=== PATIENT | male | born 1945 | race Caucasian/White ===

== ENCOUNTER 2022-04-22 09:17 | Outpatient (CLI) | payer MEDICARE, OTHER, SELFPAY | END 2022-04-22 09:18 | disposition home or self-care (01) | PROVIDERS: PCP Family Medicine; Visit Provider Family Medicine | DX: R41.82 Altered mental status, unspecified (principal); I95.9 Hypotension, unspecified | CPT/HCPCS: A0998 ==

== ENCOUNTER 2024-08-21 14:09 | Outpatient (CLI) | payer MEDICARE, OTHER, SELFPAY | END 2024-08-21 14:10 | disposition home or self-care (01) | LOC: AMB 09-06 05:44 | PROVIDERS: PCP Family Medicine; Visit Provider Family Medicine | DX: R53.1 Weakness (principal) | CPT/HCPCS: A0425; A0427 ==

== ENCOUNTER 2024-08-21 14:59 | Emergency (ER) | payer MEDICARE, OTHER, SELFPAY ==
--- NOTE | 2024-08-21 15:09 | ED_ITS ---
HPI - General Adult General Time Seen by Provider: 15:09 Date Seen: 08/21/24 Chief complaint: Weakness Stated complaint: Fall Time Seen by Provider: 08/21/24 15:09 Source: patient, EMS and RN notes reviewed Mode of arrival: EMS Limitations: no limitations History of Present Illness HPI narrative: This 79-year-old male is brought in by EMS from [place] with increasing weakness. He has had 5 falls since Tuesday, today is Tuesday. He did hit his forehead today, no loss of consciousness. Denies any headache. Is not any blood thinner. He does have some left lower knee pain, hurts to stand on it reportedly. EMS got blood pressures from sitting to standing of systolic 90s down to 70s. Patient reportedly has not been coming down to the dining room to eat as much. Patient tells me he has had no change in his appetite, is still eating. No nausea vomiting, no diarrhea, no abdominal pain. Denies any cough or chest symptoms, no chest pain. Denies any urinary symptoms. The falls are reportedly just slumping to ground other than the 1 where he hit his forehead. That happened today. He has not noted any fevers. Patient's medications include atorvastatin and iron. He has facility p.r.n. and which are reviewed. They do not have prior diagnoses on file, does have no known drug allergies. Did review [facility] and see that there is dilation of aorta, depression listed. [place] [facility] [place] did have [place] bleed, close fracture right zygomatic arch noted. Review of Systems Status of ROS: Reports: 6 or more systems reviewed and unremarkable except as noted in History and below [facility] Social History Smoking Status: Never smoker How often do you have a drink containing alcohol: never AUDIT-C Alcohol total score: 0 Non-prescribed substance use: denies use Exam Const: Vital Signs, click to edit/add: Vital Signs - 24 hr 08/21/24 15:24 Temperature 98.2 F Pulse Rate [Pulse Oximeter] 89 Respiratory Rate 20 Blood Pressure [Ri ght Upper Arm] 114/81 Pulse Oximetry 98 Oxygen Delivery Me thod Room Air This 79-year-old male is alert and interactive, brought in by EMS. He is si tting up in the bed and conversant. He has a superficial abrasion in the right front forehead, no active bleeding, probably some underlying ecchymosis developing. Pupils are equal round reactive to light, sclera clear, conjugate gaze. Symmetrical facial function, speech is normal. No midline tenderness of his neck, good range of motion without pain. Lungs are clear, no wheezing or crackles, no tachypnea. CV regular rate and rhythm, normal S1-S2. Abdomen is soft, nontender, nondistended, no organomegaly. He is moving arms and legs, no focal gross neurologic deficit noted, follows commands. He does have a strong smell of urine. Documenting provider has reviewed patient's vital signs: yes Course Course ED Course: He misses reporting a hypotensive but non febrile patient. Certainly infectious etiology would be a concern here. He did fall in will get a head CT. He is notably not on any blood thinners. Will look at a portable chest x-ray in full complement of labs. EKG has been obtained and does not show any definitive pathology on my preliminary review. Consider metabolic issues. Does not seem to be acute cerebrovascular disease but will consider bleeding intracranially. He does appear that he may have a history of this. Reevaluation(s) Time of Reevaluation #1: 17:58 Reevaluation #1: Patient states he has been unable to provide a urine. He was declining in and out catheterization. Reviewed with him that we certainly can do Uro jet for numbing. He states it hurts, reviewed with him I do understand hopefully the Uro jet will help diminish this. We really need the urinalysis to fully evaluate him. My fear is if he goes back without knowing the urinalysis and there is infection, he is certainly at risk for falling again. We have no evidence of any concerning etiology for his symptoms at this time but consider the workup incomplete without the urinalysis. He does agree to attempt in out catheterization for urine specimen with the uro jet. Time of Reevaluation #2: 19:28 Reevaluation #2: We are not finding any diagnostic reason such as infection with Peter. He has no complaints of pain at this time. Did review his lower extremities. He has some dependent rubor of his toes in both feet, has them hanging off the into the bed somewhat. He has some in different levels of age bruising over both knees, some more yellowish greenish, some more purplish in new. He has no joint line swelling, I can flex and extend his knees he states there is no pain. Note no evidence of cellulitis over his extremities. Did visualize is back in do not see any cellulitic areas or traumatic areas. Lab certainly are reassuring, have reviewed with him that there is nothing that overtly standing out to correct at this time. He is aware to alert staff if he is having increasing pain, is feeling ill or developing specific symptoms. I would recommend re-evaluation. Vital Signs Vital signs: Initial Vital Signs Temperature 98.2 F 08/21/24 15:24 Temperature Source Temporal Artery Scan 08/21/24 15:24 Pulse Rate 89 08/21/24 15:24 Respiratory Rate 20 08/21/24 15:24 Blood Pressure 114/81 08/21/24 15:24 Blood Pressure Mean 92 08/21/24 15:24 Blood Pressure Position Semi-Fowlers 08/21/24 15:24 Pulse Oximetry 98 08/21/24 15:24 Oxygen Delivery Method Room Air 08/21/24 15:24 Vital Signs Temperature 98.2 F 08/21/24 15:24 Pulse Rate 89 08/21/24 15:24 Respiratory Rate 20 08/21/24 15:24 Blood Pressure 114/81 08/21/24 15:24 Pulse Oximetry 98 08/21/24 15:24 Oxygen Delivery Method Room Air 08/21/24 15:24 Temperature 98.2 F 08/21/24 15:24 Pulse Rate 89 08/21/24 15:24 Respiratory Rate 20 08/21/24 15:24 Blood Pressure 114/81 08/21/24 15:24 Pulse Oximetry 98 08/21/24 15:24 Oxygen Delivery Method Room Air 08/21/24 15:24 Medical Decision Making Lab Data Labs: Lab Results 08/21/24 08/21/24 08/21/24 Range/Units 15:15 15:41 16:35 WBC 9.80 (4.50-11.00) K/uL RBC 4.54 (4.30-5.90) m/uL Hgb 13.4 L (13.5-17.5) gm/dL Hct 41.8 (37.0-53.0) % MCV 92 (80-100) fL MCH 30 (26-34) pg MCHC 32 (32-36) gm/dL RDW Coeff of Kristen 13.8 (11.5-15.5) % Plt Count 217 (140-440) K/uL Neut % (Auto) 81.8 H (42.0-72.0) % Lymph % (Auto) 9.7 L (20-44) % Morrill % (Auto) 8.2 (0.0-11.0) % Eos % (Auto) 0.1 (0.0-7.0) % Baso % (Auto) 0.1 (0.0-3.0) % Neut # (Auto) 8.00 H (1.7-7.0) K/uL Lymph # (Auto) 1.00 (0.90-2.90) K/uL Morrill # (Auto) 0.80 (0.00-0.90) K/UL Eos # (Auto) 0.01 (0.00-0.50) K/uL Baso # (Auto) 0.01 (0.00-0.30) K/uL Abs Immat Gran (auto) 0.01 (0.00-0.30) K/uL Imm/Tot Granulo (auto) 0.1 % Sodium 135 (135-149) mmol/L Potassium 4.2 (3.6-5.1) mmol/L Chloride 102 (96-114) mmol/L Carbon Dioxide 27 (20-32) mmol/L Anion Gap 6 L (7-15) mEq/L BUN 41 H (7-30) mg/dL Creatinine 1.6 H (0.5-1.5) mg/dL Estimated Creat Clear 39.49 Estimated GFR 43 ml/min Glucose 112 (60-115) mg/dL Lactate 2.0 H (0.5-1.9) mmol/L Calcium 8.9 (8.4-10.6) mg/dL Total Bilirubin 1.2 (0.1-1.5) mg/dL AST 33 (12-35) U/L ALT 18 (4-50) U/L Alkaline Phosphatase 57 (40-150) U/L Troponin I 0.03 (0.01-0.04) ng/mL C-Reactive Protein 2.8 H (0.5-1.0) mg/dL Total Protein 6.6 (6.0-8.3) g/dL Albumin 3.6 (3.3-5.0) g/dL Procalcitonin 0.11 (<0.50) ng/mL Urine Color Yellow (Yellow) Urine Appearance Clear (Clear) Urine pH 6.0 (5.0-8.5) Ur Specific [place] >= 1.030 (1.000-1.030) Urine Protein 1+ A (Negative) Urine Glucose (UA) Negative (Negative) Urine Ketones 1+ A (Negative) Urine Blood Negative (Negative) Urine Nitrite Negative (Negative) Urine Bilirubin 1+ A (Negative) Urine Urobilinogen 1.0 (0.2-1.0) Ur Leukocyte Esterase Negative (Negative) Urine RBC 0-2 (0-2) Urine WBC 0-2 (0-5) Ur Squamous Epith Cells Few (None-Few) Urine Bacteria None (None) SARS-CoV-2 (PCR) Negative SARS-CoV-2 (Negative) Influenza Type A (PCR) Negative PCR FLU A (Negative) Influenza Type B (PCR) Negative PCR FLU B (Negative) RSV (PCR) Negative PCR RSV (Negative) Imaging Data CT scan - head: Attestation: I have reviewed the pertinent imaging results. Radiologist's impression: Patient: TIFFANIE MANDUJANO Facility:?[facility] Patient ID:?[id number] Site Patient ID:?[id number] Site :?[id number] Study:?CT-Head WITHOUT-08/21/2024 3:53:12 PM Ordering Physician:Krissy Carrion Final Report: INDICATION: FELL, HIT HEAD TECHNIQUE: CT of the head was performed without IV contrast. COMPARISON: Report 06/17/2018. FINDINGS: Parenchyma: No acute hemorrhage, infarction, or mass. Moderate confluent periventricular white matter hypoattenuation is nonspecific and is favored to represent chronic small vessel ischemic disease. Mild left temporal encephalomalacia. Ventricles and extra-axial spaces: Mild involutional changes. Possible small 3 millimeter left frontal chronic subdural hematoma versus hygroma. 4 millimeter of [id number] midline shift. Visualized paranasal sinuses: Clear. Mastoid air cells: Clear. Bones: No focal abnormality. Additional comment: None. IMPRESSION: 1. No acute intracranial abnormality. 2. Possible small 3 millimeter left frontal chronic subdural hematoma versus hygroma in association with 4 millimeter of left to right midline shift. Please note that all CT scans at this facility use dose modulation, iterative reconstruction, and/or weight-based dosing when appropriate to reduce radiation dose to as low as reasonably achievable. Dictated by Solitario Quan MD @ 08/21/2024 4:03:21 PM (Electronic Signature) Chest x-ray: Attestation: I have reviewed the pertinent imaging results. Radiologist's impression: Patient: TIFFANIE MANDUJANO Facility:?[facility] Patient ID:?[id number] Site Patient ID:?[id number]. Site :?[id number] Study:?XRay-Chest 1V-08/21/2024 3:56:54 PM Ordering Physician:?Floyd Carrion Final Report: INDICATION: Weakness TECHNIQUE: 1 view chest radiograph COMPARISON: None. FINDINGS: Devices: None. Lung volumes are good. No focal or diffuse opacities. No pleural effusion. No pneumothorax. Heart size is normal. IMPRESSION: Lungs clear. No acute findings. Dictated by Court Lazar MD @ 08/21/2024 4:06:39 PM (Electronic Signature) ECG Data Attestation: I personally reviewed and interpreted this ECG as follows: (Normal sinus rhythm, nonspecific flattened T-waves, low-voltage possible. No definitive diagnostic ischemic change. QT corrected 519 milliseconds.) Discharge Plan Discharge Clinical Impression: Weakness Patient Disposition: Home w/ Parent or Adult Condition: Stable Instructions: Weakness (ED) Additional Instructions: Patient's head CT showing no acute abnormality, chest x-ray without any evidence of pneumonia. His white blood count is normal, urinalysis not indicating any infection. He is negative on the triple viral swab. We are not showing any reason for active causes of weakness. Would encourage him to eat and drink. If a focal symptom is noted, develops fevers, has new complaints, we are happy to re-evaluate in the ER. Follow Up/Referrals: Calderon Charles MD [Referring] - Stand Alone Forms: [facility]
--- NOTE | 2024-08-21 15:14 | CRLHL7_ITS ---
For Patients: As a result of the Century Cures Act, medical imaging exams and procedure reports are released immediately into your electronic medical record. You may view this report before your referring provider. If you have questions, please contact your health care provider. INDICATION: FELL, HIT HEAD TECHNIQUE: CT of the head was performed without IV contrast. COMPARISON: Report 06/17/2018. FINDINGS: Parenchyma: No acute hemorrhage, infarction, or mass. Moderate confluent periventricular white matter hypoattenuation is nonspecific and is favored to represent chronic small vessel ischemic disease. Mild left temporal encephalomalacia. Ventricles and extra-axial spaces: Mild involutional changes. Possible small 3 millimeter left frontal chronic subdural hematoma versus hygroma. 4 millimeter of [id number] midline shift. Visualized paranasal sinuses: Clear. Mastoid air cells: Clear. Bones: No focal abnormality. Additional comment: None. IMPRESSION: 1. No acute intracranial abnormality. 2. Possible small 3 millimeter left frontal chronic subdural hematoma versus hygroma in association with 4 millimeter of left to right midline shift. Please note that all CT scans at this facility use dose modulation, iterative reconstruction, and/or weight-based dosing when appropriate to reduce radiation dose to as low as reasonably achievable. Dictated by Solitario Quan MD @ 08/21/2024 4:03:21 PM (Electronically Signed)
--- NOTE | 2024-08-21 15:14 | CRLHL7_ITS ---
For Patients: As a result of the Century Cures Act, medical imaging exams and procedure reports are released immediately into your electronic medical record. You may view this report before your referring provider. If you have questions, please contact your health care provider. INDICATION: Weakness TECHNIQUE: 1 view chest radiograph COMPARISON: None. FINDINGS: Devices: None. Lung volumes are good. No focal or diffuse opacities. No pleural effusion. No pneumothorax. Heart size is normal. IMPRESSION: Lungs clear. No acute findings. Dictated by Court Lazar MD @ 08/21/2024 4:06:39 PM (Electronically Signed)
[2024-08-21 15:24] VITALS: BP 114/81; PULSE 89; RESP 20; TEMP 36.8; O2SAT 98; BMI 21.8
[2024-08-21 16:37] LABS: PCR FLU A Negative PCR FLU A (Negative); PCR FLU B Negative PCR FLU B (Negative); PCR RSV Negative PCR RSV (Negative); SARS PCR* Negative SARS-CoV-2 (Negative)
[2024-08-21 16:45] LABS: Basophils Absolute Auto 0.01 K/uL (0.00-0.30); Basophils Percent Auto 0.1 % (0.0-3.0); Eosinophils Absolute Auto 0.01 K/uL (0.00-0.50); Eosinophils Percent Auto 0.1 % (0.0-7.0); Hematocrit 41.8 % (37.0-53.0); Hemoglobin* 13.4 gm/dL (13.5-17.5); Immature Granulocytes Abs Auto 0.01 K/uL (0.00-0.30); Immature Granulocytes Pct Auto 0.1 %; Lymphocytes Percent Auto 9.7 % (20-44); Mean Corpuscular HGB Conc 32 gm/dL (32-36); Mean Corpuscular Hemoglobin 30 pg (26-34); Mean Corpuscular Volume 92 fL (80-100); Monocytes Percent Auto 8.2 % (0.0-11.0); Neutrophils Percent Auto 81.8 % (42.0-72.0); Platelet Count* 217 K/uL (140-440); RDW Coefficient of Variation % 13.8 % (11.5-15.5); Red Blood Count 4.54 m/uL (4.30-5.90)
[2024-08-21 16:49] LABS: Slide Review Reflex No
[2024-08-21 17:07] LABS: Albumin* 3.6 g/dL (3.3-5.0); Chloride* 102 mmol/L (96-114)
[2024-08-21 17:08] LABS: Potassium* 4.2 mmol/L (3.6-5.1); Sodium* 135 mmol/L (135-149)
[2024-08-21 17:10] LABS: Alkaline Phosphatase* 57 U/L (40-150); Anion Gap 6 mEq/L (7-15); Aspartate Amino Transferase* 33 U/L (12-35); Bilirubin Total* 1.2 mg/dL (0.1-1.5); Carbon Dioxide* 27 mmol/L (20-32); Creatinine* 1.6 mg/dL (0.5-1.5); Est. Creatinine Clearance* 39.49; Estimated Glomerular Filt Rate 43 ml/min; Total Protein* 6.6 g/dL (6.0-8.3)
[2024-08-21 17:11] LABS: Alanine Aminotransferase* 18 U/L (4-50); Blood Urea Nitrogen* 41 mg/dL (7-30); Calcium* 8.9 mg/dL (8.4-10.6); Glucose* 112 mg/dL (60-115)
[2024-08-21 17:13] LABS: C Reactive Protein* 2.8 mg/dL (0.5-1.0)
[2024-08-21 17:23] LABS: Troponin I* 0.03 ng/mL (0.01-0.04)
[2024-08-21 17:28] LABS: Procalcitonin* 0.11 ng/mL (<0.50)
[2024-08-21 18:17] LABS: Appearance Urine Clear (Clear); Bilirubin Urine 1+ (Negative); Blood Urine Negative (Negative); Color Urine Yellow (Yellow); Glucose Urine Negative (Negative); Ketones Urine 1+ (Negative); Leukocyte Esterase Urine Negative (Negative); Nitrite Urine Negative (Negative); Protein Urine 1+ (Negative); Specific Gravity Urine >= 1.030 (1.000-1.030)
[2024-08-21 18:44] LABS: RBC Urine 0-2 (0-2); Squamous Epithelial Cell Urine Few (None-Few); WBC Urine 0-2 (0-5)
== END 2024-08-21 20:07 | disposition home or self-care (01) ==
PROVIDERS: Emergency Provider Family Medicine; PCP Family Medicine
DX: R53.1 Weakness (principal)
CPT/HCPCS: 36415; 70450; 71045; 80053; 81001; 83605; 84145; 84484; 85025; 86140; 87631; 94761; 99284

== ENCOUNTER 2024-09-04 09:28 | Outpatient (CLI) | payer MEDICARE, OTHER, SELFPAY | END 2024-09-04 09:29 | disposition home or self-care (01) | LOC: AMB 09-14 04:23 | PROVIDERS: PCP Family Medicine; Visit Provider Family Medicine | DX: R55 Syncope and collapse (principal); K92.1 Melena | CPT/HCPCS: A0425; A0427 ==

== ENCOUNTER 2024-09-04 10:06 | Inpatient (IN) | payer MEDICARE, OTHER, SELFPAY ==
[2024-09-04] VITALS (14 sets, daily range): BP systolic 80–148; BP diastolic 53–101; PULSE 78–110; RESP 12–20; TEMP 36.5–36.6; O2SAT 93–97; BMI 21.8; BMI 24.5
--- OUTSIDE RECORDS SUMMARY | 2024-09-04 10:18 | XMS_ITS | CCD ---
Author Name Leticia Machado PA-C Address [address] [place] [address] Phone Organization [facility] Phone Care Team Providers Care Photo Checker Name Role Phone Celine MONROE-CJoseline Primary Care Provider Katy vailable Celine GROUT MACHINE OPERATOR-CJoseline Chronic Care Management U navailable Summary Purpose DataExchange Insurance Providers Payer name Policy type / Coverage type Covered green party ID Effective Begin Date Effective End Date Medicare [place] Medicare Part B [id number] Unknown 2023 1 Medica ([facility]) Medicare Part B [id number] Unknown 2023 1 Family History Family History data not found Allergies, Adverse Reactions, Alerts Substance Reaction Codes Entered Date Inactivated Date Status * NO KNOWN DRUG ALLERGIES Unknown 07/30/2021 No Inactive Date Active Problems Condition Codes Effective Dates Condition St atus Aortic dilatation ICD-10: I77.819 ICD-9: 447.70 10/08/2021 Active Dyslipidemia ICD-10: E78.5 ICD-9: 272.4 10/08/2021 Active Enteritis ICD-10: K52.9 ICD-9: 558.9 10/08/2021 Active Erectile dysfunction of orga yuniel origin ICD-10: N52.9 ICD-9: 607.84 10/08/2021 Active Frequent falls ICD-10: R29.6 ICD-9: V15.88 10/08/2021 Active Iron deficiency anemia, unsp ecified iron deficiency anemia type ICD-10: D50.9 ICD-9: 280.9 10/08/2021 Active Irregular heart rhythm ICD-10: I49.9 ICD-9: 427.9 10/08/2021 Active Normocytic anemia ICD-10: D64.9 ICD-9: 285.9 10/08/2021 Active Recurrent major depressive disorder, in full remission ICD-10: F33.42 ICD-9: 296.36 10/08/2021 Active Tobacco use disorder ICD-10: F17.200 ICD-9: 305.1 10/08/2021 Active Traumatic brain injury with loss of consciousness, sequela ICD-10: S06.9X9S ICD-9: 907.0 10/08/2021 Active Vitamin D deficiency ICD-10: E55.9 ICD-9: 268.9 10/08/2021 Active Medications Medication Codes Instructions Start Date Stop Date Status Fill Instructions acetaminophen 325 mg tablet RxNorm: 531287 Take 2 Tablet(s) Oral Q4H every four hours as needed PRN mild pain. NOT TO EXCEED 3,000 MG IN 24 HOURS 10/08/19 22 No Stop Date Active Vitamin D2 1,250 mcg (50,000 unit) capsule RxNorm: 6343650 1 Capsule(s) Oral QW once a week TAKE ONCE CAPSULE ONCE WEEKLY 10/08/19 22 022 Inactive dextromethorphan-gu aifenesin 10 mg-100 mg/5 mL oral liquid RxNorm: 423349 as needed TAKE 5-10ML BY MOUTH EVERY 4-6HOURS NEEDED FOR COUGH OR CONGESTION 10/08/19 22 No Stop Date Active dx: cough due to Covid19 calcium carbonate 500 mg calcium (1,250 mg) chewable tablet RxNorm: 890484 Chew 2-4 Tablet(s) Oral as needed CHEW 2-4 TABLETS BY MOUTH BETWEEN MEALS AND AT BEDTIME NEEDED 10/08/19 22 No Stop Date Active ibuprofen 200 mg tablet RxNorm: 767400 Take 1-2 Tablet(s) Oral Q4-6H every 4-6 hours as needed NOT TO EXCEED 6 TABS IN 24 HOURS 10/08/19 22 No Stop Date Active aluminum-mag hydroxide-simethico ne 200 mg-200 mg-20 mg/5 mL oral susp RxNorm: 141198 Take 5-10 Milliliter(s) Oral QID as needed ONE TIME BETWEEN MEAL AND AT BEDTIME (STANDING ORDER) 10/08/19 22 No Stop Date Active Milk of Magnesia 400 mg/5 mL oral suspension RxNorm: 401964 Take 15-30 Milliliter(s) Oral QD QD - Daily as needed 10/08/19 22 No Stop Date Active diphenhydramine 25 mg capsule RxNorm: 9772975 Give 1-2 Capsule(s) Oral Q8H every 8 hours as needed FOR ALLERGIES 10/08/19 22 No Stop Date Active ferrous sulfate 325 mg (65 mg iron) tablet RxNorm: 931389 Take 1 Tablet(s) Oral QD 10/06/19 22 024 Inactive atorvastatin 40 mg tablet RxNorm: 684240 Take 1 Tablet(s) Oral QHS every night at bedtime 10/06/19 22 023 Inactive CertaVite Senior oral RxNorm: oral 09/28/19 24 024 Inactive Oyster Shell Calcium oral RxNorm: 1897 oral 09/28/19 24 024 Inactive Medication Administered No Medication Administered data Immunizations Vaccine Codes Dose Date Status Covid-19 (Adult) CVX: 207 07/22/2021 Influenza CVX: 205 1 06/22/2021 Complete Covid-19 (Adult) CVX: 207 08/28/2020 Covid-19 (Adult) CVX: 207 08/25/2020 Results Observation Observation Code Item Item Code Result Date Service Location Vitamin B12 VITAB12 Vitamin B12 2132-9 257 pg/mL 22 Unknown Pro-BNP-NT PROBNPNT Pro-BNP-NT 81 pg/mL 10/17/19 22 Unknown Vitamin D, 25-Hydroxy VITAD25 Vitamin D, 25-Hydroxy 60823-4 100 ng/mL 10/17/19 22 Unknown CBC with Differential / Platelets CBCDIFF Baso (Absolute) 0.15 x10E3/uL 10/17/19 22 Unknown CBC with Differential / Platelets CBCDIFF Basos 2.20 % 10/17/19 22 Unknown CBC with Differential / Platelets CBCDIFF Eos 2.6 % 10/17/19 22 Unknown CBC with Differential / Platelets CBCDIFF Eos (Absolute) 0.18 x10E3/uL 10/17/19 22 Unknown CBC with Differential / Platelets CBCDIFF Hematocrit 4544-3 44.2 % 10/17/19 22 Unknown CBC with Differential / Platelets CBCDIFF Hemoglobin 718-7 14.6 g/dL 10/17/19 22 Unknown CBC with Differential / Platelets CBCDIFF LYMPHOCYTES 30.0 % 10/17/19 22 Unknown CBC with Differential / Platelets CBCDIFF Lymphocytes (Absolute) 2.07 x10E3/uL 10/17/19 22 Unknown CBC with Differential / Platelets CBCDIFF MCH 30.7 pg 10/17/19 22 Unknown CBC with Differential / Platelets CBCDIFF MCHC 33.0 g/dL 10/17/19 22 Unknown CBC with Differential / Platelets CBCDIFF MCV 787-2 92.9 % 10/17/19 22 Unknown CBC with Differential / Platelets CBCDIFF Monocytes 8.4 % 10/17/19 22 Unknown CBC with Differential / Platelets CBCDIFF Monocytes (Absolute) 0.58 x10E3/uL 10/17/19 22 Unknown CBC with Differential / Platelets CBCDIFF MPV 12624-4 10.9 fL 10/17/19 22 Unknown CBC with Differential / Platelets CBCDIFF Neutrophils 55.50 % 10/17/19 22 Unknown CBC with Differential / Platelets CBCDIFF Neutrophils (Absolute) 3.84 x10E3/uL 10/17/19 22 Unknown CBC with Differential / Platelets CBCDIFF Platelets 777-3 237 x10E3/uL 10/17/19 22 Unknown CBC with Differential / Platelets CBCDIFF RBC 4.76 x10^6/UL 10/17/19 22 Unknown CBC with Differential / Platelets CBCDIFF RDW 13.2 %binding 10/17/19 22 Unknown CBC with Differential / Platelets CBCDIFF WBC 6690-2 6.91 x10E3/uL 10/17/19 22 Unknown Lipid Panel (LP) LIPIDPAN CHOLESTEROL, TOTAL 52729-0 129 mg/dL 10/17/19 Unknown Lipid Panel (LP) LIPIDPAN HDL CHOLESTEROL 2085-9 56.3 mg /dL 10/17/19 22 Unknown Lipid Panel (LP) LIPIDPAN LDL CHOLESTEROL CALCULATED 14256-2 60 ppm 10/17/19 22 Unknown Lipid Panel (LP) LIPIDPAN TRIGLYCERIDES 2571-8 63.1 mg/d L 10/17/19 Unknown Lipid Panel (LP) LIPIDPAN VLDL Cholestero l Calculated 13 ppm 10/17/19 22 Unknown Ferritin FERRITN FERRITIN 66900-6 48.8 ng/mL 10/17/19 22 Unknown Hemoglobin A1c HEMOGLOBA Hemoglobin A1c 27283-4 5.7 %A1c 10/17/19 22 Unknown Complete Metabolic Panel (CMP) CMP A/G Ratio 1.6 ppm 10/17/19 22 Unknown Complete Metabolic Panel (CMP) CMP Albumin 1751-7 4.2 g/dL 10/17/19 22 Unknown Complete Metabolic Panel (CMP) CMP Alkaline Phosphatase 56 U/L 10/17/19 22 Unknown Complete Metabolic Panel (CMP) CMP ALT (SGPT) 13 U/L 10/17/19 22 Unknown Complete Metabolic Panel (CMP) CMP AST (SGOT) 16.2 U/L 10/17/19 22 Unknown Complete Metabolic Panel (CMP) CMP BILIRUBIN, TOTAL 1975-2 0.5 mg/dL 10/17/19 22 Unknown Complete Metabolic Panel (CMP) CMP Blood Urea Nitrogen (BUN) 28 mg/dL 10/17/19 22 Unknown Complete Metabolic Panel (CMP) CMP BUN/CREATININE RATIO 22.18 ratio 10/17/19 22 Unknown Complete Metabolic Panel (CMP) CMP Calcium (Ca) 32003-3 10.3 mg/dL 10/17/19 22 Unknown Complete Metabolic Panel (CMP) CMP Carbon Dioxide (ECO2) 30 mEq/L 10/17/19 22 Unknown Complete Metabolic Panel (CMP) CMP Chloride (Cl) 2075-0 103 mmol/L 10/17/19 22 Unknown Complete Metabolic Panel (CMP) CMP Creatinine 2160-0 1.24 mg/dL 10/17/19 22 Unknown Complete Metabolic Panel (CMP) CMP eGFR 60.00 mL/min/1.7 3m2 10/17/19 22 Unknown Complete Metabolic Panel (CMP) CMP eGFR 77557-6 73.00 mL/min/1.7 3m2 10/17/19 22 Unknown Complete Metabolic Panel (CMP) CMP Globulin, Total 2.6 ppm 10/17/19 22 Unknown Complete Metabolic Panel (CMP) CMP Glucose 96 mg/dL 10/17/19 22 Unknown Complete Metabolic Panel (CMP) CMP Potassium (K) 2823-3 4.2 mmol/L 10/17/19 22 Unknown Complete Metabolic Panel (CMP) CMP PROTEIN, TOTAL 2885-2 6.9 g/dL 10/17/19 22 Unknown Complete Metabolic Panel (CMP) CMP Sodium (Na) 2951-2 138 mmol/L 10/17/19 22 Unknown TSH TSH TSH 70616-3 1.10 uIU/mL 10/17/19 22 Unknown PDFReport PDFReport PDFReport 10/16/19 22 Unknown PHQ-9 PHQ9 28455-7 0 10/09/19 22 Unknown PHQ-9 PHQ9 02701-8 0 10/09/19 22 Unknown Mini-cog Mini-cog 67499-4 3 10/09/19 22 Unknown SLUMS SLUMS 78781-2 21 10/09/19 22 Unknown Procedures Procedure Codes Date BEHAV CHNG SMOKING 3-[address]: 2 87786697 CPT-4: 43907 10/08/2021 BEHAV CHNG SMOKING 3-[address]: 2 97210474 CPT-4: 34212 10/08/2021 FXNL STATUS ASSESSED CPT-4: 1170F 10/08/2021 AMNT PAIN NOTED NONE PRSNT CPT-4: 1126F 10/08 FALL RISK ASSESSMENT DOCD CPT-4: 3288F 2021 Medicare Annual Wellness Visit- Subseque nt SNOMED CT: [id number] CPT-4: G0439 10/08/2021 VACC AIIV4 NO PRSRV 0.5ML IM CPT-4: 99651 TOBACCO OFFICE TECHNOLOGIST NO CHARGE CPT-4: G0436 2021 Vital Signs Date Vital 10/08/2021 Blood Pressure 1: 105/68 Code: 8480-6 BMI: 27.7 Code: 83256-3 Heart Rate 1: 81 bpm Code: 8867-4 Height: 5'10 Code: 8302-2 Respiratory Rate: 14 bpm SpO2: 99% Temperature: 35.6 (C) / 96.0 (F) Weight: 193 lbs Code: 3141-9 Reason For Visit No Reason For Visit data Encounters Encounter Performer Location Location Address Codes Date () DOMICIL VISIT NEW PAT Diagnosis: Vitamin D deficiency[ICD10: E55.9] Diagnosis: Dyslipidemia[ICD10: E78.5] Diagnosis: Tobacco use disorder[ICD10: F17.200] Diagnosis: Erectile dysfunction of organic origin[ICD10: N52.9] Diagnosis: Recurrent major depressive disorder, in full remission[ICD10: F33.42] Diagnosis: Iron deficiency anemia, unspecified iron deficiency anemia type[ICD10: D50.9] Diagnosis: Traumatic brain injury with loss of consciousness, sequela[ICD10: S06.9X9S] Diagnosis: Aortic dilatation[ICD10: I77.819] Diagnosis: Normocytic anemia[ICD10: D64.9] Diagnosis: Enteritis[ICD10: K52.9] Diagnosis: Irregular heart rhythm[ICD10: I49.9] Diagnosis: Frequent falls[ICD10: R29.6] Leticia Machado [facility] [address] [place] [address] CPT-4: 39927 10/08/2021 Plan of Care Planned Activity Notes Codes Status Date Referral: [facility] W[facility] [address] [id number] Referral Closed 09/15/2022 Visit Plan: 10/08/2021 Patient Education: Patient Medication Summary Completed 10/08/2021 Patient Education: Influenza Vaccine Completed 10/08/2021 Patient Education: Smoking Cessation Completed 10/08/2021 Patient Education: Dementia Complete d 10/08/2021 Instructions Comment Date Cruz is a male being seen l hellen at [facility]. Initial BPS visit 10/08/21. He is verbal and a fairly reliable historian, independent in ADLs. Prior to moving to this [place] he was found in his apartment with self-neglect. Hx of being . Often refuses help as nursing thinks he feels too proud to receive care. Hx of not liking to take meds or see providers. Patient is his own guardian. AWV 05.23.2024Labs: Yearly in NOVEMBER(CMP, CBC, LIPID, VITD, A1C, VITB12). [id number] in MAY (CBC). CMP wnl, CBCwnl, lipid all wnl; total cholesterol 117, HDL 51.9, LDL 40, triglycerides 124, VLDL 25), vitD 46 nl, iron studies, A1c 5.6, VitB12 223 nl. (CBC ordered) 05/23/2024
--- OUTSIDE RECORDS SUMMARY | 2024-09-04 10:18 | XMS_ITS | CCD ---
Author Organization Unknown Care Team Providers Care Supervisor Cleaning And Annealing Name Role Phone Celine MANAGER DIABETES-C, Joseline Primary Care Provider Katy vailable [place] MANAGER DIABETES-C, Joseline Chronic Care Management U navailable Summary Purpose DataExchange Insurance Providers Payer name Policy type / Coverage type Covered republican ID Effective Begin Date Effective End Date Medicare [place] Medicare Part B [id number] Unknown 2023 1 Medica ([facility]) Medicare Part B [id number] Unknown 2023 1 Family History Family History data not found Social History Social History Element Codes Description Effec tive Dates Tobacco history SNOMED CT: 93716660 Current ever y day smoker 10/daily 10/09/[address]: 333561326 No Alcohol Consumption Hx, or if available 10/09/2021 Allergies, Adverse Reactions, Alerts Substance Reaction Codes Entered Date Inactivated Date Status * NO KNOWN FOOD ALLERGIES Unknown 10/08/2021 No Inactive Date Active * NO KNOWN ENVIRONMENTAL ALLERGIES Unknown 10/08/2021 No Inactive Date Active * NO KNOWN DRUG ALLERGIES Unknown 07/30/2021 [...] Start Date Stop Date Status Fill Instructions cholecalciferol (vitamin D3) 1,250 mcg (50,000 unit) capsule RxNorm: 169733 Take 1 Capsule(s) Oral every other week 10/22/19 22 022 Inactive cholecalciferol (vitamin D3) 1,250 mcg (50,000 unit) capsule RxNorm: 393324 Take 1 Capsule(s) Oral every other week 10/22/19 22 023 Inactive acetaminophen 325 mg tablet RxNorm: 418956 Take 2 Tablet(s) Oral Q4H every four hours as needed PRN mild pain. NOT TO EXCEED 3,000 MG IN 24 HOURS 10/08/19 22 No Stop Date Active Vitamin D2 1,250 mcg (50,000 unit) capsule RxNorm: 2480610 1 Capsule(s) Oral QW once a week TAKE ONCE CAPSULE ONCE WEEKLY 10/08/19 22 022 Inactive dextromethorphan-gu aifenesin 10 mg-100 mg/5 mL oral liquid RxNorm: 097162 as needed TAKE 5-10ML BY MOUTH EVERY 4-6HOURS NEEDED FOR COUGH OR CONGESTION 10/08/19 22 No Stop Date Active dx: cough due to Covid19 calcium carbonate 500 mg calcium (1,250 mg) chewable tablet RxNorm: 052965 Chew 2-4 Tablet(s) Oral as needed CHEW 2-4 TABLETS BY MOUTH BETWEEN MEALS AND AT BEDTIME NEEDED 10/08/19 22 No Stop Date Active ibuprofen 200 mg tablet RxNorm: 923106 Take 1-2 Tablet(s) Oral Q4-6H every 4-6 hours as needed NOT TO EXCEED 6 TABS IN 24 HOURS 10/08/19 No Stop Date Active aluminum-mag hydroxide-simethico ne 200 mg-200 mg-20 mg/5 mL oral susp RxNorm: 560272 Take 5-10 Milliliter(s) Oral QID as needed ONE TIME BETWEEN MEAL AND AT BEDTIME (STANDING ORDER) 10/08/19 No Stop Date Active Milk of Magnesia 400 mg/5 mL oral suspension RxNorm: 355741 Take 15-30 Milliliter(s) Oral QD QD - Daily as needed 10/08/19 22 No Stop Date Active diphenhydramine 25 mg capsule RxNorm: 0652917 Give 1-2 Capsule(s) Oral Q8H every 8 hours as needed FOR ALLERGIES 10/08/19 No Stop Date Active ferrous sulfate 325 mg (65 mg iron) tablet RxNorm: 956742 Take 1 Tablet(s) Oral QD 10/06/19 22 024 Inactive atorvastatin 40 mg tablet RxNorm: 881675 Take 1 Tablet(s) Oral QHS every night [...] 207 08/28/2020 Covid-19 (Adult) CVX: 207 08/25/2020 Procedures Procedure Codes Date BEHAV CHNG SMOKING 3-[address]: 2 38459427 CPT-4: 60523 10/08/2021 Reason For Visit No Reason For Visit data Plan of Care Planned Activity Notes Codes Status Date Referral: Jose Elias Garsia [facility] WPtel: [facility] [address] [facility] Referral Closed 09/15/2022 Instructions Comment Date Cruz is a male being seen l hellen at [facility]. Initial BPS visit 10/08/21. He is verbal and a fairly reliable historian, independent in ADLs. Prior to moving to this [place] he was found in his apartment with self-neglect. Hx of being . Often refuses help as nursing thinks he feels too proud to receive care. Hx of not liking to take meds or see providers. Patient is his own guardian. AWV 05.23.2024Labs: Yearly in NOVEMBER(CMP, CBC, LIPID, VITD, A1C, VITB12). [id number] in MAY (CBC). CMP wnl, CBCwnl, lipid all wnl; total cholesterol 117, HDL 51.9, LDL 40, triglycerides 124, VLDL 25), vitD 46 nl, iron studies, A1c 5.6, VitB12 223 nl. (CBC ordered) 05/23/2024
--- OUTSIDE RECORDS SUMMARY | 2024-09-04 10:19 | XMS_ITS | CCD ---
Author Name Leticia Machado PA-C Address [address] [place] [address] Phone Organization [facility] Phone Care Team Providers Care Foam Charger Name Role Phone Celine MONROE-CJoseline Primary Care Provider Katy vailable Celine VOCATIONAL REHABILITATION SUPERVISOR-CJoseline Chronic Care Management U navailable Summary Purpose DataExchange Insurance Providers Payer name Policy type / Coverage type Covered constitution party ID Effective Begin Date Effective End Date Medicare [place] Medicare Part B [id number] Unknown 2023 1 Medica ([facility]) Medicare Part B [id number] Unknown 2023 1 Family History Family History data not found Social History Social History Element Codes Description Effec tive Dates Tobacco history SNOMED CT: 62189277 Current ever y day smoker 10/daily 10/09/[address]: 523137481 No Alcohol Consumption Hx, or if available [...] atus Aortic dilatation ICD-10: I77.819 ICD-9: 447.70 03/03/2022 Active Cognitive impairment ICD-10: R41.89 ICD-9: 294.9 03/03/2022 Active Iron deficiency anemia, unsp ecified iron deficiency anemia type ICD-10: D50.9 ICD-9: 280.9 03/03/2022 Active Normocytic anemia ICD-10: D64.9 ICD-9: 285.9 03/03/2022 Active Recurrent major depressive disorder, in full remission ICD-10: F33.42 ICD-9: 296.36 03/03/2022 Active Tobacco use disorder ICD-10: F17.200 ICD-9: 305.1 03/03/2022 Active Traumatic brain injury with loss of consciousness, sequela ICD-10: S06.9X9S ICD-9: 907.0 03/03/2022 Active Enteritis ICD-10: K52.9 ICD-9: 558.9 01/20/2022 Active Erectile dysfunction of orga yuniel origin ICD-10: N52.9 ICD-9: 607.84 12/23/2021 Active Dyslipidemia ICD-10: E78.5 ICD-9: 272.4 10/08/2021 Active Frequent falls ICD-10: R29.6 ICD-9: V15.88 10/08/2021 Active Irregular heart rhythm ICD-10: I49.9 ICD-9: 427.9 10/08/2021 Active Vitamin D deficiency ICD-10: E55.9 ICD-9: 268.9 10/08/2021 Active Medications Medication Codes Instructions Start Date Stop Date Status Fill Instructions cholecalciferol (vitamin D3) 1,250 mcg (50,000 unit) capsule RxNorm: 412027 Take 1 Capsule(s) Oral every other week 10/22/19 22 023 Inactive cholecalciferol (vitamin D3) 1,250 mcg (50,000 unit) capsule RxNorm: 325492 Take 1 Capsule(s) Oral every other week 10/22/19 22 022 Inactive acetaminophen 325 mg tablet RxNorm: 240356 Take 2 Tablet(s) Oral Q4H every four hours as needed PRN mild pain. NOT TO EXCEED 3,000 MG IN 24 HOURS 10/08/19 22 No Stop Date Active dextromethorphan-gu aifenesin 10 mg-100 mg/5 mL oral liquid RxNorm: 893898 as needed TAKE 5-10ML BY MOUTH EVERY 4-6HOURS NEEDED FOR COUGH OR CONGESTION 10/08/19 22 No Stop Date Active dx: cough due to Covid19 calcium carbonate 500 mg calcium (1,250 mg) chewable tablet RxNorm: 204743 Chew 2-4 Tablet(s) Oral as needed CHEW 2-4 TABLETS BY MOUTH BETWEEN MEALS AND AT BEDTIME NEEDED 10/08/19 22 No Stop Date Active ibuprofen 200 mg tablet RxNorm: 403776 Take 1-2 Tablet(s) Oral Q4-6H every 4-6 hours as needed NOT TO EXCEED 6 TABS IN 24 HOURS 10/08/19 22 No Stop Date Active aluminum-mag hydroxide-simethico ne 200 mg-200 mg-20 mg/5 mL oral susp RxNorm: 171205 Take 5-10 Milliliter(s) Oral QID as needed ONE TIME BETWEEN MEAL AND AT BEDTIME (STANDING ORDER) 10/08/19 No Stop Date Active Milk of Magnesia 400 mg/5 mL oral suspension RxNorm: 953845 Take 15-30 Milliliter(s) Oral QD QD - Daily as needed 10/08/19 No Stop Date Active diphenhydramine 25 mg capsule RxNorm: 9805380 Give 1-2 Capsule(s) Oral Q8H every 8 hours as needed FOR ALLERGIES 10/08/19 No Stop Date Active Vitamin D2 1,250 mcg (50,000 unit) capsule RxNorm: 5498114 1 Capsule(s) Oral QW once a week TAKE ONCE CAPSULE ONCE WEEKLY 10/08/19 22 022 Inactive ferrous sulfate 325 mg (65 mg iron) tablet RxNorm: 343947 Take 1 Tablet(s) Oral QD 10/06/19 22 024 Inactive atorvastatin 40 mg tablet RxNorm: 143424 Take 1 Tablet(s) Oral QHS every night at bedtime 10/06/19 22 023 Inactive CertaVite Senior oral RxNorm: oral 09/28/19 24 024 Inactive Oyster Shell Calcium oral RxNorm: 1897 oral 09/28/19 24 024 Inactive Medication Administered No Medication Administered data Immunizations Vaccine Codes Dose Date Status Covid-19 (Adult) CVX: 07/22/2021 Influenza CVX: 205 06/22/2021 Complete Covid-19 (Adult) CVX: 08/28/2020 Covid-19 (Adult) CVX: 08/25/2020 Procedures Procedure Codes Date BEHAV CHNG SMOKING 3-[address]: 2 21245350 CPT-4: 94420 03/03/2022 BEHAV CHNG SMOKING 3-[address]: 2 01076568 CPT-4: 75992 03/03/2022 TOBACCO GAS JOCKEY NO CHARGE CPT-4: G0436 2021 BEHAV CHNG SMOKING 3-[address]: 2 19895418 CPT-4: 89791 01/20/2022 BEHAV CHNG SMOKING 3-[address]: 2 66749480 CPT-4: 30645 12/23/2021 BEHAV CHNG SMOKING 3-[address]: 2 95915016 CPT-4: 18934 11/25/2021 BEHAV CHNG SMOKING 3-[address]: 2 92563480 CPT-4: 00936 10/08/2021 Vital Signs Date Vital 03/03/2022 Height: 5'10 Code: 8302-2 SpO2: 97% T emperature: 35.6 (C) / 96.1 (F) Reason For Visit No Reason For Visit data Encounters Encounter Performer Location Location Address Codes Date (77156) DOMICIL VISIT EST PAT Diagnosis: Aortic dilatation[ICD10: I77.819] Diagnosis: Iron deficiency anemia, unspecified iron deficiency anemia type[ICD10: D50.9] Diagnosis: Normocytic anemia[ICD10: D64.9] Diagnosis: Recurrent major depressive disorder, in full remission[ICD10: F33.42] Diagnosis: Tobacco use disorder[ICD10: F17.200] Diagnosis: Traumatic brain injury with loss of consciousness, sequela[ICD10: S06.9X9S] Diagnosis: Cognitive impairment[ICD10: R41.89] Leticia Machado [address] [address] CPT-4: 97216 03/03/2022 Plan of Care Planned Activity Notes Codes Status Date Ref[facility]: [facility] W[facility] [place] [address] [id number] Referral Closed 09/15/2022 Patient Education: Patient Medication Summary Completed 03/03/2022 Patient Education: Influenza Vaccine Completed 03/03/2022 Patient Education: Smoking Cessation Completed 03/03/2022 Instructions Comment Date Cruz is a male being seen l hell[facility] at [facility] [place]. Initial BPS visit 10/08/21. He is verbal and a fairly reliable historian, independent in ADLs. Prior to moving to this [place] he was found in his apartment with self-neglect. Hx of being . Often refuses help as nursing thinks he feels too proud to receive care. Hx of not liking to take meds or see providers. Patient is his own guardian. AWV 05.23.2024Labs: Yearly in NOVEMBER(CMP, CBC, LIPID, VITD, A1C, VITB12). [id number] in MAY (CBC)4..2023 CMP wnl, CBCwnl, lipid all wnl; total cholesterol 117, HDL 51.9, LDL 40, triglycerides 124, VLDL 25), vitD 46 nl, iron studies, A1c 5.6, VitB12 223 nl. 10(CBC ordered) 05/23/2024 Depression No reported concerns, reports doing Fine. Continue to monitor. Cognitive impairment Per chart, also his hx of TBI, likely reason for cognitive impairment Anemia awaiting labs ordered 01/2022, continue iron in mean time. Traumatic brain injury with loss of consciousness, sequela Continue to monitor closely. Aortic dilatation Requesting records from echo done 10/09/21. 09/2021 hgb 14.6, rechecked hgb last month but no results available, [place] to f/u on if they were done. Tobacco use disorder 3 minutes spent counseling the patient on the dangers of tobacco and urged to quit. . 03/03/2022
--- OUTSIDE RECORDS SUMMARY | 2024-09-04 10:19 | XMS_ITS | CCD ---
Author Name Leticia Machado PA-C Address [address] [place] [address] Phone Organization [facility] Phone Care Team Providers Care Head Of Design Name Role Phone Celine MONROE-CJoseline Primary Care Provider Katy vailable Celine AMMONIA PRINT OPERATOR-CJoseline Chronic Care Management U navailable Summary Purpose DataExchange Insurance Providers Payer name Policy type / Coverage type Covered alliance party ID Effective Begin Date Effective End Date Medicare [place] Medicare Part B [id number] Unknown 2023 1 [employer] ([facility]) Medicare Part B [id number] Unknown 2023 1 Family History Family History data not found Social History Social History Element Codes Description Effec tive Dates Tobacco history SNOMED CT: 67487728 Current ever y day smoker 10/daily 10/09/[address]: 834799410 No Alcohol Consumption Hx, or if available [...] atus Aortic dilatation ICD-10: I77.819 ICD-9: 447.70 01/20/2022 Active Enteritis ICD-10: K52.9 ICD-9: 558.9 01/20/2022 Active Iron deficiency anemia, unsp ecified iron deficiency anemia type ICD-10: D50.9 ICD-9: 280.9 01/20/2022 Active Normocytic anemia ICD-10: D64.9 ICD-9: 285.9 01/20/2022 Active Tobacco use disorder ICD-10: F17.200 ICD-9: 305.1 01/20/2022 Active Traumatic brain injury with loss of consciousness, sequela ICD-10: S06.9X9S ICD-9: 907.0 01/20/2022 Active Erectile dysfunction of orga yuniel origin ICD-10: N52.9 ICD-9: 607.84 12/23/2021 Active Dyslipidemia ICD-10: E78.5 ICD-9: 272.4 10/08/2021 Active Frequent falls ICD-10: R29.6 ICD-9: V15.88 10/08/2021 Active Irregular heart rhythm ICD-10: I49.9 ICD-9: 427.9 10/08/2021 Active Recurrent major depressive disorder, in full remission ICD-10: F33.42 ICD-9: 296.36 10/08/2021 Active Vitamin D deficiency ICD-10: E55.9 ICD-9: 268.9 10/08/2021 Active Medications Medication Codes Instructions Start Date Stop Date Status Fill Instructions cholecalciferol (vitamin D3) 1,250 mcg (50,000 unit) capsule RxNorm: 697101 Take 1 Capsule(s) Oral every other week 10/22/19 22 023 Inactive cholecalciferol (vitamin D3) 1,250 mcg (50,000 unit) capsule RxNorm: 239887 Take 1 Capsule(s) Oral every other week 10/22/19 22 022 Inactive acetaminophen 325 mg tablet RxNorm: 948600 Take 2 Tablet(s) Oral Q4H every four hours as needed PRN mild pain. NOT TO EXCEED 3,000 MG IN 24 HOURS 10/08/19 22 No Stop Date Active dextromethorphan-gu aifenesin 10 mg-100 mg/5 mL oral liquid RxNorm: 452365 as needed TAKE 5-10ML BY MOUTH EVERY 4-6HOURS NEEDED FOR COUGH OR CONGESTION 10/08/19 22 No Stop Date Active dx: cough due to Covid19 calcium carbonate 500 mg calcium (1,250 mg) chewable tablet RxNorm: 131364 Chew 2-4 Tablet(s) Oral as needed CHEW 2-4 TABLETS BY MOUTH BETWEEN MEALS AND AT BEDTIME NEEDED 10/08/19 22 No Stop Date Active ibuprofen 200 mg tablet RxNorm: 393242 Take 1-2 Tablet(s) Oral Q4-6H every 4-6 hours as needed NOT TO EXCEED 6 TABS IN 24 HOURS 10/08/19 22 No Stop Date Active aluminum-mag hydroxide-simethico ne 200 mg-200 mg-20 mg/5 mL oral susp RxNorm: 422090 Take 5-10 Milliliter(s) Oral QID as needed ONE TIME BETWEEN MEAL AND AT BEDTIME (STANDING ORDER) 10/08/19 22 No Stop Date Active Milk of Magnesia 400 mg/5 mL oral suspension RxNorm: 510847 Take 15-30 Milliliter(s) Oral QD QD - Daily as needed 10/08/19 22 No Stop Date Active diphenhydramine 25 mg capsule RxNorm: 1663225 Give 1-2 Capsule(s) Oral Q8H every 8 hours as needed FOR ALLERGIES 10/08/19 22 No Stop Date Active Vitamin D2 1,250 mcg (50,000 unit) capsule RxNorm: 5067080 1 Capsule(s) Oral QW once a week TAKE ONCE CAPSULE ONCE WEEKLY 10/08/19 22 022 Inactive ferrous sulfate 325 mg (65 mg iron) tablet RxNorm: 876946 Take 1 Tablet(s) Oral QD 10/06/19 22 024 Inactive atorvastatin 40 mg tablet RxNorm: 520908 Take 1 Tablet(s) Oral QHS every night [...] Item Item Code Result Date Service Location Iron (Fe) IRON Iron (Fe) 54.0 ug/dL 03/10/20 22 Unknown Additional Testing ADDTESTS ADDITIONAL TESTING See Report 03/10/20 22 Unknown Total Iron Binding Capacity (TIBC) TIBC Total IRon Binding Capacity (TIBC) 307 ug/dL 03/10/20 22 Unknown Ferritin FERRITN FERRITIN 05050-6 73.1 ng/mL 03/10/20 22 Unknown Transferrin TRNSFRN Transferrin 208 mg/dL 22 Unknown CBC with Differential / Platelets CBCDIFF Baso (Absolute) 0.05 x10E3/uL 03/10/20 22 Unknown CBC with Differential / Platelets CBCDIFF Basos 0.60 % 03/10/20 22 Unknown CBC with Differential / Platelets CBCDIFF Eos 3.3 % 03/10/20 22 Unknown CBC with Differential / Platelets CBCDIFF Eos (Absolute) 0.28 x10E3/uL 03/10/20 22 Unknown CBC with Differential / Platelets CBCDIFF Hematocrit 4544-3 45.5 % 03/10/20 22 Unknown CBC with Differential / Platelets CBCDIFF Hemoglobin 718-7 13.7 g/dL 03/10/20 22 Unknown CBC with Differential / Platelets CBCDIFF LYMPHOCYTES 27.5 % 03/10/20 22 Unknown CBC with Differential / Platelets CBCDIFF Lymphocytes (Absolute) 2.31 x10E3/uL 03/10/20 22 Unknown CBC with Differential / Platelets CBCDIFF MCH 30.2 pg 03/10/20 22 Unknown CBC with Differential / Platelets CBCDIFF MCHC 30.1 g/dL 03/10/20 22 Unknown CBC with Differential / Platelets CBCDIFF MCV 787-2 100.2 % 03/10/20 22 Unknown CBC with Differential / Platelets CBCDIFF Monocytes 7.5 % 03/10/20 22 Unknown CBC with Differential / Platelets CBCDIFF Monocytes (Absolute) 0.63 x10E3/uL 03/10/20 22 Unknown CBC with Differential / Platelets CBCDIFF MPV 89480-1 10.5 fL 03/10/20 22 Unknown CBC with Differential / Platelets CBCDIFF Neutrophils 60.90 % 03/10/20 22 Unknown CBC with Differential / Platelets CBCDIFF Neutrophils (Absolute) 5.10 x10E3/uL 03/10/20 22 Unknown CBC with Differential / Platelets CBCDIFF Platelets 777-3 222 x10E3/uL 03/10/20 22 Unknown CBC with Differential / Platelets CBCDIFF RBC 4.54 x10^6/UL 03/10/20 22 Unknown CBC with Differential / Platelets CBCDIFF RDW 14.2 %binding 03/10/20 Unknown CBC with Differential / Platelets CBCDIFF WBC 6690-2 8.39 x10E3/uL 03/10/20 Unknown PDFReport PDFReport PDFReport 03/04/20 Unknown Procedures Procedure Codes Date BEHAV CHNG SMOKING 3-[address]: 2 50073061 CPT-4: 69879 01/20/2022 BEHAV CHNG SMOKING 3-[address]: 2 10093242 CPT-4: 56982 01/20/2022 SYS BP LESS 140 CPT-4: G8752 01/20/2022 RAYO BP LESS 90 CPT-4: G8754 01/20/2022 TOBACCO MYSTERY SHOPPER NO CHARGE CPT-4: G0436 2021 BEHAV CHNG SMOKING 3-[address]: 2 63308384 CPT-4: 49708 12/23/2021 BEHAV CHNG SMOKING 3-[address]: 2 24358752 CPT-4: 67541 11/25/2021 BEHAV CHNG SMOKING 3-[address]: 2 72522154 CPT-4: 94724 10/08/2021 Vital Signs Date Vital 01/20/2022 Blood Pressure 1: 113/72 Code: 8480-6 BMI: 28.7 Code: 83285-8 Heart Rate 1: 96 bpm Code: 8867-4 Height: 5'10 Code: 8302-2 Respiratory Rate: 14 bpm SpO2: 97% Temperature: 36.1 (C) / 97.0 (F) Weight: 200 lbs 4 oz Code: 3141-9 Reason For Visit No Reason For Visit data Encounters Encounter Performer Location Location Address Codes Date () DOMICIL VISIT EST PAT Diagnosis: Enteritis[ICD10: K52.9] Diagnosis: Aortic dilatation[ICD10: I77.819] Diagnosis: Iron deficiency anemia, unspecified iron deficiency anemia type[ICD10: D50.9] Diagnosis: Normocytic anemia[ICD10: D64.9] Diagnosis: Tobacco use disorder[ICD10: F17.200] Diagnosis: Traumatic brain injury with loss of consciousness, sequela[ICD10: S06.9X9S] Leticia Machado [address] [address] CPT-4: 49076 01/20/2022 Plan of Care Planned Activity Notes Codes Status Date Referral: [facility] WPtel: [facility] [address] [id number] [place] Referral Closed 09/15/2022 Patient Education: Patient Medication Summary Completed 01/20/2022 Patient Education: Influenza Vaccine Completed 01/20/2022 Patient Education: Smoking Cessation Completed 01/20/2022 Patient Education: Dementia Complete d 01/20/2022 Care Plan: Additional Testing peripheral blood smear Pending 01/20/2022 Instructions Comment Date Cruz is a male being seen l hellen at [facility]. Initial BPS visit 10/08/21. He is verbal and a fairly reliable historian, independent in ADLs. Prior to moving to [place] he was found in his apartment with self-neglect. Hx of being . Often refuses help as nursing thinks he feels too proud to receive care. Hx of not liking to take meds or see providers. Patient is his own guardian. AWV 10.Labs: Yearly in NOVEMBER(CMP, CBC, LIPID, VITD, A1C, VITB12). [id number] in MAY (CBC). CMP wnl, CBCwnl, lipid all wnl; total cholesterol 117, HDL 51.9, LDL 40, triglycerides 124, VLDL 25), vitD 46 nl, iron studies, A1c 5.6, VitB12 223 nl. (CBC ordered) 05/23/2024 Aortic dilatation Patient declines any f/u with specialists or further procedures. 09/2021 hgb 14.6, rechecking hgb today. Anemia Due for iron studies and hgb check today, ordering. Traumatic brain injury with loss of consciousness, sequela Seems to have little insight into his health and doesn't remember prior appointments or recommendations given. Monitor closely. Would benefit from a guardian Tobacco use disorder 3 minutes spent counseling the patient on the dangers of tobacco and urged to quit. Enteritis Continues to refuse f/u. . 01/20/2022
--- OUTSIDE RECORDS SUMMARY | 2024-09-04 10:19 | XMS_ITS | CCD ---
Author Name Leticia Machado PA-C Address [address] [place] [address] Phone Organization [facility] Phone Care Team Providers Care Assistant In Nursing Name Role Phone Celine MONROE-CJoseline Primary Care Provider Katy vailable Celine MONROE-CJoseline Chronic Care Management U navailable Summary Purpose DataExchange Insurance Providers Payer name Policy type / Coverage type Covered constitution party ID Effective Begin Date Effective End Date Medicare [place] Medicare Part B [id number] Unknown 2023 1 [employer] ([facility]) Medicare Part B [id number] Unknown 2023 1 Family History Family History data not found Social History Social History Element Codes Description Effec tive Dates Tobacco history SNOMED CT: 49847929 Current ever y day smoker 10/daily 10/09/[address]: 840671609 No Alcohol Consumption Hx, or if available [...] atus Aortic dilatation ICD-10: I77.819 ICD-9: 447.70 11/25/2021 Active Iron deficiency anemia, unsp ecified iron deficiency anemia type ICD-10: D50.9 ICD-9: 280.9 11/25/2021 Active Normocytic anemia ICD-10: D64.9 ICD-9: 285.9 11/25/2021 Active Tobacco use disorder ICD-10: F17.200 ICD-9: 305.1 11/25/2021 Active Traumatic brain injury with loss of consciousness, sequela ICD-10: S06.9X9S ICD-9: 907.0 11/25/2021 Active Dyslipidemia ICD-10: E78.5 ICD-9: 272.4 10/08/2021 [...] D3) 1,250 mcg (50,000 unit) capsule RxNorm: 935714 Take 1 Capsule(s) Oral every other week 10/22/19 22 023 Inactive cholecalciferol (vitamin D3) 1,250 mcg (50,000 unit) capsule RxNorm: 788647 Take 1 Capsule(s) Oral every other week 10/22/19 22 022 Inactive acetaminophen 325 mg tablet RxNorm: 642098 Take 2 Tablet(s) Oral Q4H every four hours as needed PRN mild pain. NOT TO EXCEED 3,000 MG IN 24 HOURS 10/08/19 No Stop Date Active Vitamin D2 1,250 mcg (50,000 unit) capsule RxNorm: 2636033 1 Capsule(s) Oral QW once a week TAKE ONCE CAPSULE ONCE WEEKLY 10/08/19 22 022 Inactive dextromethorphan-gu aifenesin 10 mg-100 mg/5 mL oral liquid RxNorm: 182738 as needed TAKE 5-10ML BY MOUTH EVERY 4-6HOURS NEEDED FOR COUGH OR CONGESTION 10/08/19 22 No Stop Date Active dx: cough due to Covid19 calcium carbonate 500 mg calcium (1,250 mg) chewable tablet RxNorm: 105874 Chew 2-4 Tablet(s) Oral as needed CHEW 2-4 TABLETS BY MOUTH BETWEEN MEALS AND AT BEDTIME NEEDED 10/08/19 22 No Stop Date Active ibuprofen 200 mg tablet RxNorm: 679834 Take 1-2 Tablet(s) Oral Q4-6H every 4-6 hours as needed NOT TO EXCEED 6 TABS IN 24 HOURS 10/08/19 22 No Stop Date Active aluminum-mag hydroxide-simethico ne 200 mg-200 mg-20 mg/5 mL oral susp RxNorm: 114302 Take 5-10 Milliliter(s) Oral QID as needed ONE TIME BETWEEN MEAL AND AT BEDTIME (STANDING ORDER) 10/08/19 No Stop Date Active Milk of Magnesia 400 mg/5 mL oral suspension RxNorm: 241092 Take 15-30 Milliliter(s) Oral QD QD - Daily as needed 10/08/19 22 No Stop Date Active diphenhydramine 25 mg capsule RxNorm: 1656136 Give 1-2 Capsule(s) Oral Q8H every 8 hours as needed FOR ALLERGIES 10/08/19 No Stop Date Active ferrous sulfate 325 mg (65 mg iron) tablet RxNorm: 127381 Take 1 Tablet(s) Oral QD 10/06/19 22 024 Inactive atorvastatin 40 mg tablet RxNorm: 774143 Take 1 Tablet(s) Oral QHS every night [...] CHNG SMOKING 3-[address]: 2 91243791 CPT-4: 64988 11/25/2021 BEHAV CHNG SMOKING 3-[address]: 2 18389624 CPT-4: 23517 11/25/2021 TOBACCO RIFFLER TENDER NO CHARGE CPT-4: G0436 2021 BEHAV CHNG SMOKING 3-[address]: 2 26548504 CPT-4: 06666 10/08/2021 Vital Signs Date Vital 11/25/2021 Height: 5'10 Code: 8302-2 Reason For Visit No Reason For Visit data Encounters Encounter Performer Location Location Address Codes Date (39231) DOMICIL VISIT EST PAT Diagnosis: Aortic dilatation[ICD10: I77.819] Diagnosis: Iron deficiency anemia, unspecified iron deficiency anemia type[ICD10: D50.9] Diagnosis: Normocytic anemia[ICD10: D64.9] Diagnosis: Tobacco use disorder[ICD10: F17.200] Diagnosis: Traumatic brain injury with loss of consciousness, sequela[ICD10: S06.9X9S] Leticiakaren Machado [address] [address] CPT-4: 88100 11/25/2021 Plan of Care Planned Activity Notes Codes Status Date Referral: Jose Elias [facility] WPtel: [facility] [address] [id number] Referral Closed 09/15/2022 Patient Education: Patient Medication Summary Completed 11/25/2021 Patient Education: Influenza Vaccine Completed 11/25/2021 Patient Education: Smoking Cessation Completed 11/25/2021 Patient Education: Dementia Complete d 11/25/2021 Instructions Comment Date Cruz is a male being seen l hellen at [facility]. Initial BPS visit 10/08/21. He is verbal and a fairly reliable historian, independent in ADLs. Prior to moving to this [place] he was found in his apartment with self-neglect. Hx of being . Often refuses help as nursing thinks he feels too proud to receive care. Hx of not liking to take meds or see providers. Patient is his own guardian. AWV 05.23.2024Labs: Yearly in NOVEMBER(CMP, CBC, LIPID, VITD, A1C, VITB12). r1ezspxi in MAY (CBC). CMP wnl, CBCwnl, lipid all wnl; total cholesterol 117, HDL 51.9, LDL 40, triglycerides 124, VLDL 25), vitD 46 nl, iron studies, A1c 5.6, VitB12 223 nl. (CBC ordered) 05/23/2024 Tobacco use disorder 3minutes spent counseling the patient on the dangers of tobacco and urged to quit. Anemia 10/2021 hgb 14.6nl, continue iron for now. Monitor for constipation. May consider taking patient off this medication in the future if hgb continues to remain stable especially in light of patient having trouble with med compliance. Aortic dilatation 10/2021 BNP 81nl. defer to vice president global advertising sales. Traumatic brain injury with loss of consciousness, sequela Appropriate for current AL setting. Continue to monitor for level of care needed and routinely assess appropriateness of living situation. . 11/25/2021
--- OUTSIDE RECORDS SUMMARY | 2024-09-04 10:19 | XMS_ITS | CCD ---
Author Name Leticia Machado PA-C Address [address] [place] [address] Phone Organization [facility] Phone Care Team Providers Care Conservation Educator Name Role Phone Celine MONROE-CJoseline Primary Care Provider Katy vailable Celine MONROE-CJoseline Chronic Care Management U navailable Summary Purpose DataExchange Insurance Providers Payer name Policy type / Coverage type Covered alliance party ID Effective Begin Date Effective End Date Medicare [place] Medicare Part B [id number] Unknown 2023 1 [employer] ([facility]) Medicare Part B [id number] Unknown 2023 1 Family History Family History data not found Social History Social History Element Codes Description Effec tive Dates Tobacco history SNOMED CT: 15008206 Current ever y day smoker 10/daily 10/09/[address]: 930859214 No Alcohol Consumption Hx, or if available [...] atus Aortic dilatation ICD-10: I77.819 ICD-9: 447.70 12/23/2021 Active Erectile dysfunction of orga yuniel origin ICD-10: N52.9 ICD-9: 607.84 12/23/2021 Active Iron deficiency anemia, unsp ecified iron deficiency anemia type ICD-10: D50.9 ICD-9: 280.9 12/23/2021 Active Normocytic anemia ICD-10: D64.9 ICD-9: 285.9 12/23/2021 Active Tobacco use disorder ICD-10: F17.200 ICD-9: 305.1 12/23/2021 Active Traumatic brain injury with loss of consciousness, sequela ICD-10: S06.9X9S ICD-9: 907.0 12/23/2021 Active Dyslipidemia ICD-10: E78.5 ICD-9: 272.4 10/08/2021 Active Enteritis ICD-10: K52.9 ICD-9: 558.9 10/08/2021 Active Frequent falls ICD-10: R29.6 ICD-9: V15.88 10/08/2021 Active Irregular heart rhythm ICD-10: I49.9 ICD-9: 427.9 10/08/2021 Active Recurrent major depressive disorder, in full remission ICD-10: F33.42 ICD-9: 296.36 10/08/2021 Active Vitamin D deficiency ICD-10: E55.9 ICD-9: 268.9 10/08/2021 Active Medications Medication Codes Instructions Start Date Stop Date Status Fill Instructions cholecalciferol (vitamin D3) 1,250 mcg (50,000 unit) capsule RxNorm: 699904 Take 1 Capsule(s) Oral every other week 10/22/19 22 023 Inactive cholecalciferol (vitamin D3) 1,250 mcg (50,000 unit) capsule RxNorm: 385319 Take 1 Capsule(s) Oral every other week 10/22/19 22 022 Inactive acetaminophen 325 mg tablet RxNorm: 623138 Take 2 Tablet(s) Oral Q4H every four hours as needed PRN mild pain. NOT TO EXCEED 3,000 MG IN 24 HOURS 10/08/19 22 No Stop Date Active Vitamin D2 1,250 mcg (50,000 unit) capsule RxNorm: 6199268 1 Capsule(s) Oral QW once a week TAKE ONCE CAPSULE ONCE WEEKLY 10/08/19 22 022 Inactive dextromethorphan-gu aifenesin 10 mg-100 mg/5 mL oral liquid RxNorm: 252291 as needed TAKE 5-10ML BY MOUTH EVERY 4-6HOURS NEEDED FOR COUGH OR CONGESTION 10/08/19 22 No Stop Date Active dx: cough due to Covid19 calcium carbonate 500 mg calcium (1,250 mg) chewable tablet RxNorm: 178235 Chew 2-4 Tablet(s) Oral as needed CHEW 2-4 TABLETS BY MOUTH BETWEEN MEALS AND AT BEDTIME NEEDED 10/08/19 No Stop Date Active ibuprofen 200 mg tablet RxNorm: 843121 Take 1-2 Tablet(s) Oral Q4-6H every 4-6 hours as needed NOT TO EXCEED 6 TABS IN 24 HOURS 10/08/19 22 No Stop Date Active aluminum-mag hydroxide-simethico ne 200 mg-200 mg-20 mg/5 mL oral susp RxNorm: 746621 Take 5-10 Milliliter(s) Oral QID as needed ONE TIME BETWEEN MEAL AND AT BEDTIME (STANDING ORDER) 10/08/19 No Stop Date Active Milk of Magnesia 400 mg/5 mL oral suspension RxNorm: 225720 Take 15-30 Milliliter(s) Oral QD QD - Daily as needed 10/08/19 22 No Stop Date Active diphenhydramine 25 mg capsule RxNorm: 4483898 Give 1-2 Capsule(s) Oral Q8H every 8 hours as needed FOR ALLERGIES 10/08/19 No Stop Date Active ferrous sulfate 325 mg (65 mg iron) tablet RxNorm: 234145 Take 1 Tablet(s) Oral QD 10/06/19 22 024 Inactive atorvastatin 40 mg tablet RxNorm: 537368 Take 1 Tablet(s) Oral QHS every night [...] Observation Code Item Item Code Result Date S ervice Location PHQ-9 PHQ9 09368-9 0 12/23/2021 Unknown PHQ-9 PHQ9 47314-4 0 12/23/2021 Unknown Procedures Procedure Codes Date BEHAV CHNG SMOKING 3-[address]: 2 28725366 CPT-4: 51991 12/23/2021 BEHAV CHNG SMOKING 3-[address]: 2 14646300 CPT-4: 94258 12/23/2021 PT INELIG NEG SCRN DEPRES SNOMED CT: 428 722544361404 CPT-4: G8510 12/23/2021 TOBACCO WIRELESS CONSTRUCTION MANAGER NO CHARGE CPT-4: G0436 2021 BEHAV CHNG SMOKING 3-[address]: 2 28129850 CPT-4: 87503 11/25/2021 BEHAV CHNG SMOKING 3-[address]: 2 15611873 CPT-4: 97646 10/08/2021 Vital Signs Date Vital 12/23/2021 Blood Pressure 1: 103/67 Code: 8480-6 BMI: 28.9 Code: 39169-2 Heart Rate 1: 85 bpm Code: 8867-4 Height: 5'10 Code: 8302-2 SpO2: 96% Weight: 201 lbs 2 oz Code: 3141-9 Reason For Visit No Reason For Visit data Encounters Encounter Performer Location Location Address Codes Date (99756) DOMICIL VISIT EST PAT Diagnosis: Aortic dilatation[ICD10: I77.819] Diagnosis: Erectile dysfunction of organic origin[ICD10: N52.9] Diagnosis: Iron deficiency anemia, unspecified iron deficiency anemia type[ICD10: D50.9] Diagnosis: Normocytic anemia[ICD10: D64.9] Diagnosis: Tobacco use disorder[ICD10: F17.200] Diagnosis: Traumatic brain injury with loss of consciousness, sequela[ICD10: S06.9X9S] Leticia Machado [address] [address] CPT-4: 21751 12/23/2021 Plan of Care Planned Activity Notes Codes Status Date [facility]: [facility] [address] [id number] Referral Closed 09/15/2022 Patient Education: Patient Medication Summary Completed 12/23/2021 Patient Education: Influenza Vaccine Completed 12/23/2021 Patient Education: Smoking Cessation Completed 12/23/2021 Patient Education: Dementia Complete d 12/23/2021 Instructions Comment Date Cruz is a male being seen l hellen at [facility]. Initial BPS visit 10/08/21. He is verbal and a fairly reliable historian, independent in ADLs. [place] was found in his apartment with self-neglect. Hx of being . Often refuses help as nursing thinks he feels too proud to receive care. Hx of not liking to take meds or see providers. Patient is his own guardian. AWV .Labs: Yearly in NOVEMBER(CMP, CBC, LIPID, VITD, A1C, VITB12). [id number] in MAY (CBC)4..2023 CMP wnl, CBCwnl, lipid all wnl; total cholesterol 117, HDL 51.9, LDL 40, triglycerides 124, VLDL 25), vitD 46 nl, iron studies, A1c 5.6, VitB12 223 nl. (CBC ordered) 05/23/2024 Anemia recheck iron studies in january Aortic dilatation Patient declines any f/u with specialists or further procedures. 09/2021 hgb 14.6, recheck hgb level next visit to ensure it's not dropping. Tobacco use disorder 3minutes spent counseling the patient on the dangers of tobacco and urged to quit. Traumatic brain injury with loss of consciousness, sequela Seems to have little insight into his health and doesn't remember prior appointments or recommendations given. Monitor closely. Erectile dysfunction of organic origin Patient stable. No change in treatment plan. . 12/23/2021
--- OUTSIDE RECORDS SUMMARY | 2024-09-04 10:20 | XMS_ITS | CCD ---
Author Name Leticia Machado PA-C Address [address] [place] [address] Phone Organization [facility] Phone Care Team Providers Care Chick Sexer Name Role Phone Celine MONROE-CJoseline Primary Care Provider Katy vailable Celine MONROE-CJoseline Chronic Care Management U navailable Summary Purpose DataExchange Insurance Providers Payer name Policy type / Coverage type Covered green party ID Effective Begin Date Effective End Date Medicare [place] Medicare Part B [id number] Unknown 2023 1 Medica ([facility]) Medicare Part B [id number] Unknown 2023 1 Family History Family History data not found Social History Social History Element Codes Description Effec tive Dates Tobacco history SNOMED CT: 22177141 Current ever y day smoker 10/daily 10/09/[address]: 690087823 No Alcohol Consumption Hx, or if available [...] atus Aortic dilatation ICD-10: I77.819 ICD-9: 447.70 03/24/2022 Active Iron deficiency anemia, unsp ecified iron deficiency anemia type ICD-10: D50.9 ICD-9: 280.9 03/24/2022 Active Irregular heart rhythm ICD-10: I49.9 ICD-9: 427.9 03/24/2022 Active Normocytic anemia ICD-10: D64.9 ICD-9: 285.9 03/24/2022 Active Recurrent major depressive disorder, in full remission ICD-10: F33.42 ICD-9: 296.36 03/24/2022 Active Tobacco use disorder ICD-10: F17.200 ICD-9: 305.1 03/24/2022 Active Cognitive impairment ICD-10: R41.89 ICD-9: 294.9 03/03/2022 Active Traumatic brain injury with loss of consciousness, sequela ICD-10: S06.9X9S ICD-9: 907.0 03/03/2022 Active Enteritis ICD-10: K52.9 ICD-9: 558.9 01/20/2022 Active Erectile dysfunction of orga yuniel origin ICD-10: N52.9 ICD-9: 607.84 12/23/2021 Active Dyslipidemia ICD-10: E78.5 ICD-9: 272.4 10/08/2021 Active Frequent falls ICD-10: R29.6 ICD-9: V15.88 10/08/2021 Active Vitamin D deficiency ICD-10: E55.9 ICD-9: 268.9 10/08/2021 Active Medications Medication Codes Instructions Start Date Stop Date Status Fill Instructions cholecalciferol (vitamin D3) 1,250 mcg (50,000 unit) capsule RxNorm: 479485 Take 1 Capsule(s) Oral every other week 10/22/19 22 023 Inactive cholecalciferol (vitamin D3) 1,250 mcg (50,000 unit) capsule RxNorm: 826492 Take 1 Capsule(s) Oral every other week 10/22/19 22 022 Inactive acetaminophen 325 mg tablet RxNorm: 660059 Take 2 Tablet(s) Oral Q4H every four hours as needed PRN mild pain. NOT TO EXCEED 3,000 MG IN 24 HOURS 10/08/19 22 No Stop Date Active dextromethorphan-gu aifenesin 10 mg-100 mg/5 mL oral liquid RxNorm: 477219 as needed TAKE 5-10ML BY MOUTH EVERY 4-6HOURS NEEDED FOR COUGH OR CONGESTION 10/08/19 22 No Stop Date Active dx: cough due to Covid19 calcium carbonate 500 mg calcium (1,250 mg) chewable tablet RxNorm: 097181 Chew 2-4 Tablet(s) Oral as needed CHEW 2-4 TABLETS BY MOUTH BETWEEN MEALS AND AT BEDTIME NEEDED 10/08/19 22 No Stop Date Active ibuprofen 200 mg tablet RxNorm: 969585 Take 1-2 Tablet(s) Oral Q4-6H every 4-6 hours as needed NOT TO EXCEED 6 TABS IN 24 HOURS 10/08/19 22 No Stop Date Active aluminum-mag hydroxide-simethico ne 200 mg-200 mg-20 mg/5 mL oral susp RxNorm: 654001 Take 5-10 Milliliter(s) Oral QID as needed ONE TIME BETWEEN MEAL AND AT BEDTIME (STANDING ORDER) 10/08/19 No Stop Date Active Milk of Magnesia 400 mg/5 mL oral suspension RxNorm: 715840 Take 15-30 Milliliter(s) Oral QD QD - Daily as needed 10/08/19 No Stop Date Active diphenhydramine 25 mg capsule RxNorm: 2034123 Give 1-2 Capsule(s) Oral Q8H every 8 hours as needed FOR ALLERGIES 10/08/19 No Stop Date Active Vitamin D2 1,250 mcg (50,000 unit) capsule RxNorm: 3229806 1 Capsule(s) Oral QW once a week TAKE ONCE CAPSULE ONCE WEEKLY 10/08/19 22 022 Inactive ferrous sulfate 325 mg (65 mg iron) tablet RxNorm: 173926 Take 1 Tablet(s) Oral QD 10/06/19 22 024 Inactive atorvastatin 40 mg tablet RxNorm: 013498 Take 1 Tablet(s) Oral QHS every night at bedtime 10/06/19 22 023 Inactive CertaVite Senior oral RxNorm: oral 09/28/19 24 024 Inactive Oyster Shell Calcium oral RxNorm: 1897 oral 09/28/19 24 024 Inactive Medication Administered No Medication Administered data Immunizations Vaccine Codes Dose Date Status Covid-19 (Adult) CVX: 07/22/2021 Influenza CVX: 205 06/22/2021 Complete Covid-19 (Adult) CVX: 08/28/2020 Covid-19 (Adult) CVX: 207 08/25/2020 Procedures Procedure Codes Date BEHAV CHNG SMOKING 3-[address]: 2 02487914 CPT-4: 11084 03/24/2022 BEHAV CHNG SMOKING 3-[address]: 2 00317332 CPT-4: 11096 03/24/2022 SYS BP LESS 140 CPT-4: G8752 03/24/2022 RAYO BP LESS 90 CPT-4: G8754 03/24/2022 TOBACCO CUPOLA HOIST OPERATOR NO CHARGE CPT-4: G0436 2021 BEHAV CHNG SMOKING 3-[address]: 2 81284843 CPT-4: 82995 03/03/2022 BEHAV CHNG SMOKING 3-[address]: 2 32601483 CPT-4: 61048 01/20/2022 BEHAV CHNG SMOKING 3-[address]: 2 28135777 CPT-4: 15812 12/23/2021 BEHAV CHNG SMOKING 3-[address]: 2 78388472 CPT-4: 49096 11/25/2021 BEHAV CHNG SMOKING 3-[address]: 2 17562254 CPT-4: 09598 10/08/2021 Vital Signs Date Vital 03/24/2022 Blood Pressure 1: 111/73 Code: 8480-6 Heart Rate 1: 76 bpm Code: 8867-4 Height: 5'10 Code: 8302-2 Respiratory Rate: 14 bpm SpO2: 99% Temperature: 35.6 (C) / 96.1 (F) Reason For Visit No Reason For Visit data Encounters Encounter Performer Location Location Address Codes Date () DOMICIL VISIT EST PAT Diagnosis: Aortic dilatation[ICD10: I77.819] Diagnosis: Iron deficiency anemia, unspecified iron deficiency anemia type[ICD10: D50.9] Diagnosis: Normocytic anemia[ICD10: D64.9] Diagnosis: Tobacco use disorder[ICD10: F17.200] Diagnosis: Recurrent major depressive disorder, in full remission[ICD10: F33.42] Diagnosis: Irregular heart rhythm[ICD10: I49.9] Leticia Machado [address] [address] CPT-4: 15669 03/24/2022 Plan of Care Planned Activity Notes Codes Status Date [facility]: [facility] W[facility]el: [place] [address] [place], [place] [phone] [place] Referral Closed 09/15/2022 Patient Education: Patient Medication Summary Completed 03/24/2022 Patient Education: Influenza Vaccine Completed 03/24/2022 Patient Education: Smoking Cessation Completed 03/24/2022 Instructions Comment Date Cruz is a male being seen lizeth macedo at [facility]. Initial BPS visit 10/08/21. He is verbal and a fairly reliable historian, independent in ADLs. Prior to moving to this [place] he was found in his apartment with self-neglect. Hx of being . Often refuses help as nursing thinks he feels too proud to receive care. Hx of not liking to take meds or see providers. Patient is his own guardian. AWV 05.23.2024Labs: Yearly in NOVEMBER(CMP, CBC, LIPID, VITD, A1C, VITB12). [id number] in MAY (CBC). CMP wnl, CBCwnl, lipid all wnl; total cholesterol 117, HDL 51.9, LDL 40, triglycerides 124, VLDL 25), vitD 46 nl, iron studies, A1c 5.6, VitB12 223 nl. 10(CBC ordered) 05/23/2024 Irregular heart rhythm rhythm has been regular during my visits, okay to monitor and recommend patient f/u with scalping machine operator for ongoing care. Tobacco use disorder 3minutes spent counseling the patient on the dangers of tobacco and urged to quit. Anemia 02/2022 ferritin 73nl, continue iron. Stable. Aortic dilatation 02/2022 hgb 13.7nl with no concerns on iron studies. Continue to monitor hgb with yearly labs. Echo results from 10/09/21 requested but came back saying he never had them done. Recommended patient schedule the echo. Depression Patient stable. No change in treatment plan. . 03/24/2022
--- OUTSIDE RECORDS SUMMARY | 2024-09-04 10:21 | XMS_ITS | CCD ---
Author Name Sofya Gillette PA-C Address [address] [place] [address] Phone Organization [facility] Phone Care Team Providers Care Shear Grinder Operator Name Role Phone Celine BINDER FOLDER OPERATOR-CJoseline Primary Care Provider Katy vailable Celine BINDER FOLDER OPERATOR-CJoseline Chronic Care Management U navailable Summary Purpose DataExchange Insurance Providers Payer name Policy type / Coverage type Covered constitution party ID Effective Begin Date Effective End Date Medicare [place] Medicare Part B [id number] Unknown 2023 1 [employer] ([facility]) Medicare Part B [id number] Unknown 2023 1 Family History Family History data not found Social History Social History Element Codes Description Effec tive Dates Tobacco history SNOMED CT: 56026251 Current ever y day smoker 10/daily 10/09/[address]: 533883573 No Alcohol Consumption Hx, or if available 10/09/2021 Allergies, Adverse Reactions, Alerts Substance Reaction Codes Entered Date Inactivated Date Status * NO KNOWN FOOD ALLERGIES Unknown 10/08/2021 No Inactive Date Active * NO KNOWN ENVIRONMENTAL ALLERGIES Unknown 10/08/2021 No Inactive Date Active * NO KNOWN DRUG ALLERGIES Unknown 07/30/2021 No Inactive Date Active Problems Condition Codes Effective Dates Condition St atus Cognitive impairment ICD-10: R41.89 ICD-9: 294.9 04/26/2022 Active Recurrent major depressive disorder, in full remission ICD-10: F33.42 ICD-9: 296.36 04/26/2022 Active Aortic dilatation ICD-10: I77.819 ICD-9: 447.70 03/24/2022 Active Iron deficiency anemia, unsp ecified iron deficiency anemia type ICD-10: D50.9 ICD-9: 280.9 03/24/2022 Active Irregular heart rhythm ICD-10: I49.9 ICD-9: 427.9 03/24/2022 Active Normocytic anemia ICD-10: D64.9 ICD-9: 285.9 03/24/2022 Active Tobacco use disorder ICD-10: F17.200 ICD-9: 305.1 03/24/2022 Active Traumatic brain injury with loss of [...] D3) 1,250 mcg (50,000 unit) capsule RxNorm: 957230 Take 1 Capsule(s) Oral every other week 10/22/19 22 023 Inactive cholecalciferol (vitamin D3) 1,250 mcg (50,000 unit) capsule RxNorm: 273379 Take 1 Capsule(s) Oral every other week 10/22/19 22 022 Inactive acetaminophen 325 mg tablet RxNorm: 912292 Take 2 Tablet(s) Oral Q4H every four hours as needed PRN mild pain. NOT TO EXCEED 3,000 MG IN 24 HOURS 10/08/19 22 No Stop Date Active dextromethorphan-gu aifenesin 10 mg-100 mg/5 mL oral liquid RxNorm: 916048 as needed TAKE 5-10ML BY MOUTH EVERY 4-6HOURS NEEDED FOR COUGH OR CONGESTION 10/08/19 22 No Stop Date Active dx: cough due to Covid19 calcium carbonate 500 mg calcium (1,250 mg) chewable tablet RxNorm: 137301 Chew 2-4 Tablet(s) Oral as needed CHEW 2-4 TABLETS BY MOUTH BETWEEN MEALS AND AT BEDTIME NEEDED 10/08/19 22 No Stop Date Active ibuprofen 200 mg tablet RxNorm: 129224 Take 1-2 Tablet(s) Oral Q4-6H every 4-6 hours as needed NOT TO EXCEED 6 TABS IN 24 HOURS 10/08/19 22 No Stop Date Active aluminum-mag hydroxide-simethico ne 200 mg-200 mg-20 mg/5 mL oral susp RxNorm: 151976 Take 5-10 Milliliter(s) Oral QID as needed ONE TIME BETWEEN MEAL AND AT BEDTIME (STANDING ORDER) 10/08/19 No Stop Date Active Milk of Magnesia 400 mg/5 mL oral suspension RxNorm: 084082 Take 15-30 Milliliter(s) Oral QD QD - Daily as needed 10/08/19 No Stop Date Active diphenhydramine 25 mg capsule RxNorm: 8742409 Give 1-2 Capsule(s) Oral Q8H every 8 hours as needed FOR ALLERGIES 10/08/19 No Stop Date Active Vitamin D2 1,250 mcg (50,000 unit) capsule RxNorm: 3433329 1 Capsule(s) Oral QW once a week TAKE ONCE CAPSULE ONCE WEEKLY 10/08/19 22 022 Inactive ferrous sulfate 325 mg (65 mg iron) tablet RxNorm: 096638 Take 1 Tablet(s) Oral QD 10/06/19 22 024 Inactive atorvastatin 40 mg tablet RxNorm: 942400 Take 1 Tablet(s) Oral QHS every night at bedtime 10/06/19 22 023 Inactive CertaVite Senior oral RxNorm: oral 09/28/19 24 024 Inactive Oyster Shell Calcium oral RxNorm: 1897 oral 09/28/19 24 024 Inactive Medication Administered No Medication Administered data Immunizations Vaccine Codes Dose Date Status Covid-19 (Adult) CVX: 207 07/22/2021 Influenza CVX: 205 06/22/2021 Complete Covid-19 (Adult) CVX: 207 08/28/2020 Covid-19 (Adult) CVX: 207 08/25/2020 Procedures Procedure Codes Date BEHAV CHNG SMOKING 3-[address]: 2 20487905 CPT-4: 89716 03/24/2022 BEHAV CHNG SMOKING 3-[address]: 2 83242964 CPT-4: 14864 03/03/2022 BEHAV CHNG SMOKING 3-[address]: 2 88872379 CPT-4: 77583 01/20/2022 BEHAV CHNG SMOKING 3-[address]: 2 01873573 CPT-4: 22460 12/23/2021 BEHAV CHNG SMOKING 3-[address]: 2 07423675 CPT-4: 16895 11/25/2021 BEHAV CHNG SMOKING 3-[address]: 2 02922433 CPT-4: 17142 10/08/2021 Reason For Visit No Reason For Visit data Plan of Care Planned Activity Notes Codes Status Date Ref[facility]: [facility] [address] [id number] [place] Referral Closed 09/15/2022 Instructions Comment Date Cruz is a male being seen l hellen at [facility]. Initial BPS visit 10/08/21. He is verbal and a fairly reliable historian, independent in ADLs. Prior [place] moving [place] this [place] he was found in his apartment with self-neglect. Hx of being . Often refuses help as nursing thinks he feels too proud to receive care. Hx of not liking to take meds or see providers. Patient is his own guardian. AWV 05.23.2024Labs: Yearly in NOVEMBER(CMP, CBC, LIPID, VITD, A1C, VITB12). [id number] in MAY (CBC)11.19.2023 CMP wnl, CBCwnl, lipid all wnl; total cholesterol 117, HDL 51.9, LDL 40, triglycerides 124, VLDL 25), vitD 46 nl, iron studies, A1c 5.6, VitB12 223 nl. (CBC ordered) 05/23/2024
--- OUTSIDE RECORDS SUMMARY | 2024-09-04 10:21 | XMS_ITS | CCD ---
Author Name Leticia Machado PA-C Address [address] [place] [address] [facility] Phone Care Team Providers Care Housekeeper Cleaning Cooking Name Role Phone Celine MONROE-CJoseline Primary Care Provider Katy vailable Celine MONROE-CJoseline Chronic Care Management U navailable Summary Purpose DataExchange Insurance Providers Payer name Policy type / Coverage type Covered democrat ID Effective Begin Date Effective End Date Medicare [place] Medicare Part B [id number] Unknown 2023 1 [employer] ([facility]) Medicare Part B [id number] Unknown 2023 1 Family History Family History data not found Social History Social History Element Codes Description Effec tive Dates Tobacco history SNOMED CT: 93811022 Current ever y day smoker 10/daily 10/09/[address]: 775443031 No Alcohol Consumption Hx, or if available [...] atus Aortic dilatation ICD-10: I77.819 ICD-9: 447.70 04/28/2022 Active Cognitive impairment ICD-10: R41.89 ICD-9: 294.9 04/28/2022 Active Hemiparesis due to non-cerebrovascular etiology, unspecified laterality ICD-10: G81.90 ICD-9: 342.90 04/28/2022 Active Iron deficiency anemia, unsp ecified iron deficiency anemia type ICD-10: D50.9 ICD-9: 280.9 04/28/2022 Active Normocytic anemia ICD-10: D64.9 ICD-9: 285.9 04/28/2022 Active 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 ICD-9: 287.2 04/28/2022 Active Tobacco use disorder ICD-10: F17.200 ICD-9: 305.1 04/28/2022 Active Traumatic brain injury with loss of consciousness, sequela ICD-10: S06.9X9S ICD-9: 907.0 04/28/2022 Active Recurrent major depressive disorder, in full remission ICD-10: F33.42 ICD-9: 296.36 04/26/2022 Active Irregular heart rhythm ICD-10: I49.9 ICD-9: 427.9 03/24/2022 Active Enteritis ICD-10: K52.9 ICD-9: 558.9 01/20/2022 [...] D3) 1,250 mcg (50,000 unit) capsule RxNorm: 556359 Take 1 Capsule(s) Oral every other week 10/22/19 22 023 Inactive cholecalciferol (vitamin D3) 1,250 mcg (50,000 unit) capsule RxNorm: 119308 Take 1 Capsule(s) Oral every other week 10/22/19 22 022 Inactive acetaminophen 325 mg tablet RxNorm: 578713 Take 2 Tablet(s) Oral Q4H every four hours as needed PRN mild pain. NOT TO EXCEED 3,000 MG IN 24 HOURS 10/08/19 22 No Stop Date Active dextromethorphan-gu aifenesin 10 mg-100 mg/5 mL oral liquid RxNorm: 197502 as needed TAKE 5-10ML BY MOUTH EVERY 4-6HOURS NEEDED FOR COUGH OR CONGESTION 10/08/19 22 No Stop Date Active dx: cough due to Covid19 calcium carbonate 500 mg calcium (1,250 mg) chewable tablet RxNorm: 585220 Chew 2-4 Tablet(s) Oral as needed CHEW 2-4 TABLETS BY MOUTH BETWEEN MEALS AND AT BEDTIME NEEDED 10/08/19 22 No Stop Date Active ibuprofen 200 mg tablet RxNorm: 533206 Take 1-2 Tablet(s) Oral Q4-6H every 4-6 hours as needed NOT TO EXCEED 6 TABS IN 24 HOURS 10/08/19 22 No Stop Date Active aluminum-mag hydroxide-simethico ne 200 mg-200 mg-20 mg/5 mL oral susp RxNorm: 805097 Take 5-10 Milliliter(s) Oral QID as needed ONE TIME BETWEEN MEAL AND AT BEDTIME (STANDING ORDER) 10/08/19 22 No Stop Date Active Milk of Magnesia 400 mg/5 mL oral suspension RxNorm: 372850 Take 15-30 Milliliter(s) Oral QD QD - Daily as needed 10/08/19 22 No Stop Date Active diphenhydramine 25 mg capsule RxNorm: 3458301 Give 1-2 Capsule(s) Oral Q8H every 8 hours as needed FOR ALLERGIES 10/08/19 22 No Stop Date Active Vitamin D2 1,250 mcg (50,000 unit) capsule RxNorm: 0355964 1 Capsule(s) Oral QW once a week TAKE ONCE CAPSULE ONCE WEEKLY 10/08/19 22 022 Inactive ferrous sulfate 325 mg (65 mg iron) tablet RxNorm: 204886 Take 1 Tablet(s) Oral QD 10/06/19 22 024 Inactive atorvastatin 40 mg tablet RxNorm: 864822 Take 1 Tablet(s) Oral QHS every night [...] CHNG SMOKING 3-[address]: 2 18776714 CPT-4: 50467 04/28/2022 BEHAV CHNG SMOKING 3-[address]: 2 62006048 CPT-4: 22855 04/28/2022 TOBACCO CASE BRIEFER NO CHARGE CPT-4: G0436 2021 BEHAV CHNG SMOKING 3-[address]: 2 28495070 CPT-4: 52233 03/24/2022 BEHAV CHNG SMOKING 3-[address]: 2 00458122 CPT-4: 96413 03/03/2022 BEHAV CHNG SMOKING 3-[address]: 2 02483190 CPT-4: 44478 01/20/2022 BEHAV CHNG SMOKING 3-[address]: 2 53496608 CPT-4: 34442 12/23/2021 BEHAV CHNG SMOKING 3-[address]: 2 19620079 CPT-4: 65900 11/25/2021 BEHAV CHNG SMOKING 3-[address]: 2 52682000 CPT-4: 66107 10/08/2021 Vital Signs Date Vital 04/28/2022 Blood Pressure 1: 119/81 Code: 8480-6 BMI: 29.2 Code: 59553-3 Heart Rate 1: 82 bpm Code: 8867-4 Height: 5'10 Code: 8302-2 SpO2: 95% Temperature: 36.0 (C) / 96.8 (F) Weight: 203 lbs 8 oz Code: 3141-9 Reason For Visit No Reason For Visit data Encounters Encounter Performer Location Location Address Codes Date (23637) DOMICIL VISIT EST PAT Diagnosis: Cognitive impairment[ICD10: R41.89] Diagnosis: Tobacco use disorder[ICD10: F17.200] Diagnosis: Aortic dilatation[ICD10: I77.819] Diagnosis: Traumatic brain injury with loss of consciousness, sequela[ICD10: S06.9X9S] Diagnosis: Iron deficiency anemia, unspecified iron deficiency anemia type[ICD10: D50.9] Diagnosis: Normocytic anemia[ICD10: D64.9] Diagnosis: Senile purpura[ICD10: D69.2] Diagnosis: Hemiparesis due to non-cerebrovascular etiology, unspecified laterality[ICD10: G81.90] Leticia Machado [facility] [address] [place] [address] CPT-4: 47523 04/28/2022 Plan of Care Planned Activity Notes Codes Status Date Referral: [facility] [address] [id number] [place] Referral Closed 09/15/2022 Patient Education: Patient Medication Summary Completed 04/28/2022 Patient Education: Influenza Vaccine Completed 04/28/2022 Patient Education: Smoking Cessation Completed 04/28/2022 Patient Education: Dementia Complete d 04/28/2022 Instructions Comment Date Cruz is a male being seen l hellen at [facility]. Initial BPS visit 10/08/21. He is verbal and a fairly reliable historian, independent in ADLs. [place] moving [place] he was found in his apartment with self-neglect. Hx of being . Often refuses help as nursing thinks he feels too proud to receive care. Hx of not liking to take meds or see providers. Patient is his own guardian. AWV 05.23.2024Labs: Yearly in NOVEMBER(CMP, CBC, LIPID, VITD, A1C, VITB12). [id number] in MAY (CBC). CMP wnl, CBCwnl, lipid all wnl; total cholesterol 117, HDL 51.9, LDL 40, triglycerides 124, VLDL 25), vitD 46 nl, iron studies, A1c 5.6, VitB12 223 nl. (CBC ordered) 05/23/2024 Tobacco use disorder 3 minutes spent counseling the patient on the dangers of tobacco and urged to quit. 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 Kidneys, TSH, platlets and liver WNL on latest lab draw. Not on anticoagulant. No history of senior living corticosteroid use. Aortic dilatation Patient should be following with tile helper but currently refuses. Staff have tile helper appt schedule for 08/2022 that I advised they keep and try to take patient to. Cognitive impairment Refer for neuropsych eval as would like to know if patient could benefit from a conservator or guardian. Hemiparesis due to non-cerebrovascular etiology, unspecified laterality Fall prevention: Assess strength and balance to look for areas that can be addressed by PT/OT. Check for medications that can increase fall risk. Implement appropriate assisstive device and reinforce use by resident. Consider vision loss as a factor as well. Anemia 02/2022 ferritin 73nl, continue iron. Stable. Traumatic brain injury with loss of consciousness, sequela refer for neuro psych eval and patient appears to have cognitive impairment that is affecting his decision making. . 04/28/2022
--- OUTSIDE RECORDS SUMMARY | 2024-09-04 10:21 | XMS_ITS | CCD ---
Author Name Leticia Machado PA-C Address [address] [place] [address] Phone Organization [facility] Phone Care Team Providers Care Finish Carpenter Name Role Phone Celine MONROE-CJoseline Primary Care Provider Katy vailable Celine MONROE-CJoseline Chronic Care Management U navailable Summary Purpose DataExchange Insurance Providers Payer name Policy type / Coverage type Covered constitution party ID Effective Begin Date Effective End Date Medicare [place] Medicare Part B [id number] Unknown 2023 1 [employer] ([facility]) Medicare Part B [id number] Unknown 2023 1 Family History Family History data not found Social History Social History Element Codes Description Effec tive Dates Tobacco history SNOMED CT: 65574229 Current ever y day smoker 10/daily 10/09/[address]: 291196288 No Alcohol Consumption Hx, or if available [...] atus Aortic dilatation ICD-10: I77.819 ICD-9: 447.70 05/26/2022 Active Cognitive impairment ICD-10: R41.89 ICD-9: 294.9 05/26/2022 Active Enteritis ICD-10: K52.9 ICD-9: 558.9 05/26/2022 Active Recurrent major depressive disorder, in full remission ICD-10: F33.42 ICD-9: 296.36 05/26/2022 Active Tobacco use disorder ICD-10: F17.200 ICD-9: 305.1 05/26/2022 Active Hemiparesis due to non-cerebrovascular etiology, unspecified laterality ICD-10: G81.90 ICD-9: 342.90 04/28/2022 Active Iron deficiency anemia, unsp ecified iron deficiency anemia type ICD-10: D50.9 ICD-9: 280.9 04/28/2022 Active Normocytic anemia ICD-10: D64.9 ICD-9: 285.9 04/28/2022 Active 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 ICD-9: 287.2 04/28/2022 Active Traumatic brain injury with loss of consciousness, sequela ICD-10: S06.9X9S ICD-9: 907.0 04/28/2022 Active Irregular heart rhythm ICD-10: I49.9 ICD-9: 427.9 03/24/2022 Active Erectile dysfunction of orga yuniel origin ICD-10: N52.9 ICD-9: 607.84 12/23/2021 Active Dyslipidemia ICD-10: E78.5 ICD-9: 272.4 10/08/2021 Active Frequent falls ICD-10: R29.6 ICD-9: V15.88 10/08/2021 Active Vitamin D deficiency ICD-10: E55.9 ICD-9: 268.9 10/08/2021 Active Medications Medication Codes Instructions Start Date Stop Date Status Fill Instructions cholecalciferol (vitamin D3) 1,250 mcg (50,000 unit) capsule RxNorm: 329611 Take 1 Capsule(s) Oral every other week 10/22/19 22 023 Inactive cholecalciferol (vitamin D3) 1,250 mcg (50,000 unit) capsule RxNorm: 384710 Take 1 Capsule(s) Oral every other week 10/22/19 22 022 Inactive acetaminophen 325 mg tablet RxNorm: 250446 Take 2 Tablet(s) Oral Q4H every four hours as needed PRN mild pain. NOT TO EXCEED 3,000 MG IN 24 HOURS 10/08/19 22 No Stop Date Active dextromethorphan-gu aifenesin 10 mg-100 mg/5 mL oral liquid RxNorm: 431095 as needed TAKE 5-10ML BY MOUTH EVERY 4-6HOURS NEEDED FOR COUGH OR CONGESTION 10/08/19 22 No Stop Date Active dx: cough due to Covid19 calcium carbonate 500 mg calcium (1,250 mg) chewable tablet RxNorm: 488921 Chew 2-4 Tablet(s) Oral as needed CHEW 2-4 TABLETS BY MOUTH BETWEEN MEALS AND AT BEDTIME NEEDED 10/08/19 22 No Stop Date Active ibuprofen 200 mg tablet RxNorm: 853469 Take 1-2 Tablet(s) Oral Q4-6H every 4-6 hours as needed NOT TO EXCEED 6 TABS IN 24 HOURS 10/08/19 22 No Stop Date Active aluminum-mag hydroxide-simethico ne 200 mg-200 mg-20 mg/5 mL oral susp RxNorm: 866935 Take 5-10 Milliliter(s) Oral QID as needed ONE TIME BETWEEN MEAL AND AT BEDTIME (STANDING ORDER) 10/08/19 22 No Stop Date Active Milk of Magnesia 400 mg/5 mL oral suspension RxNorm: 415792 Take 15-30 Milliliter(s) Oral QD QD - Daily as needed 10/08/19 22 No Stop Date Active diphenhydramine 25 mg capsule RxNorm: 1720524 Give 1-2 Capsule(s) Oral Q8H every 8 hours as needed FOR ALLERGIES 10/08/19 22 No Stop Date Active Vitamin D2 1,250 mcg (50,000 unit) capsule RxNorm: 5929166 1 Capsule(s) Oral QW once a week TAKE ONCE CAPSULE ONCE WEEKLY 10/08/19 22 022 Inactive ferrous sulfate 325 mg (65 mg iron) tablet RxNorm: 018646 Take 1 Tablet(s) Oral QD 10/06/19 22 024 Inactive atorvastatin 40 mg tablet RxNorm: 496953 Take 1 Tablet(s) Oral QHS every night [...] CHNG SMOKING 3-[address]: 2 89294087 CPT-4: 18053 05/26/2022 SYS BP LESS 140 CPT-4: G8752 05/26/2022 RAYO BP LESS 90 CPT-4: G8754 05/26/2022 BEHAV CHNG SMOKING 3-[address]: 2 95994955 CPT-4: 30117 05/26/2022 TOBACCO CLIENT SUPPORT ASSOCIATE NO CHARGE CPT-4: G0436 2021 BEHAV CHNG SMOKING 3-[address]: 2 56097958 CPT-4: 25212 04/28/2022 BEHAV CHNG SMOKING 3-[address]: 2 59929535 CPT-4: 81148 03/24/2022 BEHAV CHNG SMOKING 3-[address]: 2 02173036 CPT-4: 19102 03/03/2022 BEHAV CHNG SMOKING 3-[address]: 2 63903856 CPT-4: 82761 01/20/2022 BEHAV CHNG SMOKING 3-[address]: 2 26451130 CPT-4: 63633 12/23/2021 BEHAV CHNG SMOKING 3-[address]: 2 44462725 CPT-4: 04455 11/25/2021 BEHAV CHNG SMOKING 3-[address]: 2 79522243 CPT-4: 52191 10/08/2021 Vital Signs Date Vital 05/26/2022 Blood Pressure 1: 115/81 Code: 8480-6 BMI: 29.2 Code: 69495-1 Heart Rate 1: 82 bpm Code: 8867-4 Height: 5'10 Code: 8302-2 Respiratory Rate: 14 bpm SpO2: 95% Temperature: 36.0 (C) / 96.8 (F) Weight: 203 lbs 8 oz Code: 3141-9 Reason For Visit No Reason For Visit data Encounters Encounter Performer Location Location Address Codes Pranav e ([id number]) DOMICIL VISIT EST PAT Diagnosis: Aortic dilatation[ICD10: I77.819] Diagnosis: Cognitive impairment[ICD10: R41.89] Diagnosis: Recurrent major depressive disorder, in full remission[ICD10: F33.42] Diagnosis: Enteritis[ICD10: K52.9] Diagnosis: Tobacco use disorder[ICD10: F17.200] Leticia Machado [address] [address] CPT-4: 01647 05/26/2022 Plan of Care Planned Activity Notes Codes Status Date Referral: Jose Elias G[facility]: [facility] [address] [id number] Referral Closed 09/15/2022 Patient Education: Patient Medication Summary Completed 05/26/2022 Patient Education: Influenza Vaccine Completed 05/26/2022 Patient Education: Smoking Cessation Completed 05/26/2022 Instructions Comment Date Cruz is a male being seen lizeth macedo at [facility]. Initial BPS visit 10/08/21. He is verbal and a fairly reliable historian, independent in ADLs. Prior to moving to this [place] he was found in his apartment with self-neglect. Hx of being . Often refuses help as nursing thinks he feels too proud to receive care. Hx of not liking to take meds or see providers. Patient is his own guardian. AWV 05.23.2024Labs: Yearly in NOVEMBER(CMP, CBC, LIPID, VITD, A1C, VITB12). [id number] in MAY (CBC). CMP wnl, CBCwnl, lipid all wnl; total cholesterol 117, HDL 51.9, LDL 40, triglycerides 124, VLDL 25), vitD 46 nl, iron studies, A1c 5.6, VitB12 223 nl. (CBC ordered) 05/23/2024 Aortic dilatation Patient should be following with mixing plant operator but currently refuses. Staff have mixing plant operator appt schedule for 08/2022 but staff suspect he'll refuse at time of appt. Tobacco use disorder 3minutes spent counseling the patient on the dangers of tobacco and urged to quit. Has no interest in quitting. Cognitive impairment neuropsych eval scheduled for 09/15/22, in mean time will try to get slums completed (refused this month). Enteritis Refusing f/u with GI and having an EGD. Continue to educate importance of f/u and encourage he do so. Depression No reported mood concerns, would like to evaluation him monthly as he's not always forthcoming with how he's feeling. . 05/26/2022
--- OUTSIDE RECORDS SUMMARY | 2024-09-04 10:22 | XMS_ITS | CCD ---
Author Name Leticia Machado PA-C Address [address] [place] [address] Phone Organization [facility] Phone Care Team Providers Care Extermination Inspector Name Role Phone Celine UTILITY ASSEMBLER-CJoseline Primary Care Provider Katy vailable Celine UTILITY ASSEMBLER-C, Joseline Chronic Care Management U navailable Summary Purpose DataExchange Insurance Providers Payer name Policy type / Coverage type Covered green party ID Effective Begin Date Effective End Date Medicare [place] Medicare Part B [id number] Unknown 2023 1 [employer] ([facility]) Medicare Part B [id number] Unknown 2023 1 Family History Family History data not found Social History Social History Element Codes Description Effec tive Dates Tobacco history SNOMED CT: 22662944 Current ever y day smoker 10/daily 10/09/[address]: 678865930 No Alcohol Consumption Hx, or if available 10/09/2021 Allergies, Adverse Reactions, Alerts Substance Reaction Codes Entered Date Inactivated Date Status * NO KNOWN FOOD ALLERGIES Unknown 10/08/2021 No Inactive Date Active * NO KNOWN ENVIRONMENTAL ALLERGIES Unknown 10/08/2021 No Inactive Date Active * NO KNOWN DRUG ALLERGIES Unknown 07/30/2021 No Inactive Date Active Problems Condition Codes Effective Dates Condition St atus 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, unspecified dementia severity, unspecified timing of dementia onset ICD-10: G30.9 ICD-9: 331.0 10/20/2022 Active Cognitive impairment ICD-10: R41.89 ICD-9: 294.9 10/20/2022 Active Dementia in other diseases classified elsewhere, unspecified severity, with other behavioral disturbance ICD-10: F02.818 10/20/2022 Active Iron deficiency anemia, unsp ecified iron deficiency anemia type ICD-10: D50.9 ICD-9: 280.9 10/20/2022 Active Normocytic anemia ICD-10: D64.9 ICD-9: 285.9 10/20/2022 Active Recurrent major depressive disorder, in full remission ICD-10: F33.42 ICD-9: 296.36 09/01/2022 Active Aortic dilatation ICD-10: I77.819 ICD-9: 447.70 06/23/2022 Active Frequent falls ICD-10: R29.6 ICD-9: V15.88 06/23/2022 Active Enteritis ICD-10: K52.9 ICD-9: 558.9 05/26/2022 Active Tobacco use disorder ICD-10: F17.200 ICD-9: 305.1 05/26/2022 Active Hemiparesis due to non-cerebrovascular etiology, unspecified laterality ICD-10: G81.90 ICD-9: 342.90 04/28/2022 Active 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 ICD-9: 287.2 04/28/2022 Active Traumatic brain injury with loss of consciousness, sequela ICD-10: S06.9X9S ICD-9: 907.0 04/28/2022 Active Irregular heart rhythm ICD-10: I49.9 ICD-9: 427.9 03/24/2022 Active Erectile dysfunction of orga yuniel origin ICD-10: N52.9 ICD-9: 607.84 12/23/2021 Active Dyslipidemia ICD-10: E78.5 ICD-9: 272.4 10/08/2021 Active Vitamin D deficiency ICD-10: E55.9 ICD-9: 268.9 10/08/2021 Active Medications Medication Codes Instructions Start Date Stop Date Status Fill Instructions cholecalciferol (vitamin D3) 1,250 mcg (50,000 unit) capsule RxNorm: 798594 Take 1 Capsule(s) Oral every other week 10/22/19 22 022 Inactive cholecalciferol (vitamin D3) 1,250 mcg (50,000 unit) capsule RxNorm: 048617 Take 1 Capsule(s) Oral every other week 10/22/19 023 Inactive acetaminophen 325 mg tablet RxNorm: 649215 Take 2 Tablet(s) Oral Q4H every four hours as needed PRN mild pain. NOT TO EXCEED 3,000 MG IN 24 HOURS 10/08/19 22 No Stop Date Active dextromethorphan-gu aifenesin 10 mg-100 mg/5 mL oral liquid RxNorm: 173522 as needed TAKE 5-10ML BY MOUTH EVERY 4-6HOURS NEEDED FOR COUGH OR CONGESTION 10/08/19 22 No Stop Date Active dx: cough due to Covid19 calcium carbonate 500 mg calcium (1,250 mg) chewable tablet RxNorm: 221991 Chew 2-4 Tablet(s) Oral as needed CHEW 2-4 TABLETS BY MOUTH BETWEEN MEALS AND AT BEDTIME NEEDED 10/08/19 22 No Stop Date Active ibuprofen 200 mg tablet RxNorm: 019547 Take 1-2 Tablet(s) Oral Q4-6H every 4-6 hours as needed NOT TO EXCEED 6 TABS IN 24 HOURS 10/08/19 22 No Stop Date Active aluminum-mag hydroxide-simethico ne 200 mg-200 mg-20 mg/5 mL oral susp RxNorm: 550181 Take 5-10 Milliliter(s) Oral QID as needed ONE TIME BETWEEN MEAL AND AT BEDTIME (STANDING ORDER) 10/08/19 22 No Stop Date Active Milk of Magnesia 400 mg/5 mL oral suspension RxNorm: 567004 Take 15-30 Milliliter(s) Oral QD QD - Daily as needed 10/08/19 22 No Stop Date Active diphenhydramine 25 mg capsule RxNorm: 5195318 Give 1-2 Capsule(s) Oral Q8H every 8 hours as needed FOR ALLERGIES 10/08/19 22 No Stop Date Active Vitamin D2 1,250 mcg (50,000 unit) capsule RxNorm: 5459569 1 Capsule(s) Oral QW once a week TAKE ONCE CAPSULE ONCE WEEKLY 10/08/19 22 022 Inactive ferrous sulfate 325 mg (65 mg iron) tablet RxNorm: 315683 Take 1 Tablet(s) Oral QD 10/06/19 22 024 Inactive atorvastatin 40 mg tablet RxNorm: 393110 Take 1 Tablet(s) Oral QHS every night [...] Location Vitamin B12 VITAB12 Vitamin B12 2132-9 258 pg/mL Unknown Hemoglobin A1c HEMOGLOBA Hemoglobin A1c 44916-2 5.7 %A1c 10/29/19 Unknown TSH Reflex to FT4 TSHRFT4 TSH 88021-5 1.04 uIU/mL 10/29/19 Unknown Additional Testing ADDTESTS ADDITIONAL TESTING See Report 10/29/19 Unknown CBC without Differential / Platelets CBCNODIFF Hematocrit 4544-3 43.2 % 10/29/19 Unknown CBC without Differential / Platelets CBCNODIFF Hemoglobin 718-7 13.9 g/dL 10/29/19 Unknown CBC without Differential / Platelets CBCNODIFF MCH 30.5 pg 10/29/19 Unknown CBC without Differential / Platelets CBCNODIFF RBC 4.55 x10^6/UL 10/29/19 Unknown CBC without Differential / Platelets CBCNODIFF MCHC 32.2 g/dL 10/29/19 Unknown CBC without Differential / Platelets CBCNODIFF MCV 787-2 94.9 % 10/29/19 Unknown CBC without Differential / Platelets CBCNODIFF Platelets 777-3 248 x10E3/uL 10/29/19 Unknown CBC without Differential / Platelets CBCNODIFF RDW 13.9 %binding 10/29/19 Unknown CBC without Differential / Platelets CBCNODIFF WBC 6690-2 7.33 x10E3/uL 10/29/19 Unknown Ferritin FERRITN FERRITIN 64188-0 75.4 ng/mL 10/29/19 23 Unknown Vitamin D, 25-Hydroxy VITAD25 Vitamin D, 25-Hydroxy 94511-3 50 ng/mL 10/29/19 Unknown Lipid Panel (LP) LIPIDPAN CHOLESTEROL, TOTAL 52352-2 129 mg/dL 03/16/20 23 Unknown Lipid Panel (LP) LIPIDPAN HDL CHOLESTEROL 2085-9 50.0 mg /dL 10/29/19 Unknown Lipid Panel (LP) LIPIDPAN LDL CHOLESTEROL CALCULATED 99586-3 54 10/29/19 Unknown Lipid Panel (LP) LIPIDPAN TRIGLYCERIDES 2571-8 126 mg/dL 10/29/19 Unknown Lipid Panel (LP) LIPIDPAN VLDL Cholestero l Calculated 25 10/29/19 Unknown Iron (Fe) IRON Iron (Fe) 93.0 ug/dL 10/29/19 Unknown Complete Metabolic Panel (CMP) CMP A/G Ratio 1.6 10/29/19 Unknown Complete Metabolic Panel (CMP) CMP Albumin 1751-7 3.9 g/dL 10/29/19 Unknown Complete Metabolic Panel (CMP) CMP Alkaline Phosphatase 77 U/L 10/29/19 Unknown Complete Metabolic Panel (CMP) CMP ALT (SGPT) 14 U/L 10/29/19 Unknown Complete Metabolic Panel (CMP) CMP AST (SGOT) 9.0 U/L 10/29/19 Unknown Complete Metabolic Panel (CMP) CMP BILIRUBIN, TOTAL 1975-2 0.3 mg/dL 10/29/19 Unknown Complete Metabolic Panel (CMP) CMP Blood Urea Nitrogen (BUN) 29 mg/dL 10/29/19 Unknown Complete Metabolic Panel (CMP) CMP BUN/CREATININE RATIO 25.89 ratio 10/29/19 Unknown Complete Metabolic Panel (CMP) CMP Calcium (Ca) 14198-2 9.7 mg/dL 10/29/19 Unknown Complete Metabolic Panel (CMP) CMP Carbon Dioxide (ECO2) 30 mmol/L 10/29/19 Unknown Complete Metabolic Panel (CMP) CMP Chloride (Cl) 2075-0 102 mmol/L 10/29/19 Unknown Complete Metabolic Panel (CMP) CMP Creatinine 2160-0 1.12 mg/dL 10/29/19 Unknown Complete Metabolic Panel (CMP) CMP eGFR 67.00 mL/min/1.7 3m2 10/29/19 Unknown Complete Metabolic Panel (CMP) CMP eGFR 83896-6 81.00 mL/min/1.7 3m2 10/29/19 Unknown Complete Metabolic Panel (CMP) CMP Globulin, Total 2.5 10/29/19 Unknown Complete Metabolic Panel (CMP) CMP Glucose 45 mg/dL 10/29/19 Unknown Complete Metabolic Panel (CMP) CMP Potassium (K) 2823-3 3.8 mmol/L 10/29/19 Unknown Complete Metabolic Panel (CMP) CMP PROTEIN, TOTAL 2885-2 6.4 g/dL 10/29/19 Unknown Complete Metabolic Panel (CMP) CMP Sodium (Na) 2951-2 141 mmol/L 10/29/19 Unknown PDFReport PDFReport PDFReport 10/23/19 Unknown Procedures Procedure Codes Date SYS BP LESS 140 CPT-4: G8752 10/20/2022 RAYO BP LESS 90 CPT-4: G8754 10/20/2022 TOBACCO SPONGE BUFFER NO CHARGE CPT-4: G0436 2022 BEHAV CHNG SMOKING 3-[address]: 2 12008633 CPT-4: 53197 05/26/2022 BEHAV CHNG SMOKING 3-[address]: 2 66813178 CPT-4: 48410 04/28/2022 BEHAV CHNG SMOKING 3-[address]: 2 02777000 CPT-4: 72750 03/24/2022 BEHAV CHNG SMOKING 3-[address]: 2 08733462 CPT-4: 25926 03/03/2022 BEHAV CHNG SMOKING 3-[address]: 2 09421163 CPT-4: 19871 01/20/2022 BEHAV CHNG SMOKING 3-[address]: 2 21266719 CPT-4: 51516 12/23/2021 BEHAV CHNG SMOKING 3-[address]: 2 16073218 CPT-4: 86357 11/25/2021 BEHAV CHNG SMOKING 3-[address]: 2 98754905 CPT-4: 18622 10/08/2021 Vital Signs Date Vital 10/20/2022 Blood Pressure 1: 139/89 Code: 8 480-6 Height: 5'10 Code: 8302-2 Reason For Visit No Reason For Visit data Encounters Encounter Performer Location Location Address Codes Date ([id number]) Home or Residence Visit Est Pt - Moderate Level, 40 mins Diagnosis: Cognitive impairment[ICD10: R41.89] Diagnosis: Iron deficiency anemia, unspecified iron deficiency anemia type[ICD10: D50.9] Diagnosis: Normocytic anemia[ICD10: D64.9] Diagnosis: Dementia in other diseases classified elsewhere, unspecified severity, with other behavioral disturbance[ICD10: F02.818] Diagnosis: Alzheimer's dementia with other behavioral disturbance, unspecified dementia severity, unspecified timing of dementia onset[ICD10: G30.9] Leticia Machado [facility] [address] [place] [address] CPT-4: 55709 10/20/2022 Plan of Care Planned Activity Notes Codes Status Date Patient Education: Patient Medication Summary Completed 10/20/2022 Patient Education: Influenza Vaccine Completed 10/20/2022 Patient Education: Smoking Cessation Completed 10/20/2022 Referral: Jose Elias [facility]: [facility] [address] [id number] [place] Referral Closed 09/15/2022 Instructions Comment Date Cruz is a male being seen l hellen at [facility]. Initial BPS visit 10/08/21. He is verbal and a fairly reliable historian, independent in ADLs. Prior to moving to this [place] he was found in his apartment with self-neglect. Hx of being . Often refuses help as nursing thinks he feels too proud to receive care. Hx of not liking to take meds or see providers. Patient is his own guardian. AWV 05.23.2024Labs: Yearly in NOVEMBER(CMP, CBC, LIPID, VITD, A1C, VITB12). h8focaox in MAY (CBC). CMP wnl, CBCwnl, lipid all wnl; total cholesterol 117, HDL 51.9, LDL 40, triglycerides 124, VLDL 25), vitD 46 nl, iron studies, A1c 5.6, VitB12 223 nl. (CBC ordered) 05/23/2024 Anemia On iron 325mg qd, will order labs again today to assess hgb level and f/u ferritin which was previously low. Neurocognitive Disorders see cog impairment Cognitive impairment refused neuro psych appt scheduled for 09/15/22. Now has POA in place. . 10/20/2022
--- OUTSIDE RECORDS SUMMARY | 2024-09-04 10:22 | XMS_ITS | CCD ---
Author Name Luis M Canales MD her Address [address] [place] [address] Phone Organization [facility] Phone Care Team Providers Care Shoe Maker Name Role Phone [place]low FUEL CELL BUILDER-CJoseline Primary Care Provider Katy vailable Celine FUEL CELL BUILDER-CJoseline Chronic Care Management U navailable Summary Purpose DataExchange Insurance Providers Payer name Policy type / Coverage type Covered libertarian ID Effective Begin Date Effective End Date Medicare [place] Medicare Part B [id number] Unknown 2023 1 Medica ([facility]) Medicare Part B [id number] Unknown 2023 1 Family History Family History data not found Social History Social History Element Codes Description Effec tive Dates Tobacco history SNOMED CT: 13925749 Current ever y day smoker 10/daily 10/09/[address]: 329534363 No Alcohol Consumption Hx, or if available [...] of dementia onset ICD-10: G30.9 ICD-9: 331.0 08/02/2022 Active Dementia in other diseases classified elsewhere, unspecified severity, with other behavioral disturbance ICD-10: F02.818 08/02/2022 Active Aortic dilatation ICD-10: I77.819 ICD-9: 447.70 06/23/2022 Active Frequent falls ICD-10: R29.6 ICD-9: V15.88 06/23/2022 Active Iron deficiency anemia, unsp ecified iron deficiency anemia type ICD-10: D50.9 ICD-9: 280.9 06/23/2022 Active Normocytic anemia ICD-10: D64.9 ICD-9: 285.9 06/23/2022 Active Recurrent major depressive disorder, in full remission ICD-10: F33.42 ICD-9: 296.36 06/23/2022 Active Cognitive impairment ICD-10: R41.89 ICD-9: 294.9 [...] D3) 1,250 mcg (50,000 unit) capsule RxNorm: 612437 Take 1 Capsule(s) Oral every other week 10/22/19 22 023 Inactive cholecalciferol (vitamin D3) 1,250 mcg (50,000 unit) capsule RxNorm: 619000 Take 1 Capsule(s) Oral every other week 10/22/19 22 022 Inactive acetaminophen 325 mg tablet RxNorm: 232615 Take 2 Tablet(s) Oral Q4H every four hours as needed PRN mild pain. NOT TO EXCEED 3,000 MG IN 24 HOURS 10/08/19 22 No Stop Date Active dextromethorphan-gu aifenesin 10 mg-100 mg/5 mL oral liquid RxNorm: 543963 as needed TAKE 5-10ML BY MOUTH EVERY 4-6HOURS NEEDED FOR COUGH OR CONGESTION 10/08/19 22 No Stop Date Active dx: cough due to Covid19 calcium carbonate 500 mg calcium (1,250 mg) chewable tablet RxNorm: 640696 Chew 2-4 Tablet(s) Oral as needed CHEW 2-4 TABLETS BY MOUTH BETWEEN MEALS AND AT BEDTIME NEEDED 10/08/19 22 No Stop Date Active ibuprofen 200 mg tablet RxNorm: 296551 Take 1-2 Tablet(s) Oral Q4-6H every 4-6 hours as needed NOT TO EXCEED 6 TABS IN 24 HOURS 10/08/19 22 No Stop Date Active aluminum-mag hydroxide-simethico ne 200 mg-200 mg-20 mg/5 mL oral susp RxNorm: 609284 Take 5-10 Milliliter(s) Oral QID as needed ONE TIME BETWEEN MEAL AND AT BEDTIME (STANDING ORDER) 10/08/19 22 No Stop Date Active Milk of Magnesia 400 mg/5 mL oral suspension RxNorm: 902228 Take 15-30 Milliliter(s) Oral QD QD - Daily as needed 10/08/19 22 No Stop Date Active diphenhydramine 25 mg capsule RxNorm: 5516315 Give 1-2 Capsule(s) Oral Q8H every 8 hours as needed FOR ALLERGIES 10/08/19 22 No Stop Date Active Vitamin D2 1,250 mcg (50,000 unit) capsule RxNorm: 4231876 1 Capsule(s) Oral QW once a week TAKE ONCE CAPSULE ONCE WEEKLY 10/08/19 22 022 Inactive ferrous sulfate 325 mg (65 mg iron) tablet RxNorm: 280316 Take 1 Tablet(s) Oral QD 10/06/19 22 024 Inactive atorvastatin 40 mg tablet RxNorm: 442214 Take 1 Tablet(s) Oral QHS every night at bedtime 10/06/19 22 023 Inactive CertaVite Senior oral RxNorm: oral 09/28/19 24 02/14/2 024 Inactive Oyster Shell Calcium oral RxNorm: 1897 oral 09/28/19 24 024 Inactive Medication Administered No Medication Administered data Immunizations Vaccine Codes Dose Date Status Covid-19 (Adult) CVX: 207 07/22/2021 Influenza CVX: 205 06/22/2021 Complete Covid-19 (Adult) CVX: 207 08/28/2020 Covid-19 (Adult) CVX: 08/25/2020 Procedures Procedure Codes Date BEHAV CHNG SMOKING 3-[address]: 2 45684786 CPT-4: 57663 05/26/2022 BEHAV CHNG SMOKING 3-[address]: 2 17763704 CPT-4: 66507 04/28/2022 BEHAV CHNG SMOKING 3-[address]: 2 11458830 CPT-4: 55634 03/24/2022 BEHAV CHNG SMOKING 3-[address]: 2 55856418 CPT-4: 08584 03/03/2022 BEHAV CHNG SMOKING 3-[address]: 2 49172333 CPT-4: 43418 01/20/2022 BEHAV CHNG SMOKING 3-[address]: 2 46360293 CPT-4: 16268 12/23/2021 BEHAV CHNG SMOKING 3-[address]: 2 20513077 CPT-4: 02046 11/25/2021 BEHAV CHNG SMOKING 3-[address]: 2 94458153 CPT-4: 70910 10/08/2021 Reason For Visit No Reason For Visit data Encounters Encounter Performer Location Location Address Codes Date ([address]) DOMICIL VISIT EST PAT Diagnosis: Alzheimer's dementia with other behavioral disturbance, unspecified dementia severity, unspecified timing of dementia onset[ICD10: G30.9] Diagnosis: Dementia in other diseases classified elsewhere, unspecified severity, with other behavioral disturbance[ICD10: F02.818] Lanette Canales [address] [address] CPT-4: 26448 08/02/2022 Plan of Care Planned Activity Notes Codes Status Date [facility]: [facility] WPtel: [place] [address] [place], [place] [id number] [place] Referral Closed 09/15/2022 Instructions Comment Date Cruz is a male being seen lizeth macedo at [facility]. Initial BPS visit 10/08/21. He is verbal and a fairly reliable historian, independent in ADLs. Prior to moving to this [place] he was found in his apartment with self-neglect. Hx of being . Often refuses help as nursing thinks he feels too proud to receive care. Hx of not liking to take meds or see providers. Patient is his own guardian. AWV 05.23.2024Labs: Yearly in NOVEMBER(CMP, CBC, LIPID, VITD, A1C, VITB12). [id number] in MAY (CBC)11.19.2023 CMP wnl, CBCwnl, lipid all wnl; total cholesterol 117, HDL 51.9, LDL 40, triglycerides 124, VLDL 25), vitD 46 nl, iron studies, A1c 5.6, VitB12 223 nl. (CBC ordered) 05/23/2024 Neurocognitive Disorders he is being seen by podiatry and feels his needs are well met . 08/02/2022
--- OUTSIDE RECORDS SUMMARY | 2024-09-04 10:22 | XMS_ITS | CCD ---
Author Name Leticia Machado PA-C Address [address] [place] [address] Phone Organization [facility] Phone Care Team Providers Care Spud Sorter Name Role Phone Celine MONROE-CJoseline Primary Care Provider Katy vailable Celine MONROE-CJoseline Chronic Care Management U navailable Summary Purpose DataExchange Insurance Providers Payer name Policy type / Coverage type Covered constitution party ID Effective Begin Date Effective End Date Medicare [place] Medicare Part B [id number] Unknown 2023 1 [employer] ([facility]) Medicare Part B [id number] Unknown 2023 1 Family History Family History data not found Social History Social History Element Codes Description Effec tive Dates Tobacco history SNOMED CT: 92316414 Current ever y day smoker 10/daily 10/09/[address]: 416587082 No Alcohol Consumption Hx, or if available [...] of dementia onset ICD-10: G30.9 ICD-9: 331.0 06/23/2022 Active Aortic dilatation ICD-10: I77.819 ICD-9: 447.70 06/23/2022 Active Dementia in other diseases classified elsewhere, unspecified severity, with other behavioral disturbance ICD-10: F02.818 06/23/2022 Active Frequent falls ICD-10: R29.6 ICD-9: [...] D3) 1,250 mcg (50,000 unit) capsule RxNorm: 396165 Take 1 Capsule(s) Oral every other week 10/22/19 22 023 Inactive cholecalciferol (vitamin D3) 1,250 mcg (50,000 unit) capsule RxNorm: 194496 Take 1 Capsule(s) Oral every other week 10/22/19 22 022 Inactive acetaminophen 325 mg tablet RxNorm: 754916 Take 2 Tablet(s) Oral Q4H every four hours as needed PRN mild pain. NOT TO EXCEED 3,000 MG IN 24 HOURS 10/08/19 22 No Stop Date Active dextromethorphan-gu aifenesin 10 mg-100 mg/5 mL oral liquid RxNorm: 142465 as needed TAKE 5-10ML BY MOUTH EVERY 4-6HOURS NEEDED FOR COUGH OR CONGESTION 10/08/19 22 No Stop Date Active dx: cough due to Covid19 calcium carbonate 500 mg calcium (1,250 mg) chewable tablet RxNorm: 985028 Chew 2-4 Tablet(s) Oral as needed CHEW 2-4 TABLETS BY MOUTH BETWEEN MEALS AND AT BEDTIME NEEDED 10/08/19 22 No Stop Date Active ibuprofen 200 mg tablet RxNorm: 748202 Take 1-2 Tablet(s) Oral Q4-6H every 4-6 hours as needed NOT TO EXCEED 6 TABS IN 24 HOURS 10/08/19 22 No Stop Date Active aluminum-mag hydroxide-simethico ne 200 mg-200 mg-20 mg/5 mL oral susp RxNorm: 484181 Take 5-10 Milliliter(s) Oral QID as needed ONE TIME BETWEEN MEAL AND AT BEDTIME (STANDING ORDER) 10/08/19 22 No Stop Date Active Milk of Magnesia 400 mg/5 mL oral suspension RxNorm: 625698 Take 15-30 Milliliter(s) Oral QD QD - Daily as needed 10/08/19 22 No Stop Date Active diphenhydramine 25 mg capsule RxNorm: 2572943 Give 1-2 Capsule(s) Oral Q8H every 8 hours as needed FOR ALLERGIES 10/08/19 22 No Stop Date Active Vitamin D2 1,250 mcg (50,000 unit) capsule RxNorm: 2190504 1 Capsule(s) Oral QW once a week TAKE ONCE CAPSULE ONCE WEEKLY 10/08/19 22 022 Inactive ferrous sulfate 325 mg (65 mg iron) tablet RxNorm: 384228 Take 1 Tablet(s) Oral QD 10/06/19 22 024 Inactive atorvastatin 40 mg tablet RxNorm: 835231 Take 1 Tablet(s) Oral QHS every night at bedtime 10/06/19 22 023 Inactive CertaVite Senior oral RxNorm: oral 09/28/19 24 024 Inactive Oyster Shell Calcium oral RxNorm: 1897 oral 09/28/19 24 024 Inactive Medication Administered No Medication Administered data Immunizations Vaccine Codes Dose Date Status Covid-19 (Adult) CVX: 207 07/22/2021 Influenza CVX: 205 06/22/2021 Complete Covid-19 (Adult) CVX: 08/28/2020 Covid-19 (Adult) CVX: 08/25/2020 Results Observation Observation Code Item Item Code Result Date S ervice Location [facility] [id number] 06/25/2022 Unknown Procedures Procedure Codes Date SYS BP > OR = 140 CPT-4: G8753 06/23/2022 RAYO BP > OR = 90 CPT-4: G8755 06/23/2022 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 CPT-4: G0436 2021 BEHAV CHNG SMOKING 3-[address]: 2 66235715 CPT-4: 62204 05/26/2022 BEHAV CHNG SMOKING 3-[address]: 2 33619117 CPT-4: 58036 04/28/2022 BEHAV CHNG SMOKING 3-[address]: 2 06765370 CPT-4: 40874 03/24/2022 BEHAV CHNG SMOKING 3-[address]: 2 75968051 CPT-4: 04636 03/03/2022 BEHAV CHNG SMOKING 3-[address]: 2 62169938 CPT-4: 32974 01/20/2022 BEHAV CHNG SMOKING 3-[address]: 2 30222687 CPT-4: 76451 12/23/2021 BEHAV CHNG SMOKING 3-[address]: 2 77003912 CPT-4: 29444 11/25/2021 BEHAV CHNG SMOKING 3-[address]: 2 08731724 CPT-4: 09185 10/08/2021 Vital Signs Date Vital 06/23/2022 Blood Pressure 1: 148/96 Code: 8480-6 Heart Rate 1: 100 bpm Code: 8867-4 Height: 5'10 Code: 8302-2 SpO2: 94% Reason For Visit No Reason For Visit data Encounters Encounter Performer Location Location Address Codes Date (49126) DOMICIL VISIT EST PAT w/95 modifier Diagnosis: Aortic dilatation[ICD10: I77.819] Diagnosis: Alzheimer's dementia with other behavioral disturbance, unspecified dementia severity, unspecified timing of dementia onset[ICD10: G30.9] Diagnosis: Dementia in other diseases classified elsewhere, unspecified severity, with other behavioral disturbance[ICD10: F02.818] Diagnosis: Frequent falls[ICD10: R29.6] Diagnosis: Recurrent major depressive disorder, in full remission[ICD10: F33.42] Diagnosis: Iron deficiency anemia, unspecified iron deficiency anemia type[ICD10: D50.9] Diagnosis: Normocytic anemia[ICD10: D64.9] Leticia Machado [address] [address] CPT-4: 48462 06/23/2022 Plan of Care Planned Activity Notes Codes Status Date Ref[facility]: [facility] [address] [id number] Referral Closed 09/15/2022 Patient Education: Patient Medication Summary Completed 06/23/2022 Patient Education: Influenza Vaccine Completed 06/23/2022 Patient Education: Smoking Cessation Completed 06/23/2022 Patient Education: Alzheimer''s Disease Completed 06/23/2022 Patient Education: Dementia Complete d 06/23/2022 Instructions Comment Date Cruz is a male being seen l hellen at [facility]. Initial BPS visit 10/08/21. He is verbal and a fairly reliable historian, independent in ADLs. Prior to moving to this [place] he was found in his apartment with self-neglect. Hx of being . Often refuses help as nursing thinks he feels too proud to receive care. Hx of not liking to take meds or see providers. Patient is his own guardian. AWV 05.23.2024Labs: Yearly in NOVEMBER(CMP, CBC, LIPID, VITD, A1C, VITB12). [id number] in MAY (CBC). CMP wnl, CBCwnl, lipid all wnl; total cholesterol 117, HDL 51.9, LDL 40, triglycerides 124, VLDL 25), vitD 46 nl, iron studies, A1c 5.6, VitB12 223 nl. (CBC ordered) 05/23/2024
--- OUTSIDE RECORDS SUMMARY | 2024-09-04 10:22 | XMS_ITS | CCD ---
Author Name Luis M Canales MD her Address [address] [place] [address] Phone Organization [facility] Phone Care Team Providers Care Milk Route Deliverer Name Role Phone Eldridge RADIO EQUIPMENT INSTALLER-CJoseline Primary Care Provider Katy vailable Celine RADIO EQUIPMENT INSTALLER-CJoseline Chronic Care Management U navailable Summary Purpose DataExchange Insurance Providers Payer name Policy type / Coverage type Covered constitution party ID Effective Begin Date Effective End Date Medicare [place] Medicare Part B [id number] Unknown 2023 1 [employer] ([facility]) Medicare Part B [id number] Unknown 2023 1 Family History Family History data not found Social History Social History Element Codes Description Effec tive Dates Tobacco history SNOMED CT: 50668242 Current ever y day smoker 10/daily 10/09/[address]: 140102155 No Alcohol Consumption Hx, or if available [...] of dementia onset ICD-10: G30.9 ICD-9: 331.0 09/01/2022 Active Dementia in other diseases classified elsewhere, unspecified severity, with other behavioral disturbance ICD-10: F02.818 09/01/2022 Active Recurrent major depressive disorder, in full remission ICD-10: F33.42 ICD-9: 296.36 09/01/2022 Active Aortic dilatation ICD-10: I77.819 ICD-9: 447.70 06/23/2022 Active Frequent falls ICD-10: R29.6 ICD-9: V15.88 06/23/2022 Active Iron deficiency anemia, unsp ecified iron deficiency anemia type ICD-10: D50.9 ICD-9: 280.9 06/23/2022 Active Normocytic anemia ICD-10: D64.9 ICD-9: 285.9 06/23/2022 Active Cognitive impairment ICD-10: R41.89 ICD-9: [...] D3) 1,250 mcg (50,000 unit) capsule RxNorm: 733469 Take 1 Capsule(s) Oral every other week 10/22/19 22 023 Inactive cholecalciferol (vitamin D3) 1,250 mcg (50,000 unit) capsule RxNorm: 638566 Take 1 Capsule(s) Oral every other week 10/22/19 22 022 Inactive acetaminophen 325 mg tablet RxNorm: 157517 Take 2 Tablet(s) Oral Q4H every four hours as needed PRN mild pain. NOT TO EXCEED 3,000 MG IN 24 HOURS 10/08/19 22 No Stop Date Active dextromethorphan-gu aifenesin 10 mg-100 mg/5 mL oral liquid RxNorm: 713468 as needed TAKE 5-10ML BY MOUTH EVERY 4-6HOURS NEEDED FOR COUGH OR CONGESTION 10/08/19 22 No Stop Date Active dx: cough due to Covid19 calcium carbonate 500 mg calcium (1,250 mg) chewable tablet RxNorm: 865640 Chew 2-4 Tablet(s) Oral as needed CHEW 2-4 TABLETS BY MOUTH BETWEEN MEALS AND AT BEDTIME NEEDED 10/08/19 22 No Stop Date Active ibuprofen 200 mg tablet RxNorm: 667578 Take 1-2 Tablet(s) Oral Q4-6H every 4-6 hours as needed NOT TO EXCEED 6 TABS IN 24 HOURS 10/08/19 22 No Stop Date Active aluminum-mag hydroxide-simethico ne 200 mg-200 mg-20 mg/5 mL oral susp RxNorm: 797776 Take 5-10 Milliliter(s) Oral QID as needed ONE TIME BETWEEN MEAL AND AT BEDTIME (STANDING ORDER) 10/08/19 22 No Stop Date Active Milk of Magnesia 400 mg/5 mL oral suspension RxNorm: 191736 Take 15-30 Milliliter(s) Oral QD QD - Daily as needed 10/08/19 22 No Stop Date Active diphenhydramine 25 mg capsule RxNorm: 8516084 Give 1-2 Capsule(s) Oral Q8H every 8 hours as needed FOR ALLERGIES 10/08/19 22 No Stop Date Active Vitamin D2 1,250 mcg (50,000 unit) capsule RxNorm: 4854789 1 Capsule(s) Oral QW once a week TAKE ONCE CAPSULE ONCE WEEKLY 10/08/19 22 022 Inactive ferrous sulfate 325 mg (65 mg iron) tablet RxNorm: 461900 Take 1 Tablet(s) Oral QD 10/06/19 22 024 Inactive atorvastatin 40 mg tablet RxNorm: 240451 Take 1 Tablet(s) Oral QHS every night [...] (Adult) CVX: 08/25/2020 Procedures Procedure Codes Date TOBACCO CHAIN REPAIRER NO CHARGE CPT-4: G0436 2022 BEHAV CHNG SMOKING 3-[address]: 2 40979570 CPT-4: 47484 05/26/2022 BEHAV CHNG SMOKING 3-[address]: 2 82067478 CPT-4: 22969 04/28/2022 BEHAV CHNG SMOKING 3-[address]: 2 16022500 CPT-4: 31503 03/24/2022 BEHAV CHNG SMOKING 3-[address]: 2 84090000 CPT-4: 85234 03/03/2022 BEHAV CHNG SMOKING 3-[address]: 2 52689971 CPT-4: 23013 01/20/2022 BEHAV CHNG SMOKING 3-[address]: 2 16021235 CPT-4: 41420 12/23/2021 BEHAV CHNG SMOKING 3-[address]: 2 60191257 CPT-4: 51434 11/25/2021 BEHAV CHNG SMOKING 3-[address]: 2 88486872 CPT-4: 38056 10/08/2021 Vital Signs Date Vital 09/01/2022 Heart Rate 1: 72 bpm Code: 8867- 4 SpO2: 96% Reason For Visit No Reason For Visit data Encounters Encounter Performer Location Location Address Codes Date (81147) Home or Residence Visit Est Pt - Moderate Level, 40 mins Diagnosis: Alzheimer's dementia with other behavioral disturbance, unspecified dementia severity, unspecified timing of dementia onset[ICD10: G30.9] Diagnosis: Dementia in other diseases classified elsewhere, unspecified severity, with other behavioral disturbance[ICD10: F02.818] Diagnosis: Recurrent major depressive disorder, in full remission[ICD10: F33.42] Lanette Canales [place] [id number] CPT-4: 06104 09/01/2022 Plan of Care Planned Activity Notes Codes Status Date Referral: [facility] [address] [id number] [place] Referral Closed 09/15/2022 Patient Education: Patient Medication Summary Completed 09/01/2022 Patient Education: Alzheimer''s Disease Completed 09/01/2022 Patient Education: Influenza Vaccine Completed 09/01/2022 Patient Education: Smoking Cessation Completed 09/01/2022 Patient Education: Dementia Complete d 09/01/2022 Instructions Comment Date Cruz is a male being seen l hellen at [facility]. Initial BPS visit 10/08/21. He is verbal and a fairly reliable historian, independent in ADLs. Prior to moving to this [place] he was found in his apartment with self-neglect. Hx of being . Often refuses help as nursing thinks he feels too proud to receive care. Hx of not liking to take meds or see providers. Patient is his own guardian. AWV 05.23.2024Labs: Yearly in NOVEMBER(CMP, CBC, LIPID, VITD, A1C, VITB12). [id number] in MAY (CBC). CMP wnl, CBCwnl, lipid all wnl; total cholesterol 117, HDL 51.9, LDL 40, triglycerides 124, VLDL 25), vitD 46 nl, iron studies, A1c 5.6, VitB12 223 nl. (CBC ordered) 05/23/2024 Depression consider BHI-- continue with relationship building may allow this connection Neurocognitive Disorders in supportive setting . 09/01/2022
--- OUTSIDE RECORDS SUMMARY | 2024-09-04 10:23 | XMS_ITS | CCD ---
Author Organization Unknown Care Team Providers Care Industrial Furnace Fabricator Name Role Phone Celine STRUCTURAL ENGINEERING PROJECT MANAGER-C, Joseline Primary Care Provider Katy vailable [place] STRUCTURAL ENGINEERING PROJECT MANAGER-C, Joseline Chronic Care Management U navailable Summary Purpose DataExchange Insurance Providers Payer name Policy type / Coverage type Covered democrat ID Effective Begin Date Effective End Date Medicare [place] Medicare Part B [id number] Unknown 2023 1 [employer] ([facility]) Medicare Part B [id number] Unknown 2023 1 Family History Family History data not found Social History Social History Element Codes Description Effec tive Dates Tobacco history SNOMED CT: 08145015 Current ever y day smoker 10/daily 10/09/[address]: 907217134 No Alcohol Consumption Hx, or if available [...] Start Date Stop Date Status Fill Instructions atorvastatin 40 mg tablet RxNorm: 545091 Take 1 Tablet(s) Oral QAM every morning 11/25/19 23 024 Inactive 2ND REQUEST FOR REFILLS 11/24 REFILLS NEEDED GORDO PLEASE THANK YOU ferrous sulfate 325 mg (65 mg iron) tablet,delayed release RxNorm: 832243 TAKE 1 TABLET BY MOUTH DAILY WITH A MEAL 11/23/19 23 024 Inactive 11/22/22 PROACTIVE REFILL REQUEST FOR NEXT CYCLE PLEASE THANK YOU cholecalciferol (vitamin D3) 1,250 mcg (50,000 unit) capsule RxNorm: 441433 Take 1 Capsule(s) Oral every other week 10/22/19 22 022 Inactive cholecalciferol (vitamin D3) 1,250 mcg (50,000 unit) capsule RxNorm: 753359 Take 1 Capsule(s) Oral every other week 10/22/19 22 023 Inactive acetaminophen 325 mg tablet RxNorm: 873681 Take 2 Tablet(s) Oral Q4H every four hours as needed PRN mild pain. NOT TO EXCEED 3,000 MG IN 24 HOURS 10/08/19 22 No Stop Date Active dextromethorphan-gu aifenesin 10 mg-100 mg/5 mL oral liquid RxNorm: 710806 as needed TAKE 5-10ML BY MOUTH EVERY 4-6HOURS NEEDED FOR COUGH OR CONGESTION 10/08/19 22 No Stop Date Active dx: cough due to Covid19 calcium carbonate 500 mg calcium (1,250 mg) chewable tablet RxNorm: 626149 Chew 2-4 Tablet(s) Oral as needed CHEW 2-4 TABLETS BY MOUTH BETWEEN MEALS AND AT BEDTIME NEEDED 10/08/19 22 No Stop Date Active ibuprofen 200 mg tablet RxNorm: 587624 Take 1-2 Tablet(s) Oral Q4-6H every 4-6 hours as needed NOT TO EXCEED 6 TABS IN 24 HOURS 10/08/19 22 No Stop Date Active aluminum-mag hydroxide-simethico ne 200 mg-200 mg-20 mg/5 mL oral susp RxNorm: 023391 Take 5-10 Milliliter(s) Oral QID as needed ONE TIME BETWEEN MEAL AND AT BEDTIME (STANDING ORDER) 10/08/19 22 No Stop Date Active Milk of Magnesia 400 mg/5 mL oral suspension RxNorm: 728830 Take 15-30 Milliliter(s) Oral QD QD - Daily as needed 10/08/19 22 No Stop Date Active diphenhydramine 25 mg capsule RxNorm: 1267484 Give 1-2 Capsule(s) Oral Q8H every 8 hours as needed FOR ALLERGIES 10/08/19 22 No Stop Date Active Vitamin D2 1,250 mcg (50,000 unit) capsule RxNorm: 7202829 1 Capsule(s) Oral QW once a week TAKE ONCE CAPSULE ONCE WEEKLY 10/08/19 22 022 Inactive ferrous sulfate 325 mg (65 mg iron) tablet RxNorm: 554046 Take 1 Tablet(s) Oral QD 10/06/19 22 024 Inactive atorvastatin 40 mg tablet RxNorm: 118793 Take 1 Tablet(s) Oral QHS every night at bedtime 10/06/19 22 023 Inactive CertaVite Senior oral RxNorm: oral 09/28/19 24 024 Inactive Oyster Shell Calcium oral RxNorm: 1897 oral 09/28/19 24 024 Inactive Medication Administered No Medication Administered data Immunizations Vaccine Codes Dose Date Status Covid-19 (Adult) CVX: 07/22/2021 Influenza CVX: 06/22/2021 Complete Covid-19 (Adult) CVX: 08/28/2020 Covid-19 (Adult) CVX: 08/25/2020 Procedures Procedure Codes Date BEHAV CHNG SMOKING 3-[address]: 2 39021667 CPT-4: 43246 05/26/2022 BEHAV CHNG SMOKING 3-[address]: 2 91437230 CPT-4: 21761 04/28/2022 BEHAV CHNG SMOKING 3-[address]: 2 99609997 CPT-4: 72495 03/24/2022 BEHAV CHNG SMOKING 3-[address]: 2 07098110 CPT-4: 21776 03/03/2022 BEHAV CHNG SMOKING 3-[address]: 2 48699820 CPT-4: 64017 01/20/2022 BEHAV CHNG SMOKING 3-[address]: 2 78088298 CPT-4: 55599 12/23/2021 BEHAV CHNG SMOKING 3-[address]: 2 57127010 CPT-4: 13892 11/25/2021 BEHAV CHNG SMOKING 3-[address]: 2 88960809 CPT-4: 38429 10/08/2021 Reason For Visit No Reason For Visit data Plan of Care Planned Activity Notes Codes Status Date Referral: [facility] [address] [place] [id number] Referral Closed 09/15/2022 Instructions Comment Date Cruz is a male being seen l hellen at [facility]. Initial BPS visit 10/08/21. He [...] in NOVEMBER(CMP, CBC, LIPID, VITD, A1C, VITB12). [id number] in MAY (CBC)11.19.2023 CMP wnl, CBCwnl, lipid all wnl; total cholesterol 117, HDL 51.9, LDL 40, triglycerides 124, VLDL 25), vitD 46 nl, iron studies, A1c 5.6, VitB12 223 nl. (CBC ordered) 05/23/2024
--- OUTSIDE RECORDS SUMMARY | 2024-09-04 10:23 | XMS_ITS | CCD ---
Author Organization Unknown Care Team Providers Care Fruit Grading Supervisor Name Role Phone Celine ASSEMBLER FLEXIBLE LEADS-C, Joseline Primary Care Provider Kayt vailable [place] ASSEMBLER FLEXIBLE LEADS-C, Joseline Chronic Care Management U navailable Summary Purpose DataExchange Insurance Providers Payer name Policy type / Coverage type Covered green party ID Effective Begin Date Effective End Date Medicare [place] Medicare Part B [id number] Unknown 2023 1 [employer] ([facility]) Medicare Part B [id number] Unknown 2023 1 Family History Family History data not found Social History Social History Element Codes Description Effec tive Dates Tobacco history SNOMED CT: 19929568 Current ever y day smoker 10/daily 10/09/[address]: 373951044 No Alcohol Consumption Hx, or if available [...] Start Date Stop Date Status Fill Instructions ferrous sulfate 325 mg (65 mg iron) tablet,delayed release RxNorm: 709034 TAKE 1 TABLET BY MOUTH DAILY WITH A MEAL 11/23/19 024 Inactive 11/22/22 PROACTIVE REFILL REQUEST FOR NEXT CYCLE PLEASE THANK YOU cholecalciferol (vitamin D3) 1,250 mcg (50,000 unit) capsule RxNorm: 547207 Take 1 Capsule(s) Oral every other week 10/22/19 22 022 Inactive cholecalciferol (vitamin D3) 1,250 mcg (50,000 unit) capsule RxNorm: 355977 Take 1 Capsule(s) Oral every other week 10/22/19 22 023 Inactive acetaminophen 325 mg tablet RxNorm: 061504 Take 2 Tablet(s) Oral Q4H every four hours as needed PRN mild pain. NOT TO EXCEED 3,000 MG IN 24 HOURS 10/08/19 22 No Stop Date Active dextromethorphan-gu aifenesin 10 mg-100 mg/5 mL oral liquid RxNorm: 870557 as needed TAKE 5-10ML BY MOUTH EVERY 4-6HOURS NEEDED FOR COUGH OR CONGESTION 10/08/19 22 No Stop Date Active dx: cough due to Covid19 calcium carbonate 500 mg calcium (1,250 mg) chewable tablet RxNorm: 344022 Chew 2-4 Tablet(s) Oral as needed CHEW 2-4 TABLETS BY MOUTH BETWEEN MEALS AND AT BEDTIME NEEDED 10/08/19 22 No Stop Date Active ibuprofen 200 mg tablet RxNorm: 468272 Take 1-2 Tablet(s) Oral Q4-6H every 4-6 hours as needed NOT TO EXCEED 6 TABS IN 24 HOURS 10/08/19 22 No Stop Date Active aluminum-mag hydroxide-simethico ne 200 mg-200 mg-20 mg/5 mL oral susp RxNorm: 183711 Take 5-10 Milliliter(s) Oral QID as needed ONE TIME BETWEEN MEAL AND AT BEDTIME (STANDING ORDER) 10/08/19 22 No Stop Date Active Milk of Magnesia 400 mg/5 mL oral suspension RxNorm: 591538 Take 15-30 Milliliter(s) Oral QD QD - Daily as needed 10/08/19 22 No Stop Date Active diphenhydramine 25 mg capsule RxNorm: 9970816 Give 1-2 Capsule(s) Oral Q8H every 8 hours as needed FOR ALLERGIES 10/08/19 22 No Stop Date Active Vitamin D2 1,250 mcg (50,000 unit) capsule RxNorm: 0631258 1 Capsule(s) Oral QW once a week TAKE ONCE CAPSULE ONCE WEEKLY 10/08/19 22 022 Inactive ferrous sulfate 325 mg (65 mg iron) tablet RxNorm: 527834 Take 1 Tablet(s) Oral QD 10/06/19 22 024 Inactive atorvastatin 40 mg tablet RxNorm: 747617 Take 1 Tablet(s) Oral QHS every night [...] CHNG SMOKING 3-[address]: 2 20427628 CPT-4: 66519 05/26/2022 BEHAV CHNG SMOKING 3-[address]: 2 84406031 CPT-4: 85599 04/28/2022 BEHAV CHNG SMOKING 3-[address]: 2 07274364 CPT-4: 48153 03/24/2022 BEHAV CHNG SMOKING 3-[address]: 2 50327491 CPT-4: 59495 03/03/2022 BEHAV CHNG SMOKING 3-[address]: 2 82992301 CPT-4: 13432 01/20/2022 BEHAV CHNG SMOKING 3-[address]: 2 59672675 CPT-4: 03484 12/23/2021 BEHAV CHNG SMOKING 3-[address]: 2 89359028 CPT-4: 72806 11/25/2021 BEHAV CHNG SMOKING 3-[address]: 2 97069075 CPT-4: 07164 10/08/2021 Reason For Visit No Reason For Visit data Plan of Care Planned Activity Notes Codes Status Date Referral: Jose Elias G[facility] WPtel: [facility] [address] [id number] Referral Closed 09/15/2022 Instructions Comment Date Cruz is a male being seen lizeth macedo at [facility]. Initial BPS visit 10/08/21. He is verbal and a fairly reliable historian, independent in ADLs. Prior to moving to this [place] he was found in his apartment with self-neglect. Hx of being . Often refuses help as nursing thinks he feels too proud to receive care. Hx of not liking to take meds or see providers. Patient is his own guardian. AWV 05.23.2024Labs: Yearly in NOVEMBER(CMP, CBC, LIPID, VITD, A1C, VITB12). [id number] in MAY (CBC). CMP wnl, CBCwnl, lipid all wnl; total cholesterol 117, HDL 51.9, LDL 40, triglycerides 124, VLDL 25), vitD 46 nl, iron studies, A1c 5.6, VitB12 223 nl. (CBC ordered) 05/23/2024
--- OUTSIDE RECORDS SUMMARY | 2024-09-04 10:24 | XMS_ITS | CCD ---
Author Organization Unknown Care Team Providers Care Inspecting Supervisor Name Role Phone Celine MINE SHIFTER-C, Joseline Primary Care Provider Katy vailable [place] MINE SHIFTER-C, Joseline Chronic Care Management U navailable Summary Purpose DataExchange Insurance Providers Payer name Policy type / Coverage type Covered constitution party ID Effective Begin Date Effective End Date Medicare [place] Medicare Part B [id number] Unknown 2023 1 [employer] ([facility]) Medicare Part B [id number] Unknown 2023 1 Family History Family History data not found Social History Social History Element Codes Description Effec tive Dates Tobacco history SNOMED CT: 72307911 Current ever y day smoker 10/daily 10/09/[address]: 685289207 No Alcohol Consumption Hx, or if available [...] of dementia onset ICD-10: G30.9 ICD-9: 331.0 12/22/2022 Active Cognitive impairment ICD-10: R41.89 ICD-9: 294.9 12/22/2022 Active Dementia in other diseases classified elsewhere, unspecified severity, with other behavioral disturbance ICD-10: F02.818 12/22/2022 Active Frequent falls ICD-10: R29.6 ICD-9: V15.88 12/22/2022 Active Hemiparesis due to non-cerebrovascular etiology, unspecified laterality ICD-10: G81.90 ICD-9: 342.90 12/22/2022 Active Iron deficiency anemia, unsp ecified iron deficiency anemia type ICD-10: D50.9 ICD-9: 280.9 12/22/2022 Active Normocytic anemia ICD-10: D64.9 ICD-9: 285.9 12/22/2022 Active Recurrent major depressive disorder, in full remission ICD-10: F33.42 ICD-9: 296.36 09/01/2022 Active Aortic dilatation ICD-10: I77.819 ICD-9: 447.70 06/23/2022 Active Enteritis ICD-10: K52.9 ICD-9: 558.9 05/26/2022 Active Tobacco use disorder ICD-10: F17.200 ICD-9: 305.1 05/26/2022 Active 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 ICD-9: 287.2 [...] Fill Instructions atorvastatin 40 mg tablet RxNorm: 928600 Take 1 Tablet(s) Oral QAM every morning 11/25/19 23 024 Inactive 2ND REQUEST FOR REFILLS 11/24 REFILLS NEEDED GORDO PLEASE THANK YOU ferrous sulfate 325 mg (65 mg iron) tablet,delayed release RxNorm: 147222 TAKE 1 TABLET BY MOUTH DAILY WITH A MEAL 11/23/19 23 024 Inactive 11/22/22 PROACTIVE REFILL REQUEST FOR NEXT CYCLE PLEASE THANK YOU cholecalciferol (vitamin D3) 1,250 mcg (50,000 unit) capsule RxNorm: 203758 Take 1 Capsule(s) Oral every other week 10/22/19 22 022 Inactive cholecalciferol (vitamin D3) 1,250 mcg (50,000 unit) capsule RxNorm: 874506 Take 1 Capsule(s) Oral every other week 10/22/19 22 023 Inactive acetaminophen 325 mg tablet RxNorm: 109254 Take 2 Tablet(s) Oral Q4H every four hours as needed PRN mild pain. NOT TO EXCEED 3,000 MG IN 24 HOURS 10/08/19 22 No Stop Date Active dextromethorphan-gu aifenesin 10 mg-100 mg/5 mL oral liquid RxNorm: 277606 as needed TAKE 5-10ML BY MOUTH EVERY 4-6HOURS NEEDED FOR COUGH OR CONGESTION 10/08/19 22 No Stop Date Active dx: cough due to Covid19 calcium carbonate 500 mg calcium (1,250 mg) chewable tablet RxNorm: 478875 Chew 2-4 Tablet(s) Oral as needed CHEW 2-4 TABLETS BY MOUTH BETWEEN MEALS AND AT BEDTIME NEEDED 10/08/19 22 No Stop Date Active ibuprofen 200 mg tablet RxNorm: 897003 Take 1-2 Tablet(s) Oral Q4-6H every 4-6 hours as needed NOT TO EXCEED 6 TABS IN 24 HOURS 10/08/19 22 No Stop Date Active aluminum-mag hydroxide-simethico ne 200 mg-200 mg-20 mg/5 mL oral susp RxNorm: 167769 Take 5-10 Milliliter(s) Oral QID as needed ONE TIME BETWEEN MEAL AND AT BEDTIME (STANDING ORDER) 10/08/19 22 No Stop Date Active Milk of Magnesia 400 mg/5 mL oral suspension RxNorm: 558032 Take 15-30 Milliliter(s) Oral QD QD - Daily as needed 10/08/19 22 No Stop Date Active diphenhydramine 25 mg capsule RxNorm: 7209723 Give 1-2 Capsule(s) Oral Q8H every 8 hours as needed FOR ALLERGIES 10/08/19 22 No Stop Date Active Vitamin D2 1,250 mcg (50,000 unit) capsule RxNorm: 0901155 1 Capsule(s) Oral QW once a week TAKE ONCE CAPSULE ONCE WEEKLY 10/08/19 22 022 Inactive ferrous sulfate 325 mg (65 mg iron) tablet RxNorm: 786192 Take 1 Tablet(s) Oral QD 10/06/19 22 024 Inactive atorvastatin 40 mg tablet RxNorm: 800111 Take 1 Tablet(s) Oral QHS every night [...] CHNG SMOKING 3-[address]: 2 36600991 CPT-4: 38708 05/26/2022 BEHAV CHNG SMOKING 3-[address]: 2 21780354 CPT-4: 93511 04/28/2022 BEHAV CHNG SMOKING 3-[address]: 2 79402398 CPT-4: 52501 03/24/2022 BEHAV CHNG SMOKING 3-[address]: 2 48281716 CPT-4: 01723 03/03/2022 BEHAV CHNG SMOKING 3-[address]: 2 48218997 CPT-4: 82727 01/20/2022 BEHAV CHNG SMOKING 3-[address]: 2 89786162 CPT-4: 27896 12/23/2021 BEHAV CHNG SMOKING 3-[address]: 2 05025909 CPT-4: 71700 11/25/2021 BEHAV CHNG SMOKING 3-[address]: 2 33693684 CPT-4: 12009 10/08/2021 Reason For Visit No Reason For Visit data Plan of Care Planned Activity Notes Codes Status Date Referral: Jose Elias [facility] W[facility]el: [facility] [address] [id number] Referral Closed 09/15/2022 Instructions Comment Date Cruz is a male being seen l hellen at [facility]. Initial BPS visit 10/08/21. He is [...] in NOVEMBER(CMP, CBC, LIPID, VITD, A1C, VITB12). [id number] in MAY (CBC)11.19.2023 CMP wnl, CBCwnl, lipid all wnl; total cholesterol 117, HDL 51.9, LDL 40, triglycerides 124, VLDL 25), vitD 46 nl, iron studies, A1c 5.6, VitB12 223 nl. (CBC ordered) 05/23/2024
--- OUTSIDE RECORDS SUMMARY | 2024-09-04 10:24 | XMS_ITS | CCD ---
Author Organization Unknown Care Team Providers Care Surgeon Assistant Name Role Phone Celine PULLER THROUGH-C, Joseline Primary Care Provider Katy vailable [place] PULLER THROUGH-C, Joseline Chronic Care Management U navailable Summary Purpose DataExchange Insurance Providers Payer name Policy type / Coverage type Covered republican ID Effective Begin Date Effective End Date Medicare [place] Medicare Part B [id number] Unknown 2023 1 [employer] ([facility]) Medicare Part B [id number] Unknown 2023 1 Family History Family History data not found Social History Social History Element Codes Description Effec tive Dates Tobacco history SNOMED CT: 86266351 Current ever y day smoker 10/daily 10/09/[address]: 806236922 No Alcohol Consumption Hx, or if available [...] Fill Instructions atorvastatin 40 mg tablet RxNorm: 687124 Take 1 Tablet(s) Oral QAM every morning 11/25/19 23 024 Inactive 2ND REQUEST FOR REFILLS 11/24 REFILLS NEEDED GORDO PLEASE THANK YOU ferrous sulfate 325 mg (65 mg iron) tablet,delayed release RxNorm: 636752 TAKE 1 TABLET BY MOUTH DAILY WITH A MEAL 11/23/19 23 024 Inactive 11/22/22 PROACTIVE REFILL REQUEST FOR NEXT CYCLE PLEASE THANK YOU cholecalciferol (vitamin D3) 1,250 mcg (50,000 unit) capsule RxNorm: 536969 Take 1 Capsule(s) Oral every other week 10/22/19 22 022 Inactive cholecalciferol (vitamin D3) 1,250 mcg (50,000 unit) capsule RxNorm: 617645 Take 1 Capsule(s) Oral every other week 10/22/19 22 023 Inactive acetaminophen 325 mg tablet RxNorm: 715383 Take 2 Tablet(s) Oral Q4H every four hours as needed PRN mild pain. NOT TO EXCEED 3,000 MG IN 24 HOURS 10/08/19 22 No Stop Date Active dextromethorphan-gu aifenesin 10 mg-100 mg/5 mL oral liquid RxNorm: 639423 as needed TAKE 5-10ML BY MOUTH EVERY 4-6HOURS NEEDED FOR COUGH OR CONGESTION 10/08/19 22 No Stop Date Active dx: cough due to Covid19 calcium carbonate 500 mg calcium (1,250 mg) chewable tablet RxNorm: 877145 Chew 2-4 Tablet(s) Oral as needed CHEW 2-4 TABLETS BY MOUTH BETWEEN MEALS AND AT BEDTIME NEEDED 10/08/19 22 No Stop Date Active ibuprofen 200 mg tablet RxNorm: 529689 Take 1-2 Tablet(s) Oral Q4-6H every 4-6 hours as needed NOT TO EXCEED 6 TABS IN 24 HOURS 10/08/19 22 No Stop Date Active aluminum-mag hydroxide-simethico ne 200 mg-200 mg-20 mg/5 mL oral susp RxNorm: 509430 Take 5-10 Milliliter(s) Oral QID as needed ONE TIME BETWEEN MEAL AND AT BEDTIME (STANDING ORDER) 10/08/19 22 No Stop Date Active Milk of Magnesia 400 mg/5 mL oral suspension RxNorm: 567324 Take 15-30 Milliliter(s) Oral QD QD - Daily as needed 10/08/19 22 No Stop Date Active diphenhydramine 25 mg capsule RxNorm: 2921167 Give 1-2 Capsule(s) Oral Q8H every 8 hours as needed FOR ALLERGIES 10/08/19 22 No Stop Date Active Vitamin D2 1,250 mcg (50,000 unit) capsule RxNorm: 0700387 1 Capsule(s) Oral QW once a week TAKE ONCE CAPSULE ONCE WEEKLY 10/08/19 22 022 Inactive ferrous sulfate 325 mg (65 mg iron) tablet RxNorm: 770029 Take 1 Tablet(s) Oral QD 10/06/19 22 024 Inactive atorvastatin 40 mg tablet RxNorm: 164598 Take 1 Tablet(s) Oral QHS every night [...] CHNG SMOKING 3-[address]: 2 05753694 CPT-4: 11316 05/26/2022 BEHAV CHNG SMOKING 3-[address]: 2 44012892 CPT-4: 63826 04/28/2022 BEHAV CHNG SMOKING 3-[address]: 2 03343885 CPT-4: 49479 03/24/2022 BEHAV CHNG SMOKING 3-[address]: 2 03878643 CPT-4: 66843 03/03/2022 BEHAV CHNG SMOKING 3-[address]: 2 12892679 CPT-4: 81893 01/20/2022 BEHAV CHNG SMOKING 3-[address]: 2 72782129 CPT-4: 93821 12/23/2021 BEHAV CHNG SMOKING 3-[address]: 2 48653748 CPT-4: 47893 11/25/2021 BEHAV CHNG SMOKING 3-[address]: 2 15563537 CPT-4: 26679 10/08/2021 Reason For Visit No Reason For Visit data Plan of Care Planned Activity Notes Codes Status Date Referral: Jose Elias [facility] W[facility]el: [facility] [address] [id number] Referral Closed 09/15/2022 Instructions Comment Date Cruz is a male being seen l hellen at [facility]. Initial BPS visit 10/08/21. He is verbal [...] in NOVEMBER(CMP, CBC, LIPID, VITD, A1C, VITB12). [id number] in MAY (CBC)11.19.2023 CMP wnl, CBCwnl, lipid all wnl; total cholesterol 117, HDL 51.9, LDL 40, triglycerides 124, VLDL 25), vitD 46 nl, iron studies, A1c 5.6, VitB12 223 nl. (CBC ordered) 05/23/2024
--- OUTSIDE RECORDS SUMMARY | 2024-09-04 10:24 | XMS_ITS | CCD ---
Author Organization Unknown Care Team Providers Care Technical Product Manager Name Role Phone Celine GUARD DRIVER-C, Joseline Primary Care Provider Katy vailable [place] GUARD DRIVER-C, Joseline Chronic Care Management U navailable Summary Purpose DataExchange Insurance Providers Payer name Policy type / Coverage type Covered republican ID Effective Begin Date Effective End Date Medicare [place] Medicare Part B [id number] Unknown 2023 1 [employer] ([facility]) Medicare Part B [id number] Unknown 2023 1 Family History Family History data not found Social History Social History Element Codes Description Effec tive Dates Tobacco history SNOMED CT: 21168328 Current ever y day smoker 10/daily 10/09/[address]: 561806300 No Alcohol Consumption Hx, or if available [...] Fill Instructions atorvastatin 40 mg tablet RxNorm: 986832 Take 1 Tablet(s) Oral QAM every morning 11/25/19 23 024 Inactive 2ND REQUEST FOR REFILLS 11/24 REFILLS NEEDED GORDO PLEASE THANK YOU ferrous sulfate 325 mg (65 mg iron) tablet,delayed release RxNorm: 624419 TAKE 1 TABLET BY MOUTH DAILY WITH A MEAL 11/23/19 23 024 Inactive 11/22/22 PROACTIVE REFILL REQUEST FOR NEXT CYCLE PLEASE THANK YOU cholecalciferol (vitamin D3) 1,250 mcg (50,000 unit) capsule RxNorm: 674939 Take 1 Capsule(s) Oral every other week 10/22/19 22 022 Inactive cholecalciferol (vitamin D3) 1,250 mcg (50,000 unit) capsule RxNorm: 927657 Take 1 Capsule(s) Oral every other week 10/22/19 22 023 Inactive acetaminophen 325 mg tablet RxNorm: 281851 Take 2 Tablet(s) Oral Q4H every four hours as needed PRN mild pain. NOT TO EXCEED 3,000 MG IN 24 HOURS 10/08/19 22 No Stop Date Active dextromethorphan-gu aifenesin 10 mg-100 mg/5 mL oral liquid RxNorm: 686839 as needed TAKE 5-10ML BY MOUTH EVERY 4-6HOURS NEEDED FOR COUGH OR CONGESTION 10/08/19 22 No Stop Date Active dx: cough due to Covid19 calcium carbonate 500 mg calcium (1,250 mg) chewable tablet RxNorm: 327702 Chew 2-4 Tablet(s) Oral as needed CHEW 2-4 TABLETS BY MOUTH BETWEEN MEALS AND AT BEDTIME NEEDED 10/08/19 22 No Stop Date Active ibuprofen 200 mg tablet RxNorm: 950944 Take 1-2 Tablet(s) Oral Q4-6H every 4-6 hours as needed NOT TO EXCEED 6 TABS IN 24 HOURS 10/08/19 22 No Stop Date Active aluminum-mag hydroxide-simethico ne 200 mg-200 mg-20 mg/5 mL oral susp RxNorm: 021586 Take 5-10 Milliliter(s) Oral QID as needed ONE TIME BETWEEN MEAL AND AT BEDTIME (STANDING ORDER) 10/08/19 22 No Stop Date Active Milk of Magnesia 400 mg/5 mL oral suspension RxNorm: 164748 Take 15-30 Milliliter(s) Oral QD QD - Daily as needed 10/08/19 22 No Stop Date Active diphenhydramine 25 mg capsule RxNorm: 4150316 Give 1-2 Capsule(s) Oral Q8H every 8 hours as needed FOR ALLERGIES 10/08/19 22 No Stop Date Active Vitamin D2 1,250 mcg (50,000 unit) capsule RxNorm: 8170527 1 Capsule(s) Oral QW once a week TAKE ONCE CAPSULE ONCE WEEKLY 10/08/19 22 022 Inactive ferrous sulfate 325 mg (65 mg iron) tablet RxNorm: 372639 Take 1 Tablet(s) Oral QD 10/06/19 22 024 Inactive atorvastatin 40 mg tablet RxNorm: 288528 Take 1 Tablet(s) Oral QHS every night [...] CHNG SMOKING 3-[address]: 2 79437719 CPT-4: 59738 05/26/2022 BEHAV CHNG SMOKING 3-[address]: 2 55543440 CPT-4: 82555 04/28/2022 BEHAV CHNG SMOKING 3-[address]: 2 48776961 CPT-4: 97881 03/24/2022 BEHAV CHNG SMOKING 3-[address]: 2 87794472 CPT-4: 99526 03/03/2022 BEHAV CHNG SMOKING 3-[address]: 2 90906932 CPT-4: 69950 01/20/2022 BEHAV CHNG SMOKING 3-[address]: 2 59013275 CPT-4: 69169 12/23/2021 BEHAV CHNG SMOKING 3-[address]: 2 88249996 CPT-4: 70987 11/25/2021 BEHAV CHNG SMOKING 3-[address]: 2 02750458 CPT-4: 59636 10/08/2021 Reason For Visit No Reason For Visit data Plan of Care Planned Activity Notes Codes Status Date Referral: [facility] Elias [facility]: [facility] [address] [id number] Referral Closed 09/15/2022 Instructions Comment Date Cruz is a male being seen l hellen at [facility]. Initial BPS visit 10/08/21. He is [...] in NOVEMBER(CMP, CBC, LIPID, VITD, A1C, VITB12). [id number] in MAY (CBC)11.19.2023 CMP wnl, CBCwnl, lipid all wnl; total cholesterol 117, HDL 51.9, LDL 40, triglycerides 124, VLDL 25), vitD 46 nl, iron studies, A1c 5.6, VitB12 223 nl. (CBC ordered) 05/23/2024
--- OUTSIDE RECORDS SUMMARY | 2024-09-04 10:24 | XMS_ITS | CCD ---
Author Name Leticia Machado PA-C Address [address] [place] [address] Phone Organization [facility] Phone Care Team Providers Care Naturopathic Physician Name Role Phone Celine MONROE-CJoseline Primary Care Provider Katy vailable Celine MONROE-CJoseline Chronic Care Management U navailable Summary Purpose DataExchange Insurance Providers Payer name Policy type / Coverage type Covered republican ID Effective Begin Date Effective End Date Medicare [place] Medicare Part B [id number] Unknown 2023 1 Medica ([facility]) Medicare Part B [id number] Unknown 2023 1 Family History Family History data not found Social History Social History Element Codes Description Effec tive Dates Tobacco history SNOMED CT: 39125320 Current ever y day smoker 10/daily 10/09/[address]: 069390035 No Alcohol Consumption Hx, or if available [...] Fill Instructions atorvastatin 40 mg tablet RxNorm: 902693 Take 1 Tablet(s) Oral QAM every morning 11/25/19 23 024 Inactive 2ND REQUEST FOR REFILLS 11/24 REFILLS NEEDED GORDO PLEASE THANK YOU ferrous sulfate 325 mg (65 mg iron) tablet,delayed release RxNorm: 976696 TAKE 1 TABLET BY MOUTH DAILY WITH A MEAL 11/23/19 23 024 Inactive 11/22/22 PROACTIVE REFILL REQUEST FOR NEXT CYCLE PLEASE THANK YOU cholecalciferol (vitamin D3) 1,250 mcg (50,000 unit) capsule RxNorm: 476394 Take 1 Capsule(s) Oral every other week 10/22/19 22 022 Inactive cholecalciferol (vitamin D3) 1,250 mcg (50,000 unit) capsule RxNorm: 735688 Take 1 Capsule(s) Oral every other week 10/22/19 22 023 Inactive acetaminophen 325 mg tablet RxNorm: 218547 Take 2 Tablet(s) Oral Q4H every four hours as needed PRN mild pain. NOT TO EXCEED 3,000 MG IN 24 HOURS 10/08/19 22 No Stop Date Active dextromethorphan-gu aifenesin 10 mg-100 mg/5 mL oral liquid RxNorm: 730549 as needed TAKE 5-10ML BY MOUTH EVERY 4-6HOURS NEEDED FOR COUGH OR CONGESTION 10/08/19 22 No Stop Date Active dx: cough due to Covid19 calcium carbonate 500 mg calcium (1,250 mg) chewable tablet RxNorm: 664801 Chew 2-4 Tablet(s) Oral as needed CHEW 2-4 TABLETS BY MOUTH BETWEEN MEALS AND AT BEDTIME NEEDED 10/08/19 22 No Stop Date Active ibuprofen 200 mg tablet RxNorm: 582637 Take 1-2 Tablet(s) Oral Q4-6H every 4-6 hours as needed NOT TO EXCEED 6 TABS IN 24 HOURS 10/08/19 22 No Stop Date Active aluminum-mag hydroxide-simethico ne 200 mg-200 mg-20 mg/5 mL oral susp RxNorm: 510745 Take 5-10 Milliliter(s) Oral QID as needed ONE TIME BETWEEN MEAL AND AT BEDTIME (STANDING ORDER) 10/08/19 22 No Stop Date Active Milk of Magnesia 400 mg/5 mL oral suspension RxNorm: 403168 Take 15-30 Milliliter(s) Oral QD QD - Daily as needed 10/08/19 22 No Stop Date Active diphenhydramine 25 mg capsule RxNorm: 7606174 Give 1-2 Capsule(s) Oral Q8H every 8 hours as needed FOR ALLERGIES 10/08/19 22 No Stop Date Active Vitamin D2 1,250 mcg (50,000 unit) capsule RxNorm: 8482510 1 Capsule(s) Oral QW once a week TAKE ONCE CAPSULE ONCE WEEKLY 10/08/19 22 022 Inactive ferrous sulfate 325 mg (65 mg iron) tablet RxNorm: 924870 Take 1 Tablet(s) Oral QD 10/06/19 22 024 Inactive atorvastatin 40 mg tablet RxNorm: 970935 Take 1 Tablet(s) Oral QHS every night [...] (Adult) CVX: 08/25/2020 Procedures Procedure Codes Date SYS BP LESS 140 CPT-4: G8752 12/22/2022 RAYO BP LESS 90 CPT-4: G8754 12/22/2022 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 CPT-4: G0436 2022 BEHAV CHNG SMOKING 3-[address]: 2 03408432 CPT-4: 19013 05/26/2022 BEHAV CHNG SMOKING 3-[address]: 2 42140733 CPT-4: 22606 04/28/2022 BEHAV CHNG SMOKING 3-[address]: 2 93715030 CPT-4: 17621 03/24/2022 BEHAV CHNG SMOKING 3-[address]: 2 63244832 CPT-4: 74911 03/03/2022 BEHAV CHNG SMOKING 3-[address]: 2 03777209 CPT-4: 62148 01/20/2022 BEHAV CHNG SMOKING 3-[address]: 2 93898372 CPT-4: 34007 12/23/2021 BEHAV CHNG SMOKING 3-[address]: 2 79646386 CPT-4: 01323 11/25/2021 BEHAV CHNG SMOKING 3-[address]: 2 89248671 CPT-4: 77790 10/08/2021 Vital Signs Date Vital 12/22/2022 Blood Pressure 1: 108/69 Code: 8 480-6 Height: 5'10 Code: 8302-2 Reason For Visit No Reason For Visit data Encounters Encounter Performer Location Location Address Codes Date ([address]) Home or Residence Visit Est Pt - Moderate Level, 40 mins Diagnosis: Alzheimer's dementia with other behavioral disturbance, unspecified dementia severity, unspecified timing of dementia onset[ICD10: G30.9] Diagnosis: Dementia in other diseases classified elsewhere, unspecified severity, with other behavioral disturbance[ICD10: F02.818] Diagnosis: Cognitive impairment[ICD10: R41.89] Diagnosis: Frequent falls[ICD10: R29.6] Diagnosis: Hemiparesis due to non-cerebrovascular etiology, unspecified laterality[ICD10: G81.90] Diagnosis: Iron deficiency anemia, unspecified iron deficiency anemia type[ICD10: D50.9] Diagnosis: Normocytic anemia[ICD10: D64.9] Leticia Machado [address] [address] CPT-4: 25613 12/22/2022 Plan of Care Planned Activity Notes Codes Status Date Patient Education: Patient Medication Summary Completed 12/22/2022 Patient Education: Influenza Vaccine Completed 12/22/2022 Patient Education: Smoking Cessation Completed 12/22/2022 Patient Education: Alzheimer''s Disease Completed 12/22/2022 Patient Education: Dementia Complete d 12/22/2022 Appointment: Leticia Machado WPtel: [address] [place], [place] [phone] [facility]/24/[facility]22 [facility] W[facility]: [facility] [address] [id number] [place] Referral Closed 09/15/2022 Instructions Comment Date Cruz is a male being seen l hellen at [facility]. Initial BPS visit 10/08/21. He is verbal and a fairly reliable historian, independent in ADLs. Prior to moving to this [place] he was found in his apartment with self-neglect. Hx of being . Often refuses help as nursing thinks he feels too proud to receive care. Hx of not liking to take meds or see providers. Patient is his own guardian. AWV 05.23.2024Labs: Yearly in NOVEMBER(CMP, CBC, LIPID, VITD, A1C, VITB12). [id number] in MAY (CBC)11.19.2023 CMP wnl, CBCwnl, lipid all wnl; total cholesterol 117, HDL 51.9, LDL 40, triglycerides 124, VLDL 25), vitD 46 nl, iron studies, A1c 5.6, VitB12 223 nl. (CBC ordered) 05/23/2024 Hemiparesis due to non-cereb rovascular etiology, unspecified laterality Fall prevention: Assess strength and balance to look for areas that can be addressed by PT/OT. Check for medications that can increase fall risk. Implement appropriate assisstive device and reinforce use by resident. Consider vision loss as a factor as well. Cognitive impairment Would recommend neuropsych testing but patient refused/missed appt. Continue to encourage he go. Anemia 10/2022 peripheral smear: normocytic, normochromic RBCs without anemia. Consider trial off iron (consulting HPT on when to try patient off it). For now, continue iron 325mg QD. Neurocognitive Disorders see cog impairment Repeated Falls now using walker and has nightlight. Continue fall precautions. Staff to report falls & change in condition, weakness, loss of balance, change in gait . 12/22/2022
--- OUTSIDE RECORDS SUMMARY | 2024-09-04 10:25 | XMS_ITS | CCD ---
Author Name Arpit MAZARIEGOS Lauri Address [address] [place] [address] Phone Organization [facility] Phone Care Team Providers Care Bag Washer Name Role Phone [place] INCOMING FREIGHT CLERK-C, Joseline Primary Care Provider Katy vailable [place] INCOMING FREIGHT CLERK-C, Joseline Chronic Care Management U navailable Summary Purpose DataExchange Insurance Providers Payer name Policy type / Coverage type Covered alliance party ID Effective Begin Date Effective End Date Medicare [place] Medicare Part B [id number] Unknown 2023 1 Medica ([facility]) Medicare Part B [id number] Unknown 2023 1 Family History Family History data not found Social History Social History Element Codes Description Effec tive Dates Tobacco history SNOMED CT: 45719940 Current ever y day smoker 10/daily 10/09/[address]: 191318083 No Alcohol Consumption Hx, or if available 10/09/2021 Allergies, Adverse Reactions, Alerts Substance Reaction Codes Entered Date Inactivated Date Status * NO KNOWN FOOD ALLERGIES Unknown 10/08/2021 No Inactive Date Active * NO KNOWN ENVIRONMENTAL ALLERGIES Unknown 10/08/2021 No Inactive Date Active * NO KNOWN DRUG ALLERGIES Unknown 07/30/2021 No Inactive Date Active Problems Condition Codes Effective Dates Condition St atus 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 ICD-9: 287.2 04/27/2023 Active Tobacco use disorder ICD-10: F17.200 ICD-9: 305.1 04/27/2023 Active 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, [...] Enteritis ICD-10: K52.9 ICD-9: 558.9 05/26/2022 Active Traumatic brain injury with loss of [...] Fill Instructions atorvastatin 40 mg tablet RxNorm: 803960 Take 1 Tablet(s) Oral QAM every morning 11/25/19 23 024 Inactive 2ND REQUEST FOR REFILLS 11/24 REFILLS NEEDED GORDO PLEASE THANK YOU ferrous sulfate 325 mg (65 mg iron) tablet,delayed release RxNorm: 962984 TAKE 1 TABLET BY MOUTH DAILY WITH A MEAL 11/23/19 23 024 Inactive 11/22/22 PROACTIVE REFILL REQUEST FOR NEXT CYCLE PLEASE THANK YOU cholecalciferol (vitamin D3) 1,250 mcg (50,000 unit) capsule RxNorm: 470316 Take 1 Capsule(s) Oral every other week 10/22/19 22 022 Inactive cholecalciferol (vitamin D3) 1,250 mcg (50,000 unit) capsule RxNorm: 043195 Take 1 Capsule(s) Oral every other week 10/22/19 22 023 Inactive acetaminophen 325 mg tablet RxNorm: 003307 Take 2 Tablet(s) Oral Q4H every four hours as needed PRN mild pain. NOT TO EXCEED 3,000 MG IN 24 HOURS 10/08/19 22 No Stop Date Active dextromethorphan-gu aifenesin 10 mg-100 mg/5 mL oral liquid RxNorm: 213792 as needed TAKE 5-10ML BY MOUTH EVERY 4-6HOURS NEEDED FOR COUGH OR CONGESTION 10/08/19 22 No Stop Date Active dx: cough due to Covid19 calcium carbonate 500 mg calcium (1,250 mg) chewable tablet RxNorm: 663525 Chew 2-4 Tablet(s) Oral as needed CHEW 2-4 TABLETS BY MOUTH BETWEEN MEALS AND AT BEDTIME NEEDED 10/08/19 22 No Stop Date Active ibuprofen 200 mg tablet RxNorm: 530150 Take 1-2 Tablet(s) Oral Q4-6H every 4-6 hours as needed NOT TO EXCEED 6 TABS IN 24 HOURS 10/08/19 22 No Stop Date Active aluminum-mag hydroxide-simethico ne 200 mg-200 mg-20 mg/5 mL oral susp RxNorm: 793654 Take 5-10 Milliliter(s) Oral QID as needed ONE TIME BETWEEN MEAL AND AT BEDTIME (STANDING ORDER) 10/08/19 22 No Stop Date Active Milk of Magnesia 400 mg/5 mL oral suspension RxNorm: 076850 Take 15-30 Milliliter(s) Oral QD QD - Daily as needed 10/08/19 22 No Stop Date Active diphenhydramine 25 mg capsule RxNorm: 7946556 Give 1-2 Capsule(s) Oral Q8H every 8 hours as needed FOR ALLERGIES 10/08/19 22 No Stop Date Active Vitamin D2 1,250 mcg (50,000 unit) capsule RxNorm: 6523925 1 Capsule(s) Oral QW once a week TAKE ONCE CAPSULE ONCE WEEKLY 10/08/19 22 022 Inactive ferrous sulfate 325 mg (65 mg iron) tablet RxNorm: 195994 Take 1 Tablet(s) Oral QD 10/06/19 22 024 Inactive atorvastatin 40 mg tablet RxNorm: 093275 Take 1 Tablet(s) Oral QHS every night [...] (Adult) CVX: 08/25/2020 Procedures Procedure Codes Date ADVNC CARE PLAN IN RCRD CPT-4: 1157F 04/27/20 23 FXNL STATUS ASSESSED CPT-4: 1170F 04/27/2023 AMNT PAIN NOTED NONE PRSNT CPT-4: 1126F 04/27 FALL RISK ASSESSMENT DOCD CPT-4: 3288F 2022 Medicare Annual Wellness Visit- Subseque nt SNOMED CT: [id number] CPT-4: G0439 04/27/2023 TOBACCO LITHOGRAPH PRESS OPERATOR TINWARE NO CHARGE CPT-4: G0436 2022 REFUSES DEPRESSION SCREENING - MEDICAL R CHRISTINE SNOMED CT: 475244107 CPT-4: G8433 04/27/2023 BEHAV CHNG SMOKING 3-[address]: 2 46737255 CPT-4: 90070 05/26/2022 BEHAV CHNG SMOKING 3-[address]: 2 98160092 CPT-4: 68448 04/28/2022 BEHAV CHNG SMOKING 3-[address]: 2 07030091 CPT-4: 36722 03/24/2022 BEHAV CHNG SMOKING 3-[address]: 2 80666401 CPT-4: 97719 03/03/2022 BEHAV CHNG SMOKING 3-[address]: 2 17506202 CPT-4: 25379 01/20/2022 BEHAV CHNG SMOKING 3-[address]: 2 09626659 CPT-4: 36746 12/23/2021 BEHAV CHNG SMOKING 3-[address]: 2 78382032 CPT-4: 91093 11/25/2021 BEHAV CHNG SMOKING 3-[address]: 2 45361191 CPT-4: 91773 10/08/2021 Vital Signs Date Vital 04/27/2023 Height: 5'10 Code: 8302-2 Reason For Visit No Reason For Visit data Encounters Encounter Performer Location Location Address Codes Date ([address]) Home or Residence Visit Est Pt - Low Level, 30 mins Diagnosis: Senile purpura[ICD10: D69.2] Diagnosis: Tobacco use disorder[ICD10: F17.200] Lauri Munson [address] [address] CPT-4: 71624 04/27/2023 Plan of Care Planned Activity Notes Codes Status Date Patient Education: Patient Medication Summary Completed 04/27/2023 Patient Education: Influenza Vaccine Completed 04/27/2023 Patient Education: Smoking Cessation Completed 04/27/2023 Appointment: Leticia Machado WPtel: [address] [place], [place] [phone] AWV 11/24/2022 [facility]: [facility] W[facility]: [facility] [address] [facility] Referral Closed 09/15/2022 Instructions Comment Date Cruz is a male being seen lizeth macedo at [facility]. Initial BPS visit 10/08/21. He is verbal and a fairly reliable historian, independent in ADLs. Prior to moving to this [place] he was found in his apartment with self-neglect. Hx of being . Often refuses help as nursing thinks he feels too proud to receive care. Hx of not liking to take meds or see providers. Patient is his own guardian. AWV 05.23.2024Labs: Yearly in NOVEMBER(CMP, CBC, LIPID, VITD, A1C, VITB12). [id number] in MAY (CBC)4. CMP wnl, CBCwnl, lipid all wnl; total cholesterol 117, HDL 51.9, LDL 40, triglycerides 124, VLDL 25), vitD 46 nl, iron studies, A1c 5.6, VitB12 223 nl. (CBC ordered) 05/23/2024
--- OUTSIDE RECORDS SUMMARY | 2024-09-04 10:25 | XMS_ITS | CCD ---
Author Name Arpit MAZARIEGOSLauri Address [address] [place] [address] Phone Organization [facility] Phone Care Team Providers Care Senior Solutions Workflow Consultant Name Role Phone [place] COMBINED RAIL OPERATOR-C, Joseline Primary Care Provider Katy vailable [place] COMBINED RAIL OPERATOR-C, Joseline Chronic Care Management U navailable Summary Purpose DataExchange Insurance Providers Payer name Policy type / Coverage type Covered libertarian ID Effective Begin Date Effective End Date Medicare [place] Medicare Part B [id number] Unknown 2023 1 Medica ([facility]) Medicare Part B [id number] Unknown 2023 1 Family History Family History data not found Social History Social History Element Codes Description Effec tive Dates Tobacco history SNOMED CT: 68153292 Current ever y day smoker 10/daily 10/09/[address]: 549526611 No Alcohol Consumption Hx, or if available 10/09/2021 Allergies, Adverse Reactions, Alerts Substance Reaction Codes Entered Date Inactivated Date Status * NO KNOWN FOOD ALLERGIES Unknown 10/08/2021 No Inactive Date Active * NO KNOWN ENVIRONMENTAL ALLERGIES Unknown 10/08/2021 No Inactive Date Active * NO KNOWN DRUG ALLERGIES Unknown 07/30/2021 No Inactive Date Active Problems Condition Codes Effective Dates Condition St atus Frail elderly ICD-10: R54 ICD-9: 797 06/16/2023 Active 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 ICD-9: 287.2 04/27/2023 [...] Fill Instructions atorvastatin 40 mg tablet RxNorm: 244955 Take 1 Tablet(s) Oral QAM every morning 11/25/19 23 024 Inactive 2ND REQUEST FOR REFILLS 11/24 REFILLS NEEDED GORDO PLEASE THANK YOU ferrous sulfate 325 mg (65 mg iron) tablet,delayed release RxNorm: 111014 TAKE 1 TABLET BY MOUTH DAILY WITH A MEAL 11/23/19 23 024 Inactive 11/22/22 PROACTIVE REFILL REQUEST FOR NEXT CYCLE PLEASE THANK YOU cholecalciferol (vitamin D3) 1,250 mcg (50,000 unit) capsule RxNorm: 401107 Take 1 Capsule(s) Oral every other week 10/22/19 22 022 Inactive cholecalciferol (vitamin D3) 1,250 mcg (50,000 unit) capsule RxNorm: 948415 Take 1 Capsule(s) Oral every other week 10/22/19 22 023 Inactive acetaminophen 325 mg tablet RxNorm: 503462 Take 2 Tablet(s) Oral Q4H every four hours as needed PRN mild pain. NOT TO EXCEED 3,000 MG IN 24 HOURS 10/08/19 22 No Stop Date Active dextromethorphan-gu aifenesin 10 mg-100 mg/5 mL oral liquid RxNorm: 218700 as needed TAKE 5-10ML BY MOUTH EVERY 4-6HOURS NEEDED FOR COUGH OR CONGESTION 10/08/19 22 No Stop Date Active dx: cough due to Covid19 calcium carbonate 500 mg calcium (1,250 mg) chewable tablet RxNorm: 226111 Chew 2-4 Tablet(s) Oral as needed CHEW 2-4 TABLETS BY MOUTH BETWEEN MEALS AND AT BEDTIME NEEDED 10/08/19 22 No Stop Date Active ibuprofen 200 mg tablet RxNorm: 837671 Take 1-2 Tablet(s) Oral Q4-6H every 4-6 hours as needed NOT TO EXCEED 6 TABS IN 24 HOURS 10/08/19 22 No Stop Date Active aluminum-mag hydroxide-simethico ne 200 mg-200 mg-20 mg/5 mL oral susp RxNorm: 133006 Take 5-10 Milliliter(s) Oral QID as needed ONE TIME BETWEEN MEAL AND AT BEDTIME (STANDING ORDER) 10/08/19 22 No Stop Date Active Milk of Magnesia 400 mg/5 mL oral suspension RxNorm: 336971 Take 15-30 Milliliter(s) Oral QD QD - Daily as needed 10/08/19 22 No Stop Date Active diphenhydramine 25 mg capsule RxNorm: 7817363 Give 1-2 Capsule(s) Oral Q8H every 8 hours as needed FOR ALLERGIES 10/08/19 22 No Stop Date Active Vitamin D2 1,250 mcg (50,000 unit) capsule RxNorm: 0034665 1 Capsule(s) Oral QW once a week TAKE ONCE CAPSULE ONCE WEEKLY 10/08/19 22 022 Inactive ferrous sulfate 325 mg (65 mg iron) tablet RxNorm: 986614 Take 1 Tablet(s) Oral QD 10/06/19 22 024 Inactive atorvastatin 40 mg tablet RxNorm: 516257 Take 1 Tablet(s) Oral QHS every night [...] Item Item Code Result Date Service Location CBC without Differential / Platelets [facility] Hematocrit 4544-3 42.0 % 07/06/20 Unknown CBC without Differential / Platelets [facility] Hemoglobin 718-7 13.0 g/dL 07/06/20 23 Unknown CBC without Differential / Platelets [facility] MCH 29.4 pg 07/06/20 23 Unknown CBC without Differential / Platelets [facility] RBC 4.42 x10^6/UL 07/06/20 23 Unknown CBC without Differential / Platelets [facility] MCHC 31.0 g/dL 07/06/20 23 Unknown CBC without Differential / Platelets [facility] MCV 787-2 95.0 % 07/06/20 23 Unknown CBC without Differential / Platelets [facility] Platelets 777-3 367 x10E3/uL 07/06/20 23 Unknown CBC without Differential / Platelets [facility] RDW 14.5 %binding 07/06/20 23 Unknown CBC without Differential / Platelets [facility] WBC 6690-2 8.73 x10E3/uL 07/06/20 23 Unknown Basic Metabolic Panel (BMP) BMP Blood Urea Nitrogen (BUN) 37 mg/dL 07/06/20 23 Unknown Basic Metabolic Panel (BMP) BMP BUN/CREATININE RATIO 24.67 ratio 07/06/20 Unknown Basic Metabolic Panel (BMP) BMP Calcium (Ca) 21399-7 9.1 mg/dL 07/06/20 Unknown Basic Metabolic Panel (BMP) BMP Carbon Dioxide (ECO2) 27 mmol/L 07/06/20 Unknown Basic Metabolic Panel (BMP) BMP Chloride (Cl) 2075-0 103 mmol/L 07/06/20 Unknown Basic Metabolic Panel (BMP) BMP Creatinine 2160-0 1.50 mg/dL 07/06/20 Unknown Basic Metabolic Panel (BMP) BMP eGFR 46.77 mL/min/1.7 3m2 07/06/20 Unknown Basic Metabolic Panel (BMP) BMP Glucose 118 mg/dL 07/06/20 Unknown Basic Metabolic Panel (BMP) BMP Potassium (K) 2823-3 4.1 mmol/L 07/06/20 Unknown Basic Metabolic Panel (BMP) BMP Sodium (Na) 2951-2 138 mmol/L 07/06/20 Unknown PDFReport PDFReport PDFReport 07/05/20 Unknown Procedures Procedure Codes Date BEHAV CHNG SMOKING 3-[address]: 2 12478067 CPT-4: 92904 05/26/2022 BEHAV CHNG SMOKING 3-[address]: 2 86622457 CPT-4: 90418 04/28/2022 BEHAV CHNG SMOKING 3-[address]: 2 66804867 CPT-4: 36026 03/24/2022 BEHAV CHNG SMOKING 3-[address]: 2 84958097 CPT-4: 13895 03/03/2022 BEHAV CHNG SMOKING 3-[address]: 2 84971392 CPT-4: 33463 01/20/2022 BEHAV CHNG SMOKING 3-[address]: 2 45860513 CPT-4: 88047 12/23/2021 BEHAV CHNG SMOKING 3-[address]: 2 67436926 CPT-4: 98971 11/25/2021 BEHAV CHNG SMOKING 3-[address]: 2 00828029 CPT-4: 59001 10/08/2021 Reason For Visit No Reason For Visit data Plan of Care Planned Activity Notes Codes Status Date Patient Education: Patient Medication Summary Completed 06/16/2023 Appointment: Leticia Machado WPtel: [address] AWV 11/24/2022 Referral: [facility] W[facility]: [facility] [address] [id number] Referral Closed 09/15/2022 Instructions Comment Date Cruz is a male being seen l hellen at [facility]. Initial BPS visit 10/08/21. He is verbal and a fairly reliable historian, independent in ADLs. Prior to moving to this [place] he was found in his apartment with self-neglect. Hx of being . Often refuses help as nursing thinks he feels too proud to receive care. Hx of not liking to take meds or see providers. Patient is his own guardian. AWV 05.23.2024Labs: Yearly in NOVEMBER(CMP, CBC, LIPID, VITD, A1C, VITB12). [id number] in MAY (CBC). CMP wnl, CBCwnl, lipid all wnl; total cholesterol 117, HDL 51.9, LDL 40, triglycerides 124, VLDL 25), vitD 46 nl, iron studies, A1c 5.6, VitB12 223 nl. (CBC ordered) 05/23/2024
--- OUTSIDE RECORDS SUMMARY | 2024-09-04 10:25 | XMS_ITS | CCD ---
Author Name Arpit MAZARIEGOSLauri Address [address] [place] [address] Phone Organization [facility] Phone Care Team Providers Care Drop Wire Hanger Name Role Phone Fleming ANSWERING SERVICE TELEPHONE OPERATOR-C, Joseline Primary Care Provider Katy vailable Fleming ANSWERING SERVICE TELEPHONE OPERATOR-C, Joseline Chronic Care Management U navailable Summary Purpose DataExchange Insurance Providers Payer name Policy type / Coverage type Covered constitution party ID Effective Begin Date Effective End Date Medicare [place] Medicare Part B [id number] Unknown 2023 1 Medica ([facility]) Medicare Part B [id number] Unknown 2023 1 Family History Family History data not found Social History Social History Element Codes Description Effec tive Dates Tobacco history SNOMED CT: 50627912 Current ever y day smoker 10/daily 10/09/[address]: 378120151 No Alcohol Consumption Hx, or if available [...] atus Frail elderly ICD-10: R54 ICD-9: 797 06/14/2023 Active 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 ICD-9: 287.2 [...] Fill Instructions atorvastatin 40 mg tablet RxNorm: 965287 Take 1 Tablet(s) Oral QAM every morning 11/25/19 23 024 Inactive 2ND REQUEST FOR REFILLS 11/24 REFILLS NEEDED GORDO PLEASE THANK YOU ferrous sulfate 325 mg (65 mg iron) tablet,delayed release RxNorm: 393608 TAKE 1 TABLET BY MOUTH DAILY WITH A MEAL 11/23/19 23 024 Inactive 11/22/22 PROACTIVE REFILL REQUEST FOR NEXT CYCLE PLEASE THANK YOU cholecalciferol (vitamin D3) 1,250 mcg (50,000 unit) capsule RxNorm: 494678 Take 1 Capsule(s) Oral every other week 10/22/19 22 022 Inactive cholecalciferol (vitamin D3) 1,250 mcg (50,000 unit) capsule RxNorm: 761351 Take 1 Capsule(s) Oral every other week 10/22/19 22 023 Inactive acetaminophen 325 mg tablet RxNorm: 673526 Take 2 Tablet(s) Oral Q4H every four hours as needed PRN mild pain. NOT TO EXCEED 3,000 MG IN 24 HOURS 10/08/19 22 No Stop Date Active dextromethorphan-gu aifenesin 10 mg-100 mg/5 mL oral liquid RxNorm: 426150 as needed TAKE 5-10ML BY MOUTH EVERY 4-6HOURS NEEDED FOR COUGH OR CONGESTION 10/08/19 22 No Stop Date Active dx: cough due to Covid19 calcium carbonate 500 mg calcium (1,250 mg) chewable tablet RxNorm: 712789 Chew 2-4 Tablet(s) Oral as needed CHEW 2-4 TABLETS BY MOUTH BETWEEN MEALS AND AT BEDTIME NEEDED 10/08/19 22 No Stop Date Active ibuprofen 200 mg tablet RxNorm: 545483 Take 1-2 Tablet(s) Oral Q4-6H every 4-6 hours as needed NOT TO EXCEED 6 TABS IN 24 HOURS 10/08/19 22 No Stop Date Active aluminum-mag hydroxide-simethico ne 200 mg-200 mg-20 mg/5 mL oral susp RxNorm: 935597 Take 5-10 Milliliter(s) Oral QID as needed ONE TIME BETWEEN MEAL AND AT BEDTIME (STANDING ORDER) 10/08/19 22 No Stop Date Active Milk of Magnesia 400 mg/5 mL oral suspension RxNorm: 886320 Take 15-30 Milliliter(s) Oral QD QD - Daily as needed 10/08/19 22 No Stop Date Active diphenhydramine 25 mg capsule RxNorm: 9007838 Give 1-2 Capsule(s) Oral Q8H every 8 hours as needed FOR ALLERGIES 10/08/19 22 No Stop Date Active Vitamin D2 1,250 mcg (50,000 unit) capsule RxNorm: 6687716 1 Capsule(s) Oral QW once a week TAKE ONCE CAPSULE ONCE WEEKLY 10/08/19 22 022 Inactive ferrous sulfate 325 mg (65 mg iron) tablet RxNorm: 768179 Take 1 Tablet(s) Oral QD 10/06/19 22 024 Inactive atorvastatin 40 mg tablet RxNorm: 744569 Take 1 Tablet(s) Oral QHS every night [...] Item Item Code Result Date Service Location Urinalysis UA Bilirubin - Urinalysis CANCELLED 023 Unknown Urinalysis UA Blood - Urinalysis CANCELLED 023 Unknown Urinalysis UA Glucose - Urinalysis CANCELLED 023 Unknown Urinalysis UA Ketone - Urinalysis CANCELLED 023 Unknown Urinalysis UA Leukocytes - Urinalysis CANCELLED 023 Unknown Urinalysis UA Nitrites - Urinalysis CANCELLED 023 Unknown Urinalysis UA pH - Urinalysis CANCELLED 08/16 023 Unknown Urinalysis UA Protein - Urinalysis CANCELLED 023 Unknown Urinalysis UA Specific Grahn - Urinalysis CANCELLED 023 Unknown Urinalysis UA Urobilinogen - Urinalysis CANCELLED 023 Unknown UTI ID Panel Complete UTIPNL Leah albicans Not Detected 023 Unknown UTI ID Panel Complete UTIPNL Leah glabrata Not Detected 023 Unknown UTI ID Panel Complete UTIPNL Leah krusei Not Detected 023 Unknown UTI ID Panel Complete UTIPNL Leah lusitaniae Not Detected 023 Unknown UTI ID Panel Complete UTIPNL Leah parapsilosis Not Detected 023 Unknown UTI ID Panel Complete UTIPNL Leah tropicalis Not Detected 023 Unknown UTI ID Panel Complete UTIPNL Enterobacter cloacae Not Detected 023 Unknown UTI ID Panel Complete UTIPNL Enterococcus faecalis Not Detected 023 Unknown UTI ID Panel Complete UTIPNL escherichia coli Not Detected 023 Unknown UTI ID Panel Complete UTIPNL Klebsiella oxytoca Not Detected 023 Unknown UTI ID Panel Complete UTIPNL Klebsiella pneumoniae Not Detected 023 Unknown UTI ID Panel Complete UTIPNL Morganella morganii Not Detected 023 Unknown UTI ID Panel Complete UTIPNL Mycoplasma hominis Not Detected 023 Unknown UTI ID Panel Complete UTIPNL Proteus mirabilis Not Detected 023 Unknown UTI ID Panel Complete UTIPNL Providencia stuartii Not Detected 023 Unknown UTI ID Panel Complete UTIPNL Pseudomonas aeruginosa Not Detected 023 Unknown UTI ID Panel Complete UTIPNL Serratia marcescens Not Detected 023 Unknown UTI ID Panel Complete UTIPNL Staphylococcus aureus - Wound & Urine Not Detected 023 Unknown UTI ID Panel Complete UTIPNL Staphylococcus saprophyticus Not Detected 023 Unknown UTI ID Panel Complete UTIPNL Streptococcus agalactiae Not Detected 023 Unknown UTI ID Panel Complete UTIPNL Ureaplasma urealyticum Not Detected 023 Unknown PDFReport PDFReport PDFReport 023 Unknown Procedures Procedure Codes Date BEHAV CHNG SMOKING 3-[address]: 2 26379345 CPT-4: 80098 05/26/2022 BEHAV CHNG SMOKING 3-[address]: 2 28750072 CPT-4: 27873 04/28/2022 BEHAV CHNG SMOKING 3-[address]: 2 13628483 CPT-4: 78849 03/24/2022 BEHAV CHNG SMOKING 3-[address]: 2 62890368 CPT-4: 39537 03/03/2022 BEHAV CHNG SMOKING 3-[address]: 2 15485341 CPT-4: 10225 01/20/2022 BEHAV CHNG SMOKING 3-[address]: 2 99751195 CPT-4: 16396 12/23/2021 BEHAV CHNG SMOKING 3-[address]: 2 83401432 CPT-4: 33258 11/25/2021 BEHAV CHNG SMOKING 3-[address]: 2 28668049 CPT-4: 43891 10/08/2021 Reason For Visit No Reason For Visit data Plan of Care Planned Activity Notes Codes Status Date Patient Education: Patient Medication Summary Completed 06/14/2023 Care Plan: Basic Metabolic P noris (BMP) Pending 06/14/2023 Care Plan: CBC without Differential / Platelets [facility] [address] [place] [address] Pending 06/14/2023 Appointment: Leticia Machado WPtel: [address] [place], [place] [phone] AWV 11/24/2022 Referral: [facility] W[facility]el: [facility] [address] [place], [place] [id number] Referral Closed 09/15/2022 Instructions Comment Date Cruz is a male being seen l hellen at [facility]. Initial BPS visit 10/08/21. He is verbal and a fairly reliable historian, independent in ADLs. Prior to moving to this [place] he was found in his apartment with self-neglect. Hx of being . Often refuses help as nursing thinks he feels too proud to receive care. Hx of not liking to take meds or see providers. Patient is his own guardian. AWV 05.23.2024Labs: Yearly in NOVEMBER(CMP, CBC, LIPID, VITD, A1C, VITB12). [id number] in MAY (CBC)11.19.2023 CMP wnl, CBCwnl, lipid all wnl; total cholesterol 117, HDL 51.9, LDL 40, triglycerides 124, VLDL 25), vitD 46 nl, iron studies, A1c 5.6, VitB12 223 nl. (CBC ordered) 05/23/2024
--- OUTSIDE RECORDS SUMMARY | 2024-09-04 10:26 | XMS_ITS | CCD ---
Author Name Arpit MAZARIEGOS Lauri Address [address] [place] [address] Phone Organization [facility] Phone Care Team Providers Care Manager Cleaning Name Role Phone [place] WEB PRESS OPERATOR ASSISTANT-CJoseline Primary Care Provider Katy vailable [place] WEB PRESS OPERATOR ASSISTANT-C, Joseline Chronic Care Management U navailable Summary Purpose DataExchange Insurance Providers Payer name Policy type / Coverage type Covered libertarian ID Effective Begin Date Effective End Date Medicare [place] Medicare Part B [id number] Unknown 2023 1 [employer] ([facility]) Medicare Part B [id number] Unknown 2023 1 Family History Family History data not found Social History Social History Element Codes Description Effec tive Dates Tobacco history SNOMED CT: 79865508 Current ever y day smoker 10/daily 10/09/[address]: 847036425 No Alcohol Consumption Hx, or if available [...] atus Aortic dilatation ICD-10: I77.819 ICD-9: 447.70 06/22/2023 Active Traumatic brain injury with loss of consciousness, sequela ICD-10: S06.9X9S ICD-9: 907.0 06/22/2023 Active Frail elderly ICD-10: R54 ICD-9: 797 06/16/2023 [...] remission ICD-10: F33.42 ICD-9: 296.36 09/01/2022 Active Enteritis ICD-10: K52.9 ICD-9: 558.9 05/26/2022 Active Irregular heart rhythm ICD-10: I49.9 ICD-9: 427.9 03/24/2022 Active Erectile dysfunction of orga yuniel origin ICD-10: N52.9 ICD-9: 607.84 12/23/2021 Active Dyslipidemia ICD-10: E78.5 ICD-9: 272.4 10/08/2021 Active Vitamin D deficiency ICD-10: E55.9 ICD-9: 268.9 10/08/2021 Active Medications Medication Codes Instructions Start Date Stop Date Status Fill Instructions atorvastatin 40 mg tablet RxNorm: 860497 Take 1 Tablet(s) Oral QAM every morning 11/25/19 23 024 Inactive 2ND REQUEST FOR REFILLS 11/24 REFILLS NEEDED GORDO PLEASE THANK YOU ferrous sulfate 325 mg (65 mg iron) tablet,delayed release RxNorm: 594406 TAKE 1 TABLET BY MOUTH DAILY WITH A MEAL 11/23/19 23 024 Inactive 11/22/22 PROACTIVE REFILL REQUEST FOR NEXT CYCLE PLEASE THANK YOU cholecalciferol (vitamin D3) 1,250 mcg (50,000 unit) capsule RxNorm: 454687 Take 1 Capsule(s) Oral every other week 10/22/19 22 022 Inactive cholecalciferol (vitamin D3) 1,250 mcg (50,000 unit) capsule RxNorm: 278304 Take 1 Capsule(s) Oral every other week 10/22/19 22 023 Inactive acetaminophen 325 mg tablet RxNorm: 645492 Take 2 Tablet(s) Oral Q4H every four hours as needed PRN mild pain. NOT TO EXCEED 3,000 MG IN 24 HOURS 10/08/19 22 No Stop Date Active dextromethorphan-gu aifenesin 10 mg-100 mg/5 mL oral liquid RxNorm: 036215 as needed TAKE 5-10ML BY MOUTH EVERY 4-6HOURS NEEDED FOR COUGH OR CONGESTION 10/08/19 22 No Stop Date Active dx: cough due to Covid19 calcium carbonate 500 mg calcium (1,250 mg) chewable tablet RxNorm: 020668 Chew 2-4 Tablet(s) Oral as needed CHEW 2-4 TABLETS BY MOUTH BETWEEN MEALS AND AT BEDTIME NEEDED 10/08/19 22 No Stop Date Active ibuprofen 200 mg tablet RxNorm: 212005 Take 1-2 Tablet(s) Oral Q4-6H every 4-6 hours as needed NOT TO EXCEED 6 TABS IN 24 HOURS 10/08/19 22 No Stop Date Active aluminum-mag hydroxide-simethico ne 200 mg-200 mg-20 mg/5 mL oral susp RxNorm: 488126 Take 5-10 Milliliter(s) Oral QID as needed ONE TIME BETWEEN MEAL AND AT BEDTIME (STANDING ORDER) 10/08/19 22 No Stop Date Active Milk of Magnesia 400 mg/5 mL oral suspension RxNorm: 682164 Take 15-30 Milliliter(s) Oral QD QD - Daily as needed 10/08/19 22 No Stop Date Active diphenhydramine 25 mg capsule RxNorm: 2255638 Give 1-2 Capsule(s) Oral Q8H every 8 hours as needed FOR ALLERGIES 10/08/19 22 No Stop Date Active Vitamin D2 1,250 mcg (50,000 unit) capsule RxNorm: 2588132 1 Capsule(s) Oral QW once a week TAKE ONCE CAPSULE ONCE WEEKLY 10/08/19 22 022 Inactive ferrous sulfate 325 mg (65 mg iron) tablet RxNorm: 362738 Take 1 Tablet(s) Oral QD 10/06/19 22 024 Inactive atorvastatin 40 mg tablet RxNorm: 137150 Take 1 Tablet(s) Oral QHS every night [...] CVX: 207 08/25/2020 Procedures Procedure Codes Date SYS BP LESS 140 CPT-4: G8752 06/22/2023 RAYO BP LESS 90 CPT-4: G8754 06/22/2023 BEHAV CHNG SMOKING 3-[address]: 2 77413922 CPT-4: 10202 05/26/2022 BEHAV CHNG SMOKING 3-[address]: 2 16870330 CPT-4: 14677 04/28/2022 BEHAV CHNG SMOKING 3-[address]: 2 82956938 CPT-4: 16478 03/24/2022 BEHAV CHNG SMOKING 3-[address]: 2 66855876 CPT-4: 85885 03/03/2022 BEHAV CHNG SMOKING 3-[address]: 2 13352750 CPT-4: 83406 01/20/2022 BEHAV CHNG SMOKING 3-[address]: 2 97832460 CPT-4: 35117 12/23/2021 BEHAV CHNG SMOKING 3-[address]: 2 44628976 CPT-4: 26556 11/25/2021 BEHAV CHNG SMOKING 3-[address]: 2 32888581 CPT-4: 35969 10/08/2021 Vital Signs Date Vital 06/22/2023 Blood Pressure 1: 113/65 Code: 8480-6 Height: 5'10 Code: 8302-2 Respiratory Rate: 18 bpm SpO2: 97% Temperature: 36.3 (C) / 97.3 (F) Reason For Visit No Reason For Visit data Encounters Encounter Performer Location Location Address Codes Date (15091) Home or Residence Visit Est Pt - Moderate Level, 40 mins Diagnosis: Aortic dilatation[ICD10 : I77.819] Diagnosis: Traumatic brain injury with loss of consciousness, sequela[ICD10: S06.9X9S] Lauri Munson [address] [address] CPT-4: 84231 06/22/2023 Plan of Care Planned Activity Notes Codes Status Date Patient Education: Patient Medication Summary Completed 06/22/2023 Patient Education: Influenza Complet ed 06/22/2023 Patient Education: Smoking Cessation Completed 06/22/2023 Appointment: Leticia Machado WPtel: [address] [place], [place] [phone] AWV 11/24/2022 Ref[facility]: [facility] W[facility]: [facility] [address] [place], [place] [phone] Referral Closed 09/15/2022 Instructions Comment Date Cruz is a male being seen l hellen at [facility]. Initial BPS visit 10/08/21. He is verbal and a fairly reliable historian, independent in ADLs. Prior to moving to this [place] he was found in his apartment with self-neglect. Hx of being . Often refuses help as nursing thinks he feels too proud to receive care. Hx of not liking to take meds or see providers. Patient is his own guardian. AWV 05.23.2024Labs: Yearly in NOVEMBER(CMP, CBC, LIPID, VITD, A1C, VITB12). [id number] in MAY (CBC). CMP wnl, CBCwnl, lipid all wnl; total cholesterol 117, HDL 51.9, LDL 40, triglycerides 124, VLDL 25), vitD 46 nl, iron studies, A1c 5.6, VitB12 223 nl. (CBC ordered) 05/23/2024
--- OUTSIDE RECORDS SUMMARY | 2024-09-04 10:27 | XMS_ITS | CCD ---
Author Organization Unknown Care Team Providers Care Agribusiness Internship Name Role Phone Celine PLATE PREPARER-C, Joseline Primary Care Provider Katy vailable [place] PLATE PREPARER-C, Joseline Chronic Care Management U navailable Summary Purpose DataExchange Insurance Providers Payer name Policy type / Coverage type Covered green party ID Effective Begin Date Effective End Date Medicare [place] Medicare Part B [id number] Unknown [employer] ([facility]) Medicare Part B [id number] Unknown Family History Family History data not found Social History Social History Element Codes Description Effec tive Dates Tobacco history SNOMED CT: 78719835 Current ever y day smoker 10/daily 10/09/[address]: 066795568 No Alcohol Consumption Hx, or if available [...] atus Cognitive impairment ICD-10: R41.89 ICD-9: 294.9 09/29/2023 Active Vitamin D deficiency ICD-10: E55.9 ICD-9: 268.9 09/29/2023 Active 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, unspecified dementia severity, unspecified timing of dementia onset ICD-10: G30.9 ICD-9: 331.0 09/28/2023 Active Hemiparesis due to non-cerebrovascular etiology, unspecified laterality ICD-10: G81.90 ICD-9: 342.90 09/28/2023 Active Iron deficiency anemia, unsp ecified iron deficiency anemia type ICD-10: D50.9 ICD-9: 280.9 09/28/2023 Active Aortic dilatation ICD-10: I77.819 ICD-9: 447.70 06/22/2023 Active Traumatic brain injury with loss of consciousness, sequela ICD-10: S06.9X9S ICD-9: 907.0 06/22/2023 Active Frail elderly ICD-10: R54 ICD-9: 797 06/16/2023 Active 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 ICD-9: 287.2 04/27/2023 Active Tobacco use disorder ICD-10: F17.200 ICD-9: 305.1 04/27/2023 Active Dementia in other diseases classified elsewhere, unspecified severity, with other behavioral disturbance ICD-10: F02.818 12/22/2022 Active Frequent falls ICD-10: R29.6 ICD-9: V15.88 12/22/2022 Active Normocytic anemia ICD-10: D64.9 ICD-9: 285.9 12/22/2022 Active Recurrent major depressive disorder, in full remission ICD-10: F33.42 ICD-9: 296.36 09/01/2022 Active Enteritis ICD-10: K52.9 ICD-9: 558.9 05/26/2022 Active Irregular heart rhythm ICD-10: I49.9 ICD-9: 427.9 03/24/2022 Active Erectile dysfunction of orga yuniel origin ICD-10: N52.9 ICD-9: 607.84 12/23/2021 Active Dyslipidemia ICD-10: E78.5 ICD-9: 272.4 10/08/2021 Active Medications Medication Codes Instructions Start Date Stop Date Status Fill Instructions atorvastatin 40 mg tablet RxNorm: 731023 Take 1 Tablet(s) Oral QAM every morning 11/24/19 24 025 Active 11/18/2023 PROACTIVE REFILL REQUEST FOR NEXT CYCLE PLEASE THANK YOU RX has/will before cycle date ferrous sulfate 325 mg (65 mg iron) tablet,delayed release RxNorm: 447981 Take 1 Tablet(s) Oral QD WITH A MEAL 11/24/19 24 025 Active 11/18/2023 PROACTIVE REFILL REQUEST FOR NEXT CYCLE PLEASE THANK YOU RX has/will before cycle date atorvastatin 40 mg tablet RxNorm: 014717 Take 1 Tablet(s) Oral QAM every morning 11/25/19 23 024 Inactive 2ND REQUEST FOR REFILLS 11/24 REFILLS NEEDED GORDO PLEASE THANK YOU ferrous sulfate 325 mg (65 mg iron) tablet,delayed release RxNorm: 926111 TAKE 1 TABLET BY MOUTH DAILY WITH A MEAL 11/23/19 23 024 Inactive 11/22/22 PROACTIVE REFILL REQUEST FOR NEXT CYCLE PLEASE THANK YOU cholecalciferol (vitamin D3) 1,250 mcg (50,000 unit) capsule RxNorm: 151575 Take 1 Capsule(s) Oral every other week 10/22/19 22 022 Inactive cholecalciferol (vitamin D3) 1,250 mcg (50,000 unit) capsule RxNorm: 422998 Take 1 Capsule(s) Oral every other week 10/22/19 22 023 Inactive acetaminophen 325 mg tablet RxNorm: 445430 Take 2 Tablet(s) Oral Q4H every four hours as needed PRN mild pain. NOT TO EXCEED 3,000 MG IN 24 HOURS 10/08/19 22 No Stop Date Active dextromethorphan-gu aifenesin 10 mg-100 mg/5 mL oral liquid RxNorm: 047884 as needed TAKE 5-10ML BY MOUTH EVERY 4-6HOURS NEEDED FOR COUGH OR CONGESTION 10/08/19 22 No Stop Date Active dx: cough due to Covid19 calcium carbonate 500 mg calcium (1,250 mg) chewable tablet RxNorm: 629799 Chew 2-4 Tablet(s) Oral as needed CHEW 2-4 TABLETS BY MOUTH BETWEEN MEALS AND AT BEDTIME NEEDED 10/08/19 22 No Stop Date Active ibuprofen 200 mg tablet RxNorm: 682243 Take 1-2 Tablet(s) Oral Q4-6H every 4-6 hours as needed NOT TO EXCEED 6 TABS IN 24 HOURS 10/08/19 22 No Stop Date Active aluminum-mag hydroxide-simethico ne 200 mg-200 mg-20 mg/5 mL oral susp RxNorm: 607844 Take 5-10 Milliliter(s) Oral QID as needed ONE TIME BETWEEN MEAL AND AT BEDTIME (STANDING ORDER) 10/08/19 22 No Stop Date Active Milk of Magnesia 400 mg/5 mL oral suspension RxNorm: 256082 Take 15-30 Milliliter(s) Oral QD QD - Daily as needed 10/08/19 No Stop Date Active diphenhydramine 25 mg capsule RxNorm: 1755145 Give 1-2 Capsule(s) Oral Q8H every 8 hours as needed FOR ALLERGIES 10/08/19 No Stop Date Active Vitamin D2 1,250 mcg (50,000 unit) capsule RxNorm: 2076126 1 Capsule(s) Oral QW once a week TAKE ONCE CAPSULE ONCE WEEKLY 10/08/19 22 022 Inactive ferrous sulfate 325 mg (65 mg iron) tablet RxNorm: 566722 Take 1 Tablet(s) Oral QD 10/06/19 22 024 Inactive atorvastatin 40 mg tablet RxNorm: 958807 Take 1 Tablet(s) Oral QHS every night at bedtime 10/06/19 22 023 Inactive CertaVite Senior oral RxNorm: oral 09/28/19 24 024 Inactive Oyster Shell Calcium oral RxNorm: 1897 oral 09/28/19 24 024 Inactive Medication Administered No Medication Administered data Immunizations Vaccine Codes Dose Date Status Covid-19 (Adult) Unknown 11/24/2023 Pneumococcal CVX: 216 11/24/2023 Covid-19 (Adult) CVX: 207 07/22/2021 Influenza CVX: 205 1 06/22/2021 Complete Covid-19 (Adult) CVX: 207 08/28/2020 Covid-19 (Adult) CVX: 207 08/25/2020 Procedures Procedure Codes Date BEHAV CHNG SMOKING 3-[address]: 2 68289337 CPT-4: 00080 05/26/2022 BEHAV CHNG SMOKING 3-[address]: 2 40479437 CPT-4: 80411 04/28/2022 BEHAV CHNG SMOKING 3-[address]: 2 20013733 CPT-4: 55910 03/24/2022 BEHAV CHNG SMOKING 3-[address]: 2 88025717 CPT-4: 29457 03/03/2022 BEHAV CHNG SMOKING 3-[address]: 2 74930761 CPT-4: 35073 01/20/2022 BEHAV CHNG SMOKING 3-[address]: 2 20808292 CPT-4: 05198 12/23/2021 BEHAV CHNG SMOKING 3-[address]: 2 11727276 CPT-4: 60327 11/25/2021 BEHAV CHNG SMOKING 3-[address]: 2 08980450 CPT-4: 33863 10/08/2021 Reason For Visit No Reason For Visit data Plan of Care Planned Activity Notes Codes Status Date Referral: [facility] [address] [id number] Referral Closed 09/15/2022 Instructions Comment Date Cruz is a male being seen l hellen at [facility]. Initial BPS visit 10/08/21. He is verbal and a fairly reliable historian, independent in ADLs. Prior to moving to this [place] he was found in his apartment with self-neglect. Hx of being . Often refuses help as nursing thinks he feels too proud to receive care. Hx of not liking to take meds or see providers. Patient is his own guardian. AWV 05.23.2024Labs: Yearly in NOVEMBER(CMP, CBC, LIPID, VITD, A1C, VITB12). [id number] in MAY (CBC). CMP wnl, CBCwnl, lipid all wnl; total cholesterol 117, HDL 51.9, LDL 40, triglycerides 124, VLDL 25), vitD 46 nl, iron studies, A1c 5.6, VitB12 223 nl. (CBC ordered) 05/23/2024
--- OUTSIDE RECORDS SUMMARY | 2024-09-04 10:27 | XMS_ITS | CCD ---
Author Name Luis M Canales MD her Address [address] [place] [address] Phone Organization [facility] Phone Care Team Providers Care Test And Balance Engineer Name Role Phone Celine GLASS RIBBON MACHINE OPERATOR ASSISTANT-CJoseline Primary Care Provider Katy vailable Celine GLASS RIBBON MACHINE OPERATOR ASSISTANT-CJoseline Chronic Care Management U navailable Summary Purpose DataExchange Insurance Providers Payer name Policy type / Coverage type Covered green party ID Effective Begin Date Effective End Date Medicare [place] Medicare Part B [id number] Unknown Medica ([facility]) Medicare Part B [id number] Unknown Family History Family History data not found Social History Social History Element Codes Description Effec tive Dates Tobacco history SNOMED CT: 60051038 Current ever y day smoker 10/daily 10/09/[address]: 371426490 No Alcohol Consumption Hx, or if available [...] Fill Instructions atorvastatin 40 mg tablet RxNorm: 242858 Take 1 Tablet(s) Oral QAM every morning 11/25/19 024 Inactive 2ND REQUEST FOR REFILLS 11/24 REFILLS NEEDED GORDO PLEASE THANK YOU ferrous sulfate 325 mg (65 mg iron) tablet,delayed release RxNorm: 731042 TAKE 1 TABLET BY MOUTH DAILY WITH A MEAL 11/23/19 23 024 Inactive 11/22/22 PROACTIVE REFILL REQUEST FOR NEXT CYCLE PLEASE THANK YOU cholecalciferol (vitamin D3) 1,250 mcg (50,000 unit) capsule RxNorm: 111235 Take 1 Capsule(s) Oral every other week 10/22/19 22 022 Inactive cholecalciferol (vitamin D3) 1,250 mcg (50,000 unit) capsule RxNorm: 976462 Take 1 Capsule(s) Oral every other week 10/22/19 22 023 Inactive acetaminophen 325 mg tablet RxNorm: 746348 Take 2 Tablet(s) Oral Q4H every four hours as needed PRN mild pain. NOT TO EXCEED 3,000 MG IN 24 HOURS 10/08/19 22 No Stop Date Active dextromethorphan-gu aifenesin 10 mg-100 mg/5 mL oral liquid RxNorm: 902642 as needed TAKE 5-10ML BY MOUTH EVERY 4-6HOURS NEEDED FOR COUGH OR CONGESTION 10/08/19 22 No Stop Date Active dx: cough due to Covid19 calcium carbonate 500 mg calcium (1,250 mg) chewable tablet RxNorm: 581483 Chew 2-4 Tablet(s) Oral as needed CHEW 2-4 TABLETS BY MOUTH BETWEEN MEALS AND AT BEDTIME NEEDED 10/08/19 22 No Stop Date Active ibuprofen 200 mg tablet RxNorm: 260740 Take 1-2 Tablet(s) Oral Q4-6H every 4-6 hours as needed NOT TO EXCEED 6 TABS IN 24 HOURS 10/08/19 22 No Stop Date Active aluminum-mag hydroxide-simethico ne 200 mg-200 mg-20 mg/5 mL oral susp RxNorm: 237345 Take 5-10 Milliliter(s) Oral QID as needed ONE TIME BETWEEN MEAL AND AT BEDTIME (STANDING ORDER) 10/08/19 22 No Stop Date Active Milk of Magnesia 400 mg/5 mL oral suspension RxNorm: 182318 Take 15-30 Milliliter(s) Oral QD QD - Daily as needed 10/08/19 22 No Stop Date Active diphenhydramine 25 mg capsule RxNorm: 9129288 Give 1-2 Capsule(s) Oral Q8H every 8 hours as needed FOR ALLERGIES 10/08/19 22 No Stop Date Active Vitamin D2 1,250 mcg (50,000 unit) capsule RxNorm: 4958377 1 Capsule(s) Oral QW once a week TAKE ONCE CAPSULE ONCE WEEKLY 10/08/19 22 022 Inactive ferrous sulfate 325 mg (65 mg iron) tablet RxNorm: 378460 Take 1 Tablet(s) Oral QD 10/06/19 22 024 Inactive atorvastatin 40 mg tablet RxNorm: 753005 Take 1 Tablet(s) Oral QHS every night [...] Service Location Iron (Fe) IRON Iron (Fe) 85.0 ug/dL 11/19/19 24 Unknown CBC with Differential / Platelets CBCDIFF Baso (Absolute) 0.05 x10E3/uL 11/19/19 24 Unknown CBC with Differential / Platelets CBCDIFF Basos 0.60 % 11/19/19 24 Unknown CBC with Differential / Platelets CBCDIFF Eos 3.7 % 11/19/19 24 Unknown CBC with Differential / Platelets CBCDIFF Eos (Absolute) 0.29 x10E3/uL 11/19/19 24 Unknown CBC with Differential / Platelets CBCDIFF Hematocrit 4544-3 41.5 % 11/19/19 24 Unknown CBC with Differential / Platelets CBCDIFF Hemoglobin 718-7 13.1 g/dL 11/19/19 24 Unknown CBC with Differential / Platelets CBCDIFF LYMPHOCYTES 29.0 % 11/19/19 24 Unknown CBC with Differential / Platelets CBCDIFF Lymphocytes (Absolute) 2.27 x10E3/uL 11/19/19 24 Unknown CBC with Differential / Platelets CBCDIFF MCH 29.2 pg 11/19/19 24 Unknown CBC with Differential / Platelets CBCDIFF MCHC 31.6 g/dL 11/19/19 24 Unknown CBC with Differential / Platelets CBCDIFF MCV 787-2 92.6 % 11/19/19 24 Unknown CBC with Differential / Platelets CBCDIFF Monocytes 5.4 % 11/19/19 24 Unknown CBC with Differential / Platelets CBCDIFF Monocytes (Absolute) 0.42 x10E3/uL 11/19/19 24 Unknown CBC with Differential / Platelets CBCDIFF MPV 95159-8 10.8 fL 11/19/19 24 Unknown CBC with Differential / Platelets CBCDIFF Neutrophils 61.20 % 11/19/19 24 Unknown CBC with Differential / Platelets CBCDIFF Neutrophils (Absolute) 4.79 x10E3/uL 11/19/19 24 Unknown CBC with Differential / Platelets CBCDIFF Platelets 777-3 253 x10E3/uL 11/19/19 24 Unknown CBC with Differential / Platelets CBCDIFF RBC 4.48 x10^6/UL 11/19/19 24 Unknown CBC with Differential / Platelets CBCDIFF RDW 15.9 %binding 11/19/19 24 Unknown CBC with Differential / Platelets CBCDIFF WBC 6690-2 7.83 x10E3/uL 11/19/19 24 Unknown Ferritin FERRITN FERRITIN 93242-0 30.5 ng/mL 11/19/19 24 Unknown Complete Metabolic Panel (CMP) CMP A/G Ratio 1.4 11/19/19 24 Unknown Complete Metabolic Panel (CMP) CMP Albumin 1751-7 3.8 g/dL 11/19/19 24 Unknown Complete Metabolic Panel (CMP) CMP Alkaline Phosphatase 82 U/L 11/19/19 24 Unknown Complete Metabolic Panel (CMP) CMP ALT (SGPT) 15 U/L 11/19/19 24 Unknown Complete Metabolic Panel (CMP) CMP AST (SGOT) 21.0 U/L 11/19/19 24 Unknown Complete Metabolic Panel (CMP) CMP BILIRUBIN, TOTAL 1975-2 0.3 mg/dL 11/19/19 24 Unknown Complete Metabolic Panel (CMP) CMP Blood Urea Nitrogen (BUN) 25 mg/dL 11/19/19 24 Unknown Complete Metabolic Panel (CMP) CMP BUN/CREATININE RATIO 21.37 ratio 11/19/19 24 Unknown Complete Metabolic Panel (CMP) CMP Calcium (Ca) 83200-3 9.6 mg/dL 11/19/19 24 Unknown Complete Metabolic Panel (CMP) CMP Carbon Dioxide (ECO2) 26 mmol/L 11/19/19 24 Unknown Complete Metabolic Panel (CMP) CMP Chloride (Cl) 2075-0 104 mmol/L 11/19/19 24 Unknown Complete Metabolic Panel (CMP) CMP Creatinine 2160-0 1.17 mg/dL 11/19/19 24 Unknown Complete Metabolic Panel (CMP) CMP eGFR 63.02 mL/min/1.7 3m2 11/19/19 24 Unknown Complete Metabolic Panel (CMP) CMP Globulin, Total 2.7 11/19/19 24 Unknown Complete Metabolic Panel (CMP) CMP Glucose 113 mg/dL 11/19/19 24 Unknown Complete Metabolic Panel (CMP) CMP Potassium (K) 2823-3 4.1 mmol/L 11/19/19 24 Unknown Complete Metabolic Panel (CMP) CMP PROTEIN, TOTAL 2885-2 6.5 g/dL 11/19/19 24 Unknown Complete Metabolic Panel (CMP) CMP Sodium (Na) 2951-2 139 mmol/L 11/19/19 24 Unknown Vitamin B12 VITAB12 Vitamin B12 2132-9 223 pg/mL 24 Unknown Transferrin TRNSFRN Transferrin 258 mg/dL 24 Unknown Vitamin D, 25-Hydroxy VITAD25 Vitamin D, 25-Hydroxy 36600-2 46 ng/mL 11/19/19 24 Unknown Lipid Panel (LP) LIPIDPAN CHOLESTEROL, TOTAL 35926-1 117 mg/dL 11/19/19 24 Unknown Lipid Panel (LP) LIPIDPAN HDL CHOLESTEROL 2085-9 51.9 mg /dL 11/19/19 24 Unknown Lipid Panel (LP) LIPIDPAN LDL CHOLESTEROL CALCULATED 19373-1 40 11/19/19 24 Unknown Lipid Panel (LP) LIPIDPAN TRIGLYCERIDES 2571-8 124 mg/dL 11/19/19 24 Unknown Lipid Panel (LP) LIPIDPAN VLDL Cholestero l Calculated 25 11/19/19 24 Unknown Hemoglobin A1c HEMOGLOBA Hemoglobin A1c 71474-3 5.6 %A1c 11/19/19 24 Unknown Total Iron Binding Capacity (TIBC) TIBC Total IRon Binding Capacity (TIBC) 332 ug/dL 11/19/19 24 Unknown PDFReport PDFReport PDFReport 11/18/19 24 Unknown PDFReport PDFReport PDFReport 11/18/19 24 Unknown Procedures Procedure Codes Date BEHAV CHNG SMOKING 3-[address]: 2 57134973 CPT-4: 98513 05/26/2022 BEHAV CHNG SMOKING 3-[address]: 2 98300964 CPT-4: 58009 04/28/2022 BEHAV CHNG SMOKING 3-[address]: 2 66776038 CPT-4: 23681 03/24/2022 BEHAV CHNG SMOKING 3-[address]: 2 41806189 CPT-4: 98343 03/03/2022 BEHAV CHNG SMOKING 3-[address]: 2 26072289 CPT-4: 97127 01/20/2022 BEHAV CHNG SMOKING 3-[address]: 2 91491748 CPT-4: 80474 12/23/2021 BEHAV CHNG SMOKING 3-[address]: 2 07794750 CPT-4: 11785 11/25/2021 BEHAV CHNG SMOKING 3-[address]: 2 81325913 CPT-4: 68775 10/08/2021 Reason For Visit No Reason For Visit data Plan of Care Planned Activity Notes Codes Status Date Patient Education: Patient Medication Summary Completed 09/29/2023 Appointment: Leticia Machado WPtel: [address] [place], [place] [phone] AWV 11/24/2022 Referral: Jose Elias [facility] WPtel: [facility] [address] [place], [place] [id number] Referral Closed 09/15/2022 Instructions Comment Date Cruz is a male being seen l hellen at [facility]. Initial BPS visit 10/08/21. He is verbal and a fairly reliable historian, independent in ADLs. Prior to moving to this [place] he was found in his apartment with self-neglect. Hx of being . Often refuses help as nursing thinks he feels too proud to receive care. Hx of not liking to take meds or see providers. Patient is his own guardian. AWV 05.23.2024Labs: Yearly in NOVEMBER(CMP, CBC, LIPID, VITD, A1C, VITB12). [id number] in MAY (CBC)4. CMP wnl, CBCwnl, lipid all wnl; total cholesterol 117, HDL 51.9, LDL 40, triglycerides 124, VLDL 25), vitD 46 nl, iron studies, A1c 5.6, VitB12 223 nl. (CBC ordered) 05/23/2024
--- OUTSIDE RECORDS SUMMARY | 2024-09-04 10:28 | XMS_ITS | CCD ---
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 Name Role Phone Celnie MONROE-CJoseline Primary Care Provider Katy vailable Celine MONROE-CJoseline Chronic Care Management U navailable Summary Purpose DataExchange Insurance Providers Payer name Policy type / Coverage type Covered libertarian ID Effective Begin Date Effective End Date Medicare [place] Medicare Part B [id number] Unknown Medica ([facility]) Medicare Part B [id number] Unknown Family History Family History data not found Social History Social History Element Codes Description Effec tive Dates Tobacco history SNOMED CT: 75131864 Current ever y day smoker 10/daily 10/09/[address]: 169940539 No Alcohol Consumption Hx, or if available [...] of dementia onset ICD-10: G30.9 ICD-9: 331.0 02/08/2024 Active Cognitive impairment ICD-10: R41.89 ICD-9: 294.9 02/08/2024 Active Frequent falls ICD-10: R29.6 ICD-9: V15.88 02/08/2024 Active Hemiparesis due to non-cerebrovascular etiology, unspecified laterality ICD-10: G81.90 ICD-9: 342.90 02/08/2024 Active Traumatic brain injury with loss of consciousness, sequela ICD-10: S06.9X9S ICD-9: 907.0 02/08/2024 Active Vitamin D deficiency ICD-10: E55.9 ICD-9: 268.9 02/08/2024 Active Aortic dilatation ICD-10: I77.819 ICD-9: 447.70 12/07/2023 Active Dyslipidemia ICD-10: E78.5 ICD-9: 272.4 12/07/2023 Active Erectile dysfunction of orga yuniel origin ICD-10: N52.9 ICD-9: 607.84 12/07/2023 Active Iron deficiency anemia, unsp ecified iron deficiency anemia type ICD-10: D50.9 ICD-9: 280.9 12/07/2023 Active Irregular heart rhythm ICD-10: I49.9 ICD-9: 427.9 12/07/2023 Active Normocytic anemia ICD-10: D64.9 ICD-9: 285.9 12/07/2023 Active Recurrent major depressive disorder, in full remission ICD-10: F33.42 ICD-9: 296.36 12/07/2023 Active Tobacco use disorder ICD-10: F17.200 ICD-9: 305.1 12/07/2023 Active Enteritis ICD-10: K52.9 ICD-9: 558.9 12/07/2023 Resolved Frail elderly ICD-10: R54 ICD-9: 797 06/16/2023 Active 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 ICD-9: 287.2 04/27/2023 Active Dementia in other diseases classified elsewhere, unspecified severity, with other behavioral disturbance ICD-10: F02.818 12/22/2022 Active Medications Medication Codes Instructions Start Date Stop Date Status Fill Instructions atorvastatin 40 mg tablet RxNorm: 799429 Take 1 Tablet(s) Oral QAM every morning 11/24/19 025 Active 11/18/2023 PROACTIVE REFILL REQUEST FOR NEXT CYCLE PLEASE THANK YOU RX has/will before cycle date ferrous sulfate 325 mg (65 mg iron) tablet,delayed release RxNorm: 133366 Take 1 Tablet(s) Oral QD WITH A MEAL 11/24/19 24 025 Active 11/18/2023 PROACTIVE REFILL REQUEST FOR NEXT CYCLE PLEASE THANK YOU RX has/will before cycle date atorvastatin 40 mg tablet RxNorm: 745082 Take 1 Tablet(s) Oral QAM every morning 11/25/19 23 024 Inactive 2ND REQUEST FOR REFILLS 11/24 REFILLS NEEDED GORDO PLEASE THANK YOU ferrous sulfate 325 mg (65 mg iron) tablet,delayed release RxNorm: 665322 TAKE 1 TABLET BY MOUTH DAILY WITH A MEAL 11/23/19 23 024 Inactive 11/22/22 PROACTIVE REFILL REQUEST FOR NEXT CYCLE PLEASE THANK YOU cholecalciferol (vitamin D3) 1,250 mcg (50,000 unit) capsule RxNorm: 204595 Take 1 Capsule(s) Oral every other week 10/22/19 22 022 Inactive cholecalciferol (vitamin D3) 1,250 mcg (50,000 unit) capsule RxNorm: 981427 Take 1 Capsule(s) Oral every other week 10/22/19 22 023 Inactive acetaminophen 325 mg tablet RxNorm: 324769 Take 2 Tablet(s) Oral Q4H every four hours as needed PRN mild pain. NOT TO EXCEED 3,000 MG IN 24 HOURS 10/08/19 22 No Stop Date Active dextromethorphan-gu aifenesin 10 mg-100 mg/5 mL oral liquid RxNorm: 840420 as needed TAKE 5-10ML BY MOUTH EVERY 4-6HOURS NEEDED FOR COUGH OR CONGESTION 10/08/19 22 No Stop Date Active dx: cough due to Covid19 calcium carbonate 500 mg calcium (1,250 mg) chewable tablet RxNorm: 978059 Chew 2-4 Tablet(s) Oral as needed CHEW 2-4 TABLETS BY MOUTH BETWEEN MEALS AND AT BEDTIME NEEDED 10/08/19 22 No Stop Date Active ibuprofen 200 mg tablet RxNorm: 069550 Take 1-2 Tablet(s) Oral Q4-6H every 4-6 hours as needed NOT TO EXCEED 6 TABS IN 24 HOURS 10/08/19 22 No Stop Date Active aluminum-mag hydroxide-simethico ne 200 mg-200 mg-20 mg/5 mL oral susp RxNorm: 694539 Take 5-10 Milliliter(s) Oral QID as needed ONE TIME BETWEEN MEAL AND AT BEDTIME (STANDING ORDER) 10/08/19 No Stop Date Active Milk of Magnesia 400 mg/5 mL oral suspension RxNorm: 663338 Take 15-30 Milliliter(s) Oral QD QD - Daily as needed 10/08/19 No Stop Date Active diphenhydramine 25 mg capsule RxNorm: 2516722 Give 1-2 Capsule(s) Oral Q8H every 8 hours as needed FOR ALLERGIES 10/08/19 No Stop Date Active Vitamin D2 1,250 mcg (50,000 unit) capsule RxNorm: 9727557 1 Capsule(s) Oral QW once a week TAKE ONCE CAPSULE ONCE WEEKLY 10/08/19 22 022 Inactive ferrous sulfate 325 mg (65 mg iron) tablet RxNorm: 354933 Take 1 Tablet(s) Oral QD 10/06/19 22 024 Inactive atorvastatin 40 mg tablet RxNorm: 525374 Take 1 Tablet(s) Oral QHS every night [...] Date SYS BP LESS 140 CPT-4: G8752 02/08/2024 RAYO BP LESS 90 CPT-4: G8754 02/08/2024 BEHAV CHNG SMOKING 3-[address]: 2 07810763 CPT-4: 71855 05/26/2022 BEHAV CHNG SMOKING 3-[address]: 2 44292595 CPT-4: 41893 04/28/2022 BEHAV CHNG SMOKING 3-[address]: 2 06294130 CPT-4: 31153 03/24/2022 BEHAV CHNG SMOKING 3-[address]: 2 32972543 CPT-4: 37545 03/03/2022 BEHAV CHNG SMOKING 3-[address]: 2 78390503 CPT-4: 91201 01/20/2022 BEHAV CHNG SMOKING 3-[address]: 2 69063772 CPT-4: 98333 12/23/2021 BEHAV CHNG SMOKING 3-[address]: 2 87105761 CPT-4: 16266 11/25/2021 BEHAV CHNG SMOKING 3-[address]: 2 08347955 CPT-4: 48956 10/08/2021 Vital Signs Date Vital 02/08/2024 Blood Pressure 1: 110/76 Code: 8480-6 Heart Rate 1: 92 bpm Code: 8867-4 Respiratory Rate: 15 bpm Temperature: 36.5 (C) / 97.7 (F) Reason For Visit No Reason For Visit data Encounters Encounter Performer Location Location Address Codes Date ([address]71) Home or Residence Visit Est Pt - Low Level, 30 mins Diagnosis: Alzheimer's dementia with other behavioral disturbance, unspecified dementia severity, unspecified timing of dementia onset[ICD10: G30.9] Diagnosis: Cognitive impairment[ICD10: R41.89] Diagnosis: Hemiparesis due to non-cerebrovascula r etiology, unspecified laterality[ICD10: G81.90] Diagnosis: Traumatic brain injury with loss of consciousness, sequela[ICD10: S06.9X9S] Diagnosis: Vitamin D deficiency[ICD10: E55.9] Diagnosis: Frequent falls[ICD10: R29.6] [address] [phone] CPT-4: 19286 02/08/2024 Plan of Care Planned Activity Notes Codes Status Date Appointment: Leticia Machado WPtel: [address] [place], [place] [phone] AW 11/24/2022 Ref[facility]: [facility]: [facility] [address] [id number] [place] Referral Closed 09/15/2022 Instructions Comment Date Cruz is a male being seen l hellen at [facility]. Initial BPS visit 10/08/21. He is verbal and a fairly reliable historian, independent in ADLs. Prior to moving to this [place] he was found in his apartment with self-neglect. Hx of being . Often refuses help as nursing thinks he feels too proud to receive care. Hx of not liking to take meds or see providers. Patient is his own guardian. AWV 05.23.2024Labs: Yearly in NOVEMBER(CMP, CBC, LIPID, VITD, A1C, VITB12). [id number] in MAY (CBC). CMP wnl, CBCwnl, lipid all wnl; total cholesterol 117, HDL 51.9, LDL 40, triglycerides 124, VLDL 25), vitD 46 nl, iron studies, A1c 5.6, VitB12 223 nl. (CBC ordered) 05/23/2024 Traumatic brain injury with loss of consciousness, sequela Cognitive impairment likely related to past TBI. Difficult to gather further information about TBI from Cruz. Poor historian. Functioning well in current living situation with customer support advisor and familiarity of facility. Continue to monitor for ability to complete ADLs and appropriateness of level of care available at facility. Cognitive impairment Living in supportive environment with 07/03 staff and nursing available. Facility manages medications and prepares meals. Co-morbid with TBI. Doing well in current living situation. Continue to monitor for appropriateness of level of care. Frequent falls No recent falls per Peter or nursing staff. Per chart review use to fall more frequently. He is always using his four wheeled walker when I see him which is great. Continue with walker and environmental adaptations as needed like a nightlight in his room to get up at night if needed and maintain a clear floor with no tripping hazards. Hemiparesis due to non-cerebrovascular etiology, unspecified laterality Used a cane post TBI. Now using a walker. Stable with physical mobility at this time, uses his walker appropriately. No recent falls. With any decline in physical functioning will consider PT/OT if he is willing. Alzheimer's dementia with other behavioral disturbance, unspecified dementia severity, unspecified timing of dementia onset Lab work in November 2023 within normal limits. He is on minimal medication, he goes through phases of refusing medication. At our last visit he was accepting of his scheduled medications. Due to his age and lab work results could consider discontinuing scheduled medication if it becomes distressing to him. Recently has been accepting of his medication so we will continue current plan of care. Living in supportive environment where he knows his way around. Vitamin D deficiency 4.2023 serum vitamin D (46) Continue supplementation as he very rarely ever goes outside. Lab work yearly. . 02/08/2024
--- OUTSIDE RECORDS SUMMARY | 2024-09-04 10:28 | XMS_ITS | CCD ---
Author Name [place] LEEANNA Clare de santiago Address [address] [facility] [address] [place] [address] Phone Organization 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) Medicare Part B [id number] Unknown Family History Family History data not found Social History Social History Element Codes Description Effec tive Dates Tobacco history SNOMED CT: 19236313 Current ever y day smoker 10/daily 10/09/[address]: 921007062 No Alcohol Consumption Hx, or if available [...] atus Aortic dilatation ICD-10: I77.819 ICD-9: 447.70 12/07/2023 [...] Enteritis ICD-10: K52.9 ICD-9: 558.9 12/07/2023 Resolved Cognitive impairment ICD-10: R41.89 ICD-9: 294.9 09/29/2023 Active Vitamin D deficiency ICD-10: E55.9 ICD-9: 268.9 09/29/2023 Active 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, unspecified dementia severity, unspecified timing of dementia onset ICD-10: G30.9 ICD-9: 331.0 09/28/2023 Active Hemiparesis due to non-cerebrovascular etiology, unspecified laterality ICD-10: G81.90 ICD-9: 342.90 09/28/2023 Active Traumatic brain injury with loss of consciousness, sequela ICD-10: S06.9X9S ICD-9: 907.0 06/22/2023 Active Frail elderly ICD-10: R54 ICD-9: 797 06/16/2023 Active 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 ICD-9: 287.2 04/27/2023 Active Dementia in other diseases classified elsewhere, unspecified severity, with other behavioral disturbance ICD-10: F02.818 12/22/2022 Active Frequent falls ICD-10: R29.6 ICD-9: V15.88 12/22/2022 Active Medications Medication Codes Instructions Start Date Stop Date Status Fill Instructions atorvastatin 40 mg tablet RxNorm: 041879 Take 1 Tablet(s) Oral QAM every morning 11/24/19 24 025 Active 11/18/2023 PROACTIVE REFILL REQUEST FOR NEXT CYCLE PLEASE THANK YOU RX has/will before cycle date ferrous sulfate 325 mg (65 mg iron) tablet,delayed release RxNorm: 671258 Take 1 Tablet(s) Oral QD WITH A MEAL 11/24/19 24 025 Active 11/18/2023 PROACTIVE REFILL REQUEST FOR NEXT CYCLE PLEASE THANK YOU RX has/will before cycle date atorvastatin 40 mg tablet RxNorm: 995771 Take 1 Tablet(s) Oral QAM every morning 11/25/19 23 024 Inactive 2ND REQUEST FOR REFILLS 11/24 REFILLS NEEDED GORDO PLEASE THANK YOU ferrous sulfate 325 mg (65 mg iron) tablet,delayed release RxNorm: 378527 TAKE 1 TABLET BY MOUTH DAILY WITH A MEAL 11/23/19 23 024 Inactive 11/22/22 PROACTIVE REFILL REQUEST FOR NEXT CYCLE PLEASE THANK YOU cholecalciferol (vitamin D3) 1,250 mcg (50,000 unit) capsule RxNorm: 891562 Take 1 Capsule(s) Oral every other week 10/22/19 22 022 Inactive cholecalciferol (vitamin D3) 1,250 mcg (50,000 unit) capsule RxNorm: 945085 Take 1 Capsule(s) Oral every other week 10/22/19 22 023 Inactive acetaminophen 325 mg tablet RxNorm: 088977 Take 2 Tablet(s) Oral Q4H every four hours as needed PRN mild pain. NOT TO EXCEED 3,000 MG IN 24 HOURS 10/08/19 22 No Stop Date Active dextromethorphan-gu aifenesin 10 mg-100 mg/5 mL oral liquid RxNorm: 719586 as needed TAKE 5-10ML BY MOUTH EVERY 4-6HOURS NEEDED FOR COUGH OR CONGESTION 10/08/19 22 No Stop Date Active dx: cough due to Covid19 calcium carbonate 500 mg calcium (1,250 mg) chewable tablet RxNorm: 185135 Chew 2-4 Tablet(s) Oral as needed CHEW 2-4 TABLETS BY MOUTH BETWEEN MEALS AND AT BEDTIME NEEDED 10/08/19 22 No Stop Date Active ibuprofen 200 mg tablet RxNorm: 267760 Take 1-2 Tablet(s) Oral Q4-6H every 4-6 hours as needed NOT TO EXCEED 6 TABS IN 24 HOURS 10/08/19 22 No Stop Date Active aluminum-mag hydroxide-simethico ne 200 mg-200 mg-20 mg/5 mL oral susp RxNorm: 186674 Take 5-10 Milliliter(s) Oral QID as needed ONE TIME BETWEEN MEAL AND AT BEDTIME (STANDING ORDER) 10/08/19 No Stop Date Active Milk of Magnesia 400 mg/5 mL oral suspension RxNorm: 040596 Take 15-30 Milliliter(s) Oral QD QD - Daily as needed 10/08/19 No Stop Date Active diphenhydramine 25 mg capsule RxNorm: 0431998 Give 1-2 Capsule(s) Oral Q8H every 8 hours as needed FOR ALLERGIES 10/08/19 No Stop Date Active Vitamin D2 1,250 mcg (50,000 unit) capsule RxNorm: 2865605 1 Capsule(s) Oral QW once a week TAKE ONCE CAPSULE ONCE WEEKLY 10/08/19 22 022 Inactive ferrous sulfate 325 mg (65 mg iron) tablet RxNorm: 376432 Take 1 Tablet(s) Oral QD 10/06/19 22 024 Inactive atorvastatin 40 mg tablet RxNorm: 944629 Take 1 Tablet(s) Oral QHS every night at bedtime 10/06/19 023 Inactive CertaVite Senior oral RxNorm: oral [...] Date SYS BP LESS 140 CPT-4: G8752 12/07/2023 RAYO BP LESS 90 CPT-4: G8754 12/07/2023 BEHAV CHNG SMOKING 3-[address]: 2 60655125 CPT-4: 66358 05/26/2022 BEHAV CHNG SMOKING 3-[address]: 2 64412915 CPT-4: 99911 04/28/2022 BEHAV CHNG SMOKING 3-[address]: 2 89901853 CPT-4: 54063 03/24/2022 BEHAV CHNG SMOKING 3-[address]: 2 05360462 CPT-4: 25387 03/03/2022 BEHAV CHNG SMOKING 3-[address]: 2 22314193 CPT-4: 84671 01/20/2022 BEHAV CHNG SMOKING 3-[address]: 2 01021758 CPT-4: 73205 12/23/2021 BEHAV CHNG SMOKING 3-[address]: 2 66205950 CPT-4: 62352 11/25/2021 BEHAV CHNG SMOKING 3-[address]: 2 77115113 CPT-4: 34546 10/08/2021 Vital Signs Date Vital 12/07/2023 Blood Pressure 1: 122/84 Code: 8480-6 Heart Rate 1: 78 bpm Code: 8867-4 SpO2: 94% Temperature: 36.3 (C) / 97.3 (F) Reason For Visit No Reason For Visit data Encounters Encounter Performer Location Location Address Codes Date ([address]) Home or Residence Visit Est Pt - Moderate Level, 40 mins Diagnosis: Aortic dilatation[ICD10: I77.819] Diagnosis: Dyslipidemia[ICD10 : E78.5] Diagnosis: Erectile dysfunction of organic origin[ICD10: N52.9] Diagnosis: Irregular heart rhythm[ICD10: I49.9] Diagnosis: Tobacco use disorder[ICD10: F17.200] Diagnosis: Recurrent major depressive disorder, in full remission[ICD10: F33.42] Diagnosis: Iron deficiency anemia, unspecified iron deficiency anemia type[ICD10: D50.9] Diagnosis: Normocytic anemia[ICD10: D64.9] [address] [address] CPT-4: 56062 12/07/2023 Plan of Care Planned Activity Notes Codes Status Date Appointment: Leticia Machado WPtel: [address] [place], [place] [phone] AW 11/24/2022 [facility]: [facility]: [facility] [address] [id number] [place] Referral Closed 09/15/2022 Instructions Comment Date Cruz is a male being seen l hellen at [facility] Initial BPS visit 10/08/21. He is verbal and a fairly reliable historian, independent in ADLs. Prior to moving to this [place] he was found in his apartment with self-neglect. Hx of being . Often refuses help as nursing thinks he feels too proud to receive care. Hx of not liking to take meds or see providers. Patient is his own guardian. AWV 05.23.2024Labs: Yearly in NOVEMBER(CMP, CBC, LIPID, VITD, A1C, VITB12). [id number] in MAY (CBC)11.19.2023 CMP wnl, CBCwnl, lipid all wnl; total cholesterol 117, HDL 51.9, LDL 40, triglycerides 124, VLDL 25), vitD 46 nl, iron studies, A1c 5.6, VitB12 223 nl. (CBC ordered) 05/23/2024 Iron deficiency anemia, unsp ecified iron deficiency anemia type CBC results from 11.18.2023 reviewed personally and with patient today. He takes ferrous sulfate 325 mg daily. Lab work stable. Continue with plan of care. Dyslipidemia Currently taking: Atorvastatin 40 mg daily. 11/2023 lipid panel: All WNL: total cholesterol 117, HDL 51.9, LDL 40, triglycerides 124, VLDL 25. Results reviewed with patient today. No adjustment to medication warranted at this time. Patient has been agreeing to take his medication per nursing staff which is great but if he in the future decides to refuse again could consider discontinuation at his age and with his goals of care. 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 He shares that since he feels fine he does not want to have any follow up work done. He did agree to notify me if he has any symptoms or concern and that we will follow through with recommended follow up. Recurrent major depressive disorder, in full remission Overall mood is stable and patient has no concerns. He does well in his living environment. Is not currently on any mental health medication. No change to plan of care today. Normocytic anemia CBC results reviewed. Will continue with ferrous sulfate for now, can consider discontinuation. Tobacco use disorder Smoking: has been out of cigarettes for one month. Continued smoking cessation encouraged. Patient states he would prefer to be smoking if he had cigarettes available to him. Continue to encourage and educate. Erectile dysfunction of organic origin No mediation use for ED at this time. Patient reports no interest either, he will notify PCP if he would like to try a medication in the future. No change to plan of care made. Irregular heart rhythm Rhythm regular today. Patient prefers to not follow up with his field insurance sales manager. Will monitor at each visit. Cardiology follow up encouraged due to prior follow up and aortic dilation. . 12/07/2023
--- OUTSIDE RECORDS SUMMARY | 2024-09-04 10:28 | XMS_ITS | CCD ---
Author Name Celine DURÁN Clare ie Address [address] [facility] [address] [place] [address] Phone Organization [facility] Phone Care Team Providers Care Risk Control Product Liability Director Name Role Phone Celine MONROE-CJoseline Primary Care Provider Katy vailable Celine MONROE-CJoseline Chronic Care Management U navailable Summary Purpose DataExchange Insurance Providers Payer name Policy type / Coverage type Covered green party ID Effective Begin Date Effective End Date Medicare [place] Medicare Part B [id number] Unknown Medica ([facility]) Medicare Part B [id number] Unknown Family History Family History data not found Social History Social History Element Codes Description Effec tive Dates Tobacco history SNOMED CT: 74617049 Current ever y day smoker 10/daily 10/09/[address]: 164494327 No Alcohol Consumption Hx, or if available 10/09/2021 Allergies, Adverse Reactions, Alerts Substance Reaction Codes Entered Date Inactivated Date Status * NO KNOWN FOOD ALLERGIES Unknown 10/08/2021 No Inactive Date Active * NO KNOWN ENVIRONMENTAL ALLERGIES Unknown 10/08/2021 No Inactive Date Active * NO KNOWN DRUG ALLERGIES Unknown 07/30/2021 No Inactive Date Active Problems Condition Codes Effective Dates Condition St atus Iron deficiency anemia, unsp ecified iron deficiency anemia type ICD-10: D50.9 ICD-9: 280.9 03/28/2024 Active Irregular heart rhythm ICD-10: I49.9 ICD-9: 427.9 03/28/2024 Active Normocytic anemia ICD-10: D64.9 ICD-9: 285.9 03/28/2024 Active Recurrent major depressive disorder, in full remission ICD-10: F33.42 ICD-9: 296.36 03/28/2024 Active Tobacco use disorder ICD-10: F17.200 ICD-9: 305.1 03/28/2024 Active Alzheimer's dementia with ot her behavioral [...] origin ICD-10: N52.9 ICD-9: 607.84 12/07/2023 Active Enteritis ICD-10: K52.9 ICD-9: 558.9 12/07/2023 Resolved Frail elderly ICD-10: R54 ICD-9: 797 06/16/2023 Active 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 ICD-9: 287.2 04/27/2023 Active Dementia in other diseases classified elsewhere, unspecified severity, with other behavioral disturbance ICD-10: F02.818 12/22/2022 Active Medications Medication Codes Instructions Start Date Stop Date Status Fill Instructions atorvastatin 40 mg tablet RxNorm: 073378 Take 1 Tablet(s) Oral QAM every morning 11/24/19 24 025 Active 11/18/2023 PROACTIVE REFILL REQUEST FOR NEXT CYCLE PLEASE THANK YOU RX has/will before cycle date ferrous sulfate 325 mg (65 mg iron) tablet,delayed release RxNorm: 062706 Take 1 Tablet(s) Oral QD WITH A MEAL 11/24/19 24 025 Active 11/18/2023 PROACTIVE REFILL REQUEST FOR NEXT CYCLE PLEASE THANK YOU RX has/will before cycle date atorvastatin 40 mg tablet RxNorm: 721473 Take 1 Tablet(s) Oral QAM every morning 11/25/19 23 024 Inactive 2ND REQUEST FOR REFILLS 11/24 REFILLS NEEDED GORDO PLEASE THANK YOU ferrous sulfate 325 mg (65 mg iron) tablet,delayed release RxNorm: 553103 TAKE 1 TABLET BY MOUTH DAILY WITH A MEAL 11/23/19 23 024 Inactive 11/22/22 PROACTIVE REFILL REQUEST FOR NEXT CYCLE PLEASE THANK YOU cholecalciferol (vitamin D3) 1,250 mcg (50,000 unit) capsule RxNorm: 904547 Take 1 Capsule(s) Oral every other week 10/22/19 22 022 Inactive cholecalciferol (vitamin D3) 1,250 mcg (50,000 unit) capsule RxNorm: 492188 Take 1 Capsule(s) Oral every other week 10/22/19 22 023 Inactive acetaminophen 325 mg tablet RxNorm: 334143 Take 2 Tablet(s) Oral Q4H every four hours as needed PRN mild pain. NOT TO EXCEED 3,000 MG IN 24 HOURS 10/08/19 22 No Stop Date Active dextromethorphan-gu aifenesin 10 mg-100 mg/5 mL oral liquid RxNorm: 968432 as needed TAKE 5-10ML BY MOUTH EVERY 4-6HOURS NEEDED FOR COUGH OR CONGESTION 10/08/19 22 No Stop Date Active dx: cough due to Covid19 calcium carbonate 500 mg calcium (1,250 mg) chewable tablet RxNorm: 769420 Chew 2-4 Tablet(s) Oral as needed CHEW 2-4 TABLETS BY MOUTH BETWEEN MEALS AND AT BEDTIME NEEDED 10/08/19 22 No Stop Date Active ibuprofen 200 mg tablet RxNorm: 183356 Take 1-2 Tablet(s) Oral Q4-6H every 4-6 hours as needed NOT TO EXCEED 6 TABS IN 24 HOURS 10/08/19 22 No Stop Date Active aluminum-mag hydroxide-simethico ne 200 mg-200 mg-20 mg/5 mL oral susp RxNorm: 274660 Take 5-10 Milliliter(s) Oral QID as needed ONE TIME BETWEEN MEAL AND AT BEDTIME (STANDING ORDER) 10/08/19 No Stop Date Active Milk of Magnesia 400 mg/5 mL oral suspension RxNorm: 008459 Take 15-30 Milliliter(s) Oral QD QD - Daily as needed 10/08/19 No Stop Date Active diphenhydramine 25 mg capsule RxNorm: 1034457 Give 1-2 Capsule(s) Oral Q8H every 8 hours as needed FOR ALLERGIES 10/08/19 No Stop Date Active Vitamin D2 1,250 mcg (50,000 unit) capsule RxNorm: 3365742 1 Capsule(s) Oral QW once a week TAKE ONCE CAPSULE ONCE WEEKLY 10/08/19 22 022 Inactive ferrous sulfate 325 mg (65 mg iron) tablet RxNorm: 958231 Take 1 Tablet(s) Oral QD 10/06/19 22 024 Inactive atorvastatin 40 mg tablet RxNorm: 486717 Take 1 Tablet(s) Oral QHS every night [...] Date SYS BP LESS 140 CPT-4: G8752 03/28/2024 RAYO BP LESS 90 CPT-4: G8754 03/28/2024 BEHAV CHNG SMOKING 3-[address]: 2 91776677 CPT-4: 56224 05/26/2022 BEHAV CHNG SMOKING 3-[address]: 2 77321196 CPT-4: 66251 04/28/2022 BEHAV CHNG SMOKING 3-[address]: 2 98288429 CPT-4: 23558 03/24/2022 BEHAV CHNG SMOKING 3-[address]: 2 16283021 CPT-4: 22581 03/03/2022 BEHAV CHNG SMOKING 3-[address]: 2 71871544 CPT-4: 39348 01/20/2022 BEHAV CHNG SMOKING 3-[address]: 2 85649749 CPT-4: 60583 12/23/2021 BEHAV CHNG SMOKING 3-[address]: 2 81310537 CPT-4: 94528 11/25/2021 BEHAV CHNG SMOKING 3-[address]: 2 81086745 CPT-4: 46909 10/08/2021 Vital Signs Date Vital 03/28/2024 Blood Pressure 1: 116/78 Code: 8480-6 Heart Rate 1: 73 bpm Code: 8867-4 Respiratory Rate: 16 bpm Temperature: 36.4 (C) / 97.6 (F) Reason For Visit No Reason For Visit data Encounters Encounter Performer Location Location Address Codes Date ([address]) Home or Residence Visit Est Pt - Moderate Level, 40 mins Diagnosis: Iron deficiency anemia, unspecified iron deficiency anemia type[ICD10: D50.9] Diagnosis: Irregular heart rhythm[ICD10: I49.9] Diagnosis: Normocytic anemia[ICD10: D64.9] Diagnosis: Recurrent major depressive disorder, in full remission[ICD10: F33.42] Diagnosis: Tobacco use disorder[ICD10: F17.200] [address] [address] CPT-4: 77250 03/28/2024 Plan of Care Planned Activity Notes Codes Status Date Appointment: Leticia Machado WPtel: [address] [place], [place] [phone] AWV 11/24/2022 [facility]: [facility] [address] [id number] [place] Referral Closed 09/15/2022 Instructions Comment Date Cruz is a male being seen l hellen at [facility]. Initial BPS visit 10/08/21. He is verbal [...] in NOVEMBER(CMP, CBC, LIPID, VITD, A1C, VITB12). [id number] in MAY (CBC)11.19.2023 CMP wnl, CBCwnl, lipid all wnl; total cholesterol 117, HDL 51.9, LDL 40, triglycerides 124, VLDL 25), vitD 46 nl, iron studies, A1c 5.6, VitB12 223 nl. (CBC ordered) 05/23/2024 Irregular heart rhythm Rhythm regular today. HR WNL today. He does not like to follow up with providers that do not come to his home so has not seen his assistant broker in a long time although recommended. Will continue to monitor S&S during in home visits. Normocytic anemia CBC WNL in November. Will monitor in May if Cruz is agreeable, perhaps could discontinue ferrous sulfate at that time if he wishes to trial discontinuing it. Iron deficiency anemia, unspecified iron deficiency anemia type Continues to take and tolerate ferrous sulfate supplementation. Denies fatigue, chest pain, shortness of breath, or abdominal upset. Last labs in November. Will monitor again in May if Cruz is agreeable at that time. Continue with current plan of care. Monitor for increased fatigue, lightheadedness, falls. Tobacco use disorder Has been out of cigarettes again for one month. He shares he would smoke if he had some. Continued encouragement provided to continue cessation instead of smoking if he obtains cigarettes. Recurrent major depressive disorder, in full remission Remains in full remission. Mood is stable and patient nor nurse has any concerns today. Does well in his current living environment. Chooses to not interact much with others; although does go to the dining room and sits with others for meals. Continue to monitor mental health and assess for any decline/concerns. . 03/28/2024
--- OUTSIDE RECORDS SUMMARY | 2024-09-04 10:29 | XMS_ITS | CCD ---
Author Name Clare Romero Address [address] [facility] [address] [place] [address] Phone Organization [facility] Phone Care Team Providers Care Mix Chemist Name Role Phone Celine MONROE-Joseline Hernandez Primary Care Provider Katy vailable Celine MONROE-CJoseline Chronic Care Management U navailable Summary Purpose DataExchange Insurance Providers Payer name Policy type / Coverage type Covered republican ID Effective Begin Date Effective End Date Medicare [place] Medicare Part B [id number] Unknown Medica ([facility]) Medicare Part B [id number] Unknown Family history Parents, Siblings, Children Diagnosis Age At Onset No Family Disease Entered N/A Father Diagnosis Age At Onset Cancer Unknown Social History Social History Element Codes Description Effec tive Dates Living arrangements Unknown Assisted Living 05/22 Caregiver Assessment Unknown Guardian or HCPOA on file 05/22/2024 Seatbelt safety Unknown Wears seatbelt 05/22/[address]: 08521487 Current ever y day smoker 10/daily 10/09/[address]: 909739763 No Alcohol Consumption Hx, or if available 10/09/2021 Allergies, Adverse Reactions, Alerts Substance Reaction Codes Entered Date Inactivated Date Status * NO KNOWN FOOD ALLERGIES Unknown 10/08/2021 No Inactive Date Active * NO KNOWN ENVIRONMENTAL ALLERGIES Unknown 10/08/2021 No Inactive Date Active * NO KNOWN DRUG ALLERGIES Unknown 07/30/2021 No Inactive Date Active Problems Condition Codes Effective Dates Condition St atus Advanced care planning - to document end of life discussions Unknown 05/23/2024 Active Advanced care planning/couns eling discussion ICD-10: Z71.89 ICD-9: V65.49 05/23/2024 Active 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, unspecified dementia severity, unspecified timing of dementia onset ICD-10: G30.9 ICD-9: 331.0 05/23/2024 Active Aortic dilatation ICD-10: I77.819 ICD-9: 447.70 05/23/2024 Active Cognitive impairment ICD-10: R41.89 ICD-9: 294.9 05/23/2024 Active Dyslipidemia ICD-10: E78.5 ICD-9: 272.4 05/23/2024 Active Erectile dysfunction of orga yuniel origin ICD-10: N52.9 ICD-9: 607.84 05/23/2024 Active Frail elderly ICD-10: R54 ICD-9: 797 05/23/2024 Active Hemiparesis due to non-cerebrovascular etiology, unspecified laterality ICD-10: G81.90 ICD-9: 342.90 05/23/2024 Active Iron deficiency anemia, unspecified ICD- 10: D50.9 ICD-9: 280.9 05/23/2024 Active Irregular heart rhythm ICD-10: I49.9 ICD-9: 427.9 05/23/2024 Active Preventative health care ICD-10: Z00.00 ICD-9: V70.0 05/23/2024 Active Recurrent major depressive disorder, in full remission ICD-10: F33.42 ICD-9: 296.36 05/23/2024 Active 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 ICD-9: 287.2 05/23/2024 Active Tobacco use disorder ICD-10: F17.200 ICD-9: 305.1 05/23/2024 Active Traumatic brain injury with loss of consciousness, sequela ICD-10: S06.9X9S ICD-9: 907.0 05/23/2024 Active Vitamin D deficiency ICD-10: E55.9 ICD-9: 268.9 05/23/2024 Active Normocytic anemia ICD-10: D64.9 ICD-9: 285.9 03/28/2024 Active Frequent falls ICD-10: R29.6 ICD-9: V15.88 02/08/2024 Active Enteritis ICD-10: K52.9 ICD-9: 558.9 12/07/2023 Resolved Dementia in other diseases classified elsewhere, unspecified severity, with other behavioral disturbance ICD-10: F02.818 12/22/2022 Active Medications Medication Codes Instructions Start Date Stop Date Status Fill Instructions atorvastatin 40 mg tablet RxNorm: 480041 Take 1 Tablet(s) Oral QAM every morning 11/24/19 24 025 Active 11/18/2023 PROACTIVE REFILL REQUEST FOR NEXT CYCLE PLEASE THANK YOU RX has/will before cycle date ferrous sulfate 325 mg (65 mg iron) tablet,delayed release RxNorm: 211803 Take 1 Tablet(s) Oral QD WITH A MEAL 11/24/19 24 025 Active 11/18/2023 PROACTIVE REFILL REQUEST FOR NEXT CYCLE PLEASE THANK YOU RX has/will before cycle date atorvastatin 40 mg tablet RxNorm: 302440 Take 1 Tablet(s) Oral QAM every morning 11/25/19 23 024 Inactive 2ND REQUEST FOR REFILLS 11/24 REFILLS NEEDED GORDO PLEASE THANK YOU ferrous sulfate 325 mg (65 mg iron) tablet,delayed release RxNorm: 136207 TAKE 1 TABLET BY MOUTH DAILY WITH A MEAL 11/23/19 23 024 Inactive 11/22/22 PROACTIVE REFILL REQUEST FOR NEXT CYCLE PLEASE THANK YOU cholecalciferol (vitamin D3) 1,250 mcg (50,000 unit) capsule RxNorm: 470920 Take 1 Capsule(s) Oral every other week 10/22/19 22 022 Inactive cholecalciferol (vitamin D3) 1,250 mcg (50,000 unit) capsule RxNorm: 896137 Take 1 Capsule(s) Oral every other week 10/22/19 22 023 Inactive acetaminophen 325 mg tablet RxNorm: 405548 Take 2 Tablet(s) Oral Q4H every four hours as needed PRN mild pain. NOT TO EXCEED 3,000 MG IN 24 HOURS 10/08/19 No Stop Date Active dextromethorphan-gu aifenesin 10 mg-100 mg/5 mL oral liquid RxNorm: 547918 as needed TAKE 5-10ML BY MOUTH EVERY 4-6HOURS NEEDED FOR COUGH OR CONGESTION 10/08/19 22 No Stop Date Active dx: cough due to Covid19 calcium carbonate 500 mg calcium (1,250 mg) chewable tablet RxNorm: 997037 Chew 2-4 Tablet(s) Oral as needed CHEW 2-4 TABLETS BY MOUTH BETWEEN MEALS AND AT BEDTIME NEEDED 10/08/19 22 No Stop Date Active ibuprofen 200 mg tablet RxNorm: 597166 Take 1-2 Tablet(s) Oral Q4-6H every 4-6 hours as needed NOT TO EXCEED 6 TABS IN 24 HOURS 10/08/19 22 No Stop Date Active aluminum-mag hydroxide-simethico ne 200 mg-200 mg-20 mg/5 mL oral susp RxNorm: 837036 Take 5-10 Milliliter(s) Oral QID as needed ONE TIME BETWEEN MEAL AND AT BEDTIME (STANDING ORDER) 10/08/19 No Stop Date Active Milk of Magnesia 400 mg/5 mL oral suspension RxNorm: 961176 Take 15-30 Milliliter(s) Oral QD QD - Daily as needed 10/08/19 22 No Stop Date Active diphenhydramine 25 mg capsule RxNorm: 1162105 Give 1-2 Capsule(s) Oral Q8H every 8 hours as needed FOR ALLERGIES 10/08/19 No Stop Date Active Vitamin D2 1,250 mcg (50,000 unit) capsule RxNorm: 6835230 1 Capsule(s) Oral QW once a week TAKE ONCE CAPSULE ONCE WEEKLY 10/08/19 22 022 Inactive ferrous sulfate 325 mg (65 mg iron) tablet RxNorm: 393246 Take 1 Tablet(s) Oral QD 10/06/19 22 024 Inactive atorvastatin 40 mg tablet RxNorm: 937472 Take 1 Tablet(s) Oral QHS every night [...] Item Code Result Date S ervice Location PHQ9 PHQ9 09666-1 0 05/23/2024 Unknown SLUMS SLUMS 50287-6 declined/refus ed 05/23/2024 Unknown Procedures Procedure Codes Date HG A1C LEVEL LT 7.0% CPT-4: 3044F 05/23/2024 PT INELIG NEG SCRN DEPRES SNOMED CT: 428 [id number] CPT-4: G8510 05/23/2024 TOBACCO ANTHROPOLOGY FACULTY MEMBER NO CHARGE Patient counseled on the dangers of tobacco and urged to quit/today CPT-4: M6941Vexkzkm 05/23/2024 BEHAV CHNG SMOKING 3-[address]: 2 03113928 CPT-4: 19184 05/26/2022 BEHAV CHNG SMOKING 3-[address]: 2 94909765 CPT-4: 74404 04/28/2022 BEHAV CHNG SMOKING 3-[address]: 2 31090128 CPT-4: 39712 03/24/2022 BEHAV CHNG SMOKING 3-[address]: 2 70474787 CPT-4: 95297 03/03/2022 BEHAV CHNG SMOKING 3-[address]: 2 73738753 CPT-4: 55583 01/20/2022 BEHAV CHNG SMOKING 3-[address]: 2 04210891 CPT-4: 23141 12/23/2021 BEHAV CHNG SMOKING 3-[address]: 2 34869414 CPT-4: 29424 11/25/2021 BEHAV CHNG SMOKING 3-[address]: 2 08025140 CPT-4: 82860 10/08/2021 Vital Signs Date Vital 05/23/2024 Blood Pressure 1: 120/78 Code: 8480-6 Heart Rate 1: 86 bpm Code: 8867-4 Height: 5'10 Code: 8302-2 Respiratory Rate: 18 bpm SpO2: 95% Temperature: 36.7 (C) / 98.0 (F) Weight: Code: 3141-9 Reason For Visit No Reason For Visit data Encounters Encounter Performer Location Location Address Codes Date (G0439) Medicare Annual Wellness Visit- Subsequent Diagnosis: Preventative health care[ICD10: Z00.00] Diagnosis: Advanced care planning/counseling discussion[ICD10: Z71.89] Diagnosis: Alzheimer's dementia with other behavioral disturbance, unspecified dementia severity, unspecified timing of dementia onset[ICD10: G30.9] Diagnosis: Aortic dilatation[ICD10: I77.819] Diagnosis: Hemiparesis due to non-cerebrovascular etiology, unspecified laterality[ICD10: G81.90] Diagnosis: Recurrent major depressive disorder, in full remission[ICD10: F33.42] Diagnosis: Traumatic brain injury with loss of consciousness, sequela[ICD10: S06.9X9S] Diagnosis: Senile purpura[ICD10: D69.2] Diagnosis: Cognitive impairment[ICD10: R41.89] Diagnosis: Dyslipidemia[ICD10: E78.5] Diagnosis: Erectile dysfunction of organic origin[ICD10: N52.9] Diagnosis: Frail elderly[ICD10: R54] Diagnosis: Iron deficiency anemia, unspecified iron deficiency anemia type[ICD10: D50.9] Diagnosis: Irregular heart rhythm[ICD10: I49.9] Diagnosis: Vitamin D deficiency[ICD10: E55.9] Diagnosis: Tobacco use disorder[ICD10: F17.200] [address] [phone] CPT-4: G0439 05/23/2024 Plan of Care Planned Activity Notes Codes Status Date Patient Education: Patient Medication Summary Completed 05/23/2024 Patient Education: Addiction and Substance Abuse Completed 05/23/2024 Patient Education: Alzheimer''s Disease Completed 05/23/2024 Patient Education: Influenza Complet ed 05/23/2024 Patient Education: Smoking Cessation Completed 05/23/2024 Patient Education: Dementia Complete d 05/23/2024 Patient Education: Exercise and Fitness Completed 05/23/2024 Appointment: Leticia Machado WPtel: [address] [place], [place] [phone] [facility] 11/24/2022 Referral: [facility] W[facility]: [facility] [address] [id number] Referral Closed 09/15/2022 Instructions Comment Date Cruz is a male being seen l hellen at [facility]. Initial BPS visit 10/08/21. He is verbal and a fairly reliable historian, independent in ADLs. Prior to moving to this [place] he was found in his apartment with self-neglect. Hx of being . Often refuses help as nursing thinks he feels too proud to receive care. Hx of not liking to take meds or see providers. Patient is his own guardian. AWV 05.23.2024Labs: Yearly in NOVEMBER(CMP, CBC, LIPID, VITD, A1C, VITB12). r5xuxicp in MAY (CBC). CMP wnl, CBCwnl, lipid all wnl; total cholesterol 117, HDL 51.9, LDL 40, triglycerides 124, VLDL 25), vitD 46 nl, iron studies, A1c 5.6, VitB12 223 nl. (CBC ordered) 05/23/2024 Erectile dysfunction of orga yuniel origin No medication for ED on board at this time, he denies interest at this time. Senile purpura No excessive bruising or signs of bleeding today. Labs WNL. Does not take anticoagulants. Prevent Health Care 05.23.2024 AWV completed today. 79 years old at day of visit. Has aged out of preventive care screenings. Vaccines: he refuses vaccines today; recommendation for influenza, covid, tdap, shinges. Vaccination history reviewed and patient is due for vaccine(s) as outlined in the History/Preventative Care section above. This patient has advanced illness and frailty, and routine preventive screening tests are not aligned with their/their POA's goals of care. Based on age and gender, patient not due for any USPTF Screenings. Vitamin D deficiency Serum levels checked yearly in November. Continue supplementation; very rarely is outside for natural vitamin D absorption. Aortic dilatation Denies interest in following up with an ultrasound or brisket puller. He shares he feels fine and doesn't want any further work up/specialty care. Denies acute cardiac S&S today. Continue to monitor for S&S. Tobacco use disorder Has not had the money to buy cigarettes so has not smoked in awhile. He would choose to smoke though if he had money. Encouraged to remain in cessation today. Hemiparesis due to non-cerebrovascular etiology, unspecified laterality Originally used a cane after his TBI. Using a walker now. Stable physical mobility at this time. Walker is appropriately working. No recent falls. If decline in the future will consider PT/OT if he is willing. Advance Care Planning FULL CODE. Dyslipidemia Lab work: lipid panel in November. Currently taking: Atorvastatin 40 mg QD. Recently agreeing to taking medication. At his age (79) if he wishes to refuse we can discontinue. Frailty 79 year old male with multiple co morbidities, living in assisted living. Cognitive impairment Living in supportive environment. Facility manages medication and prepares meals. Co morbid with TBI. Doing well in current environment. Monitor for appropriateness of level of care. Iron deficiency anemia, unspecified iron deficiency anemia type Tolerating Ferrous Sulfate supplementation. Denies S&S of: fatigue, chest pain, shortness of breath, or abdominal upset. Labs last in November. Will offer CBC follow up today. Irregular heart rhythm Hx if irregular rhythm. Rhythm regular today. HR WNL today. Chooses to not go to appointments outside of his home so he has not seen his brisket puller in quite some time. Will continue to monitor for S&S during our in house appointments. Traumatic brain injury with loss of consciousness, sequela Can be a poor historian. Is functioning well in his living environment with supportive staff and familiarity of the facilit. Continue to monitor for ability to complete ADLs and appropriateness of level of care available at facility. Recurrent major depressive disorder, in full remission Full remission. Mood stable per Peter and facility nurse denies any recent concerns. Does well in current living environment. Chooses to not interact with other residents much but does go to the dining room for meals. Continue to monitor mental health and assess for decline/concerns. PHQ9 = 0 Alzheimer's dementia with other behavioral disturbance, unspecified dementia severity, unspecified timing of dementia onset November labs WNL. At times will refuse medication. Recently has been accepting of his medication; which is very minimal. Due to his age and labs we can always consider discontinuing his scheduled medication if this becomes distressing to him. Living in supportive environment. Continue to assess for need in higher level of care. . 05/23/2024
--- OUTSIDE RECORDS SUMMARY | 2024-09-04 10:29 | XMS_ITS | CCD ---
Author Name Clare Romero Address [address] [facility] [address] [place] [address] Phone Organization [facility] Phone Care Team Providers Care Dining Services Director Name Role Phone Celine MONROE-Joseline Hernandez Primary Care Provider Katy vailable Celine MONROE-CJoseline Chronic Care Management U navailable Summary Purpose DataExchange Insurance Providers Payer name Policy type / Coverage type Covered green party ID Effective Begin Date Effective End Date Medicare [place] Medicare Part B [id number] Unknown Medica ([facility]) Medicare Part B [id number] Unknown Family history Parents, Siblings, Children Diagnosis Age At Onset No Family Disease Entered N/A Father Diagnosis Age At Onset Cancer Unknown Social History Social History Element Codes Description Effec tive Dates Living arrangements Unknown Assisted Living 05/22 Caregiver Assessment Unknown Guardian or HCPOA on file 05/22/2024 Seatbelt safety Unknown Wears seatbelt 05/22/[address]: 37748368 Current ever y day smoker 10/daily 10/09/[address]: 073014169 No Alcohol Consumption Hx, or if available [...] Dates Condition St atus Iron deficiency anemia, unspecified ICD- 10: D50.9 ICD-9: 280.9 07/25/2024 Active Advanced care planning - to document end [...] laterality ICD-10: 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.90 ICD-9: 342.90 05/23/2024 Active Irregular heart rhythm ICD-10: I49.9 [...] Fill Instructions atorvastatin 40 mg tablet RxNorm: 602871 Take 1 Tablet(s) Oral QAM every morning 11/24/19 24 025 Active 11/18/2023 PROACTIVE REFILL REQUEST FOR NEXT CYCLE PLEASE THANK YOU RX has/will before cycle date ferrous sulfate 325 mg (65 mg iron) tablet,delayed release RxNorm: 259918 Take 1 Tablet(s) Oral QD WITH A MEAL 11/24/19 24 025 Active 11/18/2023 PROACTIVE REFILL REQUEST FOR NEXT CYCLE PLEASE THANK YOU RX has/will before cycle date atorvastatin 40 mg tablet RxNorm: 390411 Take 1 Tablet(s) Oral QAM every morning 11/25/19 23 024 Inactive 2ND REQUEST FOR REFILLS 11/24 REFILLS NEEDED GORDO PLEASE THANK YOU ferrous sulfate 325 mg (65 mg iron) tablet,delayed release RxNorm: 626666 TAKE 1 TABLET BY MOUTH DAILY WITH A MEAL 11/23/19 23 024 Inactive 11/22/22 PROACTIVE REFILL REQUEST FOR NEXT CYCLE PLEASE THANK YOU cholecalciferol (vitamin D3) 1,250 mcg (50,000 unit) capsule RxNorm: 599290 Take 1 Capsule(s) Oral every other week 10/22/19 22 022 Inactive cholecalciferol (vitamin D3) 1,250 mcg (50,000 unit) capsule RxNorm: 418373 Take 1 Capsule(s) Oral every other week 10/22/19 22 023 Inactive acetaminophen 325 mg tablet RxNorm: 049878 Take 2 Tablet(s) Oral Q4H every four hours as needed PRN mild pain. NOT TO EXCEED 3,000 MG IN 24 HOURS 10/08/19 No Stop Date Active dextromethorphan-gu aifenesin 10 mg-100 mg/5 mL oral liquid RxNorm: 651840 as needed TAKE 5-10ML BY MOUTH EVERY 4-6HOURS NEEDED FOR COUGH OR CONGESTION 10/08/19 22 No Stop Date Active dx: cough due to Covid19 calcium carbonate 500 mg calcium (1,250 mg) chewable tablet RxNorm: 628691 Chew 2-4 Tablet(s) Oral as needed CHEW 2-4 TABLETS BY MOUTH BETWEEN MEALS AND AT BEDTIME NEEDED 10/08/19 22 No Stop Date Active ibuprofen 200 mg tablet RxNorm: 248458 Take 1-2 Tablet(s) Oral Q4-6H every 4-6 hours as needed NOT TO EXCEED 6 TABS IN 24 HOURS 10/08/19 22 No Stop Date Active aluminum-mag hydroxide-simethico ne 200 mg-200 mg-20 mg/5 mL oral susp RxNorm: 313858 Take 5-10 Milliliter(s) Oral QID as needed ONE TIME BETWEEN MEAL AND AT BEDTIME (STANDING ORDER) 10/08/19 No Stop Date Active Milk of Magnesia 400 mg/5 mL oral suspension RxNorm: 370959 Take 15-30 Milliliter(s) Oral QD QD - Daily as needed 10/08/19 22 No Stop Date Active diphenhydramine 25 mg capsule RxNorm: 7163582 Give 1-2 Capsule(s) Oral Q8H every 8 hours as needed FOR ALLERGIES 10/08/19 No Stop Date Active Vitamin D2 1,250 mcg (50,000 unit) capsule RxNorm: 4032314 1 Capsule(s) Oral QW once a week TAKE ONCE CAPSULE ONCE WEEKLY 10/08/19 22 022 Inactive ferrous sulfate 325 mg (65 mg iron) tablet RxNorm: 929579 Take 1 Tablet(s) Oral QD 10/06/19 22 024 Inactive atorvastatin 40 mg tablet RxNorm: 105379 Take 1 Tablet(s) Oral QHS every night [...] Date SYS BP LESS 140 CPT-4: G8752 07/25/2024 RAYO BP LESS 90 CPT-4: G8754 07/25/2024 BEHAV CHNG SMOKING 3-[address]: 2 21516220 CPT-4: 95085 05/26/2022 BEHAV CHNG SMOKING 3-[address]: 2 85525343 CPT-4: 65210 04/28/2022 BEHAV CHNG SMOKING 3-[address]: 2 10296730 CPT-4: 73467 03/24/2022 BEHAV CHNG SMOKING 3-[address]: 2 19853906 CPT-4: 96289 03/03/2022 BEHAV CHNG SMOKING 3-[address]: 2 28074746 CPT-4: 81936 01/20/2022 BEHAV CHNG SMOKING 3-[address]: 2 53963954 CPT-4: 77631 12/23/2021 BEHAV CHNG SMOKING 3-[address]: 2 36835578 CPT-4: 78921 11/25/2021 BEHAV CHNG SMOKING 3-[address]: 2 06587365 CPT-4: 52221 10/08/2021 Vital Signs Date Vital 07/25/2024 Blood Pressure 1: 11 Code: 8480-6 Heart Rate 1: 72 bpm Code: 8867-4 SpO2: 98% Reason For Visit No Reason For Visit data Encounters Encounter Performer Location Location Address Codes Date (46149) Home or Residence Visit Est Pt - Low Level, 30 mins Diagnosis: Iron deficiency anemia, unspecified[ICD10 : D50.9] Joseline Berger [address] [phone] CPT-4: 13730 07/25/2024 Plan of Care Planned Activity Notes Codes Status Date Appointment: Christiana Berger WPtel: [address] [facility] [address] [id number] AWV 05/23/2024 Appointment: Leticia Machado WPtel: [address] [place] [address] [id number] [place] AWV 11/24/2022 Referral: [facility] W[facility]: [facility] [address] [id number] [place] Referral Closed 09/15/2022 Instructions Comment Date [...] in NOVEMBER(CMP, CBC, LIPID, VITD, A1C, VITB12). p2aigskn in MAY (CBC)4..2023 CMP wnl, CBCwnl, lipid all wnl; total cholesterol 117, HDL 51.9, LDL 40, triglycerides 124, VLDL 25), vitD 46 nl, iron studies, A1c 5.6, VitB12 223 nl. 10.2023(CBC ordered) 05/23/2024 Iron deficiency anemia, unsp ecified Tolerating Ferrous Sulfate supplementation. Denies S&S of: fatigue, chest pain, shortness of breath, or abdominal upset. Labs last in November. Ordered CBC in May - not completed. Will re-order today. . 07/25/2024
--- OUTSIDE RECORDS SUMMARY | 2024-09-04 10:29 | XMS_ITS | CCD ---
Author Name Clare Romero Address [address] [facility] [address] [place] [address] Phone Organization [facility] Phone Care Team Providers Care Supervisor Wall Mirror Department Name Role Phone Celine MONROE-Joseline Hernandez Primary Care Provider Katy vailable Celine MONROE-CJoseline Chronic Care Management U navailable Summary Purpose DataExchange Insurance Providers Payer name Policy type / Coverage type Covered constitution party ID Effective Begin Date Effective End Date Medicare [place] Medicare Part B [id number] Unknown Medica ([facility]) Medicare Part B [id number] Unknown Family history Parents, Siblings, Children Diagnosis Age At Onset No Family Disease Entered N/A Father Diagnosis Age At Onset Cancer Unknown Social History Social History Element Codes Description Effec tive Dates Living arrangements Unknown Assisted Living 05/22 Caregiver Assessment Unknown Guardian or HCPOA on file 05/22/2024 Seatbelt safety Unknown Wears seatbelt 05/22/[address]: 24315231 Current ever y day smoker 10/daily 10/09/[address]: 717956955 No Alcohol Consumption Hx, or if available [...] Fill Instructions atorvastatin 40 mg tablet RxNorm: 770024 Take 1 Tablet(s) Oral QAM every morning 11/24/19 24 025 Active 11/18/2023 PROACTIVE REFILL REQUEST FOR NEXT CYCLE PLEASE THANK YOU RX has/will before cycle date ferrous sulfate 325 mg (65 mg iron) tablet,delayed release RxNorm: 249442 Take 1 Tablet(s) Oral QD WITH A MEAL 11/24/19 24 025 Active 11/18/2023 PROACTIVE REFILL REQUEST FOR NEXT CYCLE PLEASE THANK YOU RX has/will before cycle date atorvastatin 40 mg tablet RxNorm: 366668 Take 1 Tablet(s) Oral QAM every morning 11/25/19 23 024 Inactive 2ND REQUEST FOR REFILLS 11/24 REFILLS NEEDED GORDO PLEASE THANK YOU ferrous sulfate 325 mg (65 mg iron) tablet,delayed release RxNorm: 998274 TAKE 1 TABLET BY MOUTH DAILY WITH A MEAL 11/23/19 23 024 Inactive 11/22/22 PROACTIVE REFILL REQUEST FOR NEXT CYCLE PLEASE THANK YOU cholecalciferol (vitamin D3) 1,250 mcg (50,000 unit) capsule RxNorm: 873024 Take 1 Capsule(s) Oral every other week 10/22/19 22 022 Inactive cholecalciferol (vitamin D3) 1,250 mcg (50,000 unit) capsule RxNorm: 181252 Take 1 Capsule(s) Oral every other week 10/22/19 22 023 Inactive acetaminophen 325 mg tablet RxNorm: 354116 Take 2 Tablet(s) Oral Q4H every four hours as needed PRN mild pain. NOT TO EXCEED 3,000 MG IN 24 HOURS 10/08/19 No Stop Date Active dextromethorphan-gu aifenesin 10 mg-100 mg/5 mL oral liquid RxNorm: 939926 as needed TAKE 5-10ML BY MOUTH EVERY 4-6HOURS NEEDED FOR COUGH OR CONGESTION 10/08/19 22 No Stop Date Active dx: cough due to Covid19 calcium carbonate 500 mg calcium (1,250 mg) chewable tablet RxNorm: 946437 Chew 2-4 Tablet(s) Oral as needed CHEW 2-4 TABLETS BY MOUTH BETWEEN MEALS AND AT BEDTIME NEEDED 10/08/19 22 No Stop Date Active ibuprofen 200 mg tablet RxNorm: 714186 Take 1-2 Tablet(s) Oral Q4-6H every 4-6 hours as needed NOT TO EXCEED 6 TABS IN 24 HOURS 10/08/19 22 No Stop Date Active aluminum-mag hydroxide-simethico ne 200 mg-200 mg-20 mg/5 mL oral susp RxNorm: 390005 Take 5-10 Milliliter(s) Oral QID as needed ONE TIME BETWEEN MEAL AND AT BEDTIME (STANDING ORDER) 10/08/19 No Stop Date Active Milk of Magnesia 400 mg/5 mL oral suspension RxNorm: 742482 Take 15-30 Milliliter(s) Oral QD QD - Daily as needed 10/08/19 22 No Stop Date Active diphenhydramine 25 mg capsule RxNorm: 8747900 Give 1-2 Capsule(s) Oral Q8H every 8 hours as needed FOR ALLERGIES 10/08/19 No Stop Date Active Vitamin D2 1,250 mcg (50,000 unit) capsule RxNorm: 6009448 1 Capsule(s) Oral QW once a week TAKE ONCE CAPSULE ONCE WEEKLY 10/08/19 22 022 Inactive ferrous sulfate 325 mg (65 mg iron) tablet RxNorm: 759370 Take 1 Tablet(s) Oral QD 10/06/19 22 024 Inactive atorvastatin 40 mg tablet RxNorm: 700198 Take 1 Tablet(s) Oral QHS every night [...] CHNG SMOKING 3-[address]: 2 81538056 CPT-4: 61745 05/26/2022 BEHAV CHNG SMOKING 3-[address]: 2 24209696 CPT-4: 53469 04/28/2022 BEHAV CHNG SMOKING 3-[address]: 2 62293128 CPT-4: 22095 03/24/2022 BEHAV CHNG SMOKING 3-[address]: 2 65514727 CPT-4: 07197 03/03/2022 BEHAV CHNG SMOKING 3-[address]: 2 24580674 CPT-4: 93448 01/20/2022 BEHAV CHNG SMOKING 3-[address]: 2 36281875 CPT-4: 32715 12/23/2021 BEHAV CHNG SMOKING 3-[address]: 2 06963930 CPT-4: 53150 11/25/2021 BEHAV CHNG SMOKING 3-[address]: 2 96036980 CPT-4: 26116 10/08/2021 Reason For Visit No Reason For Visit data Plan of Care Planned Activity Notes Codes Status Date Patient Education: Patient Medication Summary Completed 05/23/2024 Care Plan: CBC without Differential / Platelets Pending 05/23/2024 Appointment: Leticia Machado WPtel: [address] [place], [place] [id number] AWV 11/24/2022 Ref[facility]: [facility] W[facility]: [facility] [address] [id number] Referral Closed 09/15/2022 Instructions Comment Date Cruz is a male being seen l hellen at [facility]. Initial BPS visit [...] in NOVEMBER(CMP, CBC, LIPID, VITD, A1C, VITB12). [id number] in MAY (CBC)4.6.2023 CMP wnl, CBCwnl, lipid all wnl; total cholesterol 117, HDL 51.9, LDL 40, triglycerides 124, VLDL 25), vitD 46 nl, iron studies, A1c 5.6, VitB12 223 nl. (CBC ordered) 05/23/2024
--- OUTSIDE RECORDS SUMMARY | 2024-09-04 10:30 | XMS_ITS | CCD ---
Author Name Clare Romero Address [address] [facility] [address] [place] [address] Phone Organization [facility] Phone Care Team Providers Care Wrecking Mechanic Name Role Phone Celine MONROE-Joseline Hernandez Primary Care Provider Katy vailable Celine MONROE-CJoseline Chronic Care Management U navailable Summary Purpose DataExchange Insurance Providers Payer name Policy type / Coverage type Covered green party ID Effective Begin Date Effective End Date Medicare [place] Medicare Part B [id number] Unknown [employer] ([facility]) Medicare Part B [id number] Unknown Family history Parents, Siblings, Children Diagnosis Age At Onset No Family Disease Entered N/A Father Diagnosis Age At Onset Cancer Unknown Social History Social History Element Codes Description Effec tive Dates Living arrangements Unknown Assisted Living 05/22 Caregiver Assessment Unknown Guardian or HCPOA on file 05/22/2024 Seatbelt safety Unknown Wears seatbelt 05/22/[address]: 50315129 Current ever y day smoker 10/daily 10/09/[address]: 512855131 No Alcohol Consumption Hx, or if available 10/09/2021 Allergies, Adverse Reactions, Alerts Substance Reaction Codes Entered Date Inactivated Date Status * NO KNOWN FOOD ALLERGIES Unknown 10/08/2021 No Inactive Date Active * NO KNOWN ENVIRONMENTAL ALLERGIES Unknown 10/08/2021 No Inactive Date Active * NO KNOWN DRUG ALLERGIES Unknown 07/30/2021 No Inactive Date Active Problems Condition Codes Effective Dates Condition St atus Urinary tract infection, sit e not specified ICD-10: N39.0 ICD-9: 599.0 08/01/2024 Active Iron deficiency anemia, unspecified ICD- 10: [...] Fill Instructions atorvastatin 40 mg tablet RxNorm: 747345 Take 1 Tablet(s) Oral QAM every morning 11/24/19 24 025 Active 11/18/2023 PROACTIVE REFILL REQUEST FOR NEXT CYCLE PLEASE THANK YOU RX has/will before cycle date ferrous sulfate 325 mg (65 mg iron) tablet,delayed release RxNorm: 897760 Take 1 Tablet(s) Oral QD WITH A MEAL 11/24/19 025 Active 11/18/2023 PROACTIVE REFILL REQUEST FOR NEXT CYCLE PLEASE THANK YOU RX has/will before cycle date atorvastatin 40 mg tablet RxNorm: 484417 Take 1 Tablet(s) Oral QAM every morning 11/25/19 024 Inactive 2ND REQUEST FOR REFILLS 11/24 REFILLS NEEDED GORDO PLEASE THANK YOU ferrous sulfate 325 mg (65 mg iron) tablet,delayed release RxNorm: 379251 TAKE 1 TABLET BY MOUTH DAILY WITH A MEAL 11/23/19 23 024 Inactive 11/22/22 PROACTIVE REFILL REQUEST FOR NEXT CYCLE PLEASE THANK YOU cholecalciferol (vitamin D3) 1,250 mcg (50,000 unit) capsule RxNorm: 027567 Take 1 Capsule(s) Oral every other week 10/22/19 22 022 Inactive cholecalciferol (vitamin D3) 1,250 mcg (50,000 unit) capsule RxNorm: 595367 Take 1 Capsule(s) Oral every other week 10/22/19 22 023 Inactive acetaminophen 325 mg tablet RxNorm: 231027 Take 2 Tablet(s) Oral Q4H every four hours as needed PRN mild pain. NOT TO EXCEED 3,000 MG IN 24 HOURS 10/08/19 22 No Stop Date Active dextromethorphan-gu aifenesin 10 mg-100 mg/5 mL oral liquid RxNorm: 373442 as needed TAKE 5-10ML BY MOUTH EVERY 4-6HOURS NEEDED FOR COUGH OR CONGESTION 10/08/19 22 No Stop Date Active dx: cough due to Covid19 calcium carbonate 500 mg calcium (1,250 mg) chewable tablet RxNorm: 472878 Chew 2-4 Tablet(s) Oral as needed CHEW 2-4 TABLETS BY MOUTH BETWEEN MEALS AND AT BEDTIME NEEDED 10/08/19 22 No Stop Date Active ibuprofen 200 mg tablet RxNorm: 806909 Take 1-2 Tablet(s) Oral Q4-6H every 4-6 hours as needed NOT TO EXCEED 6 TABS IN 24 HOURS 10/08/19 22 No Stop Date Active aluminum-mag hydroxide-simethico ne 200 mg-200 mg-20 mg/5 mL oral susp RxNorm: 314009 Take 5-10 Milliliter(s) Oral QID as needed ONE TIME BETWEEN MEAL AND AT BEDTIME (STANDING ORDER) 10/08/19 22 No Stop Date Active Milk of Magnesia 400 mg/5 mL oral suspension RxNorm: 886434 Take 15-30 Milliliter(s) Oral QD QD - Daily as needed 10/08/19 22 No Stop Date Active diphenhydramine 25 mg capsule RxNorm: 7103004 Give 1-2 Capsule(s) Oral Q8H every 8 hours as needed FOR ALLERGIES 10/08/19 22 No Stop Date Active Vitamin D2 1,250 mcg (50,000 unit) capsule RxNorm: 0690103 1 Capsule(s) Oral QW once a week TAKE ONCE CAPSULE ONCE WEEKLY 10/08/19 22 022 Inactive ferrous sulfate 325 mg (65 mg iron) tablet RxNorm: 053896 Take 1 Tablet(s) Oral QD 10/06/19 22 024 Inactive atorvastatin 40 mg tablet RxNorm: 303180 Take 1 Tablet(s) Oral QHS every night [...] Item Item Code Result Date Service Location Culture and Sensitivity CLTSENS Growth 24 No Growth 08/04/20 24 Unknown Culture and Sensitivity CLTSENS Growth 48 No Growth 08/04/20 24 Unknown Urinalysis URRFLX Bilirubin - Urinalysis NEGATIVE 08/04/20 24 Unknown Urinalysis URRFLX Blood - Urinalysis NEGATIVE 08/04/20 24 Unknown Urinalysis URRFLX Glucose - Urinalysis NEGATIVE 08/04/20 24 Unknown Urinalysis URRFLX Ketone - Urinalysis NEGATIVE 08/04/20 24 Unknown Urinalysis URRFLX Leukocytes - Urinalysis NEGATIVE 08/04/20 24 Unknown Urinalysis URRFLX Nitrites - Urinalysis NEGATIVE 08/04/20 24 Unknown Urinalysis URRFLX pH - Urinalysis 6 24 Unknown Urinalysis URRFLX Protein - Urinalysis NEGATIVE 08/04/20 24 Unknown Urinalysis URRFLX Specific [place] - Urinalysis 1.015 08/04/20 24 Unknown Urinalysis URRFLX Urobilinogen - Urinalysis 1.0 08/04/20 24 Unknown PDFReport PDFReport PDFReport 08/02/20 24 Unknown PDFReport PDFReport PDFReport 08/02/20 24 Unknown Procedures Procedure Codes Date BEHAV CHNG SMOKING 3-[address]: 2 18256897 CPT-4: 77226 05/26/2022 BEHAV CHNG SMOKING 3-[address]: 2 83803604 CPT-4: 41027 04/28/2022 BEHAV CHNG SMOKING 3-[address]: 2 44395768 CPT-4: 84816 03/24/2022 BEHAV CHNG SMOKING 3-[address]: 2 27616640 CPT-4: 98061 03/03/2022 BEHAV CHNG SMOKING 3-[address]: 2 67573599 CPT-4: 25039 01/20/2022 BEHAV CHNG SMOKING 3-[address]: 2 98056214 CPT-4: 03686 12/23/2021 BEHAV CHNG SMOKING 3-[address]: 2 97539545 CPT-4: 03658 11/25/2021 BEHAV CHNG SMOKING 3-[address]: 2 65423256 CPT-4: 00370 10/08/2021 Reason For Visit No Reason For Visit data Plan of Care Planned Activity Notes Codes Status Date Patient Education: Patient Medication Summary Completed 08/01/2024 Appointment: Christiana Berger WPtel: [address] [facility] [address] [id number] AWV 05/23/2024 Appointment: Leticia Machado WPtel: [address] [facility] [address] [id number] AWV 11/24/2022 Ref[facility]: [facility] W[facility]: [facility] [address] [id number] Referral Closed 09/15/2022 Instructions Comment Date Cruz is a male being seen l hellen at [facility]. Initial BPS visit 10/08/21. He is verbal and a fairly reliable historian, independent in ADLs. Prior to moving to this [place] he was found in his apartment with self-neglect. Hx of being . Often refuses help as nursing thinks he feels too proud to receive care. Hx of not liking to take meds or see providers. Patient is his own guardian. AWV 05.23.2024Labs: Yearly in NOVEMBER(CMP, CBC, LIPID, VITD, A1C, VITB12). [id number] in MAY (CBC). CMP wnl, CBCwnl, lipid all wnl; total cholesterol 117, HDL 51.9, LDL 40, triglycerides 124, VLDL 25), vitD 46 nl, iron studies, A1c 5.6, VitB12 223 nl. (CBC ordered) 05/23/2024
--- OUTSIDE RECORDS SUMMARY | 2024-09-04 10:31 | XMS_ITS | Clinical Summary ---
Author Organization [facility] Address [place], [place] [address] Care Team Providers Care Management Trainee Marketing Name Role Phone Unavailable Primary Care Provider Unavailabl e Allergies No known active allergies Medications acetaminophen (TYLENOL) 325 mg tabletIndicatio ns:Mild pain Take 2 tablets by mouth every 4 hours if needed. Max acetaminophen dose: 3000mg in 24 hrs. 100 tablet 0 Active aluminum-mag hydroxide-simet hicone (MAALOX PLUS; MYLANTA) suspension Take 5-10 ml by mouth as needed 360 mL 6 0 Active dextromethorpha n-guaiFENesin (ROBITUSSIN DM) 10-100 mg/5 mL liquid Take 5-10 ml by mouth every 4-6 hours PRN for cough or congestion 120 mL 0 Active diphenhydrAMINE (BENADRYL) 25 mg capsule Take 1-2 capsules by mouth PRN for allergies 0 0 Active ibuprofen (ADVIL; MOTRIN) 200 mg tablet Take 1 to 2 tablets by mouth every 4-6 hours as needed 0 0 Active milk of magnesia (MILK OF MAGNESIA) 400 mg/5 mL suspension Take 15-30ml by mouth once daily as needed 1 Bottle 0 Active ergocalciferol (VITAMIN D2; DRISDOL) 50,000 unit capsuleIndicati ons:Takes dietary supplements TAKE 1 CAPSULE BY MOUTH WEEKLY ON TUESDAY MORNING 12 Capsule 12 1 Active acetaminophen (TYLENOL) 325 mg tablet Max acetaminophen dose: 4000mg in 24 hrs.Take 1-2 tablets by mouth every 4-6 hours as needed for pain/fever 0 1 Active calcium carbonate (Oyster Shell Calcium 500) 500 mg calcium (1,250 mg) tabletIndicatio ns:Takes dietary supplements Take 1 Tablet (500 mg) by mouth 2 times daily with meals. 180 Tablet 1 2 Active CertaVite Senior 0.4-300-250 mg-mcg-mcg tabIndications: Takes dietary supplements TAKE 1 TABLET BY MOUTH DAILY 90 Tablet 2 2 Active atorvastatin (LIPITOR) 40 mg tabletIndicatio ns:High cholesterol TAKE 1 TABLET BY MOUTH EVERY MORNING 30 Tablet 3 Active ferrous sulfate 325 mg delayed release tabletIndicatio ns:Iron deficiency anemia, unspecified iron deficiency anemia type Take 1 Tablet (325 mg) by mouth once daily with a meal. 90 Tablet 3 Active Active Problems Problem Noted Date Diagnosed Date Dilation of aorta 04/03/2021 Depression 06/23/2018 Resolved Problems Problem Noted Date Diagnosed Date Resolved Date Traumatic hemorrhage of left cerebrum without loss of consciousness 02/27/2020 04/01/2021 Suicide attempt 04/01/2021 Encounters Date Type Department Care Team Description 08/21/2024 Orders Only [facility] Scanner 1 scan: (1-Ord) GUNNAR, XR CHEST 1V, 08/21/2024 08/21/2024 Orders Only [facility] Scanner 1 scan: (1-Ord) GUNNAR, CT HEAD/BRAIN WO CON, 08/21/2024 from Last 3 Months Immunizations Name Administration Dates Next Due COVID-19 vaccine (Moderna 100mcg/0.5mL) JESUS ALBERTO BOOTH 09/25/2020,08/28/2020 Influenza RIV4 (Age 18+ Years) PRESERV FREE 03/2021 Family History Medical History Relation Name Comments Cancer Father brain cancer Cancer Maternal Grandmother female type Relation Name Status Comments Father Maternal Grandmother Social History Tobacco Use Types Packs/Day Years Used Date Smoking Tobacco: Every Day Cigarettes Last attempted to quit: 2018 Smokeless Tobacco: Never Tobacco Cessation:Ready to Q uit: No; Counseling Given: Yes Alcohol Use Standard Drinks/Week Comments Not Currently 0 (1 standard drink = 0.6 oz pur e alcohol) PHQ-2 Answer Date Recorded PHQ-2 TOTAL SCORE 0 10/13/2021 Social Connections Answer Date Recorded Frequency of Communication with Friends and Fami ly Not on file 08/15/2021 Financial Resource Strain Answer Date R ecorded Difficulty of Paying Living Expenses Not on file 08/15/2021 Difficulty of Paying Living Expenses Not on file 08/15/2021 Sex and Gender Information Value Date Recorded Sex Assigned at Not on file Legal Sex Male 6:28 AM FLUX CORE WELDER Gender Identity Not on file Sexual Orientation Not on file Occupation Industry Job Start Date Job End Date retired Not on file Not on file Not on file Obstetrics History Last Filed Vital Signs Vital Sign Reading Time Taken Comments Blood Pressure 100/66 10/13/2021 3:07 PM FLUX CORE WELDER Pulse 70 10/13/2021 3:07 PM FLUX CORE WELDER Temperature 36.4 C (97.5 F) 07/24/2020 10:36 AM FLUX CORE WELDER Respiratory Rate 18 10/09/2020 10:08 AM FLUX CORE WELDER Oxygen Saturation 95% 10/13/2021 3:07 PM FLUX CORE WELDER Inhaled Oxygen Concentration - - Weight 90.9 kg (200 lb 6.4 oz) 10/13/2021 3:07 P M FLUX CORE WELDER Height 177.8 cm (5' 10) 10/13/2021 3:07 PM FLUX CORE WELDER Body Mass Index 28.75 10/13/2021 3:07 PM FLUX CORE WELDER Plan of Treatment Health Maintenance Due Date Last Done Comments Tdap 1954 Tetanus booster 1963 Pneumococcal series for age 50+ (1 of 1 - PCV) 1993 Zoster (shingles) series for age 50+ (1 of 2) 1993 Medicare Wellness for age 65+ 2008 RSV vaccine for adults or (1 - 1-dose 75+ series) 2018 BMI (ht and wt on same day) for age 18+ 10/13/2022 10/13/2021, 04/01/2021, 07/16/2020, Additional history exists Depression screening for age 12+ 10/13/2022 10/13/2021, 07/24/2020, 07/24/2020, Additional history exists COVID-19 vaccine series ( season) 2024 07/22/2021, 09/25/2020, 08/28/2020 Influenza for age 65+ 04/15/2024 06/22/2021 Procedures Procedure Name Priority Date/Time Associated Diagnosis Comments SCAN-RADIOLOGY REPORT 08/21/2024 12:00 AM FLUX CORE WELDER SCAN-CT INTERPRETATION 12:00 AM FLUX CORE WELDER from Last 3 Months Results * SCAN-RADIOLOGY REPORT (08/21/2024 12:00 AM FLUX CORE WELDER) Anatomical Region Laterality Modality Other us Scanner OTHER Final Result * SCAN-CT INTERPRETATION (08/21/2024 12:00 AM FLUX CORE WELDER) Anatomical Region Laterality Modality Other us Scanner OTHER Final Result from Last [address] [place] [address] [place] [address] MEDICARE [place] ONLY
--- OUTSIDE RECORDS SUMMARY | 2024-09-04 10:31 | XMS_ITS | CCD ---
Author Name Clare Romero ie Address [address] [address] [place] [address] Phone Organization [facility] Phone Care Team Providers Care Heel Sewer Name Role Phone Celine MONROE-Joseline Hernadnez Primary Care Provider Katy vailable Celine MONROE-CJoseline Chronic Care Management U navailable Summary Purpose DataExchange Insurance Providers Payer name Policy type / Coverage type Covered constitution party ID Effective Begin Date Effective End Date Medicare [place] Medicare Part B [id number] Unknown Medica ([facility]) Medicare Part B [id number] Unknown Family history Parents, Siblings, Children Diagnosis Age At Onset No Family Disease Entered N/A Father Diagnosis Age At Onset Cancer Unknown Social History Social History Element Codes Description Effec tive Dates Living arrangements Unknown Assisted Living 05/22 Caregiver Assessment Unknown Guardian or HCPOA on file 05/22/2024 Seatbelt safety Unknown Wears seatbelt 05/22/[address]: 25858232 Current ever y day smoker 10/daily 10/09/[address]: 878291959 No Alcohol Consumption Hx, or if available [...] Dates Condition St atus Alzheimer's dementia with other behavioral disturbance, unspecified dementia severity, unspecified timing of dementia onset ICD-10: G30.9 ICD-9: 331.0 09/03/2024 Active Cognitive impairment ICD-10: R41.89 ICD-9: 294.9 09/03/2024 Active Frail elderly ICD-10: R54 ICD-9: 797 09/03/2024 Active Frequent falls SNOMED CT: 017080067 ICD-10: R29.6 ICD-9: V15.88 09/03/2024 Active Hemiparesis due to non-cerebrovascular etiology, unspecified laterality ICD-10: G81.90 ICD-9: 342.90 09/03/2024 Active Iron deficiency anemia, unspecified ICD-10: D50.9 ICD-9: 280.9 09/03/2024 Active Physical deconditioning SNOMED CT: 51957 493585382 ICD-10: R53.81 ICD-9: 799.3 09/03/2024 Active Traumatic brain injury with loss of consciousness, sequela ICD-10: S06.9X9S ICD-9: 907.0 09/03/2024 Active Erectile dysfunction of organic origin ICD-10: N52.9 ICD-9: 607.84 09/03/2024 Resolved Tobacco use disorder ICD-10: F17.200 ICD-9: 305.1 09/03/2024 Resolved Urinary tract infection, site not specified ICD-10: N39.0 ICD-9: 599.0 08/01/2024 Active Advanced care planning - to document end of life discussions Unknown 05/23/2024 Active Advanced care planning/counseling discussion ICD-10: Z71.89 ICD-9: V65.49 05/23/2024 Active Aortic dilatation ICD-10: I77.819 ICD-9: 447.70 05/23/2024 Active Dyslipidemia ICD-10: E78.5 ICD-9: 272.4 05/23/2024 Active Irregular heart rhythm ICD-10: I49.9 ICD-9: 427.9 05/23/2024 Active Preventative health care ICD-10: Z00.00 ICD-9: V70.0 05/23/2024 Active Recurrent major depressive disorder, in full remission ICD-10: F33.42 ICD-9: 296.36 05/23/2024 Active 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 ICD-9: 287.2 05/23/2024 Active Vitamin D deficiency ICD-10: E55.9 ICD-9: 268.9 05/23/2024 Active Normocytic anemia ICD-10: D64.9 ICD-9: 285.9 03/28/2024 Active Enteritis ICD-10: K52.9 ICD-9: 558.9 12/07/2023 Resolved Dementia in other diseases classified elsewhere, unspecified severity, with other behavioral disturbance ICD-10: F02.818 12/22/2022 Active Medications Medication Codes Instructions Start Date Stop Date Status Fill Instructions triamcinolone acetonide 0.1 % topical cream RxNorm: 4949278 Topical Apply a thin layer topically to affected area of skin BID for 14 days. 08/06/20 024 Inactive triamcinolone acetonide 0.1 % topical cream RxNorm: 4448403 Topical Apply a thin layer topically to affected area of skin BID for 14 days. 08/06/20 025 Inactive atorvastatin 40 mg tablet RxNorm: 941955 Take 1 Tablet(s) Oral QAM every morning 11/24/19 24 025 Active 11/18/2023 PROACTIVE REFILL REQUEST FOR NEXT CYCLE PLEASE THANK YOU RX has/will before cycle date ferrous sulfate 325 mg (65 mg iron) tablet,delayed release RxNorm: 796930 Take 1 Tablet(s) Oral QD WITH A MEAL 11/24/19 24 025 Active 11/18/2023 PROACTIVE REFILL REQUEST FOR NEXT CYCLE PLEASE THANK YOU RX has/will before cycle date atorvastatin 40 mg tablet RxNorm: 506430 Take 1 Tablet(s) Oral QAM every morning 11/25/19 024 Inactive 2ND REQUEST FOR REFILLS 11/24 REFILLS NEEDED GORDO PLEASE THANK YOU ferrous sulfate 325 mg (65 mg iron) tablet,delayed release RxNorm: 036955 TAKE 1 TABLET BY MOUTH DAILY WITH A MEAL 11/23/19 23 024 Inactive 11/22/22 PROACTIVE REFILL REQUEST FOR NEXT CYCLE PLEASE THANK YOU cholecalciferol (vitamin D3) 1,250 mcg (50,000 unit) capsule RxNorm: 387460 Take 1 Capsule(s) Oral every other week 10/22/19 22 022 Inactive cholecalciferol (vitamin D3) 1,250 mcg (50,000 unit) capsule RxNorm: 562379 Take 1 Capsule(s) Oral every other week 10/22/19 22 023 Inactive acetaminophen 325 mg tablet RxNorm: 766503 Take 2 Tablet(s) Oral Q4H every four hours as needed PRN mild pain. NOT TO EXCEED 3,000 MG IN 24 HOURS 10/08/19 22 No Stop Date Active dextromethorphan-gu aifenesin 10 mg-100 mg/5 mL oral liquid RxNorm: 629707 as needed TAKE 5-10ML BY MOUTH EVERY 4-6HOURS NEEDED FOR COUGH OR CONGESTION 10/08/19 22 No Stop Date Active dx: cough due to Covid19 calcium carbonate 500 mg calcium (1,250 mg) chewable tablet RxNorm: 153321 Chew 2-4 Tablet(s) Oral as needed CHEW 2-4 TABLETS BY MOUTH BETWEEN MEALS AND AT BEDTIME NEEDED 10/08/19 22 No Stop Date Active ibuprofen 200 mg tablet RxNorm: 194820 Take 1-2 Tablet(s) Oral Q4-6H every 4-6 hours as needed NOT TO EXCEED 6 TABS IN 24 HOURS 10/08/19 22 No Stop Date Active aluminum-mag hydroxide-simethico ne 200 mg-200 mg-20 mg/5 mL oral susp RxNorm: 971447 Take 5-10 Milliliter(s) Oral QID as needed ONE TIME BETWEEN MEAL AND AT BEDTIME (STANDING ORDER) 10/08/19 22 No Stop Date Active Milk of Magnesia 400 mg/5 mL oral suspension RxNorm: 235795 Take 15-30 Milliliter(s) Oral QD QD - Daily as needed 10/08/19 22 No Stop Date Active diphenhydramine 25 mg capsule RxNorm: 7720604 Give 1-2 Capsule(s) Oral Q8H every 8 hours as needed FOR ALLERGIES 10/08/19 22 No Stop Date Active Vitamin D2 1,250 mcg (50,000 unit) capsule RxNorm: 6024973 1 Capsule(s) Oral QW once a week TAKE ONCE CAPSULE ONCE WEEKLY 10/08/19 22 022 Inactive ferrous sulfate 325 mg (65 mg iron) tablet RxNorm: 045499 Take 1 Tablet(s) Oral QD 10/06/19 22 024 Inactive atorvastatin 40 mg tablet RxNorm: 212287 Take 1 Tablet(s) Oral QHS every night [...] Date SYS BP LESS 140 CPT-4: G8752 09/03/2024 RAYO BP LESS 90 CPT-4: G8754 09/03/2024 BEHAV CHNG SMOKING 3-[address]: 2 84164815 CPT-4: 91004 05/26/2022 BEHAV CHNG SMOKING 3-[address]: 2 24787716 CPT-4: 31212 04/28/2022 BEHAV CHNG SMOKING 3-[address]: 2 89299810 CPT-4: 19093 03/24/2022 BEHAV CHNG SMOKING 3-[address]: 2 32235508 CPT-4: 56471 03/03/2022 BEHAV CHNG SMOKING 3-[address]: 2 57105470 CPT-4: 59353 01/20/2022 BEHAV CHNG SMOKING 3-[address]: 2 54634441 CPT-4: 02039 12/23/2021 BEHAV CHNG SMOKING 3-[address]: 2 41206556 CPT-4: 82824 11/25/2021 BEHAV CHNG SMOKING 3-[address]: 2 50690161 CPT-4: 73704 10/08/2021 Vital Signs Date Vital 09/03/2024 Blood Pressure 1: 13 Code: 8480-6 Heart Rate 1: 81 bpm Code: 8867-4 SpO2: 95% Reason For Visit No Reason For Visit data Encounters Encounter Performer Location Location Address Codes Date ([address]) Home or Residence Visit Est Pt - Moderate Level, 40 mins Diagnosis: Frequent falls[SNOMED: 704113114] Diagnosis: Physical deconditioning[SNO MED: [id number]] Diagnosis: Alzheimer's dementia with other behavioral disturbance, unspecified dementia severity, unspecified timing of dementia onset[ICD10: G30.9] Diagnosis: Cognitive impairment[ICD10: R41.89] Diagnosis: Frail elderly[ICD10: R54] Diagnosis: Hemiparesis due to non-cerebrovascula r etiology, unspecified laterality[ICD10: G81.90] Diagnosis: Traumatic brain injury with loss of consciousness, sequela[ICD10: S06.9X9S] Diagnosis: Iron deficiency anemia, unspecified[ICD10: D50.9] Joseline Berger [address] [address] CPT-4: 38335 09/03/2024 Plan of Care Planned Activity Notes Codes Status Date Appointment: Christiana Berger WPtel: [address] [place], [place] [phone] AWV 05/23/2024 Appointment: Leticia Machado WPtel: [address] [place], [place] [phone] [place] AWV 11/24/2022 Referral: [facility] [address] [id number] Referral Closed 09/15/2022 Instructions Comment Date Cruz is a male being seen l hellen at [facility]. Initial BPS visit 10/08/21. He is verbal and a fairly reliable historian, independent in ADLs. Prior to moving to this [place] he was found in his apartment with self-neglect. Hx of being . Often refuses help as nursing thinks he feels too proud to receive care. Hx of not liking to take meds or see providers. Patient is his own guardian. AWV 05.23.2024Labs: Yearly in NOVEMBER(CMP, CBC, LIPID, VITD, A1C, VITB12). [id number] in MAY (CBC)4. CMP wnl, CBCwnl, lipid all wnl; total cholesterol 117, HDL 51.9, LDL 40, triglycerides 124, VLDL 25), vitD 46 nl, iron studies, A1c 5.6, VitB12 223 nl. (CBC ordered) 05/23/2024 Hemiparesis due to non-cereb rovascular etiology, unspecified laterality Has had physical decline, increase in falls. Will refer to therapy. Unable to observe him ambulate today. Alzheimer's dementia with other behavioral disturbance, unspecified dementia severity, unspecified timing of dementia onset Continue current facility care. Facility working on finding higher level of care. Expect further declines with disease progression. Will refer to PT today. Traumatic brain injury with loss of consciousness, sequela History of TBI. Information given to facility for guardianship process. Decline in physical functioning. Will refer to therapy. Facility working on higher level of care for him. Frailty Multiple co morbidities. Increase in falls recently. Will refer to PT. Iron deficiency anemia, unspecified CBC completed . Will continue supplementation. Denies S&S today. Frequent falls No injuries sustained at this time. Vital signs stable. Will refer to therapy. Cognitive impairment Co morbid with TBI. Living in supportive environment. Facility manages medication and prepares meals. Cruz has had increase in falls and seemingly requires more assistance from operator command support systems and would be appropriate for higher level of care. . 09/03/2024
--- OUTSIDE RECORDS SUMMARY | 2024-09-04 10:31 | XMS_ITS | CCD ---
Author Organization Unknown Care Team Providers Care Qualitative Field Project Manager Name Role Phone Celine TWISTING PRESS OPERATOR-C, Joseline Primary Care Provider Katy vailable [place] TWISTING PRESS OPERATOR-C, Joseline Chronic Care Management U navailable Summary Purpose DataExchange Insurance Providers Payer name Policy type / Coverage type Covered democrat ID Effective Begin Date Effective End Date Medicare [place] Medicare Part B [id number] Unknown Med[employer] ([facility]) Medicare Part B [id number] Unknown Family history Parents, Siblings, Children Diagnosis Age At Onset No Family Disease Entered N/A Father Diagnosis Age At Onset Cancer Unknown Social History Social History Element Codes Description Effec tive Dates Living arrangements Unknown Assisted Living 05/22 Caregiver Assessment Unknown Guardian or HCPOA on file 05/22/2024 Seatbelt safety Unknown Wears seatbelt 05/22/[address]: 43583074 Current ever y day smoker 10/10/09/[address]: 073673767 No Alcohol Consumption Hx, or if available [...] triamcinolone acetonide 0.1 % topical cream RxNorm: 3428303 Topical Apply a thin layer topically to affected area of skin BID for 14 days. 08/06/20 24 024 Inactive triamcinolone acetonide 0.1 % topical cream RxNorm: 4153045 Topical Apply a thin layer topically to affected area of skin BID for 14 days. 08/06/20 24 025 Inactive atorvastatin 40 mg tablet RxNorm: 690707 Take 1 Tablet(s) Oral QAM every morning 11/24/19 24 025 Active 11/18/2023 PROACTIVE REFILL REQUEST FOR NEXT CYCLE PLEASE THANK YOU RX has/will before cycle date ferrous sulfate 325 mg (65 mg iron) tablet,delayed release RxNorm: 780207 Take 1 Tablet(s) Oral QD WITH A MEAL 11/24/19 24 025 Active 11/18/2023 PROACTIVE REFILL REQUEST FOR NEXT CYCLE PLEASE THANK YOU RX has/will before cycle date atorvastatin 40 mg tablet RxNorm: 994781 Take 1 Tablet(s) Oral QAM every morning 11/25/19 23 024 Inactive 2ND REQUEST FOR REFILLS 11/24 REFILLS NEEDED GORDO PLEASE THANK YOU ferrous sulfate 325 mg (65 mg iron) tablet,delayed release RxNorm: 224949 TAKE 1 TABLET BY MOUTH DAILY WITH A MEAL 11/23/19 23 024 Inactive 11/22/22 PROACTIVE REFILL REQUEST FOR NEXT CYCLE PLEASE THANK YOU cholecalciferol (vitamin D3) 1,250 mcg (50,000 unit) capsule RxNorm: 134020 Take 1 Capsule(s) Oral every other week 10/22/19 22 022 Inactive cholecalciferol (vitamin D3) 1,250 mcg (50,000 unit) capsule RxNorm: 873939 Take 1 Capsule(s) Oral every other week 10/22/19 22 023 Inactive acetaminophen 325 mg tablet RxNorm: 584397 Take 2 Tablet(s) Oral Q4H every four hours as needed PRN mild pain. NOT TO EXCEED 3,000 MG IN 24 HOURS 10/08/19 22 No Stop Date Active dextromethorphan-gu aifenesin 10 mg-100 mg/5 mL oral liquid RxNorm: 900564 as needed TAKE 5-10ML BY MOUTH EVERY 4-6HOURS NEEDED FOR COUGH OR CONGESTION 10/08/19 22 No Stop Date Active dx: cough due to Covid19 calcium carbonate 500 mg calcium (1,250 mg) chewable tablet RxNorm: 107529 Chew 2-4 Tablet(s) Oral as needed CHEW 2-4 TABLETS BY MOUTH BETWEEN MEALS AND AT BEDTIME NEEDED 10/08/19 22 No Stop Date Active ibuprofen 200 mg tablet RxNorm: 507600 Take 1-2 Tablet(s) Oral Q4-6H every 4-6 hours as needed NOT TO EXCEED 6 TABS IN 24 HOURS 10/08/19 22 No Stop Date Active aluminum-mag hydroxide-simethico ne 200 mg-200 mg-20 mg/5 mL oral susp RxNorm: 008476 Take 5-10 Milliliter(s) Oral QID as needed ONE TIME BETWEEN MEAL AND AT BEDTIME (STANDING ORDER) 10/08/19 22 No Stop Date Active Milk of Magnesia 400 mg/5 mL oral suspension RxNorm: 576660 Take 15-30 Milliliter(s) Oral QD QD - Daily as needed 10/08/19 22 No Stop Date Active diphenhydramine 25 mg capsule RxNorm: 4422678 Give 1-2 Capsule(s) Oral Q8H every 8 hours as needed FOR ALLERGIES 10/08/19 22 No Stop Date Active Vitamin D2 1,250 mcg (50,000 unit) capsule RxNorm: 0021612 1 Capsule(s) Oral QW once a week TAKE ONCE CAPSULE ONCE WEEKLY 10/08/19 22 022 Inactive ferrous sulfate 325 mg (65 mg iron) tablet RxNorm: 780702 Take 1 Tablet(s) Oral QD 10/06/19 22 024 Inactive atorvastatin 40 mg tablet RxNorm: 140626 Take 1 Tablet(s) Oral QHS every night [...] CHNG SMOKING 3-[address]: 2 36540478 CPT-4: 29130 05/26/2022 BEHAV CHNG SMOKING 3-[address]: 2 81119485 CPT-4: 57903 04/28/2022 BEHAV CHNG SMOKING 3-[address]: 2 32533451 CPT-4: 30069 03/24/2022 BEHAV CHNG SMOKING 3-[address]: 2 92147927 CPT-4: 96443 03/03/2022 BEHAV CHNG SMOKING 3-[address]: 2 37915377 CPT-4: 70537 01/20/2022 BEHAV CHNG SMOKING 3-[address]: 2 97456406 CPT-4: 32496 12/23/2021 BEHAV CHNG SMOKING 3-[address]: 2 62262739 CPT-4: 58779 11/25/2021 BEHAV CHNG SMOKING 3-[address]: 2 55681744 CPT-4: 01463 10/08/2021 Reason For Visit No Reason For Visit data Plan of Care Planned Activity Notes Codes Status Date Referral: Jose Elias Garsia [facility]: [facility] [address] [id number] Referral Closed 09/15/2022 Instructions Comment Date Cruz is a male being seen l hellen at [facility]. Initial BPS visit 10/08/21. He is verbal and a fairly reliable historian, independent in ADLs. Prior to moving to this [place] he was found in his apartment with self-neglect. Hx of being . Often refuses help as nursing thinks he feels too proud to receive care. Hx of not liking to take meds or see providers. Patient is his own guardian. AWV 05.23.2024Labs: Yearly in NOVEMBER(CMP, CBC, LIPID, VITD, A1C, VITB12). [id number] in MAY (CBC)4.6.2023 CMP wnl, CBCwnl, lipid all wnl; total cholesterol 117, HDL 51.9, LDL 40, triglycerides 124, VLDL 25), vitD 46 nl, iron studies, A1c 5.6, VitB12 223 nl. 10(CBC ordered) 05/23/2024
--- NOTE | 2024-09-04 10:52 | ED_ITS ---
HPI - Syncope General Date Seen: 09/04/24 Chief Complaint: Syncope/Fainted Stated Complaint: Syncope Time Seen by Provider: 09/04/24 10:06 Source: patient, EMS, RN notes reviewed, old records reviewed and other ([facility]) Mode of arrival: EMS Limitations: no limitations History of Present Illness HPI narrative: Patient is an 79-year-old gentleman who presents here via EMS from [facility], brought here for a syncopal episode that occurred twice today, once when he was standing, he passed out, and 2nd was on the toilet. He has no recollection of this. EMS notes are reviewed, they were told by his current living status ([facility]) that he has become too much work for them, and he is not able to go back there for further care. He was a 3 per person assist, today to get up. He tells me he has no current complaints, denies any pain, is alert and oriented to person place and time. Denies fevers chills, denies any current weakness, has been in here in the emergency department once before, for weakness, on the 21 of August. I am unable from the notes from [facility] to quantify the reason for admission to [facility] but I suspect it is from a previous intracranial bleed he had 2019. 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 Unable to tell me exactly his age, but knows his date. Per [facility], he has been having some black stools also, they suspect that he is getting thinner and weaker. Multiple falls with bruises. Glucose is 207, be via EMS. Patient denies entire review of systems Treatments prior to arrival: none Related Data Home Medications ?Medication ?Instructions ?Recorded ?Confirmed acetaminophen 325 mg tablet 650 mg PO Q4H PRN 09/04/24 09/04/24 aluminum hydrox-magnesium carb 95 5 - 10 ml PO DAILY PRN 09/04/24 09/04/24 mg-358 mg/15 mL oral suspension (Acid Gone Antacid) atorvastatin 40 mg tablet 40 mg PO DAILY 09/04/24 09/04/24 calcium carbonate (Calcium 500) 1,000 - 2,000 mg PO QID PRN 09/04/24 09/04/24 ferrous sulfate 325 mg (65 mg 325 mg PO DAILY 09/04/24 09/04/24 iron) tablet,delayed release ibuprofen 200 mg tablet (Advil) 200 - 400 mg PO Q4H PRN 09/04/24 09/04/24 loperamide 2 mg capsule 4 mg PO DAILY PRN 09/04/24 09/04/24 (Anti-Diarrheal (loperamide)) magnesium hydroxide 400 mg/5 mL 15 - 30 ml PO DAILY PRN 09/04/24 09/04/24 oral suspension (Dulcolax (magnesium hydroxide)) Allergies Allergy/AdvReac Type Severity Reaction Status Date / Time No Known Drug Allergies Allergy Verified 09/04/24 10:27 [facility] Social History Smoking Status: Never smoker How often do you have a drink containing alcohol: never AUDIT-C Alcohol total score: 0 Non-prescribed substance use: denies use Exam Narrative: Exam Narrative: On examination in room 5, patient is alert oriented, to person place and time, pupils equal round small an active, no nystagmus, extraocular muscles are normal, cranial nerves 3-12 are normal, TMs show some occlusion with soft brown cerumen, and he has toilet paper in his left external canal, this is removed, tells me this is because he felt cold. Neck is supple, no evidence of any cranial bruising swelling, oropharynx otherwise normal, lots of luna, JVP hard to see because of the luna, no meningismus, chest is good air entry bilaterally with no wheezing crackles noted no splinting, scarring along the left skin of his scapular, appears to be secondary to I think healed shingles. Heart sounds no clicks murmurs or gallops could no tenderness to palpation, no bruises over his back, he does have a little bit of low back discomfort, when he sits up, he is unable to sit up on his own, I have to help him sit up. Moves all extremities independently and well, bruises or is noted of various colors over his chest region, scaphoid abdomen with no tenderness to palpation, pelvis is normal, rocking normal, uncircumcised, wet diaper, lots of stool, black and somewhat foul-smelling, he has got excoriations on his buttocks bilaterally, right greater than left, I do not see any evidence of any his skill ulcers, or total skin breakdown. Moves all extremities independently and well, fairly emaciated and sarcopenic. Requesting water Const: Vital Signs, click to edit/add: Vital Signs - 24 hr 09/04/24 10:16 09/04/24 10:24 09/04/24 10:30 Temperature 97.7 F Pulse Rate 86 83 Pulse Rate [Pulse Oximeter] 88 Respiratory Rate 16 Blood Pressure 119/81 Blood Pressure [Ri ght Upper Arm] 134/101 H Pulse Oximetry 97 95 96 Oxygen Delivery Me thod Room Air 09/04/24 10:50 09/04/24 11:00 09/04/24 11:04 Temperature Pulse Rate 83 83 Pulse Rate [Pulse Oximeter] Respiratory Rate Blood Pressure 145/78 H 122/69 Blood Pressure [Ri ght Upper Arm] Pulse Oximetry 97 95 Oxygen Delivery Me thod 09/04/24 11:08 09/04/24 11:42 09/04/24 12:02 Temperature Pulse Rate 78 82 Pulse Rate [Pulse Oximeter] Respiratory Rate 12 Blood Pressure 121/74 129/90 H Blood Pressure [Ri ght Upper Arm] Pulse Oximetry 95 94 93 Oxygen Delivery Me thod Documenting provider has reviewed patient's vital signs: yes Common normals: no apparent distress Course Course ED Course: No acute etiology is noted for his syncope in the progressive weakness noted. He does have the positive stool occult blood, but his hemoglobin is normal, there is also the aspect of he will not be able to go back to his current living situation as he has a 3 person assist there. I have consult social services designee will see him on medical floor . Review of the monitor shows no acute dysrhythmias, he is asking for water, Lactate is slightly elevated, but in the setting of a normal pro calc, no tachycardia, I do not think this is overall sepsis picture. More likely weakness with possible some mild dehydration I consulted with my hospitalist, Dr. Mesa accepted him, to observation status. Vital Signs Vital signs: Initial Vital Signs Temperature 97.7 F 09/04/24 10:16 Temperature Source Temporal Artery Scan 09/04/24 10:16 Pulse Rate 88 09/04/24 10:16 Respiratory Rate 16 09/04/24 10:16 Blood Pressure 134/101 H 09/04/24 10:16 Blood Pressure Mean 112 H 09/04/24 10:16 Blood Pressure Position Sitting 09/04/24 10:16 Pulse Oximetry 97 09/04/24 10:16 Oxygen Delivery Method Room Air 09/04/24 10:16 Vital Signs Temperature 97.7 F 09/04/24 10:16 Pulse Rate 88 09/04/24 10:16 Respiratory Rate 16 09/04/24 10:16 Blood Pressure 134/101 H 09/04/24 10:16 Pulse Oximetry 97 09/04/24 10:16 Oxygen Delivery Method Room Air 09/04/24 10:16 Temperature 97.7 F 09/04/24 10:16 Pulse Rate 82 09/04/24 12:02 Respiratory Rate 12 09/04/24 11:42 Blood Pressure 129/90 H 09/04/24 12:02 Pulse Oximetry 93 09/04/24 12:02 Oxygen Delivery Method Room Air 09/04/24 10:16 Medications Administered Medications: Discontinued Medications Generic Name Dose Route Start Last Admin Trade Name Freq PRN Reason Stop Dose Admin Sodium Chloride 1,000 mls @ 1,000 mls/hr 09/04/24 11:00 09/04/24 11:32 0.9 % Sodium Chloride 1000 Ml IV 09/04/24 11:59 1,000 mls/hr .Q1H AURELIANO Administration MDM - Syncope MDM Narrative Medical decision making narrative: Life-threatening differential diagnosis considered include stroke, coronary artery disease, pneumonia, and heart failure. Other differential diagnosis include but are not limited to electrolyte imbalances, anemia, medication reactions, and urinary tract infection Medical Records Attestation: I reviewed the patient's medical records. Medical records narrative: One previous visit here notable in chart for fall and weakness. Lab Data Labs: Lab Results 09/04/24 09/04/24 09/04/24 Range/Units 10:51 10:55 11:00 WBC (4.50-11.00) K/uL RBC (4.30-5.90) m/uL Hgb (13.5-17.5) gm/dL Hct (37.0-53.0) % MCV (80-100) fL MCH (26-34) pg MCHC (32-36) gm/dL RDW Coeff of Kristen (11.5-15.5) % Plt Count (140-440) K/uL Neut % (Auto) (42.0-72.0) % Lymph % (Auto) (20-44) % Miller % (Auto) (0.0-11.0) % Eos % (Auto) (0.0-7.0) % Baso % (Auto) (0.0-3.0) % Neut # (Auto) (1.7-7.0) K/uL Lymph # (Auto) (0.90-2.90) K/uL Miller # (Auto) (0.00-0.90) K/UL Eos # (Auto) (0.00-0.50) K/uL Baso # (Auto) (0.00-0.30) K/uL Abs Immat Gran (auto) (0.00-0.30) K/uL Imm/Tot Granulo (auto) % INR (0.91-1.10) APTT (23-33) Seconds Sodium (135-149) mmol/L Potassium (3.6-5.1) mmol/L Chloride (96-114) mmol/L Carbon Dioxide (20-32) mmol/L Anion Gap (7-15) mEq/L BUN (7-30) mg/dL Creatinine (0.5-1.5) mg/dL Estimated Creat Clear Estimated GFR ml/min Glucose (60-115) mg/dL Lactate (0.5-1.9) mmol/L Calcium (8.4-10.6) mg/dL Procalcitonin (<0.50) ng/mL Urine Color Sun A (Yellow) Urine Appearance Clear (Clear) Urine pH 5.5 (5.0-8.5) Ur Specific [place] 1.025 (1.000-1.030) Urine Protein Trace A (Negative) Urine Glucose (UA) Negative (Negative) Urine Ketones 1+ A (Negative) Urine Blood Negative (Negative) Urine Nitrite Negative (Negative) Urine Bilirubin 1+ A (Negative) Urine Urobilinogen 0.2 (0.2-1.0) Ur Leukocyte Esterase Negative (Negative) Urine RBC 0-2 (0-2) Urine WBC 0-2 (0-5) Ur Squamous Epith Cells Few (None-Few) Urine Bacteria Few A (None) Urine Mucus Few A (None) Stool Occult Blood Positive (Negative) SARS-CoV-2 (PCR) Negative SARS-CoV-2 (Negative) Influenza Type A (PCR) Negative PCR FLU A (Negative) Influenza Type B (PCR) Negative PCR FLU B (Negative) RSV (PCR) Negative PCR RSV (Negative) POC Troponin I 0.01 (0.01-0.04) ng/ml 09/04/24 Range/Units 11:07 WBC 14.37 H (4.50-11.00) K/uL RBC 4.42 (4.30-5.90) m/uL Hgb 13.0 L (13.5-17.5) gm/dL Hct 40.8 (37.0-53.0) % MCV 92 (80-100) fL MCH 29 (26-34) pg MCHC 32 (32-36) gm/dL RDW Coeff of Kristen 13.8 (11.5-15.5) % Plt Count 309 (140-440) K/uL Neut % (Auto) 86.9 H (42.0-72.0) % Lymph % (Auto) 6.7 L (20-44) % Miller % (Auto) 6.1 (0.0-11.0) % Eos % (Auto) 0.1 (0.0-7.0) % Baso % (Auto) 0.1 (0.0-3.0) % Neut # (Auto) 12.50 H (1.7-7.0) K/uL Lymph # (Auto) 1.00 (0.90-2.90) K/uL Miller # (Auto) 0.90 (0.00-0.90) K/UL Eos # (Auto) 0.00 (0.00-0.50) K/uL Baso # (Auto) 0.00 (0.00-0.30) K/uL Abs Immat Gran (auto) 0.00 (0.00-0.30) K/uL Imm/Tot Granulo (auto) 0.1 % INR 1.07 (0.91-1.10) APTT 33 (23-33) Seconds Sodium 137 (135-149) mmol/L Potassium 4.0 (3.6-5.1) mmol/L Chloride 101 (96-114) mmol/L Carbon Dioxide 26 (20-32) mmol/L Anion Gap 10 (7-15) mEq/L BUN 39 H (7-30) mg/dL Creatinine 1.1 (0.5-1.5) mg/dL Estimated Creat Clear 57.44 Estimated GFR 67 ml/min Glucose 111 (60-115) mg/dL Lactate 2.5 H (0.5-1.9) mmol/L Calcium 8.9 (8.4-10.6) mg/dL Procalcitonin 0.38 (<0.50) ng/mL Urine Color (Yellow) Urine Appearance (Clear) Urine pH (5.0-8.5) Ur Specific [place] (1.000-1.030) Urine Protein (Negative) Urine Glucose (UA) (Negative) Urine Ketones (Negative) Urine Blood (Negative) Urine Nitrite (Negative) Urine Bilirubin (Negative) Urine Urobilinogen (0.2-1.0) Ur Leukocyte Esterase (Negative) Urine RBC (0-2) Urine WBC (0-5) Ur Squamous Epith Cells (None-Few) Urine Bacteria (None) Urine Mucus (None) Stool Occult Blood (Negative) SARS-CoV-2 (PCR) (Negative) Influenza Type A (PCR) (Negative) Influenza Type B (PCR) (Negative) RSV (PCR) (Negative) POC Troponin I (0.01-0.04) ng/ml Slight elevation of his lactate, reassuring urine, reassuring pro calc, viral studies negative, positive fecal occult blood, Imaging Data CT scan - head: Radiologist's impression: [place] [address] Diagnostic Imaging Report Patient: Cruz Rizvi MR#: [id number] : 1945 Acct:[id number] Loc: ED Service Date: 09/04/[address]: Ordering Physician: Serjio Palacios M.D. Date of Service: 09/04/24 Procedure(s): CT head/brain wo con Accession Number(s): [id number] cc: Morenita Berger CNP; Serjio Palacios M.D.~ For Patients: As a result of the Cures Act, medical imaging exams and procedure reports are released immediately into your electronic medical record. You may view this report before your referring provider. If you have questions, please contact your health care provider. INDICATION: Falls COMPARISON: 08/21/2024 CT TECHNIQUE: CT of the head without contrast. FINDINGS: Brain, ventricles, and extra-axial spaces: No acute intracranial hemorrhage. 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 Sncx-ei-seowkeob hypoattenuating changes in the white matter which are nonspecific, but commonly attributable to chronic microangiopathic change. Mild parenchymal volume loss with commensurate size of the ventricles and sulci. There are intracranial vascular calcifications. Bones: No acute osseous findings. Visualized paranasal sinuses are clear. Visualized mastoid air cells are clear. IMPRESSION: No acute intracranial hemorrhage. Chronic findings as above. Please note that all CT scans at this facility use dose modulation, iterative reconstruction, and/or weight-based dosing when appropriate to reduce radiation dose to as low as reasonably achievable. Dictated by Chava Pelayo MD @ 09/04/2024 11:35:33 AM (Electronically Signed)tient: Cruz Rizvi MR#: [id number] : 1945 Acct:[id number] Loc: ED Service Date: 09/04/[address]: Ordering Physician: Serjio Palacios M.D. Date of Service: 09/04/24 Procedure(s): XR chest 2V Accession Number(s): [id number] cc: Morenita Berger REGISTERED LAND SURVEYOR; Serjio Palacios M.D.~ For Patients: As a result of the Cures Act, medical imaging exams and procedure reports are released immediately into your electronic medical record. You may view this report before your referring provider. If you have questions, please contact your health care provider. INDICATION: Weakness COMPARISON: 08/21/2024 TECHNIQUE: Two radiographic view(s) of the chest. FINDINGS: No pleural effusion. No pneumothorax. No definite focal pulmonary consolidation. Normal heart size. Tortuous and calcified thoracic aorta. There are osseous degenerative changes. Probable old fracture of the right posterior 5th rib is again noted. An old fracture of the right posterior and posterolateral 9th rib are also unchanged since the prior study. IMPRESSION: No acute thoracic findings. Dictated by Chava Pelayo MD @ 09/04/2024 11:37:38 AM (Electronically Signed) ECG Data Attestation: I personally reviewed and interpreted this ECG as follows: ECG interpretation date: 09/04/24 Prior ECG tracings: available for review Interpretation: EKG shows normal sinus rhythm, ST wave abnormality, artifact, normal QRS, normal QT QTC, normal MO interval ventricular rate 85 Disagree with computer generated assessment of accelerated junctional rhythm Assessment: Normal sinus rhythm with diffuse ST wave abnormalities were present on previous EKG of 08/21/2024. Discharge Plan Discharge Clinical Impression: Weakness, Acute lower gastrointestinal hemorrhage, Syncope, Recurrent falls, Adult failure to thrive Patient Disposition: Admitted As Observation Condition: Stable Prescriptions: No Action ferrous sulfate 325 mg (65 mg iron) tablet,delayed release (DR/EC) 325 mg PO DAILY atorvastatin 40 mg tablet 40 mg PO DAILY acetaminophen 325 mg tablet 650 mg PO Q4H PRN Acid Gone Antacid 95-358 mg/15 mL suspension 5 - 10 ml PO DAILY PRN loperamide [Anti-Diarrheal (loperamide)] 2 mg capsule 4 mg PO DAILY PRN calcium carbonate [Calcium 500] 500 mg calcium (1,250 mg) tablet,chewable 1,000 - 2,000 mg PO QID PRN magnesium hydroxide [Dulcolax (magnesium hydroxide)] 400 mg/5 mL suspension 15 - 30 ml PO DAILY PRN ibuprofen [Advil] 200 mg tablet 200 - 400 mg PO Q4H PRN Follow Up/Referrals: Morenita Berger, REGISTERED LAND SURVEYOR [Primary Care Provider] -
[2024-09-04 11:04] LABS: Appearance Urine Clear (Clear); Bilirubin Urine 1+ (Negative); Blood Urine Negative (Negative); Color Urine Amber (Yellow); Fecal Occult Blood* Positive (Negative); Glucose Urine Negative (Negative); Ketones Urine 1+ (Negative); Leukocyte Esterase Urine Negative (Negative); Nitrite Urine Negative (Negative); Protein Urine Trace (Negative); Specific Gravity Urine 1.025 (1.000-1.030); Urobilinogen Urine 0.2 (0.2-1.0); pH Urine 5.5 (5.0-8.5)
--- NOTE | 2024-09-04 11:06 | PC.SOCIAL ---
Social work: Called nurse at [facility], Radha [phone], where pt lives and was provided with this history by nurse. Pt has lived at [facility] since 2019. He had been independent with ambulation and able toget around on his own at the facility until recently. In August, he has had six documented falls. This morning he was requiring the assistance of three staff members for toileting and then fainted while they were assisting him. [facility] is only able to provide assistance one one staff to residents and can not meet his needs if the care needs are higher than that. [facility] had been looking for long-term placement for pt to transfer to from their facility but had not located an accepting facility at this time. Per Radha, [facility] has submitted a vulnerable adult report as pt needs a higher level of care and is currently refusing that, although they also have not found him a place to move to. [facility] is thinking pt needs a guardian as he also has dementia, but has not taken any action towards this with the courts. Pt's manager contact who assists him with decisions is his ex-, Scarlet Thibodeaux. [facility] is unable to accept pt back to their facility if he is requiring any more assistance than one staff member and is requesting Transition Care stay with the goal of him returning to [facility] if he rehabs to be more independent. greenhouse worker to follow up as needed.
--- OUTSIDE RECORDS SUMMARY | 2024-09-04 11:11 | XMS_ITS | CCD ---
Author Name LuisM Canales MD her Address [address] [place] [address] Phone Organization [facility] Phone Care Team Providers Care Trimmer Press Clippings Name Role Phone Charlotte Hall WAITANGI TRIBUNAL MEMBER-CJoseline Primary Care Provider Katy vailable Celine WAITANGI [employer]NAL MEMBER-C, Joseline Chronic Care Management U navailable Summary Purpose DataExchange Insurance Providers Payer name Policy type / Coverage type Covered libertarian ID Effective Begin Date Effective End Date Medicare [place] Medicare Part B [id number] Unknown [employer] ([facility]) Medicare Part B [id number] Unknown Family History Family History data not found Social History Social History Element Codes Description Effec tive Dates Tobacco history SNOMED CT: 01241253 Current ever y day smoker 10/daily 10/09/[address]: 043214507 No Alcohol Consumption Hx, or if available [...] disorder ICD-10: F17.200 ICD-9: 305.1 04/27/2023 Active Cognitive impairment ICD-10: R41.89 ICD-9: 294.9 [...] Fill Instructions atorvastatin 40 mg tablet RxNorm: 852292 Take 1 Tablet(s) Oral QAM every morning 11/25/19 024 Inactive 2ND REQUEST FOR REFILLS 11/24 REFILLS NEEDED GORDO PLEASE THANK YOU ferrous sulfate 325 mg (65 mg iron) tablet,delayed release RxNorm: 927671 TAKE 1 TABLET BY MOUTH DAILY WITH A MEAL 11/23/19 23 024 Inactive 11/22/22 PROACTIVE REFILL REQUEST FOR NEXT CYCLE PLEASE THANK YOU cholecalciferol (vitamin D3) 1,250 mcg (50,000 unit) capsule RxNorm: 554744 Take 1 Capsule(s) Oral every other week 10/22/19 22 022 Inactive cholecalciferol (vitamin D3) 1,250 mcg (50,000 unit) capsule RxNorm: 170865 Take 1 Capsule(s) Oral every other week 10/22/19 22 023 Inactive acetaminophen 325 mg tablet RxNorm: 441314 Take 2 Tablet(s) Oral Q4H every four hours as needed PRN mild pain. NOT TO EXCEED 3,000 MG IN 24 HOURS 10/08/19 22 No Stop Date Active dextromethorphan-gu aifenesin 10 mg-100 mg/5 mL oral liquid RxNorm: 042658 as needed TAKE 5-10ML BY MOUTH EVERY 4-6HOURS NEEDED FOR COUGH OR CONGESTION 10/08/19 22 No Stop Date Active dx: cough due to Covid19 calcium carbonate 500 mg calcium (1,250 mg) chewable tablet RxNorm: 947997 Chew 2-4 Tablet(s) Oral as needed CHEW 2-4 TABLETS BY MOUTH BETWEEN MEALS AND AT BEDTIME NEEDED 10/08/19 22 No Stop Date Active ibuprofen 200 mg tablet RxNorm: 496308 Take 1-2 Tablet(s) Oral Q4-6H every 4-6 hours as needed NOT TO EXCEED 6 TABS IN 24 HOURS 10/08/19 22 No Stop Date Active aluminum-mag hydroxide-simethico ne 200 mg-200 mg-20 mg/5 mL oral susp RxNorm: 335949 Take 5-10 Milliliter(s) Oral QID as needed ONE TIME BETWEEN MEAL AND AT BEDTIME (STANDING ORDER) 10/08/19 22 No Stop Date Active Milk of Magnesia 400 mg/5 mL oral suspension RxNorm: 463442 Take 15-30 Milliliter(s) Oral QD QD - Daily as needed 10/08/19 22 No Stop Date Active diphenhydramine 25 mg capsule RxNorm: 6052911 Give 1-2 Capsule(s) Oral Q8H every 8 hours as needed FOR ALLERGIES 10/08/19 22 No Stop Date Active Vitamin D2 1,250 mcg (50,000 unit) capsule RxNorm: 1364190 1 Capsule(s) Oral QW once a week TAKE ONCE CAPSULE ONCE WEEKLY 10/08/19 22 022 Inactive ferrous sulfate 325 mg (65 mg iron) tablet RxNorm: 547540 Take 1 Tablet(s) Oral QD 10/06/19 22 024 Inactive atorvastatin 40 mg tablet RxNorm: 165154 Take 1 Tablet(s) Oral QHS every night [...] CVX: 207 08/25/2020 Procedures Procedure Codes Date [employer] NO CHARGE CPT-4: G0436 2023 BEHAV CHNG SMOKING 3-[address]: 2 86861245 CPT-4: 38039 05/26/2022 BEHAV CHNG SMOKING 3-[address]: 2 87166447 CPT-4: 78347 04/28/2022 BEHAV CHNG SMOKING 3-[address]: 2 45252027 CPT-4: 21049 03/24/2022 BEHAV CHNG SMOKING 3-[address]: 2 32929773 CPT-4: 02101 03/03/2022 BEHAV CHNG SMOKING 3-[address]: 2 43205291 CPT-4: 71190 01/20/2022 BEHAV CHNG SMOKING 3-[address]: 2 62555779 CPT-4: 71379 12/23/2021 BEHAV CHNG SMOKING 3-[address]: 2 61995824 CPT-4: 01542 11/25/2021 BEHAV CHNG SMOKING 3-[address]: 2 47477940 CPT-4: 26191 10/08/2021 Reason For Visit No Reason For Visit data Encounters Encounter Performer Location Location Address Codes Date ([address]) Home or Residence Visit Est Pt - Moderate Level, 40 mins Diagnosis: Alzheimer's dementia with other behavioral disturbance, unspecified dementia severity, unspecified timing of dementia onset[ICD10: G30.9] Diagnosis: 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 [address] [place], [place] [phone] Referral Closed 09/15/2022 Instructions Comment Date Cruz is a male being seen l hellen at [facility]. Initial [facility] visit 10/08/21. He is verbal and a fairly reliable historian, independent in ADLs. Prior to moving to this [place] he was found in his apartment with self-neglect. Hx of being . Often refuses help as nursing thinks he feels too proud to receive care. Hx of not liking to take meds or see providers. Patient is his own guardian. AWV 05.23.2024Labs: Yearly in NOVEMBER(CMP, CBC, LIPID, VITD, A1C, VITB12). [id number] in MAY (CBC)11.19.2023 CMP wnl, CBCwnl, lipid all wnl; total cholesterol 117, HDL 51.9, LDL 40, triglycerides 124, VLDL 25), vitD 46 nl, iron studies, A1c 5.6, VitB12 223 nl. (CBC ordered) 05/23/2024 Hemiparesis due to non-cereb rovascular etiology, unspecified laterality fall risk assessment, consider PT/OT Iron deficiency anemia, unspecified iron deficiency anemia type will fllow labs Alzheimer's dementia with other behavioral disturbance, unspecified dementia severity, unspecified timing of dementia onset on minimal meds, consider holding all and following labs. 09/28/2023
[2024-09-04 11:15] LABS: Bacteria Urine Few; Mucus Urine Few; RBC Urine 0-2 (0-2); Squamous Epithelial Cell Urine Few (None-Few); WBC Urine 0-2 (0-5)
--- OUTSIDE RECORDS SUMMARY | 2024-09-04 11:15 | XMS_ITS | Clinical Summary ---
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 Gender Identity Not on file Sexual Orientation Not on file Occupation Industry Job Start Date Job End Date retired Not on file Not on file Not on file Obstetrics History Last Filed Vital Signs Vital Sign Reading Time Taken Comments Blood Pressure 100/66 10/13/2021 3:07 PM DYE REEL OPERATOR HELPER Pulse 70 10/13/2021 3:07 PM DYE REEL OPERATOR HELPER Temperature 36.4 C (97.5 F) 07/24/2020 10:36 AM DYE REEL OPERATOR HELPER Respiratory Rate 18 10/09/2020 10:08 AM DYE REEL OPERATOR HELPER Oxygen Saturation 95% 10/13/2021 3:07 PM DYE REEL OPERATOR HELPER Inhaled Oxygen Concentration - - Weight 90.9 kg (200 lb 6.4 oz) 10/13/2021 3:07 P M DYE REEL OPERATOR HELPER Height 177.8 cm (5' 10) 10/13/2021 3:07 PM DYE REEL OPERATOR HELPER Body Mass Index 28.75 10/13/2021 3:07 PM DYE REEL OPERATOR HELPER Plan of Treatment Health Maintenance Due Date [...] Diagnosis Comments SCAN-RADIOLOGY REPORT 08/21/2024 12:00 AM DYE REEL OPERATOR HELPER SCAN-CT INTERPRETATION 12:00 AM DYE REEL OPERATOR HELPER from Last 3 Months Results * SCAN-RADIOLOGY REPORT (08/21/2024 12:00 AM DYE REEL OPERATOR HELPER) Anatomical Region Laterality Modality Other us Scanner OTHER Final Result * SCAN-CT INTERPRETATION (08/21/2024 12:00 AM DYE REEL OPERATOR HELPER) Anatomical Region Laterality Modality Other us Scanner OTHER Final Result from Last 3 [address] [place] [address] [place] [address] MEDICARE PB ONLY
[2024-09-04 11:21] LABS: Basophils Percent Auto 0.1 % (0.0-3.0); Eosinophils Percent Auto 0.1 % (0.0-7.0); Hematocrit 40.8 % (37.0-53.0); Immature Granulocytes Pct Auto 0.1 %; Lymphocytes Percent Auto 6.7 % (20-44); Mean Corpuscular HGB Conc 32 gm/dL (32-36); Mean Corpuscular Hemoglobin 29 pg (26-34); Mean Corpuscular Volume 92 fL (80-100); Monocytes Percent Auto 6.1 % (0.0-11.0); Neutrophils Percent Auto 86.9 % (42.0-72.0); Platelet Count* 309 K/uL (140-440); RDW Coefficient of Variation % 13.8 % (11.5-15.5); Red Blood Count 4.42 m/uL (4.30-5.90); White Blood Count* 14.37 K/uL (4.50-11.00)
[2024-09-04 11:23] LABS: Slide Review Reflex No
[2024-09-04 11:26] LABS: Lactate* 2.5 mmol/L (0.5-1.9)
[2024-09-04] MEDS: 0.9 % SODIUM CHLORIDE 1000 ml 1,000 ML IV (11:32)
[2024-09-04 11:33] LABS: Troponin, Point-of-Care* 0.01 ng/ml (0.01-0.04)
[2024-09-04 11:38] LABS: INR 1.07 (0.91-1.10); Prothrombin Time 14.6 Seconds
[2024-09-04 11:39] LABS: Partial Thromboplastin Time* 33 Seconds (23-33)
[2024-09-04 11:43] LABS: PCR FLU A Negative PCR FLU A (Negative); PCR FLU B Negative PCR FLU B (Negative); PCR RSV Negative PCR RSV (Negative); SARS PCR* Negative SARS-CoV-2 (Negative)
[2024-09-04 11:44] LABS: Chloride* 101 mmol/L (96-114); Sodium* 137 mmol/L (135-149)
[2024-09-04 11:47] LABS: Anion Gap 10 mEq/L (7-15); Blood Urea Nitrogen* 39 mg/dL (7-30); Carbon Dioxide* 26 mmol/L (20-32); Creatinine* 1.1 mg/dL (0.5-1.5); Est. Creatinine Clearance* 57.44; Estimated Glomerular Filt Rate 67 ml/min
[2024-09-04 11:48] LABS: Calcium* 8.9 mg/dL (8.4-10.6); Glucose* 111 mg/dL (60-115)
[2024-09-04 12:05] LABS: Procalcitonin* 0.38 ng/mL (<0.50)
--- NOTE | 2024-09-04 13:15 | PC.SOCIAL ---
Addendum entered by MARITZA Morales 09/04/24 16:05: REceived call back from Marina Jones at [facility], stating she had given incorrect information in earlier phone call and called to clarify that the hospital social work msw is responsible for contacting affiliated TCU units and sending information for admission. The [facility] provides the TCU with authorization after they have agreed to admit pt. flat screen worker called and secure emailed available pt information to [facility] requesting evaluation for admit for short term rehab. flat screen worker awaiting decision on admit. Original Note: Discharge planning: Received call from pt's [facility] adult day care worker, Marina Jones [phone], who states pt is eligible for placement and insurance coverage of a TCU stay through their group at contracted facilities without needing to be admitted in-pt. Marina requested to be contacted if TCU placement is needed and pt does not meet [employer] criteria for placement in TCU, as she needs to initiate the referral to TCU with their contracted providers. Marina emailed a list of contracted TCU providers which include: [facility], [facility] in [place], [facility] in [place] and [facility] in [place]. flat screen worker to follow up as needed.
[2024-09-04] MEDS: OMEPRAZOLE 20 MG CAPSULE DR PO (15:48)
--- NOTE | 2024-09-04 15:53 | P.IMHP_ITS ---
Hospitalist- H&P: HPI History of Present Illness Date Seen: 09/04/24 Chief complaint: Syncope Narrative: Cruz Rizvi is a 79 year old male with cognitive impairment admitted to the hospital with recent history of frequent falls and 2 episodes of syncope today. Patient is unable to give any history of these recent events and denies having problems with passing out or falling down. Records from our emergency department indicate that he had 2 episodes of syncope today. The 1st episode occurred when he was standing and passed out. The 2nd episode occurred while he was sitting on the toilet. Apparently witnessed by staff though I could not confirm details. He has also had recurrent problems with falling down. It is not clear that these episodes are associated with syncope. He was seen in our emergency department on August 21 where there was documented 5 falls in the 4 days prior to that admission. Staff at [facility] where he resides indicate they are concerned about his safety with these frequent falls and now syncope. Patient denies any problems. He denies symptoms of illness including cough, cold, fever, nausea, vomiting. He denies any injuries. He is reporting no pain including headache, neck pain, shoulder or arm pain, chest or back pain, abdominal pain, hip or pelvic pain, leg pain. In the emergency department he was seen to have black stools. There is no known history of GI bleeding. He does take ferrous sulfate daily. His stool was heme-positive in the emergency department. His hemoglobin was stable at 13.0 since 2 weeks ago when it was 13.4. Additional information from his ex-, Scarlet Thibodeaux. He has a history of a TBI. This occurred about 5 years ago. He did have an intracranial bleed. He has had a decline in his cognitive function since that time. According to Scarlet this is what led to him moving to [facility] for more supervision and care. Review of Systems Narrative: Patient denies any problems. His ex-, Scarlet, lives in [place] and is also not aware of any recent problems [facility] Medical History (Updated 09/04/24 @ 16:18 by Lemuel Spicer MD) Depression ?F32.A - Depression, unspecified (ICD-10) Dementia ?F03.90 - Unspecified dementia, unspecified severity, without behavioral dist urbance, psychotic disturbance, mood disturbance, and anxiety (ICD-10) Urinary incontinence ?R32 - Unspecified urinary incontinence (ICD-10) TBI (traumatic brain injury) ?S06.9XAA - Unspecified intracranial injury with loss of consciousness status unknown, initial encounter (ICD-10) Social History (Updated 09/04/24 @ 16:09 by Lemuel Spicer MD) Narrative: Currently resident of [facility]. Former smoker. Previously drank alcohol but not recently. 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 Has a brother in [place] that he is apparently not close 2. His ex-, Scarlet Thibodeaux, is listed as his primary contact. She also lives in [place]. She believes that she has been designated his healthcare power of county attorney. Code status is DNR. What is your current living situation?: I presently do not have a place to live Problems where you live: other Problems where you live details: Pt. requires increased assistance and needs SNF placement. In the past 12 months, utilities in danger of being shut off: no In past 12 months, lack of transportation kept you from medical appts, meetings, work, or getting things needed for daily living: no In the past 12 mos, have been you worried that your food would run out before you had money to buy more?: never true In the past 12 mos, the food you bought just didn't last and you didn't have money to buy more?: never true Smoking Status: Never smoker How often do you have a drink containing alcohol: never AUDIT-C Alcohol total score: 0 Non-prescribed substance use: denies use How often does anyone, including family, friends and others, physically hurt you : never How often does anyone, including family, friends and others, insult or talk down to you: never How often does anyone, including family, friends and others, threaten you with harm: never How often does anyone, including family, friends and others, scream or curse at you: never Health Related Social Needs: sheltered homelessness (Z59.01) Meds Home Medications and Allergies Home Medications ?Medication ?Instructions ?Recorded ?Confirmed ?Type acetaminophen 325 mg tablet 650 mg PO Q4H PRN 09/04/24 09/04/24 History aluminum hydrox-magnesium carb 95 5 - 10 ml PO DAILY PRN 09/04/24 09/04/24 History mg-358 mg/15 mL oral suspension (Acid Gone Antacid) atorvastatin 40 mg tablet 40 mg PO DAILY 09/04/24 09/04/24 History calcium carbonate (Calcium 500) 1,000 - 2,000 mg PO QID PRN 09/04/24 09/04/24 History ferrous sulfate 325 mg (65 mg 325 mg PO DAILY 09/04/24 09/04/24 History iron) tablet,delayed release ibuprofen 200 mg tablet (Advil) 200 - 400 mg PO Q4H PRN 09/04/24 09/04/24 History loperamide 2 mg capsule 4 mg PO DAILY PRN 09/04/24 09/04/24 History (Anti-Diarrheal (loperamide)) magnesium hydroxide 400 mg/5 mL 15 - 30 ml PO DAILY PRN 09/04/24 09/04/24 History oral suspension (Dulcolax (magnesium hydroxide)) Allergies Allergy/AdvReac Type Severity Reaction Status Date / Time No Known Drug Allergies Allergy Verified 09/04/24 10:27 Exam Narrative: Exam Narrative: He is alert and appears in no distress. His speech is fluent. He is not oriented to his circumstances, location or day/date. He does not recall any of the events outlined in recent emergency department visits. There is no flight of ideas. He is pleasant and cooperative. Head is without apparent trauma. Eyes are normal. Extraocular movements are full. Visual ellison are intact. Pupils are equal round reactive to light. No facial asymmetry. Oropharynx with dry mucous membranes. Neck is supple without mass or adenopathy or tenderness. Respirations are clear to auscultation without wheezing rales or rhonchi. Cardiovascular: S1, S2, regular rate and rhythm. No murmur gallop or rub. Abdomen: Bowel sounds active. Abdomen is soft without tenderness or mass. He has a urine saturated adult diaper on. Upper extremities without significant evidence of trauma. Strength in both upper extremities is normal. 5/5 in shoulder flexion and extension, elbow flexion and extension, wrist flexion and extension, finger extension and fieldwork coordinator strength. Abhdee-dgjf-oepobc is normal and accurate. Lower extremities notable for some erythema and bruising over his knees without significant abrasions or ulcerations. He has good motion in hips knees and ankles without significant discomfort. Strength testing is full and symmetric in both lower extremities including hip flexion, knee flexion and extension, ankle dorsiflexion and plantar flexion. Both feet have intact sensation to soft touch. Left foot is warm to touch. Right foot is somewhat cool to touch and mildly erythematous. Both feet have weak but present pedal pulses. Const: Vital Signs, click to edit/add: Vital Signs - 24 hr 09/04/24 10:16 09/04/24 10:24 09/04/24 10:30 Temperature 97.7 F Pulse Rate 86 83 Pulse Rate [Pulse Oximeter] 88 Pulse Rate [Right Radial] Respiratory Rate 16 Blood Pressure 119/81 Blood Pressure [Ri ght Arm] Blood Pressure [Ri ght Upper Arm] 134/101 H Pulse Oximetry 97 95 96 Oxygen Delivery Ga thod Room Air 09/04/24 10:50 09/04/24 11:00 09/04/24 11:04 Temperature Pulse Rate 83 83 Pulse Rate [Pulse Oximeter] Pulse Rate [Right Radial] Respiratory Rate Blood Pressure 145/78 H 122/69 Blood Pressure [Ri ght Arm] Blood Pressure [Ri ght Upper Arm] Pulse Oximetry 97 95 Oxygen Delivery Me thod 09/04/24 11:08 09/04/24 11:42 09/04/24 12:02 Temperature Pulse Rate 78 82 Pulse Rate [Pulse Oximeter] Pulse Rate [Right Radial] Respiratory Rate 12 Blood Pressure 121/74 129/90 H Blood Pressure [Ri ght Arm] Blood Pressure [Ri ght Upper Arm] Pulse Oximetry 95 94 93 Oxygen Delivery Ga thod 09/04/24 13:08 Temperature 97.7 F Pulse Rate Pulse Rate [Pulse Oximeter] Pulse Rate [Right Radial] 92 Respiratory Rate 18 Blood Pressure Blood Pressure [Ri ght Arm] 148/93 H Blood Pressure [Ri ght Upper Arm] Pulse Oximetry 94 Oxygen Delivery Ga thod Room Air Documenting provider has reviewed patient's vital signs: yes Hospitalist - H&P: Result Labs Labs: Short CBC 09/04/24 Range/Units 11:07 WBC 14.37 H (4.50-11.00) K/uL Hgb 13.0 L (13.5-17.5) gm/dL Hct 40.8 (37.0-53.0) % Plt Count 309 (140-440) K/uL BMP 09/04/24 11:07 Sodium 137 Potassium 4.0 Chloride 101 Carbon Dioxide 26 BUN 39 H Creatinine 1.1 Glucose 111 Calcium 8.9 Urine 01/21/25 Range/Units 10:55 Urine Color Sun A (Yellow) Urine Appearance Clear (Clear) Urine pH 5.5 (5.0-8.5) Ur Specific [place] 1.025 (1.000-1.030) Urine Protein Trace A (Negative) Urine Glucose (UA) Negative (Negative) Imaging CT scan - head: Radiologist's impression: INDICATION: Falls COMPARISON: 08/21/2024 CT TECHNIQUE: CT of the head without contrast. FINDINGS: Brain, ventricles, and extra-axial spaces: No acute intracranial hemorrhage. 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 [id number] hypoattenuating changes in the white matter which are nonspecific, but commonly attributable to chronic microangiopathic change. Mild parenchymal volume loss with commensurate size of the ventricles and sulci. There are intracranial vascular calcifications. Bones: No acute osseous findings. Visualized paranasal sinuses are clear. Visualized mastoid air cells are clear. IMPRESSION: No acute intracranial hemorrhage. Chronic findings as above. Chest x-ray: Radiologist's impression: INDICATION: Weakness COMPARISON: 08/21/2024 TECHNIQUE: Two radiographic view(s) of the chest. FINDINGS: No pleural effusion. No pneumothorax. No definite focal pulmonary consolidation. Normal heart size. Tortuous and calcified thoracic aorta. There are osseous degenerative changes. Probable old fracture of the right posterior 5th rib is again noted. An old fracture of the right posterior and posterolateral 9th rib are also unchanged since the prior study. IMPRESSION: No acute thoracic findings. Assessment and Plan Assessment and plan (1) Syncope: Problem comment: Telemetry, orthostatic vitals, echocardiogram pending Status: Acute (2) Recurrent falls: Problem comment: PT and OT to evaluate. Status: Acute (3) Heme positive stool: Problem comment: Monitor hemoglobin. Unclear if this is related to iron therapy or GI bleed. If hemoglobin is dropping obtain EGD. Consider outpatient evaluation for occult bleeding if stable Status: Acute (4) TBI (traumatic brain injury): Problem comment: 2019 with intracranial hemorrhage. Came from suicide attempt Status: Acute (5) Dementia: Problem comment: Patient likely has dementia though I do not find documentation of this in his chart. Further assessment with OT. Status: Acute (6) Discharge planning issues: Problem comment: Patient has been deemed by his assisted living to be not safe to return there. Continue to reassess, look for correctable problems and consider alternative placements. Status: Acute Plan Patient is admitted to the hospital for evaluation of syncope, frequent falls, possible GI bleed. Total time spent today is 65 minutes in review of outside records, discussion with other providers and his ex- about ongoing plan of care
[2024-09-04 17:28] LABS: Iron* 33 ug/dL (49-181)
[2024-09-04 17:38] LABS: Percent Iron Saturation 13 % (20-50); Total Iron Binding Capacity 251 ug/dL (261-462)
[2024-09-04 20:54] LABS: Basophils Percent Auto 0.2 % (0.0-3.0); Eosinophils Percent Auto 0.4 % (0.0-7.0); Hematocrit 36.3 % (37.0-53.0); Hemoglobin* 11.7 gm/dL (13.5-17.5); Immature Granulocytes Pct Auto 0.1 %; Lymphocytes Percent Auto 10.5 % (20-44); Mean Corpuscular HGB Conc 32 gm/dL (32-36); Mean Corpuscular Hemoglobin 30 pg (26-34); Mean Corpuscular Volume 92 fL (80-100); Monocytes Percent Auto 5.6 % (0.0-11.0); Neutrophils Percent Auto 83.2 % (42.0-72.0); Platelet Count* 297 K/uL (140-440); RDW Coefficient of Variation % 13.8 % (11.5-15.5); Red Blood Count 3.94 m/uL (4.30-5.90); White Blood Count* 11.39 K/uL (4.50-11.00)
[2024-09-04 20:55] LABS: Slide Review Reflex No
[2024-09-04] MEDS: SODIUM CHLORIDE 0.9 % (FLUSH) 10 ML SYRINGE 5 ML IVF (21:00)
[2024-09-05] VITALS (11 sets, daily range): BP systolic 77–139; BP diastolic 58–112; PULSE 68–83; RESP 16–18; TEMP 36.4–36.8; O2SAT 90–95
[2024-09-05] MEDS: LACTATED RINGERS 1000 ML 1,000 ML 125 ML IV ×3 (03:24→19:28)
[2024-09-05] MEDS: OMEPRAZOLE 20 MG CAPSULE DR PO ×2 (06:06→19:28)
[2024-09-05 06:37] LABS: Lactate* 0.8 mmol/L (0.5-1.9)
[2024-09-05 06:44] LABS: Basophils Percent Auto 0.2 % (0.0-3.0); Eosinophils Percent Auto 0.9 % (0.0-7.0); Hematocrit 32.7 % (37.0-53.0); Hemoglobin* 10.6 gm/dL (13.5-17.5); Immature Granulocytes Pct Auto 0.1 %; Mean Corpuscular HGB Conc 32 gm/dL (32-36); Mean Corpuscular Hemoglobin 30 pg (26-34); Mean Corpuscular Volume 91 fL (80-100); Monocytes Percent Auto 7.4 % (0.0-11.0); Neutrophils Percent Auto 76.4 % (42.0-72.0); Platelet Count* 270 K/uL (140-440); RDW Coefficient of Variation % 13.7 % (11.5-15.5); Red Blood Count 3.58 m/uL (4.30-5.90); White Blood Count* 11.77 K/uL (4.50-11.00)
[2024-09-05 06:49] LABS: Slide Review Reflex No
[2024-09-05 07:07] LABS: Chloride* 105 mmol/L (96-114); Potassium* 3.4 mmol/L (3.6-5.1); Sodium* 135 mmol/L (135-149)
[2024-09-05 07:10] LABS: Anion Gap 7 mEq/L (7-15); Carbon Dioxide* 23 mmol/L (20-32); Creatinine* 1.1 mg/dL (0.5-1.5); Est. Creatinine Clearance* 61.23; Estimated Glomerular Filt Rate 67 ml/min
[2024-09-05 07:11] LABS: Blood Urea Nitrogen* 45 mg/dL (7-30); Calcium* 8.2 mg/dL (8.4-10.6); Glucose* 94 mg/dL (60-115)
[2024-09-05 07:22] LABS: Troponin I* 0.04 ng/mL (0.01-0.04)
--- NOTE | 2024-09-05 07:52 | PC.NURSE ---
Shift note ([id number]): Patient pleasant, alert and oriented. Stood at bedside with gait belt, walker and heavy assist of two?for orthostatic blood pressure check. Orthostatic BP 111/53 lying, 96/61 sitting and 80/55 standing. Reported back discomfort when turning; otherwise denied pain. Continues to have very dark?stools. aware. Pt NPO at midnight.?
--- NOTE | 2024-09-05 09:06 | NUTR.NU ---
RDN with nutrition screen related to positive skin risk. Patient admitted with syncope, heme positive stool, and recurrent falls. Past medical history significant for TBI. Patient currently resides at [facility]. Current weight 188 lb 9.6oz; height 6ft 2in; BMI 24.1 kg/m2. No weight history to assess, however MST score was 1 and not significant. Current diet is NPO. No nutrition interventions at this time with current diet order. RDN will continue to monitor and follow-up prn.
[2024-09-05 10:03] LABS: Vitamin B12* 217 pg/mL (243-894)
--- NOTE | 2024-09-05 11:00 | REH.SLP ---
MEDICAL VIDEOGRAPHER: Clinical swallow evaluation ordered and attempted to complete this morning, however, patient NPO for EGD procedure. Spoke briefly with patient who has no c/o swallowing difficulty. RN also reports she did not observe or hear of any issues with swallowing. Will complete orders at this time. Recommend completing RN swallow screen on patient when he returns from EGD prior to resuming oral diet.
[2024-09-05] MEDS: PERFLUTREN LIPID MICROSPHERES 2 ML VIAL IVP (11:43)
--- NOTE | 2024-09-05 12:31 | P.ANES_ITS ---
Anesthesia Charges Start Date/Time Anesthesia Start Date: 09/05/24 Anesthesia Start Time: 12:00 Stop Date/Time Anesthesia Stop Date: 09/05/24 Anesthesia Stop Time: 12:30 Coding CPT Codes CPT Codes: ANES UPR GI NDSC PX NOS - 87140 ([id number]) P3 - PATIENT W/SEVERE SYS DISEASE, QX - GRADUATE ADVISOR SVC W/ MD MED DIRECTION, QK - RADIO TIME SALES SUPERVISOR 2-4 CNCRNT ANES PROC
--- NOTE | 2024-09-05 12:31 | W.ANESCHARGE ---
Anesthesia Charges Start Date/Time Anesthesia Start Date: 09/05/24 Anesthesia Start Time: 12:00 Stop Date/Time Anesthesia Stop Date: 09/05/24 Anesthesia Stop Time: 12:30 Coding CPT Codes CPT Codes: ANES UPR GI NDSC PX NOS - 53093 ([id number]) P3 - PATIENT W/SEVERE SYS DISEASE, QX - SUPERVISOR LATHING SVC W/ MD MED DIRECTION, QK - HEART COORDINATOR 2-4 CNCRNT ANES PROC
--- NOTE | 2024-09-05 12:49 | W.ANESCHARGE ---
Anesthesia Charges Start Date/Time Anesthesia Start Date: 09/05/24 Anesthesia Start Time: 12:00 Stop Date/Time Anesthesia Stop Date: 09/05/24 Anesthesia Stop Time: 12:30 Summary Extremes of Age - Over 70 or under 1: MDA Coding CPT Codes CPT Codes: ANES UPR GI NDSC PX NOS - 56371 ([id number]) QK - CHIEF SUBSTATION OPERATOR 2-4 CNCRNT ANES PROC, QX - RESEARCH ASSOCIATE QUALITY CONTROL QC SVC W/ MD MED DIRECTION, P3 - PATIENT W/SEVERE SYS DISEASE Additional Codes: Summary - Extremes of Age - Over 70 or under 1: MDA ([id number])
--- NOTE | 2024-09-05 13:31 | PC.SOCIAL ---
Discharge planning: Called the following facilities with the listed results: 1. [facility] - Spoke with Marlene who does not have an available bed for pt. 2. [facility] - no beds available in this facility. 3. [facility] - Secure emailed referral for evaluation for admit. 4. [facility] - Spoke with Anat in admitting, no availability in this facility. 5. [facility] [place] - Left message requesting call back regarding bed availability. [facility]. [facility] - left message and secure emailed information to Alannah in admissions. 7. [facility] [place] - left message and faxed info to at fax [phone]. 8. [facility], [place], [place] [phone] left message with Devika in admitting requesting call back regarding bed availability. These 8 facilities are the entire list of [facility] affiliated SNF facilities provided by the care support representative at [facility]. Awaiting calls back from facilities considering admit or where messages regarding bed availability were left. brick kiln worker to follow up as needed.
[2024-09-05] MEDS: 0.9 % SODIUM CHLORIDE 500 ML 500 ML IV (15:17)
--- NOTE | 2024-09-05 17:52 | P.IMPN_ITS ---
Progress Note: A&P Assessment and plan (1) Syncope: Problem details: Telemetry, orthostatic vitals, echocardiogram okay - no further syncopal or presyncopal episodes - patient does have some asymptomatic hypotension, it is possible possible this has contributed to syncope and falls. Will give an IV fluid bolus today. Encourage p.o. intake. Status: Acute (2) Recurrent falls: Problem details: PT and OT to evaluate. Status: Acute (3) Heme positive stool: Problem details: Monitor hemoglobin. Unclear if this is related to iron therapy or GI bleed. If hemoglobin is dropping obtain EGD. 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 -patient is already on oral b.i.d. omeprazole started yesterday, continue this. May benefit from outpatient colonoscopy for further evaluation Status: Acute (4) TBI (traumatic brain injury): Problem details: 2019 with intracranial hemorrhage. Came from suicide attempt Status: Chronic (5) Dementia: Problem details: Patient likely has dementia though I do not find documentation of this in his ch art. Further assessment with OT. Status: Suspected (6) Discharge planning issues: Problem details: Patient has been deemed by his assisted living to be not safe to return there. Continue to reassess, look for correctable problems and consider alternative placements. Status: Acute Time Spent With Patient Total time spent: Today I spent 35 minutes seeing the patient, [facility] no timothy/diagnostics/labs, discussing the care plan with our care team that includes social work, PT/OT, pharmacy, RT, prison and documenting my impressions and plan in the medical record. Subjective Time Seen by Provider: 13:30 Date Seen: 09/05/24 Interval history: Cruz denies pain. We discussed results of EGD and that biopsy is pending. He denies lightheadedness or dizziness. He did not want me to call Scarlet to update her. Exam Narrative: Exam Narrative: General: No acute distress. Awake, alert, oriented x3. No pallor. No jaundice. Oropharynx: Clear. Mucous membranes moist. Cardiovascular: Regular rate and rhythm. No murmurs, gallops, or rubs. Respiratory: Clear to auscultation bilaterally. No wheezes or crackles. Abdomen: Bowel sounds present. Soft, nondistended, nontender. Const: Vital Signs, click to edit/add: Vital Signs - 24 hr 09/04/24 19:00 09/04/24 23:00 09/04/24 23:00 Temperature 97.8 F 97.8 F Pulse Rate 82 Pulse Rate [Pulse Oximeter] Pulse Rate [Right Radial] 99 89 Pulse Rate [orthos tatic lying Right Brachial] Pulse Rate [orthos tatic sitting] Pulse Rate [orthos tatic standing] Respiratory Rate 20 20 Blood Pressure [Ri ght Arm] 126/73 111/53 L Blood Pressure [or thostatic lying Ri ght Arm] Blood Pressure [or thostatic sitting] Blood Pressure [or thostatic standing ] Pulse Oximetry 94 94 Oxygen Delivery Me thod Room Air Room Air 09/04/24 23:10 09/05/24 03:00 09/05/24 07:00 Temperature 98.0 F Pulse Rate 76 Pulse Rate [Pulse Oximeter] 100 Pulse Rate [Right Radial] 83 Pulse Rate [orthos tatic lying Right Brachial] Pulse Rate [orthos tatic sitting] 100 Pulse Rate [orthos tatic standing] 110 H Respiratory Rate 18 Blood Pressure [Ri ght Arm] 89/60 L Blood Pressure [or thostatic lying Ri ght Arm] 111/53 L Blood Pressure [or thostatic sitting] 96/61 Blood Pressure [or thostatic standing ] 80/55 L Pulse Oximetry 93 Oxygen Delivery Me thod Room Air 09/05/24 07:57 09/05/24 15:00 09/05/24 17:30 Temperature 98.3 F Pulse Rate 68 Pulse Rate [Pulse Oximeter] Pulse Rate [Right Radial] 82 Pulse Rate [orthos tatic lying Right Brachial] 77 Pulse Rate [orthos tatic sitting] 74 Pulse Rate [orthos tatic standing] Respiratory Rate 16 Blood Pressure [Ri ght Arm] 128/112 H Blood Pressure [or thostatic lying Ri ght Arm] 128/93 H Blood Pressure [or thostatic sitting] 139/90 H Blood Pressure [or thostatic standing ] Pulse Oximetry 93 Oxygen Delivery Me thod Room Air Documenting provider has reviewed patient's vital signs: yes Labs Labs: Laboratory Results - last 24 hr 0109/04/24 09/05/24 11:07 20:38 06:05 WBC 11.39 H 11.77 H RBC 3.94 L 3.58 L Hgb 11.7 L 10.6 L Hct 36.3 L 32.7 L MCV 92 91 MCH 30 30 MCHC 32 32 RDW Coeff of Kristen 13.8 13.7 Plt Count 297 270 Neut % (Auto) 83.2 H 76.4 H Lymph % (Auto) 10.5 L 15.0 L [place] % (Auto) 5.6 7.4 Eos % (Auto) 0.4 0.9 Baso % (Auto) 0.2 0.2 Neut # (Auto) 9.50 H 9.00 H Lymph # (Auto) 1.20 1.80 [place] # (Auto) 0.60 0.90 Eos # (Auto) 0.00 0.10 Baso # (Auto) 0.00 0.00 Abs Immat Gran (auto) 0.00 0.00 Imm/Tot Granulo (auto) 0.1 0.1 Sodium 135 Potassium 3.4 L Chloride 105 Carbon Dioxide 23 Anion Gap 7 BUN 45 H Creatinine 1.1 Estimated Creat Clear 61.23 Estimated GFR 67 Glucose 94 Lactate 0.8 Calcium 8.2 L Iron 33 L TIBC 251 L % Saturation 13 L Troponin I 0.04 Vitamin B12 217 L TSH 1.740 09/05/2024 echocardiogram: Technically limited exam. Normal LV size, normal wall thickness, normal global systolic function with an estimated EF of 60-65%. Right ventricular cavity size is not well visualized, global systolic RV function is normal. Aortic valve is not well visualized, not evaluated for stenosis and regurgitation. Mitral valve is not well visualized, no mitral regurgitation. Inferior vena cava is normal size, respiratory size variation is greater than 50%.
--- NOTE | 2024-09-05 19:35 | PC.NURSE ---
shift note: Dr. Mesa notified of BP 77/59 HR=72. Pt pale and sleepy. Orders for 500ml FB. BP rechecked after FB 130's/70's. tele NSR. Pt denies pain. Mariano Brandon RN updated via phone this a.m.
[2024-09-06 03:00] VITALS: BP 136/86; PULSE 84; RESP 18; TEMP 36.8; O2SAT 94
[2024-09-06 06:51] LABS: Basophils Absolute Auto 0.02 K/uL (0.00-0.30); Basophils Percent Auto 0.2 % (0.0-3.0); Eosinophils Absolute Auto 0.12 K/uL (0.00-0.50); Eosinophils Percent Auto 1.1 % (0.0-7.0); Hematocrit 31.4 % (37.0-53.0); Hemoglobin* 10.2 gm/dL (13.5-17.5); Immature Granulocytes Abs Auto 0.02 K/uL (0.00-0.30); Immature Granulocytes Pct Auto 0.2 %; Lymphocytes Percent Auto 14.6 % (20-44); Mean Corpuscular HGB Conc 33 gm/dL (32-36); Mean Corpuscular Hemoglobin 30 pg (26-34); Mean Corpuscular Volume 92 fL (80-100); Monocytes Percent Auto 5.9 % (0.0-11.0); Platelet Count* 218 K/uL (140-440); RDW Coefficient of Variation % 13.7 % (11.5-15.5); Red Blood Count 3.41 m/uL (4.30-5.90); White Blood Count* 10.65 K/uL (4.50-11.00)
--- NOTE | 2024-09-06 06:55 | PC.NURSE ---
The patient is alert to himself and time only. VSS on RA, no reports of pain this shift. Incontinent of bowel and bladder this shift. The patient turns well and was repositioned in bed as tolerated. Urinal used PRN FOR urgency AND FREQUENCY. Call light within reach. Cintia MORGAN BSN
[2024-09-06 07:09] LABS: Slide Review Reflex No
[2024-09-06 09:08] VITALS: BP 112/77; PULSE 71; RESP 18; TEMP 37; O2SAT 95
[2024-09-06] MEDS: OMEPRAZOLE 20 MG CAPSULE DR PO (09:13)
[2024-09-06] MEDS: ATORVASTATIN CALCIUM 40 MG TABLET PO (09:13)
[2024-09-06 11:00] VITALS: BP 119/68; PULSE 71; RESP 16; TEMP 37; O2SAT 96
--- NOTE | 2024-09-06 11:05 | PC.SOCIAL ---
Addendum entered by RK Reddy 09/06/24 12:39: Discharge planning: Discharge orders were secure emailed to Archana at [facility] at 12:23pm via secure email. Non-emergent EMS is scheduled for pick-up at 2pm today to transport pt to [place]. Pt should have coverage for transportation through his MA. Social work to follow-up as needed. Original Note: Received call from Archana, , [facility], stating they can accept pt today for admit to rehab. Archana states they have contacted the [facility] and have authorization to accept pt with this financial coverage. Facility is requesting pt arrive between 3:00-3:30 if possible. Pt will need non-emergency transportation arranged for this transport. NHUNG completed and submitted [id number]. Called pt's emergency contact, Scarlet, to update her on the discharge plan. Her phone mailbox is full and not accepting messages. Called [facility] and spoke with nurse Radha who is aware and pleased with discharge plan to rehab. 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
--- NOTE | 2024-09-06 11:56 | P.DS_ITS ---
DS: Providers Provider Date Seen: 09/06/24 Date of admission: 09/05/24 09:03 Primary care physician: Morenita Berger CNP Admitting Clinician: Bettie Mesa MD Consults: 09/04/24 10:52 Consult to Plunger Scoop Operator [CONS] Urgent Comment: Reason for Consult:: Social Service Consult 09/04/24 15:19 Consult to Occupational Therapy [CONS] Routine Comment: Reason(s) for OT Consult:: Evaluate and Treat Any Restrictions?:: No Restrictions Consult to Physical Therapy [CONS] Routine Comment: Reason(s) for PT Consult:: Evaluate and Treat Any Restrictions?:: No Restrictions Consult to Plunger Scoop Operator [CONS] Routine Comment: Reason for Consult:: Discharge Planning Needs Attending Physician on discharge: MAE Iyer, [facility]C [facility] Date of Discharge: 09/06/24 DS: Diagnosis Discharge Diagnosis (1) Syncope: Status: Resolved Problem details: Telemetry, orthostatic vitals, echocardiogram okay - no further syncopal or presyncopal episodes - patient does have some asymptomatic hypotension, it is possible possible this has contributed to syncope and falls. Will give an IV fluid bolus today. Encourage p.o. intake. Resolved without further episodes prior to discharge. Remained vitally stable. EKG on admission appears to be NSR with artifact. Telemetry ordered. Echocardiogram completed, showing normal LV size, normal wall thickness, normal global systolic function, EF 60-65%, global systolic RV function is normal, no mitral regurg. CT head without acute intracranial findings. PT OT assessed. Outpatient follow-up with PCP. (2) Recurrent falls: Status: Acute Problem details: PT and OT to evaluate. Recommending ongoing acute rehab. assurance services manager health care assisted in placing at [facility]. (3) Heme positive stool: Status: Acute Problem details: Monitor hemoglobin. Unclear if this is related to iron therapy or GI bleed. If hemoglobin is dropping obtain EGD. 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 -patient is already on oral b.i.d. omeprazole started yesterday, continue this. May benefit from outpatient colonoscopy for further evaluation On discharge, hemoglobin stable, >10, continue omeprazole, awaiting biopsy results from UGI. Recommend outpatient follow-up with PCP and colonoscopy. (4) TBI (traumatic brain injury): Status: Chronic Problem details: 2019 with intracranial hemorrhage. Came from suicide attempt (5) Dementia: Status: Suspected Problem details: Patient likely has dementia though I do not find documentation of this in his chart. Further assessment with OT, MOCA 15/30. Recommending ongoing therapies following discharge. Further outpatient neurocognitive assessment as necessary. (6) Discharge planning issues: Status: Acute Problem details: Patient has been deemed by his assisted living to be not safe to return there. Continue to reassess, look for correctable problems and consider alternative placements. assurance services manager health care assisted with placement at [facility]. DS: Summary Hospital Course Hospital Course: Course of care and details as noted above. Remainder of chronic medical comorbidities were monitored and managed with home medications. Status at Discharge Functional status at discharge: uses cane/walker Overall status at discharge: patient is not back to baseline Time Spent with Patient Time attestation: Total time spent providing and/or coordinating discharge services: Time spent: Greater than 30 minutes Exam Narrative: Exam Narrative: PHYSICAL EXAM General: Pleasant, conversant, NAD Cardiovascular: RRR Pulmonary: No dyspnea Neurological: Alert, mild confusion Skin: Warm, dry. Const: Vital Signs, click to edit/add: Vital Signs - 24 hr 09/05/24 13:17 09/05/24 13:19 09/05/24 13:30 Temperature Pulse Rate Pulse Rate [Right Radial] Pulse Rate [orthos tatic lying Right Brachial] Pulse Rate [orthos tatic sitting] Respiratory Rate Blood Pressure [Ri ght Arm] 116/73 101/63 102/58 L Blood Pressure [or thostatic lying Ri ght Arm] Blood Pressure [or thostatic sitting] Pulse Oximetry Oxygen Delivery Me thod 09/05/24 14:00 09/05/24 15:00 09/05/24 17:30 Temperature 97.5 F L Pulse Rate 68 Pulse Rate [Right Radial] 72 Pulse Rate [orthos tatic lying Right Brachial] 77 Pulse Rate [orthos tatic sitting] 74 Respiratory Rate 18 Blood Pressure [Ri ght Arm] 77/59 L Blood Pressure [or thostatic lying Ri ght Arm] 128/93 H Blood Pressure [or thostatic sitting] 139/90 H Pulse Oximetry 90 Oxygen Delivery Me thod Room Air 09/05/24 19:00 09/05/24 23:00 09/06/24 03:00 Temperature 97.9 F 98.3 F 98.2 F Pulse Rate Pulse Rate [Right Radial] 78 82 84 Pulse Rate [orthos tatic lying Right Brachial] Pulse Rate [orthos tatic sitting] Respiratory Rate 18 18 18 Blood Pressure [Ri ght Arm] 132/74 114/80 136/86 Blood Pressure [or thostatic lying Ri ght Arm] Blood Pressure [or thostatic sitting] Pulse Oximetry 95 92 94 Oxygen Delivery Me thod Room Air Room Air Room Air 09/06/24 09:08 09/06/24 09:08 Temperature 98.6 F Pulse Rate Pulse Rate [Right Radial] 71 71 Pulse Rate [orthos tatic lying Right Brachial] Pulse Rate [orthos tatic sitting] Respiratory Rate 18 18 Blood Pressure [Ri ght Arm] 112/77 Blood Pressure [or thostatic lying Ri ght Arm] Blood Pressure [or thostatic sitting] Pulse Oximetry 95 Oxygen Delivery Me thod Room Air DS: Data Data Completed and Pending Labs on day of discharge: Labs from last 24 hours 09/06/24 06:10 WBC 10.65 RBC 3.41 L Hgb 10.2 L Hct 31.4 L MCV 92 MCH 30 MCHC 33 RDW Coeff of Kristen 13.7 Plt Count 218 Neut % (Auto) 78.0 H Lymph % (Auto) 14.6 L [place] % (Auto) 5.9 Eos % (Auto) 1.1 Baso % (Auto) 0.2 Neut # (Auto) 8.30 H Lymph # (Auto) 1.60 [place] # (Auto) 0.60 Eos # (Auto) 0.12 Baso # (Auto) 0.02 Abs Immat Gran (auto) 0.02 Imm/Tot Granulo (auto) 0.2 Imaging Echo: Attestation: I have reviewed the pertinent imaging results. Radiologist's impression: Final Impressions: 1. Technically limited exam. 2. Normal LV size, normal wall thickness, normal global systolic function with an estimated EF of 60 - 65%. 3. Right ventricular cavity size is not well visualized, global systolic RV function is normal. 4. The aortic valve is not well visualized, not evaluated for stenosis and regurgitation not well visualized regurgitation. 5. The mitral valve is not well visualized, no mitral regurgitation. 6. The inferior vena cava is normal sized, respiratory size variation greater than 50%. CT scan - head: Attestation: I have reviewed the pertinent imaging results. Radiologist's impression: Brain, ventricles, and extra-axial spaces: No acute intracranial hemorrhage. 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 [id number] hypoattenuating changes in the white matter which are nonspecific, but commonly attributable to chronic microangiopathic change. Mild parenchymal volume loss with commensurate size of the ventricles and sulci. There are intracranial vascular calcifications. Bones: No acute osseous findings. Visualized paranasal sinuses are clear. Visualized mastoid air cells are clear. IMPRESSION: No acute intracranial hemorrhage. Chronic findings as above. Chest x-ray: Attestation: I have reviewed the pertinent imaging results. Radiologist's impression: No pleural effusion. No pneumothorax. No definite focal pulmonary consolidation. Normal heart size. Tortuous and calcified thoracic aorta. There are osseous degenerative changes. Probable old fracture of the right posterior 5th rib is again noted. An old fracture of the right posterior and posterolateral 9th rib are also unchanged since the prior study. IMPRESSION: No acute thoracic findings. Discharge Plan Discharge Disposition: [facility] Date of Admission: 09/05/24 09:03 Attending Provider on Discharge: Kirsten Bustillo Primary Care Provider: Morenita Berger Condition: Stable Anticipated Discharge Date/Time: 09/06/24 11:15 Discharge Medications: New omeprazole 20 mg Capsule,Delayed Release(Dr/Ec) 20 mg PO QAM Qty: 30 0RF Continued ferrous sulfate 325 mg (65 mg iron) tablet,delayed release (DR/EC) 325 mg PO DAILY atorvastatin 40 mg tablet 40 mg PO DAILY acetaminophen 325 mg tablet 650 mg PO Q4H PRN Acid Gone Antacid 95-358 mg/15 mL suspension 5 - 10 ml PO DAILY PRN loperamide [Anti-Diarrheal (loperamide)] 2 mg capsule 4 mg PO DAILY PRN calcium carbonate [Calcium 500] 500 mg calcium (1,250 mg) tablet,chewable 1,000 - 2,000 mg PO QID PRN magnesium hydroxide [Dulcolax (magnesium hydroxide)] 400 mg/5 mL suspension 15 - 30 ml PO DAILY PRN Discontinued ibuprofen [Advil] 200 mg tablet 200 - 400 mg PO Q4H PRN Discharge Orders: Discharge Order (Routine); Ordered 09/06/24 Ordered By: Kirsten Bustillo Activity Level: Activity as Tolerated Activity Detail: per PT/OT Discharge Diet: Regular Follow Up Appointments: Morenita Berger CNP [Primary Care Provider] - Forms: [facility] Info Instructions Admit to: SNF Discharge Potential: Good Length of Stay: <30 days Can use facility standing orders?: Yes Code Status: DNR/DNI Rehab Potential: Fair Therapy: Physical Therapy and Occupational Therapy Therapy Orders: Evaluate and Treat Oxygen: No Urinary Catheter: No Orders are good >30 days: No Signature: MAE Iyer, PA-C [facility]
--- NOTE | 2024-09-06 14:23 | PC.NURSE ---
Nursing Care Hours: [id number] Pt this shift calm and cooperative with cares. Refused showering, oral cares, lotion to dry skin. Ate 100% of lunch. Voiding using urinal. BM incontinent, small amounts of loose dark stool. Denies pain, but will say ouch when transfering. Some bruising to bilat hand. IV patent and removed for discharge. Nurse to nurse report given to Janice caballero [place] over the phone. DC'd with EMS.
== END 2024-09-06 14:00 | DRG 379 ==
LOC: ED 12:27 → MEDSURG 12:53
PROVIDERS: Family Medicine; Admitting Provider Family Medicine; Emergency Provider Family Medicine; PCP Family Medicine; Visit Provider Family Medicine
DX: K92.1 Melena (principal); R55 Syncope and collapse; K22.70 Barrett's esophagus without dysplasia; K25.9 Gastric ulcer, unspecified as acute or chronic, without hemorrhage or perforation; K44.9 Diaphragmatic hernia without obstruction or gangrene; K57.10 Diverticulosis of small intestine without perforation or abscess without bleeding; F03.90 Unspecified dementia, unspecified severity, without behavioral disturbance, psychotic disturbance, mood disturbance, and anxiety; E86.0 Dehydration; Z91.81 History of falling; F32.A Depression, unspecified; Z87.820 Personal history of traumatic brain injury
CPT/HCPCS: 00731; 36415; 43239; 51798; 70450; 71046; 80048; 81001; 82270; 82607; 83540; 83550; 83605; 84145; 84443; 84484; 85018; 85025; 85610; 85730; 87086; 87631; 88305; 93005; 93306; 94761; 97110; 97112; 97162; 97165; 97530; 97535; 99100; 99284; 99285; G0378; A9270; J2371; J2704; J3490; J7030; J7120; Q9957

== ENCOUNTER 2024-09-06 13:54 | Outpatient (CLI) | payer MEDICARE, OTHER, SELFPAY | END 2024-09-06 13:55 | disposition home or self-care (01) | LOC: AMB 10-02 11:55 | PROVIDERS: PCP Family Medicine; Visit Provider Family Medicine | DX: F03.90 Unspecified dementia, unspecified severity, without behavioral disturbance, psychotic disturbance, mood disturbance, and anxiety (principal); R53.1 Weakness; K92.2 Gastrointestinal hemorrhage, unspecified; S06.9XAA Unspecified intracranial injury with loss of consciousness status unknown, initial encounter | CPT/HCPCS: A0425; A0428 ==